=== PATIENT | female | born 1945 | race Caucasian/White ===

== ENCOUNTER 2019-04-17 19:11 | Emergency (ER) | payer MEDICARE, SELFPAY ==
[2019-04-17 19:12] VITALS: BP 140/101; BP 147/101; PULSE 84; PULSE 88; RESP 16; RESP 18; TEMP 37.2; O2SAT 93; O2SAT 97; BMI 25.4
--- NOTE | 2019-04-17 19:41 | ED_ITS ---
HPI - Fall General: Chief Complaint: Fall Stated Complaint: Fall Time Seen by Provider: 04/17/19 19:28 History of Present Illness: HPI Narrative: Patient is a 74-year-old female comes in taking the ED after a fall. Patient lives at home with her daughter and granddaughter. She has a past medical history of GERD than Parkinson's. Her fall occurred 2 nights ago. Patient states she was getting up in the middle the night was dark and she fell into the rocking chair. Her right upper arm hit the rocking chair she denies any head trauma or loss of consciousness. She was awake and alert the whole time. She was then able to get up after resting for a little while. She states ever since the fall she has had some soreness in the right arm and bruising. Patient is also complaining of her acid reflux. She states that she takes Protonix for reflux but would like to get a GI cocktail here in the ED. Patient is also on tramadol for chronic pain management. She is currently out of her tramadol and she cannot get into her doctor till April 26. She feels like since she's been out of her tramadol she is now having increasing pain in multiple areas of her body. Associated symptoms-after fall: Denies abdominal pain, chest pain, headache(s), hematuria or neck pain Review of Systems Const: Denies: fever, chills or fatigue Eyes: Denies: change in vision or eye discomfort ENMT: Denies: throat pain, painful swallowing, nasal discharge or nasal congestion Card: Denies: chest pain, palpitations, edema, swelling of feet/ankles, shortness of breath on exertion or shortness of breath when lying down Resp: Denies: shortness of breath, productive cough or non-productive cough GI: Denies: abdominal pain, nausea, vomiting, diarrhea, constipation or blood in stool : Denies: flank pain, painful urination or blood in urine Musc: Reports: back pain (chronic) and extremity pain (Right upper arm); Denies: neck pain or extremity swelling Skin/Breast: Reports: rash (Underneath her left Breast); Denies: new lesion Neuro: Denies: headache, numbness in extremities or weakness in extremities [facility] ED PFSH: Social History Smoking and tobacco status: never smoked Physical Exam Narrative: EXAM NARRATIVE: Patient is a 74-year-old female with visible tremors in extremities and mouth. She is alert and oriented and answers my questions accordingly. Const: COMMON NORMALS: oriented x3 HENMT: COMMON NORMALS: normocephalic HEAD & SCALP: normocephalic MOUTH: oral and palatal mucosa normal THROAT: posterior oropharynx normal and uvula midline Neck/C-Spine: COMMON NORMALS: supple GENERAL: Yes normal visual inspection Resp: COMMON NORMALS: normal respiratory effort, no retractions, no use of accessory muscles and clear to auscultation bilaterally AUSCULTATION: clear to auscultation bilaterally Cardio: COMMON NORMALS: regular rate, regular rhythm, S1 normal heart sound, S2 normal heart sound, no gallops, no clicks, no murmurs and peripheral pulses 2+ throughout RATE: regular rate RHYTHM: regular rhythm HEART SOUNDS: S1 normal and S2 normal PERIPHERAL PULSES: pulses 2+ throughout GI: COMMON NORMALS: normal to inspection, nondistended, normoactive bowel sounds, soft to palpation, non-tender and no masses PALPATION: Yes soft : COMMON NORMALS: Yes no CVA tenderness BLADDER/KIDNEY EXAM: Yes no CVA tenderness Back/Pelvis: COMMON NORMALS: no CVA tenderness Extremity: RIGHT UPPER EXTREMITY: Yes upper arm (Patient was able to move shoulder and elbow normal ROM-mild pain) Right upper arm: Yes inspection (large ecchymosis. No deformity), Yes palpation (mild tenderness) and Yes neurovascular exam (intact) RIGHT LOWER EXTREMITY: Yes ankle joint Right ankle: Yes inspection (normal, no swelling or ecchymosis), Yes palpation (non tender), Yes ROM (normal) and Yes neurovascular exam (intact) Neuro: JAMEL COMA SCALE: document GCS findings Freedom coma scale eye opening: Spontaneous Freedom coma scale verbal response: Orientated Jamel coma scale motor response: Obey commands Freedom coma scale total score: 15 COMMON NORMALS: oriented x3, CN's II-XII intact bilaterally, moves all extremities, no focal motor deficits and no sensory deficits noted COORDINATION/BALANCE: other (pateint has a resting tremor) COORDINATION: other (pateint has a resting tremor) Skin: NARRATIVE SKIN EXAM: The erythemic rash under left breast looked mostly due to irritation and not properly drying area. Patient stated she dries the area as well as she can. RASHES: rashes noted (Erythemic rash under left breast. Irritated. No drainage and not raised.) Course Vital Signs: Vital signs: Vital Signs Temperature 99 F 04/17/19 19:12 Pulse Rate 88 04/17/19 19:12 Respiratory Rate 18 04/17/19 19:12 Blood Pressure 140/101 04/17/19 19:12 Pulse Oximetry 97 04/17/19 19:12 MDM - Fall MDM Narrative: Medical decision making narrative: Patient is a 74-year-old female who comes in with chronic pain and is been out of her tramadol for several days now. Patient states that her chronic pain is getting worse. She tried to get into her primary care doctor sooner but the earliest she can get in his April 26. Patient states she would like a tramadol prescription. Imaging Data^: Xray Ortho: Attestation: I personally reviewed and interpreted this imaging study as follows: My impression: X-ray of right humerus showed no acute fracture. Pending final radiology report. Discharge Plan Discharge Patient Disposition: Home, Self-Care Clinical Impression: Ecchymosis Contusion Qualifiers: Encounter type: initial encounter Contusion area: upper arm Laterality: right Qualified Code(s): S40.021A - Contusion of right upper arm, initial encounter Condition: Stable Discharge Orders: Discharge Order (Routine); Ordered 04/17/19 Ordered By: Shaheed Marsh Discharge Diet: Regular Discharge Activity: Increase activity as tolerated Patient Instructions: Contusion in Adults (ED) Activity Restrictions/Additional Instructions: Follow-up with PCP in 7-10 days for reevaluation. I'm sending you a prescription for tramadol for your pain. Apply ice on his part of arm to help the swelling laterally. Continue taking all home medications. Discharge Date/Time: 04/17/19 21:24 Coding Level of Care Code ED Genetic Physician for Armando Fwdanna Exam Comprehensive
--- NOTE | 2019-04-17 19:58 | XR_ITS ---
WS: [id number] [place] [id number] REASON FOR EXAM: fall with pain and ecchymosis FINDINGS: The humerus appears to be intact with no fractures noted. The shoulder and elbow were paola l. XR/[place] [id number] IMPRESSION: Negative right humerus.
[2019-04-17] MEDS: lidocaine 2% viscous 15 ML, aluminum-mag hydrox-simethicon 30 ML, sucralfate oral liq 1 GM PO (20:14)
[2019-04-17] MEDS: TRAMadol 50 mg Tablet PO (20:15)
[2019-04-17] MEDS: ondansetron 4 MG Tablet PO (21:16)
[2019-04-17] MEDS: HYDROcodone-acetaminophen 5-325 mg Tablet 1 TAB PO (21:16)
== END 2019-04-17 21:24 | disposition home or self-care (01) ==
PROVIDERS: Emergency Provider Physician Assistant
DX: S40.021A Contusion of right upper arm, initial encounter (principal); G20 Parkinson's disease; R40.2412 Glasgow coma scale score 13-15, at arrival to emergency department; W18.30XA Fall on same level, unspecified, initial encounter; Y92.009 Unspecified place in unspecified non-institutional (private) residence as the place of occurrence of the external cause; Z79.891 Long term (current) use of opiate analgesic
CPT/HCPCS: 73060; 99281; 99283; Q0162

== ENCOUNTER 2019-05-17 11:53 | Emergency (ER) | payer MEDICARE, SELFPAY ==
[2019-05-17 11:54] VITALS: BP 161/100; PULSE 98; RESP 18; TEMP 36.7; O2SAT 99; BMI 25.4
--- NOTE | 2019-05-17 11:54 | ED_ITS ---
Entered by Jolly Schrader, acting as scribe for Lance Brown DO HPI - Chest Pain General: Chief Complaint: Chest Pain Stated Complaint: Chest Pain Time Seen by Provider: 05/17/19 11:55 Source: patient and EMS Mode of arrival: EMS Limitations: no limitations History of Present Illness: HPI narrative: 74 yo female knot and chest pains on the Left chest. pt states this started 5 days ago. pt states she feels like there is a lump in her throat. pt has had a cough. pt has had shortness of breath. pt denies any other symptoms at this time. MD complaint: chest pain Onset (ago): day(s) (5 days ago) Timing of current episode: constant and still present Prior episodes: Yes Onset: during rest Pain location: left chest (knot feeling under L breast) Pain radiation: left arm Severity: moderate Quality: tightness Relieving factors: nothing Exacerbating factors: other (cough) Associated symptoms: Reports dyspnea, nausea and other (cough) Treatment prior to arrival: none Review of Systems General: Reports: 10 or more systems reviewed and unremarkable except in HPI and below Card: Reports: chest pain Resp: Reports: shortness of breath and productive cough GI: Reports: nausea PFSH ED PFSH: Medical History (Updated 05/17/19 @ 14:51 by Lance Brown DO) History of Parkinson's disease Surgical History (Updated 05/17/19 @ 12:03 by Jolly Schrader) History of carpal tunnel surgery History of foot surgery Social History Smoking and tobacco status: never smoked Physical Exam Const: COMMON NORMALS: no apparent distress, average body habitus, oriented x3, no limitations, healthy appearing, alert and well nourished HENMT: COMMON NORMALS: normocephalic, head/scalp atraumatic, hearing grossly normal bilaterally, external ears normal, EAC's normal, TM's normal bilaterally, external nose normal, nasal mucous membranes and turbinates normal, moist oral mucous membranes, oropharynx normal, dentition normal and gingiva normal HEAD & SCALP: normocephalic and atraumatic NOSE: external nose normal and nasal mucous membranes and turbinates normal EXTERNAL EAR: Yes external ears normal EXTERNAL AUDITORY CANAL: EAC's normal TYMPANIC MEMBRANE: TM's normal bilaterally Eye: COMMON NORMALS: PERRL, EOMs intact bilaterally, conjunctivae normal, no scleral icterus, no papilledema, normal visual kwan by confrontation and fundi normal bilaterally CONJUNCTIVA: Yes conjunctivae normal PUPIL: Yes PERRL DIRECT OPHTHALMOSCOPY: Yes no papilledema and Yes fundi normal bilaterally Neck/C-Spine: COMMON NORMALS: full ROM, no lymphadenopathy, supple, no meningeal signs, no JVD, thyroid normal and no carotid bruits THYROID: thyroid normal Cardio: COMMON NORMALS: no JVD, regular rate, regular rhythm, S1 normal heart sound, S2 normal heart sound, no gallops, no clicks, no murmurs, no rub and peripheral pulses 2+ throughout RATE: regular rate RHYTHM: regular rhythm HEART SOUNDS: S1 normal and S2 normal PERIPHERAL PULSES: pulses 2+ throughout GI: COMMON NORMALS: normal to inspection, nondistended, normoactive bowel sounds, soft to palpation, non-tender, no hepatosplenomegaly, no masses and no bruits PALPATION: Yes soft and Yes no hepatosplenomegaly : COMMON NORMALS: Yes no CVA tenderness and Yes external appearance normal BLADDER/KIDNEY EXAM: Yes no CVA tenderness Back/Pelvis: COMMON NORMALS: no CVA tenderness, thoracic and lumbar spine normal to inspection, no thoracic nor lumbar tenderness, thoraco-lumbar ROM normal and straight leg raise negative bilaterally Extremity: COMMON NORMALS: normal to inspection, full ROM, normal capillary refill, no joint enlargement, no clubbing, cyanosis or edema, no calf tenderness and no pedal edema Neuro: COMMON NORMALS: oriented x3 SENSORIUM/ORIENTATION: Yes alert MENINGEAL SIGNS: Yes no meningeal signs Skin: COMMON NORMALS: no rashes or lesions noted, no wounds, skin turgor normal, no jaundice, no petechiae and no mottling GENERAL SKIN EXAM: no rashes or lesions noted and turgor normal Course Vital Signs: Vital signs: Vital Signs Temperature 98.1 F 05/17/19 11:54 Pulse Rate 98 05/17/19 11:54 Respiratory Rate 18 05/17/19 11:54 Blood Pressure 161/100 05/17/19 11:54 Pulse Oximetry 99 05/17/19 11:54 MDM - Chest Pain Lab Data: Labs: Lab Results 05/17/19 05/17/1920 Range/Units 12:14 12:14 12:14 WBC 8.0 (4.0-10.0) 10^3/ uL RBC 4.53 (4.1-5.3) 10^6/u L Hgb 13.0 (11.5-15.3) g/dL Hct 41.2 (37.0-47.0) % MCV 90.9 (81-99) fL MCH 28.7 (28.0-34.0) pg MCHC 31.6 (30.0-36.0) g/dL RDW 13.9 (12.1-15.1) % Plt Count 304 (130-400) 10^3/c mm MPV 10.8 H (7.4-10.4) fL Neut % (Auto) 77.9 % Lymph % (Auto) 15.2 % [place] % (Auto) 6.3 % Eos % (Auto) 0.1 % Baso % (Auto) 0.4 % Neut # (Auto) 6.2 (1.8-7.7) 10^3/u L Lymph # (Auto) 1.2 (0.8-4.8) 10^3/u L [place] # (Auto) 0.5 (0.2-0.9) 10^3/u L Eos # (Auto) 0.0 (0.0-0.8) 10^3/u L Baso # (Auto) 0.0 (0.0-0.1) 10^3/u L Nucleated RBC % (a uto) 0 % Nucleated RBCs # 0.0 /100WBC Sodium 136 (136-145) mmol/L Potassium 4.1 (3.5-5.1) mmol/L Chloride 98 (98-107) mmol/L Carbon Dioxide 23 (22-29) mmol/L Anion Gap 19.1 H (5-19) BUN 12 (8-23) mg/dL Creatinine 1.0 H (0.5-0.9) mg/dL Glucose 108 (65-115) mg/dL Calculated Osmolal ity 279 L (285-295) mOsm/k g Calcium 10.2 (8.5-10.5) mg/dL Total Bilirubin 0.5 (0.15-1.2) mg/dL AST 14 (0-32) U/L ALT 8 (0-33) U/L Alkaline Phosphata se 94 (35-105) IU/L Troponin T Baselin e 6 (0-10) ng/mL Troponin T 120 Min [place] (0-10) ng/mL Delta Troponin T (0-10) ABS# NT-Pro-B Natriuret Pep 216 (0-450) pg/mL Total Protein 7.6 (6.6-8.7) g/dL Albumin 4.6 (3.5-5.2) g/dL Globulin 3.0 (1.3-4.6) g/dL Urine Color (Yellow) Urine Appearance (CLEAR) Urine pH (5-7) Ur Specific Gravit y (1.005-1.030) Urine Protein (Negative) Urine Glucose (UA) (Normal) Urine Ketones (Negative) Urine Blood (Negative) Urine Nitrate (Negative) Urine Bilirubin (NEGATIVE) Urine Urobilinogen (Negative) mg/dL Ur Leukocyte Melisa ase (Negative) Influenza Type A A g (Negative) POC Influenza B Ag (Negative) 05/17/19 05/17/19 05/17/19 Range/Units 13:24 13:49 14:16 WBC (4.0-10.0) 10^3/ uL RBC (4.1-5.3) 10^6/u L Hgb (11.5-15.3) g/dL Hct (37.0-47.0) % MCV (81-99) fL MCH (28.0-34.0) pg MCHC (30.0-36.0) g/dL RDW (12.1-15.1) % Plt Count (130-400) 10^3/c mm MPV (7.4-10.4) fL Neut % (Auto) % Lymph % (Auto) % [place] % (Auto) % Eos % (Auto) % Baso % (Auto) % Neut # (Auto) (1.8-7.7) 10^3/u L Lymph # (Auto) (0.8-4.8) 10^3/u L [place] # (Auto) (0.2-0.9) 10^3/u L Eos # (Auto) (0.0-0.8) 10^3/u L Baso # (Auto) (0.0-0.1) 10^3/u L Nucleated RBC % (a uto) % Nucleated RBCs # /100WBC Sodium (136-145) mmol/L Potassium (3.5-5.1) mmol/L Chloride (98-107) mmol/L Carbon Dioxide (22-29) mmol/L Anion Gap (5-19) BUN (8-23) mg/dL Creatinine (0.5-0.9) mg/dL Glucose (65-115) mg/dL Calculated Osmolal ity (285-295) mOsm/k g Calcium (8.5-10.5) mg/dL Total Bilirubin (0.15-1.2) mg/dL AST (0-32) U/L ALT (0-33) U/L Alkaline Phosphata se (35-105) IU/L Troponin T Baselin e (0-10) ng/mL Troponin T 120 Min [place] 6.00 (0-10) ng/mL Delta Troponin T 0 (0-10) ABS# NT-Pro-B Natriuret Pep (0-450) pg/mL Total Protein (6.6-8.7) g/dL Albumin (3.5-5.2) g/dL Globulin (1.3-4.6) g/dL Urine Color Straw (Yellow) Urine Appearance Clear (CLEAR) Urine pH 5 (5-7) Ur Specific Gravit y 1.010 (1.005-1.030) Urine Protein Neg (Negative) Urine Glucose (UA) Norm (Normal) Urine Ketones Negative (Negative) Urine Blood Neg (Negative) Urine Nitrate Negative (Negative) Urine Bilirubin Neg (NEGATIVE) Urine Urobilinogen Norm (Negative) mg/dL Ur Leukocyte Melisa ase Negative (Negative) Influenza Type A A g Negative (Negative) POC Influenza B Ag Negative (Negative) Discharge Plan Discharge Patient Disposition: Home, Self-Care Clinical Impression: Chest pain Qualifiers: Chest pain type: unspecified Qualified Code(s): R07.9 - Chest pain, unspecified Condition: Stable Prescriptions: No Action famotidine [Pepcid] 40 mg Tablet 40 mg PO BID RF: 0 tramadol [Ultram] 50 mg Tablet See Rx Instructions .ROUTE .COMPLEX RF: 0 pantoprazole [Protonix] 40 mg Tablet,Delayed Release (Dr/Ec) 40 mg PO DAILY RF: 0 promethazine 25 mg Tablet 25 mg PO Q8H PRN (Reason: Nausea) RF: 0 carbidopa-levodopa 25-100 mg tablet 1.5 tab PO TID RF: 0 pregabalin [Lyrica] 225 mg Capsule 225 mg PO BID RF: 0 Multiple Vitamins Tablet 1 tab PO DAILY RF: 0 Aspir-81 81 mg Tablet,Delayed Release (Dr/Ec) 81 mg PO DAILY RF: 0 Motion Sickness 50 mg Tablet 50 - 100 mg PO PRN RF: 0 Benadryl 25 mg Capsule 50 mg PO PRN RF: 0 Nyquil See Rx Instructions .ROUTE .COMPLEX RF: 0 Pepto-Bismol See Rx Instructions .ROUTE .COMPLEX RF: 0 Discharge Orders: Discharge Order (Routine); Ordered 05/17/19 Ordered By: Lance Brown Referrals: Carmelita Balderrama, MEREDITH [Primary Care Provider] - Coding Level of Care Code ED Locket Maker for Chg Fwd Exam Comprehensive The documentation recorded by the Raciel zaragoza Bridget Annette, accurately reflects the service I personally performed and the decisions made by Stephanie huber Donald P, May 17, 2019 11:53
--- NOTE | 2019-05-17 12:05 | ECG_ITS ---
Measurements Intervals Cash Rate: 97 P: 55 MT: 155 QRS: -45 QRSD: 84 T: 22 QT: 352 QTc: 447 SINUS RHYTHM WITH OCCASIONAL ECTOPIC PREMATURE COMPLEXES PATTERN CONSISTENT WITH PULMONARY DISEASE LEFT ANTERIOR FASCICULAR BLOCK [QRS AXIS <= -45, QR IN I, RS IN II] VOLTAGE CRITERIA FOR LVH [MEETS CRITERIA IN ONE OF: R(aVL), S(V1), R(V5), R(V (V5/V6)+S(V1)] Compared to ECG 01/13/2019 10:35:44 Left anterior fascicular block now present Left-axis deviation no longer present Electronically Signed On 05-18-2019 12:41:52 CDT by Arnold Cline [email or web address]
--- NOTE | 2019-05-17 12:05 | XR_ITS ---
WS: [id number] XR chest 1V portable [id number] REASON FOR EXAM: chest pain FINDINGS: Scoliotic curve convex to the right. The heart and mediastinum were normal. The lung kwan are well aerated. No pneumonia, pleural effusion, pulmonary edema, no mass effect. No osseous abnormalities. Arteriosclerotic changes in the arch of the aorta. XR/XR chest 1V portable [id number] IMPRESSION: Negative chest for acute pathology. Arteriosclerotic changes.
[2019-05-17 12:22] LABS: Basophils % 0.4 %; Eosinophils % 0.1 %; Hematocrit 41.2 % (37.0-47.0); Lymphocytes # 1.2 10^3/uL (0.8-4.8); Lymphocytes % 15.2 %; Mean Corpuscular HGB Conc 31.6 g/dL (30.0-36.0); Mean Corpuscular Hemoglobin 28.7 pg (28.0-34.0); Mean Corpuscular Volume 90.9 fL (81-99); Mean Platelet Volume 10.8 fL (7.4-10.4); Monocytes # 0.5 10^3/uL (0.2-0.9); Monocytes % 6.3 %; Neutrophils # 6.2 10^3/uL (1.8-7.7); Neutrophils % 77.9 %; Nucleated Red Blood Cells % 0 %; Platelet Count 304 10^3/cmm (130-400); Red Blood Count 4.53 10^6/uL (4.1-5.3); Red Cell Distribution Width 13.9 % (12.1-15.1)
[2019-05-17 12:40] LABS: Troponin(5th) Baseline 6 ng/mL (0-10)
[2019-05-17 12:47] LABS: Alanine Aminotransferase 8 U/L (0-33); Albumin Level 4.6 g/dL (3.5-5.2); Alkaline Phosphatase 94 IU/L (35-105); Anion Gap 19.1 (5-19); Aspartate Amino Transferase 14 U/L (0-32); Blood Urea Nitrogen 12 mg/dL (8-23); Calcium 10.2 mg/dL (8.5-10.5); Carbon Dioxide 23 mmol/L (22-29); Chloride 98 mmol/L (98-107); Glucose 108 mg/dL (65-115); NT Pro B Type Natriuretic Pept 216 pg/mL (0-450); Osmolality Calculated 279 mOsm/kg (285-295); Potassium 4.1 mmol/L (3.5-5.1); Sodium 136 mmol/L (136-145); Total Bilirubin 0.5 mg/dL (0.15-1.2); Total Protein 7.6 g/dL (6.6-8.7)
[2019-05-17] MEDS: TRAMadol 50 mg Tablet PO ×2 (12:59→14:55)
[2019-05-17 13:59] LABS: Add Urine Microscopic? NO
[2019-05-17 14:01] LABS: Influenza A by IFA Negative (Negative); Influenza B by IFA Negative (Negative)
[2019-05-17 14:06] LABS: Urine Appearance Clear (CLEAR); Urine Color Straw (Yellow); pH Urine 5 (5-7)
[2019-05-17 14:07] LABS: Bilirubin Urine Neg (NEGATIVE); Blood Urine Neg (Negative); Glucose Urine UA Norm (Normal); Ketones Urine Negative (Negative); Leukocyte Esterase Urine Negative (Negative); Nitrate Urine Negative (Negative); Protein Urine Neg (Negative); Urobilinogen Urine Norm (Negative)
[2019-05-17 14:47] LABS: Troponin 5 2HR Delta 0 ABS# (0-10)
[2019-05-17 15:51] VITALS: BP 159/89; PULSE 101; RESP 16; O2SAT 65
--- NOTE | 2019-05-17 18:05 | ECG_ITS ---
Measurements Intervals [place] Rate: 108 P: 64 AK: 150 QRS: -44 QRSD: 81 T: 41 QT: 329 QTc: 442 SINUS TACHYCARDIA LEFT AXIS DEVIATION [QRS AXIS < -30] VOLTAGE CRITERIA FOR LVH [MEETS CRITERIA IN ONE OF: R(aVL), S(V1), R(V5), R (V5/V6)+S(V1)] Compared to ECG 01/13/2019 10:35:44 Sinus rhythm no longer present Electronically Signed On 05-18-2019 12:46:57 CDT by Arnold Cline [email or web address]
== END 2019-05-17 16:18 | disposition home or self-care (01) ==
PROVIDERS: Emergency Provider Family Medicine; PCP Nurse Practitioner Family
DX: R07.9 Chest pain, unspecified (principal); G20 Parkinson's disease
CPT/HCPCS: 12345; 36415; 71045; 80053; 81003; 83880; 84484; 85025; 87804; 93005; 93010; 99283; 99284

== ENCOUNTER 2019-09-04 10:48 | Emergency (ER) | payer MEDICARE, SELFPAY ==
[2019-09-04 10:49] VITALS: BP 135/77; PULSE 75; RESP 18; TEMP 37.1; O2SAT 96; BMI 27.4
--- NOTE | 2019-09-04 10:50 | CT_ITS ---
WS: [id number] CT CERVICAL SPINE HISTORY: fall TECHNIQUE: Contiguous 2.5 mm axial imaging performed through the entire cervical spine. Sagittal and coronal reformats also performed. All CT scans at [facility] use at least one of these do se optimization techniques: automated exposure control; mA and/or kV adjustment per patient size (inc ludes targeted exams where dose is matched to clinical indication); or iterative reconstruction. DLP: 545.73 mGy.cm COMPARISON: None available. Normal cervical alignment. Craniocervical junction is normal. No acute fractures are identified. Face t joints are narrowed but intact. Lateral masses of C1 and C2 are aligned. Odontoid is intact. Mild b ilateral facet joint arthritis. Mild to moderate foraminal stenosis within the cervical spine. No acu te disc herniations are identified. Soft tissues are negative. Lung apices are clear. CT/CT cervical spin wo con* [id number] IMPRESSION: 1. No acute cervical spine fracture. 2. Multilevel mild to moderate facet joint arthritis and foraminal stenosis. N o severe stenosis.
--- NOTE | 2019-09-04 10:50 | CT_ITS ---
WS: [id number] CT HEAD NONCONTRAST HISTORY: fall TECHNIQUE: Contiguous axial imaging performed through the brain in 2.5 mm imaging. Bone and soft tiss ue windows. Sagittal and coronal reformats reviewed. All CT scans at [facility] use at ast one of these dose optimization techniques: automated exposure control; mA and/or kV adjustment pe r patient size (includes targeted exams where dose is matched to clinical indication); or iterative r econstruction. DLP: 838.16 mGy.cm COMPARISON: 06/21/2018 No acute intracranial hemorrhage, midline shift or mass effect. Mild atrophy and mild chronic microvascular ischemic disease. Ventricles: Normal size with no hydrocephalus. Paranasal sinuses: As visualized are clear. Mastoid air cells: Well pneumatized. Calvarium and scalp: No skull fracture. Soft tissue edema and acute injury centered over the RIGHT te mporal region and zygomatic arch. CT/CT head wo con* [id number] IMPRESSION: 1. No acute intracranial hemorrhage or edema. 2. Mild soft tissue injury centered over the RIGHT temporal bone and zygomatic arch. 3. No fractures are identified.
--- NOTE | 2019-09-04 10:51 | W.ED.FALL ---
HPI - Fall General: Chief Complaint: Fall Stated Complaint: FALL Time Seen by Provider: 09/04/19 10:50 Source: patient and EMS Mode of arrival: EMS Limitations: no limitations History of Present Illness: HPI Narrative: 74-year-old female who states she fell off the last step of a camper last night. States landed on her right wrist and has right wrist pain along with bruising. States pain is a 5 out of 10. States she also struck her head. She denies any loss of consciousness does have slight headache and neck pain. Patient is on aspirin daily. She denies any pain elsewhere. complaint: fall Onset (ago): day(s) Fall from: standing Fall witnessed: yes, by family Loss of consciousness: None Associated symptoms-after fall: Denies abdominal pain, chest pain or headache(s) Review of Systems Const: Denies: fever(s), chills, body aches or change in appetite Eyes: Denies: blurry vision or eye discomfort ENMT: Denies: throat pain or dental pain Card: Denies: chest pain Resp: Denies: dyspnea GI: Denies: abdominal pain, nausea, vomiting or diarrhea : Denies: dysuria Musc: Reports: joint pain Skin/Breast: Denies: rash Neuro: Denies: headache(s) Psych: Denies: depression Rashad/Lymph: Denies: easy bruising All/Imm: Denies: urticaria PFSH ED PFSH: Medical History (Updated 09/04/19 @ 13:09 by Felecia Loyd MD) History of Parkinson's disease Surgical History History of carpal tunnel surgery History of foot surgery Social History Smoking and tobacco status: never smoked Physical Exam Const: COMMON NORMALS: no acute distress, patient oriented x3 and healthy appearing HENMT: COMMON NORMALS: normocephalic and atraumatic HEAD & SCALP: normocephalic and atraumatic Eye: COMMON NORMALS: Equal, round and reactive pupils present and EOMs intact bilaterally PUPIL: Yes Equal, round and reactive pupils present Neck/C-Spine: COMMON NORMALS: full ROM and supple Chest: COMMONS NORMALS: normal inspection of the chest and normal palpation of entire chest wall Resp: COMMON NORMALS: normal respiratory effort, No retractions, No use of accessory muscles and clear to auscultation bilaterally AUSCULTATION: clear to auscultation bilaterally Cardio: COMMON NORMALS: regular rate, regular rhythm and No murmurs present (Cardio) RATE: regular rate RHYTHM: regular rhythm GI: COMMON NORMALS: Normal to inspection, nondistended, normoactive bowel sounds present, Soft to palpation, non-tender and no masses PALPATION: Yes Soft to palpation Extremity: COMMON NORMALS: normal to inspection NARRATIVE EXTREMITY EXAM: Contusion to right wrist with tenderness Neuro: COMMON NORMALS: patient oriented x3, moves all extremities and no focal motor deficits Psych: COMMON NORMALS: mental status grossly normal, Normal thought process present and cooperative THOUGHT PROCESS: Normal thought process present Skin: COMMON NORMALS: no rashes or lesions noted and no wounds GENERAL SKIN EXAM: no rashes or lesions noted Course Vital Signs: Vital signs: Vital Signs Temperature 98.8 F 09/04/19 10:49 Pulse Rate 84 09/04/19 11:27 Respiratory Rate 18 09/04/19 11:49 Blood Pressure 125/71 09/04/19 11:49 Pulse Oximetry 95 09/04/19 11:49 MDM - Fall MDM Narrative: Medical decision making narrative: Heidy presents here with fall and does have a wrist fracture to the right wrist. Patient placed in a splint and is to follow-up with orthopedics. Patient CT head and neck are normal. She is to return if worsening. Imaging Data^: xr r wrist: Radiologist's impression: [address] [place] [address] XRay Report Signed Patient: Heidy Linton Unit #: [id number] : 1945 Age/Sex: 74 / F ADM Date: 09/04/19 Loc: ER Room/Bed: Attending Dr: Ordering Provider/Ordering MD: Felecia Loyd MD Date of Service: 09/04/19 Procedure(s): XR wrist RT min 3V* [id number] Accession Number(s): [id number] Report Number: [id number] PROCEDURE INFORMATION: Exam: XR Right Wrist Exam date and time: 09/04/2019 11:13 AM Age: 74 years old Clinical indication: Pain and injury or trauma; Fall; Initial encounter; Blunt trauma (contusions or hematomas; Wrist; Right TECHNIQUE: Imaging protocol: XR Right wrist. Views: 3 or more views. COMPARISON: No relevant prior studies available. FINDINGS: Bones/joints: Acute, impacted, intra-articular fracture of the distal right radius with dorsal angulation of the major distal fracture fragment. Acute ulnar styloid avulsion fracture. Degenerative change. Soft tissues: Soft tissue swelling. XR/XR wrist RT min 3V* [id number] IMPRESSION: 1. Acute, impacted, intra-articular fracture of the distal right radius with dorsal angulation of the major distal fracture fragment. 2. Acute ulnar styloid avulsion fracture. CT Head: Radiologist's impression: Reason: fall [address] [place] [address] CT Scan Report Signed Patient: Heidy Linton Unit #: [id number] : 1945 Age/Sex: 74 / F ADM Date: 09/04/19 Loc: ER Room/Bed: Attending Dr: Ordering Provider/Ordering MD: Felecia Loyd MD Date of Service: 09/04/19 Procedure(s): CT head wo con* [id number] Accession Number(s): [id number] Report Number: [id number] WS: [id number] CT HEAD NONCONTRAST HISTORY: fall TECHNIQUE: Contiguous axial imaging performed through the brain in 2.5 mm imaging. Bone and soft tissue windows. Sagittal and coronal reformats reviewed. All CT scans at [facility] use at least one of these dose optimization techniques: automated exposure control; mA and/or kV adjustment per patient size (includes targeted exams where dose is matched to clinical indication); or iterative reconstruction. DLP: 838.16 mGy.cm COMPARISON: 06/21/2018 No acute intracranial hemorrhage, midline shift or mass effect. Mild atrophy and mild chronic microvascular ischemic disease. Ventricles: Normal size with no hydrocephalus. Paranasal sinuses: As visualized are clear. Mastoid air cells: Well pneumatized. Calvarium and scalp: No skull fracture. Soft tissue edema and acute injury centered over the RIGHT temporal region and zygomatic arch. CT/CT head wo con* [id number] IMPRESSION: 1. No acute intracranial hemorrhage or edema. 2. Mild soft tissue injury centered over the RIGHT temporal bone and zygomatic arch. 3. No fractures are identified. ct c spine: Radiologist's impression: [facility] [address] [address] CT Scan Report Signed Patient: Heidy Linton Unit #: [id number] : 1945 Age/Sex: 74 / F ADM Date: 09/04/19 Loc: ER Room/Bed: Attending Dr: Ordering Provider/Ordering MD: Felecia Loyd MD Date of Service: 09/04/19 Procedure(s): CT cervical spin wo con* [id number] Accession Number(s): [id number] Report Number: [id number] WS: [id number] CT CERVICAL SPINE HISTORY: fall TECHNIQUE: Contiguous 2.5 mm axial imaging performed through the entire cervical spine. Sagittal and coronal reformats also performed. All CT scans at [facility] use at least one of these dose optimization techniques: automated exposure control; mA and/or kV adjustment per patient size (includes targeted exams where dose is matched to clinical indication); or iterative reconstruction. DLP: 545.73 mGy.cm COMPARISON: None available. Normal cervical alignment. Craniocervical junction is normal. No acute fractures are identified. Facet joints are narrowed but intact. Lateral masses of C1 and C2 are aligned. Odontoid is intact. Mild bilateral facet joint arthritis. Mild to moderate foraminal stenosis within the cervical spine. No acute disc herniations are identified. Soft tissues are negative. Lung apices are clear. CT/CT cervical spin wo con* [id number] IMPRESSION: 1. No acute cervical spine fracture. 2. Multilevel mild to moderate facet joint arthritis and foraminal stenosis. No severe stenosis. Discharge Plan Discharge Patient Disposition: Home, Self-Care Clinical Impression: Fracture of wrist Qualifiers: Encounter type: initial encounter Fracture type: closed Laterality: right Qualified Code(s): S62.101A - Fracture of unspecified carpal bone, right wrist, initial encounter for closed fracture Condition: Stable Prescriptions: [place] 5-325 mg tablet 1 tab PO Q6H PRN (Reason: pain) Qty: 14 RF: 0 No Action pantoprazole [Protonix] 40 mg tablet,delayed release (DR/EC) 40 mg PO DAILY Qty: 30 RF: 0 famotidine [Pepcid] 40 mg Tablet 40 mg PO BID RF: 0 carbidopa-levodopa 25-100 mg tablet 1.5 tab PO TID RF: 0 pregabalin [Lyrica] 225 mg Capsule 225 mg PO BID RF: 0 multivitamin [Multiple Vitamins] Tablet 1 tab PO DAILY RF: 0 aspirin [Aspir-81] 81 mg Tablet,Delayed Release (Dr/Ec) 81 mg PO DAILY RF: 0 dimenhydrinate [Motion Sickness] 50 mg Tablet 50 - 100 mg PO PRN RF: 0 diphenhydramine HCl [Benadryl] 25 mg Capsule 50 mg PO PRN RF: 0 tramadol 50 mg tablet 50 mg PO Q6H PRN (Reason: pain) Qty: 30 RF: 0 Discharge Orders: Discharge Order (Routine); Ordered 09/04/19 Ordered By: Felecia Loyd Referrals: Carmelita Balderrama NP [Primary Care Provider] - 1-3 days Discharge Diet: Advance as tolerated Discharge Activity: Resume usual activity Patient Instructions: Wrist Fracture in Adults (ED) Coding Level of Care Code ED Overnight Houseperson for Armando Fwd Exam Comprehensive
--- NOTE | 2019-09-04 10:51 | W.ED.FALL ---
HPI - Fall General: Chief Complaint: Fall Stated Complaint: FALL Time Seen by Provider: 09/04/19 10:50 PFSH ED PFSH: Medical History (Updated 05/25/19 @ 00:00 by ) History of Parkinson's disease Surgical History (Updated 05/17/19 @ 12:03 by Jolly Schrader) History of carpal tunnel surgery History of foot surgery Social History Smoking and tobacco status: never smoked Discharge Plan Discharge Condition: Stable Prescriptions: No Action pantoprazole [Protonix] 40 mg tablet,delayed release (DR/EC) 40 mg PO DAILY Qty: 30 RF: 0 famotidine [Pepcid] 40 mg Tablet 40 mg PO BID RF: 0 tramadol [Ultram] 50 mg Tablet See Rx Instructions .ROUTE .COMPLEX RF: 0 promethazine 25 mg Tablet 25 mg PO Q8H PRN (Reason: Nausea) RF: 0 carbidopa-levodopa 25-100 mg tablet 1.5 tab PO TID RF: 0 pregabalin [Lyrica] 225 mg Capsule 225 mg PO BID RF: 0 Multiple Vitamins Tablet 1 tab PO DAILY RF: 0 Aspir-81 81 mg Tablet,Delayed Release (Dr/Ec) 81 mg PO DAILY RF: 0 Motion Sickness 50 mg Tablet 50 - 100 mg PO PRN RF: 0 Benadryl 25 mg Capsule 50 mg PO PRN RF: 0 Nyquil See Rx Instructions .ROUTE .COMPLEX RF: 0 Pepto-Bismol See Rx Instructions .ROUTE .COMPLEX RF: 0 tramadol 50 mg tablet 50 mg PO Q6H PRN (Reason: pain) Qty: 30 RF: 0 Coding Level of Care Code ED Mobile Ui Designer for Armando Gtz
[2019-09-04 11:27] VITALS: BP 135/71; PULSE 84; RESP 17; O2SAT 97
[2019-09-04] MEDS: HYDROcodone-acetaminophen 5-325 mg Tablet 1 TAB PO ×2 (11:38→13:48)
[2019-09-04 11:49] VITALS: BP 125/71; RESP 18; O2SAT 95
--- NOTE | 2019-09-04 13:37 | DCPLANNER ---
Addendum entered by Christiana Ferris 09/04/19 14:06: Pat from ortho called telephonic nurse case manager, stating that a follow up appointment is scheduled for Tuesday, September 05 at 8:[address] Chávez. Patient is aware of appointment. Original Note: marketing intelligence manager had message to schedule a follow up appointment for patient with ortho. marketing intelligence manager called the ortho clinic, spoke with Pat, gave clinic patients information. marketing intelligence manager was told that patients information would be printed and reviewed. Clinic will call patient with appointment information.
--- NOTE | 2019-09-04 13:51 | CT_ITS ---
WS: [id number] CT RIGHT WRIST with 3-D recon. HISTORY: fx/ 3d reconstruction Technique: All CT scans at [facility] use at least one of these dose optimization techniq ues: automated exposure control; mA and/or kV adjustment per patient size (includes targeted exams wh ere dose is matched to clinical indication); or iterative reconstruction. DLP: 271.79 mGy.cm COMPARISON: 09/04/2019 Comminuted, slightly impacted fracture involving the radial metaphysis. There is slight overlapping o f fracture fragments posteriorly. Ulna nondisplaced distal ulnar avulsion fracture. No additional fra ctures are appreciated. CT/CT wrist RT wo con* [id number] IMPRESSION: 1. Impacted radial metaphyseal fracture with dorsal angulation. 2. Nondisplaced ulnar avulsion fracture.
[2019-09-04] MEDS: ondansetron 4 MG Tablet PO (14:18)
[2019-09-04 14:19] VITALS: BP 119/54; PULSE 70; RESP 17; O2SAT 95
[2019-09-04 15:02] VITALS: BP 96/53; PULSE 82; RESP 18; O2SAT 92
[2019-09-04 16:03] VITALS: BP 124/70; PULSE 81; RESP 18; O2SAT 94
--- NOTE | 2019-09-08 14:43 | DCPLANNER ---
Patient did attend appointment scheduled for 09.06.19 with ortho.
== END 2019-09-04 16:07 | disposition home or self-care (01) ==
PROVIDERS: Emergency Provider Emergency Medicine; PCP Nurse Practitioner Family
DX: S52.571A Other intraarticular fracture of lower end of right radius, initial encounter for closed fracture (principal); S52.611A Displaced fracture of right ulna styloid process, initial encounter for closed fracture; W10.8XXA Fall (on) (from) other stairs and steps, initial encounter; G20 Parkinson's disease
CPT/HCPCS: 12345; 29125; 70450; 72125; 73110; 73200; 99281; 99283; Q0162

== ENCOUNTER 2019-09-05 13:21 | Emergency (ER) | payer MEDICARE, SELFPAY ==
[2019-09-05 13:27] VITALS: BMI 27.4
[2019-09-05 13:30] VITALS: BP 155/105; PULSE 85; RESP 16; TEMP 36.7; O2SAT 92
--- NOTE | 2019-09-05 13:56 | W.ED.EXTPRO ---
HPI - Extremity Problem General: Chief complaint: Extremity Injury, Upper Stated complaint: FALL, OUT OF TRAMADOL Time Seen by Provider: 09/05/19 13:23 History of Present Illness: HPI Narrative: 74-year-old female who was seen yesterday for wrist fracture. She ran out of her tramadol she had some hydrocodone for the hydrocodone make her sick so she stopped taking it. She has an appointment tomorrow with Ortho for surgical reduction of the fracture. She is very histrionic and anxious in the emergency room she wants to be admitted to the hospital simply because she does not feel like she can stay at home. She has a appropriate splint on the right wrist fracture she has no other issues she is not fallen or had any other problems. MD Complaint: extremity pain Onset (ago): day(s) Pain Consistency: intermittent Location: right Quality: aching Radiation: distal Relieving factors: medication Exacerbating factors: range of motion Associated symptoms: Reports arthralgias; Deny chest pain, fever(s) or rash Context: other (Recent fall right wrist fracture) Review of Systems Const: Denies: fever(s), chills, body aches, change in appetite, fatigue or malaise ENMT: Denies: throat pain, ear or mastoid pain, nasal discharge or nasal congestion Card: Denies: chest pain, edema, dyspnea on exertion or orthopnea Resp: Denies: dyspnea, productive cough or non-productive cough GI: Denies: abdominal pain, nausea, vomiting, hematemesis, coffee ground emesis, diarrhea, constipation, bloating, hematochezia or melena : Denies: flank pain, difficulty voiding, dysuria, urinary frequency or urinary urgency Skin/Breast: Denies: rash or pruritus PFSH ED PFSH: Medical History History of Parkinson's disease Surgical History History of carpal tunnel surgery History of foot surgery Social History Smoking and tobacco status: never smoked Physical Exam Const: COMMON NORMALS: no acute distress GENERAL APPEARANCE: cooperative and comfortable ORIENTATION/CONSCIOUSNESS: Yes awake, Yes oriented to person, Yes oriented to place and Yes oriented to time Eye: COMMON NORMALS: Equal, round and reactive pupils present, EOMs intact bilaterally, conjunctivae normal and no scleral icterus CONJUNCTIVA: Yes conjunctivae normal PUPIL: Yes Equal, round and reactive pupils present Neck/C-Spine: COMMON NORMALS: full ROM, no lymphadenopathy, supple and no JVD Lymph: LYMPHATIC: no lymphadenopathy noted and no lymphedema noted Resp: COMMON NORMALS: normal respiratory effort, No retractions, No use of accessory muscles and clear to auscultation bilaterally AUSCULTATION: clear to auscultation bilaterally Cardio: COMMON NORMALS: no JVD, regular rate, regular rhythm and No murmurs present (Cardio) RATE: regular rate RHYTHM: regular rhythm GI: COMMON NORMALS: Soft to palpation and No hepatosplenomegaly present AUSCULTATION: Yes normoactive bowel sounds PALPATION: Yes Soft to palpation, No Tenderness to palpation present (GI), No Guarding due to palpation present (GI) and Yes No hepatosplenomegaly present Extremity: COMMON NORMALS: normal to inspection, capillary refill normal, no clubbing, cyanosis or edema, no calf tenderness and no pedal edema NARRATIVE EXTREMITY EXAM: Splint in place on the right arm with good capillary refill good range of motion of the fingertips where they are exposed. Neuro: SENSORIUM/ORIENTATION: Yes oriented to person, Yes oriented to place and Yes oriented to time Skin: COMMON NORMALS: no rashes or lesions noted GENERAL SKIN EXAM: no rashes or lesions noted Course Vital Signs: Vital signs: Vital Signs Temperature 98.1 F 09/05/19 13:30 Pulse Rate 70 09/05/19 14:07 Respiratory Rate 15 09/05/19 14:07 Blood Pressure 157/88 09/05/19 14:07 Pulse Oximetry 97 09/05/19 14:07 MDM - Extremity (Nontraumatic) MDM Narrative: Medical decision making narrative: Refill tramadol. Patient is extremely anxious give her half milligram Ativan discharge home follow-up with Ortho tomorrow as planned Discharge Plan Discharge Patient Disposition: Home, Self-Care Clinical Impression: Fracture of wrist Condition: Stable Prescriptions: New tramadol 50 mg tablet 50 mg PO Q6H PRN (Reason: pain) Qty: 20 RF: 0 No Action pantoprazole [Protonix] 40 mg tablet,delayed release (DR/EC) 40 mg PO DAILY Qty: 30 RF: 0 famotidine [Pepcid] 40 mg Tablet 40 mg PO BID RF: 0 carbidopa-levodopa 25-100 mg tablet 1.5 tab PO TID RF: 0 pregabalin [Lyrica] 225 mg Capsule 225 mg PO BID RF: 0 multivitamin [Multiple Vitamins] Tablet 1 tab PO DAILY RF: 0 aspirin [Aspir-81] 81 mg Tablet,Delayed Release (Dr/Ec) 81 mg PO DAILY RF: 0 dimenhydrinate [Motion Sickness] 50 mg Tablet 50 - 100 mg PO PRN RF: 0 diphenhydramine HCl [Benadryl] 25 mg Capsule 50 mg PO PRN RF: 0 tramadol 50 mg tablet 50 mg PO Q6H PRN (Reason: pain) Qty: 30 RF: 0 [place] 5-325 mg tablet 1 tab PO Q6H PRN (Reason: pain) Qty: 14 RF: 0 Discharge Orders: Discharge Order (Routine); Ordered 09/05/19 Ordered By: Ben Maddox Referrals: Carmelita Balderrama NP [Primary Care Provider] - Discharge Diet: Advance as tolerated Discharge Activity: Resume usual activity Activity Restrictions/Additional Instructions: Follow-up with Ortho as scheduled tomorrow. Discharge Date/Time: 09/05/19 14:08 Coding Level of Care Code ED Steward/Stewardess Dining Room for Armando Gtz
[2019-09-05] MEDS: LORazepam 1 mg Tablet 0.5 MG PO (14:06)
[2019-09-05 14:07] VITALS: BP 157/88; PULSE 70; RESP 15; O2SAT 97
== END 2019-09-05 14:08 | disposition home or self-care (01) ==
PROVIDERS: Emergency Provider Family Medicine; PCP Nurse Practitioner Family
DX: Z76.0 Encounter for issue of repeat prescription (principal); S62.101A Fracture of unspecified carpal bone, right wrist, initial encounter for closed fracture; X58.XXXA Exposure to other specified factors, initial encounter; G20 Parkinson's disease
CPT/HCPCS: 12345; 99281; 99283

== ENCOUNTER 2019-09-06 11:00 | Day surgery (SDC) | payer MEDICARE, SELFPAY ==
[2019-09-06] VITALS (10 sets, daily range): BP systolic 105–140; BP diastolic 59–80; PULSE 62–97; RESP 12–28; TEMP 36.2–36.6; O2SAT 94–100; BMI 25.6
--- NOTE | 2019-09-06 | XR_ITS ---
WS: [id number] C-ARM RADIOGRAPHS RIGHT WRIST; 6 IMAGES HISTORY: ORIF OF WRIST COMPARISON: 09/04/2019 Plate and screw fixation distal radial fracture in good alignment. Posterior displacement has been re duced. XR/XR wrist RT min 3V* [id number] IMPRESSION: Status post intraoperative fixation distal radial fracture in good alignment.
--- NOTE | 2019-09-06 | SCC_ITS ---
Procedure Done: Open right internal fixation with dorsal plate and screws for 3 part intra-articular fracture right distal radius Fluoroscopic guidance was provided to Dr. Chávez by the radiology department. C-arm images of the RIGHT wrist were saved for the patient's permanent record. LYUBOV
[2019-09-06] MEDS: ketorolac 30 mg/mL INJ IVP (12:15)
[2019-09-06] MEDS: sodium chloride 0.9% 1,000 ML 999 ML IV (12:15)
[2019-09-06] MEDS: gabapentin 300 mg Capsule PO (12:16)
--- NOTE | 2019-09-06 12:20 | ANES.PREANE2 ---
Pre-Anesthetic Assessment Pre-Anesthetic Assessment: Height/Weight: Height 1.57 m Weight 63.503 kg Preop Diagnosis: displaced right distal radius fracture Proposed Procedure: Operation Date: 09/06/19 12:30 Proposed Procedures p ORIF Wrist/69077 S52.501A(Right) - Giuseppe Chávez DO Last intake: Intake Last Liquid Date 09/06/19 Last Liquid Time 00:00 Last Solid Date 09/06/19 Last Solid Time 00:00 Exam: Pre-Anes Outpt Exam: alert, oriented x 3, clear to auscultation bilaterally and regular rate & rhythm Airway: Submandibular: WNL Cervical ROM: Other (limited) MP: 2 Dentition: Other (teeth ok) History/ROS: No significant history except as noted Pulmonary: Pulmonary: RAI CV/HEM: Comments: dyastolic heart dysfunction : : None reported Hepatic: Hepatic: None reported GI: GI: GERD Metabolic: Metabolic: None reported Musc/skel: Musc/skel: OA/DJD Neuropsych: Comments: parkinsons dz Anesthetic Plan: ASA status: 2 Anesthesia: Anesthesia Evaluation, Eval. for regional block, General, MAC and Regional (specify below) (right axillary) Risk of > 500 ml blood loss (7ml/kg in children): No PFSH Anesthesia PFSH: Medical History History of Parkinson's disease Surgical History History of carpal tunnel surgery History of foot surgery Social History Smoking and tobacco status: never smoked Data Anesthesia Cardiac Studies: No Data to Display
[2019-09-06] MEDS: fentaNYL 50 mcg/mL INJ 2mL IVP (12:37)
[2019-09-06] MEDS: midazolam 1 mg/mL INJ 2 mL 2 MG IVP (12:38)
--- NOTE | 2019-09-06 13:09 | SUR.PREOP ---
RIGHT AXILLARY NERVE BLOCK PERFORMED BY DOCTOR CASTELLON. PT TOLERATED PROCEDURE WELL. STATES RELIEF OF RIGHT WRIST PAIN.
--- NOTE | 2019-09-06 13:15 | ANES.PROC ---
Anesthesia Procedures Procedure/Date: 09/06/19 Nerve Block ^: Nerve Block 1: Main Anesthesia: general anesthesia Time Out Performed: Yes Consent: requested by attending/covering physician, risks and benefits reviewed and patient agrees to proceed Nerve block location: axillary (right) Anesthesia monitors applied: pulse oximetry, EKG, BP cuff and oxygen Nerve block position: semi sitting Anesthetic Used: ropivicaine 0.5% and with decadron (4 mg) Amount of anesthesia used (mL): 30 Ultrasound used to: recognize landmarks Nerve Stimulator Used?: Yes Interscalene/Femoral BLK: 2 stimuplex 22 g needle used for position and inplane approach, visualize local anesthetic spread and no vascular puncture identified Injection: neg aspiration of heme Patient Tolerated Procedure: well and no complications Complications: none
--- NOTE | 2019-09-06 13:23 | P.OP_ITS ---
Operative Report Date of procedure: September 06, 2019 Pre-op Diagnosis: displaced right 3 part distal radius fracture with associated ulnar styloid Post-op diagnosis: same Procedure Done: Open right internal fixation with dorsal plate and screws for 3 part intra-articular fracture right distal radius Posterior interosseous neurectomy for postoperative pain relief Implants: Mandy plate and screws Pathology: Segment of posterior interosseous nerve Surgeon: Giuseppe Chávez Anesthesia: General and Nerve Block Tourniquet time (min): 73 (250 mmHg pressure) Condition: stable Disposition: PACU Brief History: 74-year-old white female who fell at home perhaps on or about 03 September sustaining an injury to her right distal radius. She was seen in the emergency room and images showed impacted and displaced intra-articular fracture with multiple fragments on the dorsal surface of the distal radius with associated ulnar styloid fracture. CT scan confirmed this. Is felt best to roula rivas this fracture from the dorsum to use the plate as a buttress to the dorsal fragments. The fracture is very clean without any comminution on the volar aspect of distal radius. Risk, benefits and potential complications of surgery were discussed with the patient. Conservative treatment was not recommended due to potential for displacement and development of disabling arthritis. Specific complication of surgery can include infection nerve/blood vessel/10 injury, symptomatic hardware she could very require removal. There is a potential for infection, medical complications can include blood clots, heart attack, stroke risk up to including . All questions answered patient agreeable to proceed with surgery. Procedure: 600 mg clindamycin IV Patient identified. Surgical site was signed. Surgical permit was signed. The patient received 600 mg of clindamycin intravenously for surgical prophylaxis. In the preoperative holding area she received a right sided axillary nerve block for postoperative analgesia. She was taken the operating. She is placed supine on the OR table. She is placed under general anesthesia without difficulty. A tourniquet was placed about the upper aspect of the right upper extremity. The right upper extremities and sterilely prepped and draped in usual fashion. A timeout was performed. The operative limb was exsanguinated using Esmarch bandage tourniquet inflated to 250 mmHg pressure. A lazy S type incision on the dorsum of the right hand wrist and forearm was made beginning at the midportion of the carpus and extending to the proximal and middle third junction of the forearm. Full-thickness skin flaps were developed. Crossing veins coagulated bipolar cautery. Identified the extensor pollicis longus tendon sheath and release this. Elevated the extensor retinaculum medially and ulnarly exposing the underlying tendons of the second dorsal extensor compartment as well as the fourth. The extensor pollicis longus tendon along with the extensor carpi radialis brevis and longus tendons were swept radially while the tendons of the fourth dorsal extensor compartment were swept ulnarly using a self-retaining retractor. Identified the posterior interosseous nerve on the radial aspect of the fourth dorsal extensor compartment approximately centimeter and a half segment of this nerve was resected for postoperative long-term pain relief. There were numerous fracture lines on the dorsum of the distal radius consistent with images seen on the preoperative CT scan. We applied traction to the wrist to bring the wrist out to length. A total of 10 pounds of traction were used to be a sterile finger traps. I wanted to use an osteotome preoperatively to remove Lukasz's tubercle to allow a dorsal plate to sit more flat. That was unnecessary to use an osteotome as this was an area of comminuted fracture of the dorsum of the distal radius. This was removed simply with a rondure. There was a dorsal to palmar fracture plane. I exploited this and placed an elevator in this area and wedge the dorsum of the distal radius distally creating a V shaped wedge defect to help reestablish the normal palmar tilt of the distal radius. In this void we placed synthetic bone graft materia [place] [employer]. We then took a dorsal locking plate from Mandy of the appropriate length and applied this over the dorsum of the distal radius. Using fluoroscopic imaging we pinned it at the appropriate height to prevent screw intrusion from the dorsal aspect and entering the joint. Is pinned in place both proximally and distally. We first placed a cortical screw through the elongated slot for compression of the plate down to bone. We then placed a series of locking screws. Used fluoroscopic imaging to verify appropriate placement of the screws and appropriate length. Anatomic reduction was achieved. No apparent complications noted K wire securing the plate in place were removed. The wound was irrigated Betadine containing saline solution antibiotic-containing saline solution. We then repaired the retinaculum with interrupted sutures of 4-0 Monocryl. I took a strip of the retinaculum in place that deep to the extensor pollicis longus tendon in order to help prevent any irritation of the EPL tendon from the underlying plate and screws. Incision was then closed in layers with sutures on skin. Antibiotic ointment was applied. Sterile dressings were applied tourniquet was deflated during application of dressings. Dorsal and volar plaster slabs were applied with an Ajit overwrap to make a short arm splint for the patient. The patient was aroused from general anesthesia. She was taken to recovery room. She tolerated surgery well. All counts are correct.
[2019-09-06] MEDS: clindamycin 600 MG/50 ML PREMIX 100 MG IV (13:45)
--- NOTE | 2019-09-06 14:00 | SUR.OPER ---
Addendum entered by Sandra Dimas RN 09/06/19 14:00: attempted to notify daughter of start of surgery. phone number incorrect. Original Note: attempted to notified
--- NOTE | 2019-09-06 15:25 | SUR.PHASEI ---
1523 PATIENT TO PACU AT THIS TIME. ORAL AIRWAY IN PLACE, SPO2 99% ON SIMPLE MASK AT 8L. DRESSING INTACT TO RIGHT WRIST, WITH KATHARINE WRAP AND SLING. CAP REFILL INTACT. PATIENT RESTING ON GURNEY, APPEARS IN NO PAIN.
--- NOTE | 2019-09-06 15:30 | SUR.PHASEI ---
1529 ORAL AIRWAY REMOVED AT THIS TIME. SPO2 98% ON RA
--- NOTE | 2019-09-06 15:50 | SUR.PHASEI ---
1547 PATIENT TO OPS. TOLERATING ICE CHIPS, DENIES NAUSEA. DRESSING INTACT TO RIGHT WRIST WITH SLING IN PLACE.
== END 2019-09-06 17:05 | disposition home health service (06) ==
PROVIDERS: PCP Nurse Practitioner Family; Visit Provider Orthopaedic Surgery
PROC: (CPT 25609; principal; 2019-09-06 12:30)
DX: S52.601A Unspecified fracture of lower end of right ulna, initial encounter for closed fracture (principal); W01.0XXA Fall on same level from slipping, tripping and stumbling without subsequent striking against object, initial encounter; Z79.82 Long term (current) use of aspirin; G20 Parkinson's disease; Z79.891 Long term (current) use of opiate analgesic; K21.9 Gastro-esophageal reflux disease without esophagitis; M19.90 Unspecified osteoarthritis, unspecified site
CPT/HCPCS: 25609; 12345; 73110; 76000; 88300; 96365; 96374; 96375; C1713; J0131; J0330; J1100; J1580; J1885; J2001; J2250; J2405; J2704; J2795; J3010; J3490; J7030

== ENCOUNTER 2019-09-17 07:44 | Emergency (ER) | payer MEDICARE, SELFPAY ==
[2019-09-17 07:45] VITALS: BMI 27.4
[2019-09-17 07:54] VITALS: BP 160/100; PULSE 92; RESP 18; TEMP 36.4; O2SAT 95
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
--- NOTE | 2019-09-17 07:57 | XRR_ITS ---
PROCEDURE INFORMATION: Exam: XR Abdomen, 1 View Exam date and time: 09/17/2019 8:29 AM Age: 74 years old Clinical indication: Symptoms: Nausea TECHNIQUE: Imaging protocol: XR of the abdomen. Views: Frontal supine view of the abdomen. 1 View. COMPARISON: CT abdomen pelvis w con* [id number] 01/13/2019 11:04 AM FINDINGS: Gastrointestinal tract: Prominent stool, suggesting constipation. No significant bowel dilatation. Bones/joints: Degenerative change and levoscoliosis. Other findings: Subcentimeter pelvic calcifications, presumably vascular in etiology. XR/XR KUB [id number] IMPRESSION: Prominent stool, suggesting constipation.
[2019-09-17] MEDS: ondansetron 2 mg/ML SDV 2 mL 4 MG IVP (08:15)
[2019-09-17 08:26] LABS: Basophils % 0.4 %; Eosinophils # 0.1 10^3/uL (0.0-0.8); Eosinophils % 0.7 %; Hematocrit 35.5 % (37.0-47.0); Hemoglobin 11.3 g/dL (11.5-15.3); Lymphocytes % 13.5 %; Mean Corpuscular HGB Conc 31.8 g/dL (30.0-36.0); Mean Corpuscular Hemoglobin 28.9 pg (28.0-34.0); Mean Corpuscular Volume 90.8 fL (81-99); Mean Platelet Volume 10.7 fL (7.4-10.4); Monocytes # 0.5 10^3/uL (0.2-0.9); Monocytes % 7.2 %; Neutrophils # 5.48 10^3/uL (1.8-7.7); Neutrophils % 77.9 %; Nucleated Red Blood Cells % 0 %; Platelet Count 247 10^3/cmm (130-400); Red Blood Count 3.91 10^6/uL (4.1-5.3); Red Cell Distribution Width 13.7 % (12.1-15.1)
[2019-09-17 08:36] LABS: Add Urine Microscopic? YES; Bilirubin Urine Neg (NEGATIVE); Blood Urine Neg (Negative); Glucose Urine UA Norm (Normal); Ketones Urine Negative (Negative); Leukocyte Esterase Urine Trace (Negative); Nitrate Urine Negative (Negative); Protein Urine Neg (Negative); Urine Appearance Clear (CLEAR); Urine Color Yellow (Yellow); Urobilinogen Urine Norm (Negative); pH Urine 6 (5-7)
[2019-09-17] MEDS: diphenhydrAMINE 50 mg/mL SDV 1mL 25 MG IVP (08:37)
[2019-09-17 08:42] LABS: Alanine Aminotransferase < 5 U/L (0-33); Albumin Level 4.5 g/dL (3.5-5.2); Alkaline Phosphatase 99 IU/L (35-105); Aspartate Amino Transferase 15 U/L (0-32); Blood Urea Nitrogen 12 mg/dL (8-23); Calcium 9.8 mg/dL (8.5-10.5); Carbon Dioxide 27 mmol/L (22-29); Chloride 99 mmol/L (98-107); Creatinine Clr Calc Pharmacy 54.9388; Globulin 2.5 g/dL (1.3-4.6); Glucose 119 mg/dL (65-115); Lipase 17 U/L (13-60); Osmolality Calculated 283 mOsm/kg (285-295); Sodium 138 mmol/L (136-145); Total Bilirubin 0.4 mg/dL (0.15-1.2)
[2019-09-17 08:48] LABS: Add Urine Culture? No; Bacteria Urine t; Mucus Urine 1+; Squamous Epithelial Cell Urine 0-4 (0-5); Transitional Epi Cells Urine 0-4 /hpf
[2019-09-17 08:59] VITALS: BP 135/69; PULSE 96; RESP 19; O2SAT 94
[2019-09-17] MEDS: LORazepam 2 mg/mL INJ 1 mL 1 MG IM (09:15)
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
[2019-09-17] MEDS: magnesium hydroxide 30 mL UDC PO (09:34)
[2019-09-17 09:36] VITALS: BP 135/79; PULSE 92; RESP 18; O2SAT 94
== END 2019-09-17 09:35 | disposition home or self-care (01) ==
PROVIDERS: Emergency Provider Nurse Practitioner Family; PCP Nurse Practitioner Family
DX: R11.0 Nausea (principal); N30.00 Acute cystitis without hematuria; F41.9 Anxiety disorder, unspecified; G20 Parkinson's disease
CPT/HCPCS: 12345; 74018; 80053; 81001; 81003; 83690; 85025; 96372; 96374; 96375; 99283; J1200; J2060; J2405

== ENCOUNTER 2019-09-19 06:46 | Emergency (ER) | payer MEDICARE, SELFPAY ==
[2019-09-19 06:47] VITALS: BP 142/85; PULSE 103; RESP 17; TEMP 36.6; O2SAT 94; BMI 27.3
--- NOTE | 2019-09-19 06:48 | ED_ITS ---
HPI - Nausea/Vomiting/Diarrhea General: Chief complaint: Nausea/Vomiting/Diarrhea Stated complaint: N/V Time Seen by Provider: 09/19/19 06:48 History of Present Illness: HPI Narrative: 74-year-old female brought in by EMS from home for persistent nausea and vomiting she was seen a few days ago for this.She had a fracture of her right wrist earlier this month she has been seeing Ortho for that she has been seen multiple times since then this is going to be her fourth visit to the emergency room this month. The last 3 visits have been for pain control and nausea. She has a history of Parkinson's she is using tramadol for pain control. Today her main complaint is persistent nausea although she has not had any vomiting with it here. She has been given a liter of fluids and ondansetron in route by EMS that does not seem to have helped. She lives at home with the assistance of her daughter and granddaughter who will go live with her. Her a few months ago secondary to cancer. She is completing a course of Macrobid for a UTI. Although she does not have the Macrobid in her medicine bag today when she seen in the emergency room. MD elicited complaint: nausea Pertinent past history: other (Recent wrist fracture, Parkinson's, anxiety) Onset (ago): day(s) Associated nausea: Yes Associated abdominal pain: No Severity: moderate Exacerbating factors: eating Relieving factors: none Context: recent surgery/procedure and other (Recent bladder infection, recent wrist fracture with close reduction) Associated symtoms: Reports headache(s), anorexia, nausea and weakness; Denies chest pain, cough, diaphoresis, dizziness, dysuria, fevers/chills, palpitations or syncope Review of Systems Const: Denies: diaphoresis ENMT: Denies: throat pain, ear or mastoid pain, nasal discharge or nasal congestion Card: Denies: chest pain, palpitations or syncope Resp: Denies: dyspnea, productive cough or non-productive cough GI: Reports: nausea : Denies: flank pain, difficulty voiding, dysuria, urinary frequency or urinary urgency Skin/Breast: Denies: rash or pruritus Neuro: Reports: headache(s); Denies: dizziness PFS ED PFSH: Medical History History of Parkinson's disease Surgical History History of carpal tunnel surgery History of foot surgery Social History Smoking and tobacco status: never smoked Physical Exam Const: COMMON NORMALS: no acute distress GENERAL APPEARANCE: cooperative and comfortable ORIENTATION/CONSCIOUSNESS: Yes awake, Yes oriented to person, Yes oriented to place and Yes oriented to time HENMT: COMMON NORMALS: normocephalic, atraumatic, hearing grossly normal bilaterally, external ears normal, EAC's normal, TM's normal bilaterally, Normal nasal mucous membranes and turbinates present, moist oral mucous membranes and oropharynx normal HEAD & SCALP: normocephalic and atraumatic NOSE: Normal nasal mucous membranes and turbinates present EXTERNAL EAR: Yes external ears normal EXTERNAL AUDITORY CANAL: EAC's normal TYMPANIC MEMBRANE: TM's normal bilaterally Eye: COMMON NORMALS: Equal, round and reactive pupils present, EOMs intact bilaterally, conjunctivae normal and no scleral icterus CONJUNCTIVA: Yes conjunctivae normal PUPIL: Yes Equal, round and reactive pupils present Neck/C-Spine: COMMON NORMALS: full ROM, no lymphadenopathy, supple and no JVD Lymph: LYMPHATIC: no lymphadenopathy noted and no lymphedema noted Resp: COMMON NORMALS: normal respiratory effort, No retractions, No use of accessory muscles and clear to auscultation bilaterally AUSCULTATION: clear to auscultation bilaterally Cardio: COMMON NORMALS: no JVD, regular rate, regular rhythm and No murmurs present (Cardio) RATE: regular rate RHYTHM: regular rhythm GI: COMMON NORMALS: Soft to palpation and No hepatosplenomegaly present AUSCULTATION: Yes normoactive bowel sounds PALPATION: Yes Soft to palpation, No Tenderness to palpation present (GI), No Guarding due to palpation present (GI) and Yes No hepatosplenomegaly present Extremity: COMMON NORMALS: normal to inspection, capillary refill normal, no clubbing, cyanosis or edema, no calf tenderness and no pedal edema Neuro: SENSORIUM/ORIENTATION: Yes oriented to person, Yes oriented to place and Yes oriented to time Skin: COMMON NORMALS: no rashes or lesions noted GENERAL SKIN EXAM: no rashes or lesions noted Course Vital Signs: Vital signs: Vital Signs Temperature 97.9 F 09/19/19 06:47 Pulse Rate 105 H 09/19/19 09:06 Respiratory Rate 20 H 09/19/19 09:06 Blood Pressure 138/79 09/19/19 09:06 Pulse Oximetry 97 09/19/19 09:06 MDM - Nausea/Vomiting/Diarrhea MDM Narrative: Medical decision making narrative: Labs are all within normal limits. Will discharge patient normal UTI appears to have mostly cleared complete the Macrobid she is previously prescribed. We will give her Reglan to use and I did has a substitute to ondansetron since it does not seem to be working well. She should also avoid the dimenhydrinate and Benadryl when taking Reglan. She has several medication she is taking daily carbidopa levodopa and the tramadol and oxycodone which can contribute to nausea should take those with food for now continue those medication she can follow-up with her PCP in the n ext 3 to 5 days she has any worsening symptoms return. Lab Data: Labs: Lab Results 09/19/19 09/19/19 09/19/19 Range/Units 06:14 06:14 06:14 WBC 10.0 (4.0-10.0) 10^3/ uL RBC 3.98 L (4.1-5.3) 10^6/u L Hgb 11.6 (11.5-15.3) g/dL Hct 35.5 L (37.0-47.0) % MCV 89.2 (81-99) fL MCH 29.1 (28.0-34.0) pg MCHC 32.7 (30.0-36.0) g/dL RDW 13.5 (12.1-15.1) % Plt Count 294 (130-400) 10^3/c mm MPV 11.4 H (7.4-10.4) fL Neut % (Auto) 82.8 % Lymph % (Auto) 10.4 % [place] % (Auto) 6.1 % Eos % (Auto) 0.2 % Baso % (Auto) 0.3 % Neut # (Auto) 8.27 H (1.8-7.7) 10^3/u L Lymph # (Auto) 1.0 (0.8-4.8) 10^3/u L [place] # (Auto) 0.6 (0.2-0.9) 10^3/u L Eos # (Auto) 0.0 (0.0-0.8) 10^3/u L Baso # (Auto) 0.0 (0.0-0.1) 10^3/u L Nucleated RBC % (a uto) 0 % Nucleated RBCs # 0.0 /100WBC Sodium 137 (136-145) mmol/L Potassium 3.7 (3.5-5.1) mmol/L Chloride 99 (98-107) mmol/L Carbon Dioxide 25 (22-29) mmol/L Anion Gap 16.7 (5-19) BUN 12 (8-23) mg/dL Creatinine 0.9 (0.5-0.9) mg/dL Glucose 121 H (65-115) mg/dL Calculated Osmolal ity 281 L (285-295) mOsm/k g Calcium 9.5 (8.5-10.5) mg/dL Total Bilirubin 0.6 (0.15-1.2) mg/dL AST 17 (0-32) U/L ALT 7 (0-33) U/L Alkaline Phosphata se 110 H (35-105) IU/L Creatine Kinase 64 (26-192) U/L Total Protein 7.5 (6.6-8.7) g/dL Albumin 4.8 (3.5-5.2) g/dL Globulin 2.7 (1.3-4.6) g/dL Lipase 16 (13-60) U/L Urine Color (Yellow) Urine Appearance (CLEAR) Urine pH (5-7) Ur Specific Gravit y (1.005-1.030) Urine Protein (Negative) Urine Glucose (UA) (Normal) Urine Ketones (Negative) Urine Blood (Negative) Urine Nitrate (Negative) Urine Bilirubin (NEGATIVE) Urine Urobilinogen (Negative) mg/dL Ur Leukocyte Melisa ase (Negative) Serum Ketones Negative (Negative) 09/19/19 Range/Units 07:25 WBC (4.0-10.0) 10^3/ uL RBC (4.1-5.3) 10^6/u L Hgb (11.5-15.3) g/dL Hct (37.0-47.0) % MCV (81-99) fL MCH (28.0-34.0) pg MCHC (30.0-36.0) g/dL RDW (12.1-15.1) % Plt Count (130-400) 10^3/c mm MPV (7.4-10.4) fL Neut % (Auto) % Lymph % (Auto) % [place] % (Auto) % Eos % (Auto) % Baso % (Auto) % Neut # (Auto) (1.8-7.7) 10^3/u L Lymph # (Auto) (0.8-4.8) 10^3/u L [place] # (Auto) (0.2-0.9) 10^3/u L Eos # (Auto) (0.0-0.8) 10^3/u L Baso # (Auto) (0.0-0.1) 10^3/u L Nucleated RBC % (a uto) % Nucleated RBCs # /100WBC Sodium (136-145) mmol/L Potassium (3.5-5.1) mmol/L Chloride (98-107) mmol/L Carbon Dioxide (22-29) mmol/L Anion Gap (5-19) BUN (8-23) mg/dL Creatinine (0.5-0.9) mg/dL Glucose (65-115) mg/dL Calculated Osmolal ity (285-295) mOsm/k g Calcium (8.5-10.5) mg/dL Total Bilirubin (0.15-1.2) mg/dL AST (0-32) U/L ALT (0-33) U/L Alkaline Phosphata se (35-105) IU/L Creatine Kinase (26-192) U/L Total Protein (6.6-8.7) g/dL Albumin (3.5-5.2) g/dL Globulin (1.3-4.6) g/dL Lipase (13-60) U/L Urine Color Yellow (Yellow) Urine Appearance Clear (CLEAR) Urine pH 7 (5-7) Ur Specific Gravit y 1.005 (1.005-1.030) Urine Protein Neg (Negative) Urine Glucose (UA) Norm (Normal) Urine Ketones 1+ H (Negative) Urine Blood Neg (Negative) Urine Nitrate Negative (Negative) Urine Bilirubin Neg (NEGATIVE) Urine Urobilinogen Norm (Negative) mg/dL Ur Leukocyte Melisa ase Negative (Negative) Serum Ketones (Negative) Discharge Plan Discharge Patient Disposition: Home, Self-Care Clinical Impression: Nausea alone, Anxiety attack, Parkinson disease, Fracture of wrist Condition: Stable Prescriptions: New Reglan 10 mg tablet 10 mg PO Q6H 7 Days Qty: 28 RF: 0 No Action pantoprazole [Protonix] 40 mg tablet,delayed release (DR/EC) 40 mg PO DAILY Qty: 30 RF: 0 famotidine [Pepcid] 40 mg Tablet 40 mg PO BID RF: 0 carbidopa-levodopa 25-100 mg tablet 1.5 tab PO TID RF: 0 pregabalin [Lyrica] 225 mg Capsule 225 mg PO BID RF: 0 multivitamin [Multiple Vitamins] Tablet 1 tab PO DAILY RF: 0 aspirin [Aspir-81] 81 mg Tablet,Delayed Release (Dr/Ec) 81 mg PO DAILY RF: 0 dimenhydrinate [Motion Sickness] 50 mg Tablet 50 - 100 mg PO PRN RF: 0 diphenhydramine HCl [Benadryl] 25 mg Capsule 50 mg PO PRN RF: 0 Macrobid 100 mg capsule 100 mg PO BID 7 Days Qty: 14 RF: 0 hydrocodone-acetaminophen [[place]] 5-325 mg tablet 1 tab PO Q6H PRN (Reason: pain) Qty: 14 RF: 0 oxycodone-acetaminophen 5-325 mg tablet 1 tab PO Q4H PRN (Reason: Pain, Severe) Qty: 40 RF: 0 Zofran 4 mg tablet 4 mg PO Q6H PRN (Reason: nausea and vomiting) Qty: 30 RF: 1 tramadol 50 mg tablet 50 mg PO Q4H PRN (Reason: pain, moderate) Qty: 40 RF: 0 Discharge Orders: Discharge Order (Routine); Ordered 09/19/19 Ordered By: Ben Maddox Referrals: Carmelita Balderrama NP [Primary Care Provider] - Discharge Diet: Clear Liquid Discharge Activity: Increase activity as tolerated Patient Instructions: Clear Liquid Diet (ED) Discharge Date/Time: 09/19/19 09:06 Coding Level of Care Code ED Staff Forester for Jazmineg Fwd Exam Comprehensive
[2019-09-19 07:07] VITALS: PULSE 103; RESP 20; O2SAT 95
[2019-09-19 07:19] LABS: Basophils % 0.3 %; Eosinophils % 0.2 %; Hematocrit 35.5 % (37.0-47.0); Hemoglobin 11.6 g/dL (11.5-15.3); Ketone (Acetest) Serum Negative (Negative); Lymphocytes % 10.4 %; Mean Corpuscular HGB Conc 32.7 g/dL (30.0-36.0); Mean Corpuscular Hemoglobin 29.1 pg (28.0-34.0); Mean Corpuscular Volume 89.2 fL (81-99); Mean Platelet Volume 11.4 fL (7.4-10.4); Monocytes # 0.6 10^3/uL (0.2-0.9); Monocytes % 6.1 %; Neutrophils # 8.27 10^3/uL (1.8-7.7); Neutrophils % 82.8 %; Nucleated Red Blood Cells % 0 %; Platelet Count 294 10^3/cmm (130-400); Red Blood Count 3.98 10^6/uL (4.1-5.3); Red Cell Distribution Width 13.5 % (12.1-15.1)
[2019-09-19 07:28] LABS: Alanine Aminotransferase 7 U/L (0-33); Albumin Level 4.8 g/dL (3.5-5.2); Alkaline Phosphatase 110 IU/L (35-105); Anion Gap 16.7 (5-19); Aspartate Amino Transferase 17 U/L (0-32); Blood Urea Nitrogen 12 mg/dL (8-23); Calcium 9.5 mg/dL (8.5-10.5); Carbon Dioxide 25 mmol/L (22-29); Chloride 99 mmol/L (98-107); Creatine Phosphokinase 64 U/L (26-192); Globulin 2.7 g/dL (1.3-4.6); Glucose 121 mg/dL (65-115); Lipase 16 U/L (13-60); Osmolality Calculated 281 mOsm/kg (285-295); Potassium 3.7 mmol/L (3.5-5.1); Sodium 137 mmol/L (136-145); Total Bilirubin 0.6 mg/dL (0.15-1.2); Total Protein 7.5 g/dL (6.6-8.7)
[2019-09-19] MEDS: sodium chlor 0.9% + KCl 20 mEq 20 MEQ/1,000 ML BAG 125 MEQ IV (07:34)
[2019-09-19 07:35] LABS: Add Urine Microscopic? NO
[2019-09-19] MEDS: metoclopramide 5 mg/mL SDV 2 mL 10 MG IVP (07:37)
[2019-09-19 07:39] VITALS: BP 140/92; PULSE 102; RESP 18; O2SAT 96
[2019-09-19 07:42] LABS: Bilirubin Urine Neg (NEGATIVE); Blood Urine Neg (Negative); Glucose Urine UA Norm (Normal); Ketones Urine 1+ (Negative); Leukocyte Esterase Urine Negative (Negative); Nitrate Urine Negative (Negative); Protein Urine Neg (Negative); Specific Gravity, Urine 1.005 (1.005-1.030); Urine Appearance Clear (CLEAR); Urine Color Yellow (Yellow); Urobilinogen Urine Norm (Negative); pH Urine 7 (5-7)
[2019-09-19 08:00] VITALS: BP 150/90; PULSE 107; RESP 20; O2SAT 96
[2019-09-19 09:06] VITALS: BP 138/79; PULSE 105; RESP 20; O2SAT 97
== END 2019-09-19 09:06 | disposition home or self-care (01) ==
PROVIDERS: Emergency Provider Family Medicine; PCP Nurse Practitioner Family
DX: R11.0 Nausea (principal); F41.9 Anxiety disorder, unspecified; G20 Parkinson's disease; S62.101A Fracture of unspecified carpal bone, right wrist, initial encounter for closed fracture; X58.XXXA Exposure to other specified factors, initial encounter; Z79.82 Long term (current) use of aspirin
CPT/HCPCS: 12345; 80053; 81003; 82009; 82550; 83690; 85025; 96365; 96366; 96375; 99283; J2765

== ENCOUNTER 2019-09-20 19:14 | Emergency (ER) | payer MEDICARE, SELFPAY ==
[2019-09-20 19:18] VITALS: BP 150/91; PULSE 94; RESP 18; TEMP 36.8; O2SAT 95
[2019-09-20 20:03] LABS: Basophils # 0.1 10^3/uL (0.0-0.1); Basophils % 0.5 %; Eosinophils % 0.4 %; Hematocrit 36.1 % (37.0-47.0); Hemoglobin 11.6 g/dL (11.5-15.3); Lymphocytes # 1.1 10^3/uL (0.8-4.8); Lymphocytes % 11.5 %; Mean Corpuscular HGB Conc 32.1 g/dL (30.0-36.0); Mean Corpuscular Hemoglobin 28.8 pg (28.0-34.0); Mean Corpuscular Volume 89.6 fL (81-99); Mean Platelet Volume 10.6 fL (7.4-10.4); Monocytes # 0.9 10^3/uL (0.2-0.9); Monocytes % 9.5 %; Neutrophils # 7.19 10^3/uL (1.8-7.7); Neutrophils % 77.8 %; Nucleated Red Blood Cells % 0 %; Platelet Count 310 10^3/cmm (130-400); Red Blood Count 4.03 10^6/uL (4.1-5.3); Red Cell Distribution Width 13.6 % (12.1-15.1); White Blood Count 9.3 10^3/uL (4.0-10.0)
[2019-09-20 20:18] LABS: Alanine Aminotransferase < 5 U/L (0-33); Albumin Level 4.6 g/dL (3.5-5.2); Alkaline Phosphatase 104 IU/L (35-105); Anion Gap 18.8 (5-19); Aspartate Amino Transferase 18 U/L (0-32); Blood Urea Nitrogen 13 mg/dL (8-23); Calcium 9.7 mg/dL (8.5-10.5); Carbon Dioxide 24 mmol/L (22-29); Chloride 98 mmol/L (98-107); Globulin 2.7 g/dL (1.3-4.6); Glucose 102 mg/dL (65-115); Lipase 24 U/L (13-60); Osmolality Calculated 280 mOsm/kg (285-295); Potassium 3.8 mmol/L (3.5-5.1); Sodium 137 mmol/L (136-145); Total Bilirubin 0.4 mg/dL (0.15-1.2); Total Protein 7.3 g/dL (6.6-8.7)
[2019-09-20 21:00] VITALS: RESP 18
--- NOTE | 2019-09-20 21:23 | ED_ITS ---
HPI - Abdominal Pain General: Chief Complaint: Abdominal Pain Stated Complaint: ABD PAIN Time Seen by Provider: 09/20/19 20:56 History of Present Illness: HPI narrative: Patient comes in by ambulance with complaints abdominal pain. Patient has had multiple visits for this abdominal pain all the work-ups have been negative. Lost her 4 weeks ago to cancer and she has having some depression due to that patient is not suicidal. Does have family members for supportive care. MD elicited complaint: abdominal pain Onset (ago): week(s) Pain Consistency: colicky Location: RUQ Severity: mild Quality: aching Radiation: none Migration to: no migration Exacerbating factors: nothing Relieving factors: nothing Associated Symptoms: Reports no associated symptoms; Denies chills, fever(s), nausea and vomiting Review of Systems Const: Denies: fever(s), chills or body aches Eyes: Denies: change in vision or blurry vision ENMT: Denies: throat pain or nasal congestion Card: Denies: chest pain or dyspnea on exertion Resp: Denies: dyspnea, productive cough or non-productive cough GI: Denies: abdominal pain, nausea or vomiting Musc: Denies: extremity pain Skin/Breast: Denies: rash Neuro: Denies: headache(s) Psych: Reports: depression (Patient is remorseful over the loss of her here recently); Denies: anxiety, suicidal ideation or homicidal ideation Rashad/Lymph: Denies: easy bruising PFS ED PFSH: Medical History (Updated 09/19/19 @ 08:30 by Ben Maddox DO) History of Parkinson's disease Surgical History History of carpal tunnel surgery History of foot surgery Social History Smoking and tobacco status: never smoked Physical Exam Const: COMMON NORMALS: no acute distress, average body habitus and patient oriented x3 HENMT: COMMON NORMALS: normocephalic HEAD & SCALP: normal to inspection and normocephalic FACE & SINUS: normal facial exam Eye: COMMON NORMALS: conjunctivae normal GENERAL EYE: appearance normal, both eyes and all related structures CONJUNCTIVA: Yes conjunctivae normal Neck/C-Spine: COMMON NORMALS: no JVD Chest: COMMONS NORMALS: normal inspection of the chest Resp: COMMON NORMALS: normal respiratory effort and clear to auscultation bilaterally AUSCULTATION: clear to auscultation bilaterally Cardio: COMMON NORMALS: no JVD, regular rate and regular rhythm RATE: regular rate RHYTHM: regular rhythm GI: COMMON NORMALS: Normal to inspection, nondistended, normoactive bowel sounds present PALPATION: Yes Tenderness to palpation present (GI) Details: RUQ Extremity: COMMON NORMALS: normal to inspection and full ROM Neuro: COMMON NORMALS: patient oriented x3 Course Vital Signs: Vital signs: Vital Signs Temperature 98.2 F 09/20/19 19:18 Pulse Rate 94 09/20/19 19:18 Respiratory Rate 18 09/20/19 21:00 Blood Pressure 150/91 09/20/19 19:18 Pulse Oximetry 95 09/20/19 19:18 MDM - Abdominal Pain Lab Data: Labs: Lab Results 09/20/19 09/20/19 Range/Units 19:55 19:55 WBC 9.3 (4.0-10.0) 10^3/ uL RBC 4.03 L (4.1-5.3) 10^6/u L Hgb 11.6 (11.5-15.3) g/dL Hct 36.1 L (37.0-47.0) % MCV 89.6 (81-99) fL MCH 28.8 (28.0-34.0) pg MCHC 32.1 (30.0-36.0) g/dL RDW 13.6 (12.1-15.1) % Plt Count 310 (130-400) 10^3/c mm MPV 10.6 H (7.4-10.4) fL Neut % (Auto) 77.8 % Lymph % (Auto) 11.5 % [place] % (Auto) 9.5 % Eos % (Auto) 0.4 % Baso % (Auto) 0.5 % Neut # (Auto) 7.19 (1.8-7.7) 10^3/u L Lymph # (Auto) 1.1 (0.8-4.8) 10^3/u L [place] # (Auto) 0.9 (0.2-0.9) 10^3/u L Eos # (Auto) 0.0 (0.0-0.8) 10^3/u L Baso # (Auto) 0.1 (0.0-0.1) 10^3/u L Nucleated RBC % (a uto) 0 % Nucleated RBCs # 0.0 /100WBC Sodium 137 (136-145) mmol/L Potassium 3.8 (3.5-5.1) mmol/L Chloride 98 (98-107) mmol/L Carbon Dioxide 24 (22-29) mmol/L Anion Gap 18.8 (5-19) BUN 13 (8-23) mg/dL Creatinine 0.9 (0.5-0.9) mg/dL GFR Calculation Not Reportable Glucose 102 (65-115) mg/dL Calculated Osmolal ity 280 L (285-295) mOsm/k g Calcium 9.7 (8.5-10.5) mg/dL Total Bilirubin 0.4 (0.15-1.2) mg/dL AST 18 (0-32) U/L ALT < 5 (0-33) U/L Alkaline Phosphata se 104 (35-105) IU/L Total Protein 7.3 (6.6-8.7) g/dL Albumin 4.6 (3.5-5.2) g/dL Globulin 2.7 (1.3-4.6) g/dL Lipase 24 (13-60) U/L Discharge Plan Discharge Prescriptions: No Action pantoprazole [Protonix] 40 mg tablet,delayed release (DR/EC) 40 mg PO DAILY Qty: 30 RF: 0 famotidine [Pepcid] 40 mg Tablet 40 mg PO BID RF: 0 carbidopa-levodopa 25-100 mg tablet 1.5 tab PO TID RF: 0 pregabalin [Lyrica] 225 mg Capsule 225 mg PO BID RF: 0 multivitamin [Multiple Vitamins] Tablet 1 tab PO DAILY RF: 0 aspirin [Aspir-81] 81 mg Tablet,Delayed Release (Dr/Ec) 81 mg PO DAILY RF: 0 dimenhydrinate [Motion Sickness] 50 mg Tablet 50 - 100 mg PO PRN RF: 0 diphenhydramine HCl [Benadryl] 25 mg Capsule 50 mg PO PRN RF: 0 Macrobid 100 mg capsule 100 mg PO BID 7 Days Qty: 14 RF: 0 hydrocodone-acetaminophen [[place]] 5-325 mg tablet 1 tab PO Q6H PRN (Reason: pain) Qty: 14 RF: 0 oxycodone-acetaminophen 5-325 mg tablet 1 tab PO Q4H PRN (Reason: Pain, Severe) Qty: 40 RF: 0 Zofran 4 mg tablet 4 mg PO Q6H PRN (Reason: nausea and vomiting) Qty: 30 RF: 1 tramadol 50 mg tablet 50 mg PO Q4H PRN (Reason: pain, moderate) Qty: 40 RF: 0 Reglan 10 mg tablet 10 mg PO Q6H 7 Days Qty: 28 RF: 0 Coding Level of Care Code ED Research Project Coordinator for Armando Gtz
[2019-09-20 22:00] VITALS: BP 164/104; PULSE 88; RESP 18; O2SAT 98
[2019-09-20 22:22] LABS: Urine Color Yellow (Yellow)
[2019-09-20 22:23] LABS: Add Urine Microscopic? YES; Bilirubin Urine 1+ (NEGATIVE); Blood Urine Neg (Negative); Glucose Urine UA Norm (Normal); Ketones Urine 2+ (Negative); Leukocyte Esterase Urine Negative (Negative); Nitrate Urine Negative (Negative); Protein Urine Trace (Negative); Urine Appearance Clear (CLEAR); Urobilinogen Urine 1 mg/dL (Negative); pH Urine 5 (5-7)
[2019-09-20] MEDS: ALPRAZolam 0.25 mg Tablet 0.125 MG PO (22:23)
[2019-09-20 22:24] LABS: Hyaline Casts Urine 15-25
[2019-09-20 22:25] LABS: Add Urine Culture? No; Bacteria Urine 1+; Mucus Urine 3+; RBC Urine 0-4 /hpf (0-2)
[2019-09-20 23:00] VITALS: RESP 18
[2019-09-20] MEDS: ciprofloxacin 500 mg Tablet PO (23:14)
[2019-09-21 03:21] VITALS: BP 162/91; PULSE 84; RESP 14; O2SAT 96
== END 2019-09-21 03:22 | disposition home or self-care (01) ==
PROVIDERS: Emergency Medicine; Emergency Provider Nurse Practitioner Family; PCP Nurse Practitioner Family
DX: R10.9 Unspecified abdominal pain (principal); Z79.82 Long term (current) use of aspirin; G20 Parkinson's disease
CPT/HCPCS: 12345; 36415; 80053; 81001; 81003; 83690; 85025; 99281; 99283

== ENCOUNTER → 2019-09-27 11:46 | Outpatient (BNVA) | payer MEDICARE, SELFPAY | PROVIDERS: PCP Nurse Practitioner Family; Visit Provider Orthopaedic Surgery | DX: S52.501A Unspecified fracture of the lower end of right radius, initial encounter for closed fracture (principal); S52.611A Displaced fracture of right ulna styloid process, initial encounter for closed fracture; X58.XXXA Exposure to other specified factors, initial encounter | CPT/HCPCS: 73110 ==

== ENCOUNTER 2019-09-29 17:28 | Emergency (ER) | payer MEDICARE, SELFPAY ==
[2019-09-29 17:29] VITALS: O2SAT 98
[2019-09-29 17:33] VITALS: BP 138/75; PULSE 106; RESP 18; TEMP 36.8; O2SAT 106; BMI 25.6
--- NOTE | 2019-09-29 17:36 | W.ED.GENADLT ---
HPI - General Adult General: Stated complaint: WITHDRAWALS FROM TRAMADOL Time Seen by Provider: 09/29/19 17:31 History of Present Illness: HPI narrative: 74-year-old female presents emergency room via EMS wanting a refill of her tramadol. She readily admits she is addicted to it she is gone through 30 tablets in the last 4 days. She is postop from a wrist fracture. She was here multiple times for this wrist fracture before he got fixed as well. She also admits that she has been sharing her medications with others that is why she got through them so quickly she uses that is the justification for refill today. Onset (ago): day(s) Location: upper extremity (Right wrist fracture) Radiation: non-radiation Severity: moderate Quality: aching Pain Consistency: constant Exacerbating factors: movement Associated symptoms: Reports no associated symptoms; Deny chest pain, dyspnea, malaise, nausea, rash or vomiting Treatments prior to arrival: none Review of Systems Const: Denies: fever(s), chills, body aches, change in appetite, fatigue or malaise ENMT: Denies: throat pain, ear or mastoid pain, nasal discharge or nasal congestion Card: Denies: chest pain, edema, dyspnea on exertion or orthopnea Resp: Denies: dyspnea, productive cough or non-productive cough GI: Denies: abdominal pain, nausea, vomiting, hematemesis, coffee ground emesis, diarrhea, constipation, bloating, hematochezia or melena : Denies: flank pain, difficulty voiding, dysuria, urinary frequency or urinary urgency Skin/Breast: Denies: rash or pruritus PFSH ED PFSH: Medical History History of Parkinson's disease Surgical History History of carpal tunnel surgery History of foot surgery Social History Smoking and tobacco status: never smoked Physical Exam Const: COMMON NORMALS: no acute distress GENERAL APPEARANCE: cooperative and comfortable ORIENTATION/CONSCIOUSNESS: Yes awake, Yes oriented to person, Yes oriented to place and Yes oriented to time HENMT: COMMON NORMALS: normocephalic and atraumatic HEAD & SCALP: normocephalic and atraumatic Eye: COMMON NORMALS: Equal, round and reactive pupils present, EOMs intact bilaterally, conjunctivae normal and no scleral icterus CONJUNCTIVA: Yes conjunctivae normal PUPIL: Yes Equal, round and reactive pupils present Neck/C-Spine: COMMON NORMALS: no JVD Resp: COMMON NORMALS: normal respiratory effort, No retractions, No use of accessory muscles and clear to auscultation bilaterally AUSCULTATION: clear to auscultation bilaterally Cardio: COMMON NORMALS: no JVD, regular rate, regular rhythm and No murmurs present (Cardio) RATE: regular rate RHYTHM: regular rhythm Extremity: COMMON NORMALS: normal to inspection, capillary refill normal, no clubbing, cyanosis or edema, no calf tenderness and no pedal edema NARRATIVE EXTREMITY EXAM: Good capillary refill patient able to flex and extend the fingers outside of the cast normally normal sensation distally to this fingers on the right hand Neuro: SENSORIUM/ORIENTATION: Yes oriented to person, Yes oriented to place and Yes oriented to time Skin: COMMON NORMALS: no rashes or lesions noted GENERAL SKIN EXAM: no rashes or lesions noted MDM - General Adult MDM Narrative: Medical decision making narrative: Advised patient we cannot refill narcotic pain medications in the ER. Given the fact she is gone through a large amount and also admits to diverting them we will not be able to refill we can certainly offer her nonnarcotic options encourage her to consider referral to [facility] or [facility] for assistance in stopping the use of the tramadol. She expresses little to no interest in this. We will refill her with a nonnarcotic to use PRN she also has hydrocodone and oxycodone listed in her pain medicine list. Discharge Plan Discharge Patient Disposition: Home Clinical Impression: Fracture of right wrist, Drug-seeking behavior Condition: Stable Prescriptions: No Action pantoprazole [Protonix] 40 mg tablet,delayed release (DR/EC) 40 mg PO DAILY Qty: 30 RF: 0 tramadol 50 mg tablet 50 mg PO Q6H PRN (Reason: pain) Qty: 30 RF: 0 famotidine [Pepcid] 40 mg Tablet 40 mg PO BID RF: 0 carbidopa-levodopa 25-100 mg tablet 1.5 tab PO TID RF: 0 pregabalin [Lyrica] 225 mg Capsule 225 mg PO BID RF: 0 multivitamin [Multiple Vitamins] Tablet 1 tab PO DAILY RF: 0 aspirin [Aspir-81] 81 mg Tablet,Delayed Release (Dr/Ec) 81 mg PO DAILY RF: 0 dimenhydrinate [Motion Sickness] 50 mg Tablet 50 - 100 mg PO PRN RF: 0 diphenhydramine HCl [Benadryl] 25 mg Capsule 50 mg PO PRN RF: 0 Xanax 0.25 mg tablet 0.125 mg PO BID PRN (Reason: anxiety) Qty: 10 RF: 0 hydrocodone-acetaminophen [[place]] 5-325 mg tablet 1 tab PO Q6H PRN (Reason: pain) Qty: 14 RF: 0 oxycodone-acetaminophen 5-325 mg tablet 1 tab PO Q4H PRN (Reason: Pain, Severe) Qty: 40 RF: 0 Zofran 4 mg tablet 4 mg PO Q6H PRN (Reason: nausea and vomiting) Qty: 30 RF: 1 tramadol 50 mg tablet 50 mg PO Q4H PRN (Reason: pain, moderate) Qty: 40 RF: 0 Discharge Orders: Discharge Order (Routine); Ordered 09/29/19 Ordered By: Ben Maddox Referrals: Carmelita Balderrama, MANAGER AUDIO [Primary Care Provider] - Discharge Diet: Advance as tolerated Discharge Activity: Increase activity as tolerated Activity Restrictions/Additional Instructions: Follow-up with orthopedic clinic as previously scheduled. Recommend you follow-up with [facility] or [facility] to discuss and look at options for avoiding use of narcotics pain medications Coding Level of Care Code ED Laser Specialist for Armando Fwd Exam Comprehensive
== END 2019-09-29 18:10 | disposition home or self-care (01) ==
LOC: ER 17:57
PROVIDERS: Emergency Provider Family Medicine; PCP Nurse Practitioner Family
DX: S62.101A Fracture of unspecified carpal bone, right wrist, initial encounter for closed fracture (principal); X58.XXXA Exposure to other specified factors, initial encounter; Z76.5 Malingerer [conscious simulation]; Z79.82 Long term (current) use of aspirin; G20 Parkinson's disease
CPT/HCPCS: 12345; 99281

== ENCOUNTER 2019-10-12 16:48 | Emergency (ER) | payer MEDICARE, SELFPAY ==
[2019-10-12 16:49] VITALS: BP 114/65; PULSE 90; RESP 18; TEMP 36.7; O2SAT 95; BMI 25.6
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
[2019-10-12 17:39] LABS: Basophils # 0.1 10^3/uL (0.0-0.1); Basophils % 0.7 %; Eosinophils # 0.1 10^3/uL (0.0-0.8); Hematocrit 33.4 % (37.0-47.0); Hemoglobin 10.6 g/dL (11.5-15.3); Lymphocytes # 0.9 10^3/uL (0.8-4.8); Lymphocytes % 12.9 %; Mean Corpuscular HGB Conc 31.7 g/dL (30.0-36.0); Mean Corpuscular Hemoglobin 29.6 pg (28.0-34.0); Mean Corpuscular Volume 93.3 fL (81-99); Mean Platelet Volume 10.5 fL (7.4-10.4); Monocytes # 0.5 10^3/uL (0.2-0.9); Monocytes % 7.7 %; Neutrophils # 5.35 10^3/uL (1.8-7.7); Neutrophils % 77.4 %; Nucleated Red Blood Cells % 0 %; Platelet Count 249 10^3/cmm (130-400); Red Blood Count 3.58 10^6/uL (4.1-5.3); Red Cell Distribution Width 14.1 % (12.1-15.1); White Blood Count 6.9 10^3/uL (4.0-10.0)
[2019-10-12 18:02] LABS: Alanine Aminotransferase < 5 U/L (0-33); Albumin Level 4.2 g/dL (3.5-5.2); Alkaline Phosphatase 84 IU/L (35-105); Anion Gap 11.4 (5-19); Aspartate Amino Transferase 17 U/L (0-32); Blood Urea Nitrogen 7 mg/dL (8-23); Carbon Dioxide 29 mmol/L (22-29); Chloride 103 mmol/L (98-107); Globulin 2.6 g/dL (1.3-4.6); Glucose 112 mg/dL (65-115); Lipase 15 U/L (13-60); Osmolality Calculated 285 mOsm/kg (285-295); Potassium 4.4 mmol/L (3.5-5.1); Sodium 139 mmol/L (136-145); Total Bilirubin 0.3 mg/dL (0.15-1.2); Total Protein 6.8 g/dL (6.6-8.7)
[2019-10-12] MEDS: sodium chloride 0.9% 1,000 ML 999 ML IV (18:05)
[2019-10-12] MEDS: TRAMadol 50 mg Tablet PO (18:07)
[2019-10-12 18:47] LABS: Add Urine Microscopic? NO
[2019-10-12 18:55] LABS: Bilirubin Urine Neg (NEGATIVE); Blood Urine Neg (Negative); Glucose Urine UA Norm (Normal); Ketones Urine Negative (Negative); Leukocyte Esterase Urine Negative (Negative); Nitrate Urine Negative (Negative); Protein Urine Neg (Negative); Specific Gravity, Urine 1.015 (1.005-1.030); Urine Appearance Clear (CLEAR); Urine Color Yellow (Yellow); Urobilinogen Urine Neg (Negative); pH Urine 5 (5-7)
--- NOTE | 2019-10-12 19:11 | PC.NURSE ---
pt states during d/c that she is nauseated and is requesting medication for nausea. TRADESHOW WORKER notified. orders obtained for 4mg of zofran IVP
[2019-10-12 19:21] VITALS: BP 136/85; PULSE 90; RESP 20; O2SAT 96
== END 2019-10-12 19:28 | disposition home or self-care (01) ==
PROVIDERS: Emergency Provider Physician Assistant; PCP Nurse Practitioner Family
DX: R10.84 Generalized abdominal pain (principal); F19.939 Other psychoactive substance use, unspecified with withdrawal, unspecified; Z79.82 Long term (current) use of aspirin; G20 Parkinson's disease
CPT/HCPCS: 12345; 36415; 80053; 81003; 83690; 85025; 96361; 96374; 99282; 99283; J7030

== ENCOUNTER → 2019-10-25 15:57 | Outpatient (BNVA) | payer MEDICARE, SELFPAY | PROVIDERS: PCP Nurse Practitioner Family; Referring Provider Orthopaedic Surgery; Visit Provider Orthopaedic Surgery | DX: S62.101A Fracture of unspecified carpal bone, right wrist, initial encounter for closed fracture (principal); Z98.890 Other specified postprocedural states; W19.XXXA Unspecified fall, initial encounter | CPT/HCPCS: 73110 ==

== ENCOUNTER 2019-11-24 12:55 | Emergency (ER) | payer MEDICARE, SELFPAY ==
[2019-11-24 13:10] VITALS: BP 116/74; PULSE 76; RESP 16; O2SAT 96; BMI 25.6
--- NOTE | 2019-11-24 13:25 | ED_ITS ---
HPI - Nausea/Vomiting/Diarrhea General: Chief complaint: Nausea/Vomiting/Diarrhea Stated complaint: N/V Time Seen by Provider: 11/24/19 13:14 Source: patient Mode of arrival: EMS Limitations: no limitations History of Present Illness: HPI Narrative: 74-year-old female patient who presents to the emergency department with complaints of nausea for about a week. She also had one episode of vomiting today. She denies any fever, has a little bit of diarrhea. No urinary symptoms. She is unable to keep any food down according to her. MD elicited complaint: nausea and vomiting Pertinent past history: anorexia Onset (ago): week(s) (1) Description of vomiting: food contents Description of diarrhea: watery Associated nausea: Yes Associated abdominal pain: No Location of pain: None Associated symtoms: Reports nausea; Denies change in vision, dysuria, headache(s) or palpitations Review of Systems General: Reports: 10 or more systems reviewed and unremarkable except in HPI and below Const: Denies: fever(s), chills or body aches Eyes: Denies: change in vision or blurry vision ENMT: Denies: throat pain, enlarged tonsils, odynophagia, hoarseness, mouth pain or swelling of lips/tongue Card: Denies: palpitations, irregular heart rhythm, edema or swelling of feet/ankles Resp: Denies: dyspnea, productive cough or non-productive cough GI: Reports: nausea : Denies: flank pain, difficulty voiding, dysuria, urinary frequency, urinary urgency or urinary hesitancy Musc: Denies: neck pain, back pain or extremity swelling Skin/Breast: Denies: rash, pruritus or erythema Neuro: Denies: headache(s), numbness in extremities or weakness in extremities Endo: Denies: polyuria, polydipsia or tired all the time PFSH ED PFSH: Medical History (Reviewed 11/24/19 @ 13:27 by Anthony [place], [facility] [place] History of [place]'s disease Surgical History (Reviewed 11/24/19 @ 13:27 by Anthony West MD, [facility] [place] History of carpal tunnel surgery History of foot surgery Social History (Reviewed 11/24/19 @ 13:27 by Anthony West MD, [facility] [place] [facility] [place] Smoking and tobacco status: never smoked Physical Exam Const: COMMON NORMALS: no acute distress, average body habitus, patient oriented x3, no limitations, healthy appearing, alert and well nourished HENMT: COMMON NORMALS: normocephalic, atraumatic and moist oral mucous membranes HEAD & SCALP: normocephalic and atraumatic Neck/C-Spine: COMMON NORMALS: no meningeal signs and no JVD Resp: COMMON NORMALS: normal respiratory effort, No retractions, No use of accessory muscles, clear to auscultation bilaterally and percussion normal AUSCULTATION: clear to auscultation bilaterally PERCUSSION: percussion normal Cardio: COMMON NORMALS: no JVD, regular rate, regular rhythm, S1 normal heart sound present, S2 normal heart sound present, No gallops present (Cardio), No clicks present (Cardio), No murmurs present (Cardio), No rub (Cardio) and Peripheral pulses 2+ throughout RATE: regular rate RHYTHM: regular rhythm HEART SOUNDS: S1 normal heart sound present and S2 normal heart sound present PERIPHERAL PULSES: Peripheral pulses 2+ throughout GI: COMMON NORMALS: Normal to inspection, nondistended, normoactive bowel sounds present, Soft to palpation, non-tender, No hepatosplenomegaly present, no masses and no bruits PALPATION: Yes Soft to palpation and Yes No hepatosplenomegaly present Extremity: COMMON NORMALS: normal to inspection, full ROM, capillary refill normal, no calf tenderness and no pedal edema Neuro: COMMON NORMALS: patient oriented x3 SENSORIUM/ORIENTATION: Yes alert MENINGEAL SIGNS: Yes no meningeal signs Skin: COMMON NORMALS: no rashes or lesions noted, no wounds, turgor normal, no jaundice, no petechiae and no mottling GENERAL SKIN EXAM: no rashes or lesions noted and turgor normal Course Reevaluation(s): Reevaluation #1: Discussed her lab and imaging findings with her. Negative for acute findings. She has not vomited throughout her ED stay. We will discharge her home with no new orders. She voiced understanding and is in agreement with the plan. Time: 16:42 Vital Signs: Vital signs: Vital Signs Pulse Rate 104 H 11/24/19 16:55 Respiratory Rate 16 11/24/19 15:47 Blood Pressure 106/89 11/24/19 16:55 Pulse Oximetry 97 11/24/19 16:55 MDM - Nausea/Vomiting/Diarrhea MDM Narrative: Medical decision making narrative: 74-year-old female patient who presents to the emergency department with nausea and vomiting. She is a frequent visitor to the emergency department with similar complaints of nausea and vomiting. She always has some pain medication request. On discussion with the nursing staff it appears her family may be diverting her pain medication. On evaluation the patient is in no distress and evaluation is unremarkable. She had no episodes of vomiting in the ED and she is discharged home with no new orders. Medical Records: Attestation: I reviewed the patient's medical records. Lab Data: Attestation: I reviewed the patient's lab results. Labs: Lab Results 11/24/19 11/24/19 11/24/19 Range/Units 13:43 13:43 14:49 WBC 5.7 (4.0-10.0) 10^3/ uL RBC 3.96 L (4.1-5.3) 10^6/u L Hgb 11.3 L (11.5-15.3) g/dL Hct 35.9 L (37.0-47.0) % MCV 90.7 (81-99) fL MCH 28.5 (28.0-34.0) pg MCHC 31.5 (30.0-36.0) g/dL RDW 13.6 (12.1-15.1) % Plt Count 323 (130-400) 10^3/c mm MPV 11.0 H (7.4-10.4) fL Neut % (Auto) 78.0 % Lymph % (Auto) 13.4 % [place] % (Auto) 7.3 % Eos % (Auto) 0.2 % Baso % (Auto) 0.9 % Neut # (Auto) 4.48 (1.8-7.7) 10^3/u L Lymph # (Auto) 0.8 (0.8-4.8) 10^3/u L [place] # (Auto) 0.4 (0.2-0.9) 10^3/u L Eos # (Auto) 0.0 (0.0-0.8) 10^3/u L Baso # (Auto) 0.1 (0.0-0.1) 10^3/u L Nucleated RBC % (a uto) 0 % Nucleated RBCs # 0.0 /100WBC Sodium 134 L (136-145) mmol/L Potassium 4.7 (3.5-5.1) mmol/L Chloride 99 (98-107) mmol/L Carbon Dioxide 26 (22-29) mmol/L Anion Gap 13.7 (5-19) BUN 10 (8-23) mg/dL Creatinine 0.8 (0.5-0.9) mg/dL GFR Calculation Not Reportable Glucose 115 (65-115) mg/dL Calculated Osmolal ity 278 L (285-295) mOsm/k g Calcium 9.4 (8.5-10.5) mg/dL Total Bilirubin 0.3 (0.15-1.2) mg/dL AST 12 (0-32) U/L ALT < 5 (0-33) U/L Alkaline Phosphata se 92 (35-105) IU/L Total Protein 6.9 (6.6-8.7) g/dL Albumin 4.2 (3.5-5.2) g/dL Globulin 2.7 (1.3-4.6) g/dL Lipase 11 L (13-60) U/L Urine Color Yellow (Yellow) Urine Appearance Clear (CLEAR) Urine pH 7 (5-7) Ur Specific Gravit y 1.015 (1.005-1.030) Urine Protein Neg (Negative) Urine Glucose (UA) Norm (Normal) Urine Ketones Negative (Negative) Urine Blood Neg (Negative) Urine Nitrate Negative (Negative) Urine Bilirubin Neg (Negative) Urine Urobilinogen Neg (Negative) mg/dL Ur Leukocyte Melisa ase Negative (Negative) Discharge Plan Discharge Patient Disposition: Home Clinical Impression: Nausea & vomiting Qualifiers: Vomiting type: unspecified Vomiting Intractability: non-intractable Qualified Code(s): R11.2 - Nausea with vomiting, unspecified Condition: Stable Prescriptions: New Zofran 4 mg tablet 4 mg PO TID PRN (Reason: nausea and vomiting) 5 Days Qty: 30 RF: 0 Continued pantoprazole [Protonix] 40 mg tablet,delayed release (DR/EC) 40 mg PO DAILY Qty: 30 RF: 0 tramadol 50 mg tablet 50 mg PO Q6H PRN (Reason: pain) Qty: 30 RF: 0 famotidine [Pepcid] 40 mg Tablet 40 mg PO BID RF: 0 carbidopa-levodopa 25-100 mg tablet 1.5 tab PO TID RF: 0 pregabalin [Lyrica] 225 mg Capsule 225 mg PO BID RF: 0 multivitamin [Multiple Vitamins] Tablet 1 tab PO DAILY RF: 0 aspirin [Aspir-81] 81 mg Tablet,Delayed Release (Dr/Ec) 81 mg PO DAILY RF: 0 dimenhydrinate [Motion Sickness] 50 mg Tablet 50 - 100 mg PO PRN PRN (Reason: Motion Sickness) RF: 0 diphenhydramine HCl [Benadryl] 25 mg Capsule 50 mg PO TID PRN (Reason: Allergy Symptoms) RF: 0 sucralfate [Carafate] 1 gram Tablet 1 g PO Q6H PRN (Reason: Stomach Upset) RF: 0 nitroglycerin [Nitrostat] 0.4 mg Tablet, Sublingual 0.4 mg SUBLINGUAL Q5M PRN (Reason: Chest Pain) RF: 0 diclofenac sodium 25 mg Tablet,Delayed Release (Dr/Ec) 25 mg PO BID PRN (Reason: Pain) RF: 0 esomeprazole magnesium 40 mg Capsule,Delayed Release(Dr/Ec) 40 mg PO DAILY RF: 0 Discharge Orders: Discharge Order (Routine); Ordered 11/24/19 Ordered By: Anthony West Referrals: Carmelita Balderrama NP [Primary Care Provider] - 1-3 days Discharge Diet: Advance as tolerated Discharge Activity: Increase activity as tolerated Patient Instructions: Acute Nausea and Vomiting (ED) Activity Restrictions/Additional Instructions: Return for any new or worsening symptoms. Follow-up with your primary care provider within 3 days. Take the nausea medication as needed. Drink plenty of fluids to keep well-hydrated. Discharge Date/Time: 11/24/19 16:59 Coding Level of Care Code ED Sales Executive Insurance for Jazmineg Fwd Exam Comprehensive
[2019-11-24] MEDS: ondansetron 2 mg/ML SDV 2 mL 4 MG IVP (13:48)
[2019-11-24 13:51] LABS: Basophils # 0.1 10^3/uL (0.0-0.1); Basophils % 0.9 %; Eosinophils % 0.2 %; Hematocrit 35.9 % (37.0-47.0); Hemoglobin 11.3 g/dL (11.5-15.3); Lymphocytes # 0.8 10^3/uL (0.8-4.8); Lymphocytes % 13.4 %; Mean Corpuscular HGB Conc 31.5 g/dL (30.0-36.0); Mean Corpuscular Hemoglobin 28.5 pg (28.0-34.0); Mean Corpuscular Volume 90.7 fL (81-99); Monocytes # 0.4 10^3/uL (0.2-0.9); Monocytes % 7.3 %; Neutrophils # 4.48 10^3/uL (1.8-7.7); Nucleated Red Blood Cells % 0 %; Platelet Count 323 10^3/cmm (130-400); Red Blood Count 3.96 10^6/uL (4.1-5.3); Red Cell Distribution Width 13.6 % (12.1-15.1); White Blood Count 5.7 10^3/uL (4.0-10.0)
[2019-11-24 14:08] LABS: Alanine Aminotransferase < 5 U/L (0-33); Albumin Level 4.2 g/dL (3.5-5.2); Alkaline Phosphatase 92 IU/L (35-105); Anion Gap 13.7 (5-19); Aspartate Amino Transferase 12 U/L (0-32); Blood Urea Nitrogen 10 mg/dL (8-23); Calcium 9.4 mg/dL (8.5-10.5); Carbon Dioxide 26 mmol/L (22-29); Chloride 99 mmol/L (98-107); Globulin 2.7 g/dL (1.3-4.6); Glucose 115 mg/dL (65-115); Lipase 11 U/L (13-60); Osmolality Calculated 278 mOsm/kg (285-295); Potassium 4.7 mmol/L (3.5-5.1); Sodium 134 mmol/L (136-145); Total Bilirubin 0.3 mg/dL (0.15-1.2); Total Protein 6.9 g/dL (6.6-8.7)
[2019-11-24] MEDS: ketorolac 30 mg/mL INJ 15 MG IVP (14:11)
[2019-11-24 15:00] LABS: Add Urine Microscopic? NO
[2019-11-24 15:07] LABS: Bilirubin Urine Neg (Negative); Blood Urine Neg (Negative); Glucose Urine UA Norm (Normal); Ketones Urine Negative (Negative); Leukocyte Esterase Urine Negative (Negative); Nitrate Urine Negative (Negative); Protein Urine Neg (Negative); Specific Gravity, Urine 1.015 (1.005-1.030); Urine Appearance Clear (CLEAR); Urine Color Yellow (Yellow); Urobilinogen Urine Neg (Negative); pH Urine 7 (5-7)
[2019-11-24] MEDS: metoclopramide 5 mg/mL SDV 2 mL 10 MG IVP (15:42)
[2019-11-24 15:47] VITALS: BP 108/80; PULSE 95; RESP 16; O2SAT 96
[2019-11-24 16:55] VITALS: BP 106/89; PULSE 104; O2SAT 97
== END 2019-11-24 16:59 | disposition home or self-care (01) ==
PROVIDERS: Emergency Provider Family Medicine; PCP Nurse Practitioner Family
DX: R11.2 Nausea with vomiting, unspecified (principal); Z79.82 Long term (current) use of aspirin; G20 Parkinson's disease
CPT/HCPCS: 12345; 36415; 80053; 81003; 83690; 85025; 96374; 96375; 99283; J1885; J2405; J2765

== ENCOUNTER 2020-01-19 16:56 | Emergency (ER) | payer MEDICARE, SELFPAY ==
[2020-01-19 17:20] VITALS: BP 155/94; PULSE 94; RESP 18; TEMP 36.4; O2SAT 96; BMI 29.2
--- NOTE | 2020-01-19 18:41 | ED_ITS ---
HPI - General Adult General: Chief complaint: General Medical Stated complaint: CHEST PAIN/ ABDOMINAL PAIN Time Seen by Provider: 01/19/20 18:18 History of Present Illness: HPI narrative: 75-year-old female presenting with a complaint of I need my tramadol and Lyrica . She evidently used to take 180 tramadol per month, and has been out for over a week. She went and saw a provider her only gave her 30, and she ran out. She is also been out of her Lyrica. She states that she has parkinsonism, and that when she shakes that she hurts, hence the need for the tramadol and Lyrica. She also complains of stomach burning. This just started since she got here. Onset (ago): week(s) Location: abdomen Radiation: non-radiation Relieving factors: none Exacerbating factors: none Associated symptoms: Reports nausea; Deny chest pain, confusion, dyspnea, headache(s), rash, palpitations or vomiting Review of Systems Const: Denies: fever(s) or chills Eyes: Denies: change in vision ENMT: Denies: odynophagia Card: Denies: chest pain, palpitations or irregular heart rhythm Resp: Denies: dyspnea, productive cough, non-productive cough or wheezing GI: Reports: abdominal pain and nausea; Denies: vomiting or rectal pain : Denies: dysuria, urinary urgency or hematuria Musc: Denies: neck pain or joint warmth Skin/Breast: Denies: rash, pruritus or erythema Neuro: Denies: headache(s), dizziness, vertigo or confusion Psych: Denies: anxiety PFSH ED PFSH: Medical History (Updated 01/19/20 @ 18:56 by Nicholas Cordoba DO) History of Parkinson's disease Surgical History History of carpal tunnel surgery History of foot surgery Social History Smoking and tobacco status: never smoked Physical Exam Const: GENERAL APPEARANCE: well developed ORIENTATION/CONSCIOUSNESS: Yes oriented to person and Yes oriented to place; not oriented to time HENMT: COMMON NORMALS: normocephalic, external ears normal and Normal external nose present HEAD & SCALP: normocephalic FACE & SINUS: normal facial exam NOSE: Normal external nose present and No nasal discharge present EXTERNAL EAR: Yes external ears normal Eye: COMMON NORMALS: EOMs intact bilaterally Neck/C-Spine: COMMON NORMALS: full ROM Chest: COMMONS NORMALS: normal inspection of the chest CHEST: No tenderness Resp: COMMON NORMALS: clear to auscultation bilaterally EFFORT & INSPECTION: No tachypneic, No respiratory distress, No retractions, No uses accessory muscles and No tracheal deviation AUSCULTATION: clear to auscultation bilaterally, no rhonchi, no wheezes and lung sounds not diminished Cardio: COMMON NORMALS: regular rate and regular rhythm RATE: regular rate RHYTHM: regular rhythm HEART SOUNDS: no murmurs PERIPHERAL PULSES: radial pulses present GI: INSPECTION: No abdominal distension AUSCULTATION: No Hyperactive bowel sounds present and No Hypoactive bowel sounds present PALPATION: No Guarding due to palpation present (GI) and No Rigid due to palpation PERCUSSION: no dullness to percussion and no tympanic to percussion Neuro: SENSORIUM/ORIENTATION: Yes oriented to person, Yes oriented to place and No oriented to time Psych: COMMON NORMALS: mental status grossly normal Skin: COMMON NORMALS: no rashes or lesions noted GENERAL SKIN EXAM: no rashes or lesions noted Course Vital Signs: Vital signs: Vital Signs Temperature 97.7 F 01/19/20 19:32 Pulse Rate 101 H 01/19/20 19:32 Respiratory Rate 17 01/19/20 19:32 Blood Pressure 138/101 01/19/20 19:32 Pulse Oximetry 95 01/19/20 19:32 MDM - General Adult MDM Narrative: Medical decision making narrative: I explained to the patient that tramadol is quite a dangerous drug, especially for people over 65. This is not something we prescribe for patients in the ER. I will refill her Lyrica for now. Case management referral will be placed to find her a primary care physician. Discharge Plan Discharge Patient Disposition: Home Clinical Impression: Medication refill Condition: Stable Prescriptions: Continued Lyrica 225 mg Capsule 225 mg PO BID Qty: 30 RF: 0 No Action pantoprazole [Protonix] 40 mg tablet,delayed release (DR/EC) 40 mg PO DAILY Qty: 30 RF: 0 tramadol 50 mg tablet 50 mg PO Q6H PRN (Reason: pain) Qty: 30 RF: 0 famotidine [Pepcid] 40 mg Tablet 40 mg PO BID RF: 0 carbidopa-levodopa 25-100 mg tablet 1.5 tab PO TID RF: 0 multivitamin [Multiple Vitamins] Tablet 1 tab PO DAILY RF: 0 aspirin [Aspir-81] 81 mg Tablet,Delayed Release (Dr/Ec) 81 mg PO DAILY RF: 0 dimenhydrinate [Motion Sickness] 50 mg Tablet 50 - 100 mg PO PRN PRN (Reason: Motion Sickness) RF: 0 diphenhydramine HCl [Benadryl] 25 mg Capsule 50 mg PO TID PRN (Reason: Allergy Symptoms) RF: 0 sucralfate [Carafate] 1 gram Tablet 1 g PO Q6H PRN (Reason: Stomach Upset) RF: 0 nitroglycerin [Nitrostat] 0.4 mg Tablet, Sublingual 0.4 mg SUBLINGUAL Q5M PRN (Reason: Chest Pain) RF: 0 diclofenac sodium 25 mg Tablet,Delayed Release (Dr/Ec) 25 mg PO BID PRN (Reason: Pain) RF: 0 esomeprazole magnesium 40 mg Capsule,Delayed Release(Dr/Ec) 40 mg PO DAILY RF: 0 Discharge Orders: Discharge Order (Routine); Ordered 01/19/20 Ordered By: Nicholas Cordoba Referrals: Carmelita Balderrama NP [Primary Care Provider] - 4-7 days Discharge Diet: Advance as tolerated Discharge Activity: Resume usual activity Activity Restrictions/Additional Instructions: I apologize we are not able to fill your tramadol. You must seek consultation with a primary physician or pain specialist for this medication. Return for fever, vomiting liquids, mental status changes, other concerning symptoms. Coding Level of Care Code ED Catering Truck Operator for Chg Fwd Exam Comprehensive
[2020-01-19] MEDS: lidocaine 2% viscous 15 ML, aluminum-mag hydrox-simethicon 30 ML, sucralfate oral liq 1 GM PO (18:45)
[2020-01-19] MEDS: TRAMadol 50 mg Tablet PO (19:15)
[2020-01-19 19:17] VITALS: BP 138/101; PULSE 105; RESP 17; TEMP 36.5; O2SAT 95
[2020-01-19 19:32] VITALS: BP 138/101; PULSE 101; RESP 17; TEMP 36.5; O2SAT 95
--- NOTE | 2020-01-22 13:58 | DCPLANNER ---
clinical nutrition manager had message to speak with patient about getting established with a primary care physician. clinical nutrition manager spoke with patient, she stated that she needed a primary care physician. clinical nutrition manager called [facility], spoke with Yasmin, a follow up appointment was scheduled for Thursday, January 30, 2020 at 11:[address] Landis. clinical nutrition manager called patient with appointment information. Patient stated that she would attend the appointment.
== END 2020-01-19 19:35 | disposition home or self-care (01) ==
PROVIDERS: Emergency Provider Emergency Medicine; PCP Nurse Practitioner Family
DX: Z76.0 Encounter for issue of repeat prescription (principal); Z79.82 Long term (current) use of aspirin; G20 Parkinson's disease
CPT/HCPCS: 12345; 99282; 99283

== ENCOUNTER → 2020-02-22 10:34 | Outpatient (BNVA) | payer MEDICARE, SELFPAY | PROVIDERS: PCP Family Medicine Adult Medicine; Visit Provider Specialist | DX: G20 Parkinson's disease (principal) | CPT/HCPCS: 99204 ==

== ENCOUNTER 2020-03-12 11:40 | Emergency (ER) | payer MEDICARE, SELFPAY ==
[2020-03-12 11:43] VITALS: BP 116/79; PULSE 85; RESP 16; TEMP 36.4; O2SAT 95; BMI 29.2
--- NOTE | 2020-03-12 11:49 | XRR_ITS ---
PROCEDURE INFORMATION: Exam: XR Chest, 1 View Exam date and time: 03/12/2020 12:08 PM Age: 75 years old Clinical indication: Cough and shortness of breath; Chest pain TECHNIQUE: Imaging protocol: XR of the chest Views: Frontal portable upright view of the chest. COMPARISON: CR XR chest 1V portable [id number] 05/17/2019 12:30 PM FINDINGS: Lungs: Stable left basilar pulmonary subsegmental atelectasis/scarring. The pulmonary vasculature is congested. The lungs are otherwise peripherally clear bilaterally. Pleural space: No pleural effusion. No pneumothorax. Heart/Mediastinum: The heart is normal in size and contour. Mediastinum: Stable. Bones/joints: Diffuse osteopenia. Thoracic spine vertebral body marginal osteophytes are noted at multiple levels. XR/XR chest 1V portable [id number] IMPRESSION: 1. Stable left basilar pulmonary subsegmental atelectasis/scarring. 2. Pulmonary vascular congestion.
--- NOTE | 2020-03-12 11:49 | ECG_ITS ---
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 Measurements Intervals [place] Rate: 78 P: 44 SC: 145 QRS: -34 QRSD: 83 T: 1 QT: 374 QTc: 427 Interpretive Statements SINUS RHYTHM LEFT AXIS DEVIATION [QRS AXIS < -30] PATTERN CONSISTENT WITH PULMONARY DISEASE VOLTAGE CRITERIA FOR LVH [MEETS CRITERIA IN ONE OF: R(aVL), S(V1), R(V5), R(V5/V6)+S(V1)] Compared to ECG 05/17/2019 13:58:58 Sinus tachycardia no longer present Electronically Signed On 03-12-2020 21:35:31 SCHOOL ADMINISTRATOR by Lukas Grewal M.D. [id number]
[2020-03-12 11:59] VITALS: O2SAT 95
[2020-03-12 12:03] LABS: Basophils # 0.1 10^3/uL (0.0-0.1); Basophils % 0.7 %; Eosinophils # 0.1 10^3/uL (0.0-0.8); Eosinophils % 1.5 %; Hematocrit 36.1 % (37.0-47.0); Hemoglobin 11.6 g/dL (11.5-15.3); Lymphocytes # 1.2 10^3/uL (0.8-4.8); Lymphocytes % 17.2 %; Mean Corpuscular HGB Conc 32.1 g/dL (30.0-36.0); Mean Corpuscular Hemoglobin 28.9 pg (28.0-34.0); Mean Platelet Volume 11.3 fL (7.4-10.4); Monocytes # 0.6 10^3/uL (0.2-0.9); Monocytes % 8.2 %; Neutrophils # 4.81 10^3/uL (1.8-7.7); Neutrophils % 72.3 %; Nucleated Red Blood Cells % 0 %; Platelet Count 338 10^3/cmm (130-400); Red Blood Count 4.01 10^6/uL (4.1-5.3); Red Cell Distribution Width 14.5 % (12.1-15.1); White Blood Count 6.7 10^3/uL (4.0-10.0)
[2020-03-12 12:20] LABS: Alanine Aminotransferase < 5 U/L (0-33); Albumin Level 4.4 g/dL (3.5-5.2); Alkaline Phosphatase 83 IU/L (35-105); Blood Urea Nitrogen 10 mg/dL (8-23); Calcium 9.5 mg/dL (8.5-10.5); Carbon Dioxide 29 mmol/L (22-29); Chloride 99 mmol/L (98-107); Globulin 2.9 g/dL (1.3-4.6); Glucose 101 mg/dL (65-115); Osmolality Calculated 285 mOsm/kg (285-295); Sodium 138 mmol/L (136-145); Total Bilirubin 0.3 mg/dL (0.15-1.2); Total Protein 7.3 g/dL (6.6-8.7)
[2020-03-12 12:21] LABS: Troponin(5th) Baseline 8 ng/L (0-10)
[2020-03-12 12:22] LABS: Anion Gap 14.2 (5-19); Aspartate Amino Transferase 14 U/L (0-32); Potassium 4.2 mmol/L (3.5-5.1)
--- NOTE | 2020-03-12 12:26 | ED_ITS ---
HPI - General Adult General: Chief complaint: General Medical Stated complaint: NAUSEA, CHEST CRAMPS Time Seen by Provider: 03/12/20 11:59 History of Present Illness: HPI narrative: She has been feeling burning in her chest and her throat for about 2 weeks now. No dizziness, no shortness of breath, she has nausea but no vomiting. She thinks it is her GERD. She also says she is under a lot of stress as her daughter is home with her and the daughter is terminal with metastatic colon cancer. She says she is unable to deal with it and it is also causing her to be pretty upset. Onset (ago): week(s) (2) Location: chest Radiation: neck Severity: moderate Quality: burning Pain Consistency: constant Relieving factors: none Exacerbating factors: none Associated symptoms: Reports chest pain; Deny confusion, cough, diaphoresis, decreased appetite, dyspnea, fevers/chills, headache(s), malaise, nausea, rash, palpitations, seizures, short of breath, syncope, vomiting or weakness Treatments prior to arrival: none Review of Systems General: Reports: 10 or more systems reviewed and unremarkable except in HPI and below Const: Denies: malaise or diaphoresis Eyes: Denies: change in vision or blurry vision ENMT: Denies: throat pain, enlarged tonsils, odynophagia, hoarseness, mouth pain or swelling of lips/tongue Card: Reports: chest pain; Denies: palpitations or syncope Resp: Denies: dyspnea GI: Denies: nausea or vomiting : Denies: flank pain, difficulty voiding, dysuria, urinary frequency, urinary urgency or urinary hesitancy Musc: Denies: neck pain, back pain or extremity swelling Skin/Breast: Denies: rash Neuro: Denies: headache(s) or confusion Endo: Denies: polyuria, polydipsia or tired all the time [facility] ED PFSH: Medical History Anxiety CAD (coronary artery disease) Chronic back pain Dizziness GERD (gastroesophageal reflux disease) History of Parkinson's disease Macular degeneration Motion sickness, sequela Parkinson disease Surgical History History of carpal tunnel surgery History of foot surgery Family History Daughter Cancer Social History Smoking and tobacco status: never smoked Physical Exam Const: COMMON NORMALS: no acute distress, average body habitus, patient oriented x3, no limitations, healthy appearing, alert and well nourished HENMT: COMMON NORMALS: normocephalic, atraumatic and moist oral mucous membranes HEAD & SCALP: normocephalic and atraumatic Neck/C-Spine: COMMON NORMALS: no meningeal signs and no JVD Chest: COMMONS NORMALS: normal inspection of the chest and normal palpation of entire chest wall Resp: COMMON NORMALS: normal respiratory effort, No retractions, No use of accessory muscles, clear to auscultation bilaterally and percussion normal AUSCULTATION: clear to auscultation bilaterally PERCUSSION: percussion normal Cardio: COMMON NORMALS: no JVD, regular rate, regular rhythm, S1 normal heart sound present, S2 normal heart sound present, No gallops present (Cardio), No clicks present (Cardio), No murmurs present (Cardio), No rub (Cardio) and Peripheral pulses 2+ throughout RATE: regular rate RHYTHM: regular rhythm HEART SOUNDS: S1 normal heart sound present and S2 normal heart sound present PERIPHERAL PULSES: Peripheral pulses 2+ throughout GI: COMMON NORMALS: Normal to inspection, nondistended, normoactive bowel sounds present, Soft to palpation, No hepatosplenomegaly present, no masses and no bruits PALPATION: Yes Soft to palpation, Yes Tenderness to palpation present (GI) (epigastric) and Yes No hepatosplenomegaly present Extremity: COMMON NORMALS: normal to inspection, full ROM, capillary refill normal, no calf tenderness and no pedal edema Neuro: COMMON NORMALS: patient oriented x3 SENSORIUM/ORIENTATION: Yes alert MENINGEAL SIGNS: Yes no meningeal signs Course Reevaluation(s): Reevaluation #1: Discussed her lab and imaging findings with her - negative for acute findings. Will discharge her home with no new orders. She requested to be tested for the barber virus even though she is asymptomatic and has no contacts. Will test her, perform a PCR test and will be contacted with the result. She voiced understanding and all questions answered. Her pain resolved with the GI cocktail. Time: 14:05 Vital Signs: Vital signs: Vital Signs Temperature 97.6 F 03/12/20 11:43 Pulse Rate 90 03/12/20 12:54 Respiratory Rate 16 03/12/20 11:43 Blood Pressure 118/85 03/12/20 12:54 Pulse Oximetry 99 03/12/20 12:54 MDM - General Adult MDM Narrative: Medical decision making narrative: 75-year-old female patient who presents to the emergency department with clinical features consistent with GERD. Evaluation was negative for a cardiac cause for her symptoms. She is discharged home with a prescription for sucralfate and a PPI. Medical Records: Attestation: I reviewed the patient's medical records. Lab Data: Attestation: I reviewed the patient's lab results. Labs: Lab Results 03/12/20 03/12/20 03/12/20 Range/Units 11:30 11:30 11:30 WBC 6.7 (4.0-10.0) 10^3/ uL RBC 4.01 L (4.1-5.3) 10^6/u L Hgb 11.6 (11.5-15.3) g/dL Hct 36.1 L (37.0-47.0) % MCV 90.0 (81-99) fL MCH 28.9 (28.0-34.0) pg MCHC 32.1 (30.0-36.0) g/dL RDW 14.5 (12.1-15.1) % Plt Count 338 (130-400) 10^3/c mm MPV 11.3 H (7.4-10.4) fL Neut % (Auto) 72.3 % Lymph % (Auto) 17.2 % Long % (Auto) 8.2 % Eos % (Auto) 1.5 % Baso % (Auto) 0.7 % Neut # (Auto) 4.81 (1.8-7.7) 10^3/u L Lymph # (Auto) 1.2 (0.8-4.8) 10^3/u L Long # (Auto) 0.6 (0.2-0.9) 10^3/u L Eos # (Auto) 0.1 (0.0-0.8) 10^3/u L Baso # (Auto) 0.1 (0.0-0.1) 10^3/u L Nucleated RBC % (a uto) 0 % Nucleated RBCs # 0.0 /100WBC Sodium 138 (136-145) mmol/L Potassium 4.2 (3.5-5.1) mmol/L Chloride 99 (98-107) mmol/L Carbon Dioxide 29 (22-29) mmol/L Anion Gap 14.2 (5-19) BUN 10 (8-23) mg/dL Creatinine 1.1 H (0.5-0.9) mg/dL GFR Calculation Not Reportable Glucose 101 (65-115) mg/dL Calculated Osmolal ity 285 (285-295) mOsm/k g Calcium 9.5 (8.5-10.5) mg/dL Total Bilirubin 0.3 (0.15-1.2) mg/dL AST 14 (0-32) U/L ALT < 5 (0-33) U/L Alkaline Phosphata se 83 (35-105) IU/L Troponin T Baselin e 8 (0-10) ng/L Total Protein 7.3 (6.6-8.7) g/dL Albumin 4.4 (3.5-5.2) g/dL Globulin 2.9 (1.3-4.6) g/dL EKG Data^: EKG 1: Attestation: I personally reviewed and interpreted this EKG as follows: EKG interpretation date: 03/12/20 EKG interpretation time: 11:52 Prior EKG tracings: available for review Interpretation: Sinus rhythm. Heart rate 78 bpm. Left axis deviation. No ST changes. Computer generated interpretation: Chest X-Ray 03/12/20 11:49 IMPRESSION: 1. Stable left basilar pulmonary subsegmental atelectasis/scarring. 2. Pulmonary vascular congestion. EKG 2: Attestation: I personally reviewed and interpreted this EKG as follows: EKG interpretation date: 03/12/20 EKG interpretation time: 12:25 Prior EKG tracings: available for review Interpretation: Sinus rhythm. Heart rate 92 bpm. Left axis deviation. LVH. Computer generated interpretation: Chest X-Ray 03/12/20 11:49 IMPRESSION: 1. Stable left basilar pulmonary subsegmental atelectasis/scarring. 2. Pulmonary vascular congestion. Discharge Plan Discharge Patient Disposition: Home Clinical Impression: GERD (gastroesophageal reflux disease) Qualifiers: Esophagitis presence: esophagitis presence not specified Qualified Code(s): K21.9 - Gastro-esophageal reflux disease without esophagitis Condition: Stable Prescriptions: New Protonix 40 mg tablet,delayed release (DR/EC) 40 mg PO DAILY Qty: 14 RF: 0 sucralfate 1 gram tablet 1 g PO BID Qty: 28 RF: 0 Continued acetaminophen 500 mg tablet 500 mg PO Q6H PRN (Reason: mild to moderate pain) Qty: 120 RF: 3 dimenhydrinate [Motion Sickness] 50 mg tablet 50 - 100 mg PO PRN PRN (Reason: Motion Sickness OR DIZZINESS) Qty: 60 RF: 1 nitroglycerin [Nitrostat] 0.4 mg tablet, sublingual 0.4 mg SUBLINGUAL Q5M PRN (Reason: Chest Pain from heart) Qty: 14 RF: 3 multivitamin [Multiple Vitamins] Tablet 1 tab PO DAILY@08 RF: 0 aspirin 81 mg tablet,delayed release (DR/EC) 81 mg PO DAILY@08 RF: 0 carbidopa-levodopa 25-100 mg tablet 1.5 tab PO TID@08,12,18 RF: 0 Discharge Orders: Discharge ED (Routine); Ordered 03/12/20 Ordered By: Anthony West Referrals: Maycol Landis MD [Primary Care Provider] - 1-3 days Discharge Diet: As Directed Discharge Activity: Increase activity as tolerated Patient Instructions: Diet for Ulcers and Gastritis (ED), Gastroesophageal Reflux Disease (ED) Activity Restrictions/Additional Instructions: Return for any new or worsening symptoms. Follow up with your primary care provider within 3 days. Follow the diet as prescribed. Take the medications as prescribed. Coding Level of Care Code ED Gravel Machine Operator for Jazmineg Fwd Exam Comprehensive
[2020-03-12] MEDS: lidocaine 2% viscous 15 ML, aluminum-mag hydrox-simethicon 30 ML, sucralfate oral liq 1 GM PO (12:52)
[2020-03-12] MEDS: famotidine 20 mg/2 mL INJ 40 MG IVP (12:52)
[2020-03-12] MEDS: ondansetron 2 mg/ML SDV 2 mL 4 MG IVP (12:53)
[2020-03-12 12:54] VITALS: BP 118/85; PULSE 90; O2SAT 99
[2020-03-12] MEDS: hyDROXYzine 25 mg Capsule PO (13:31)
--- NOTE | 2020-03-12 15:14 | PC.NURSE ---
pt refusing COVID swab, stating I just know that I don't have it and I don't know why I asked the doctor for that test .
== END 2020-03-12 15:22 | disposition home or self-care (01) ==
PROVIDERS: Physician Assistant; Emergency Provider Family Medicine; PCP Family Medicine Adult Medicine
DX: K21.9 Gastro-esophageal reflux disease without esophagitis (principal); Z79.82 Long term (current) use of aspirin; I25.10 Atherosclerotic heart disease of native coronary artery without angina pectoris; G20 Parkinson's disease
CPT/HCPCS: 12345; 71045; 80053; 84484; 85025; 87493; 93005; 96374; 96375; 99283; 99284; J2405; J3490

== ENCOUNTER 2020-03-17 11:18 | Emergency (ER) | payer MEDICARE, SELFPAY ==
[2020-03-17 11:30] VITALS: BP 127/66; PULSE 85; RESP 17; TEMP 36.8; O2SAT 97; BMI 27.4
--- NOTE | 2020-03-17 11:47 | ECG_ITS ---
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 Measurements Intervals [place] Rate: 83 P: 64 [place]: 149 QRS: -42 QRSD: 89 T: 30 QT: 373 QTc: 441 Interpretive Statements SINUS RHYTHM LEFT AXIS DEVIATION [QRS AXIS < -30] PATTERN CONSISTENT WITH PULMONARY DISEASE VOLTAGE CRITERIA FOR LVH [MEETS CRITERIA IN ONE OF: R(aVL), S(V1), R(V5), R(V5/V6)+S(V1)] Compared to ECG 03/12/2020 11:46:36 No significant changes Electronically Signed On 03-17-2020 20:21:44 SOCIAL STUDIES DEPARTMENT CHAIR by Lukas Grewal M.D. [id number]
[2020-03-17] MEDS: ondansetron 2 mg/ML SDV 2 mL 4 MG IVP (11:55)
[2020-03-17 12:01] LABS: Basophils % 0.4 %; Eosinophils # 0.1 10^3/uL (0.0-0.8); Eosinophils % 0.6 %; Hematocrit 33.2 % (37.0-47.0); Hemoglobin 10.4 g/dL (11.5-15.3); Lymphocytes % 10.7 %; Mean Corpuscular HGB Conc 31.3 g/dL (30.0-36.0); Mean Corpuscular Volume 92.5 fL (81-99); Mean Platelet Volume 11.1 fL (7.4-10.4); Monocytes # 0.6 10^3/uL (0.2-0.9); Monocytes % 6.5 %; Neutrophils # 7.54 10^3/uL (1.8-7.7); Neutrophils % 81.5 %; Nucleated Red Blood Cells % 0 %; Platelet Count 283 10^3/cmm (130-400); Red Blood Count 3.59 10^6/uL (4.1-5.3); Red Cell Distribution Width 14.7 % (12.1-15.1); White Blood Count 9.3 10^3/uL (4.0-10.0)
[2020-03-17] MEDS: ketorolac 30 mg/mL INJ 15 MG IVP (12:11)
--- NOTE | 2020-03-17 12:13 | W.ED.NAVMDI ---
HPI - Nausea/Vomiting/Diarrhea General: Chief complaint: Nausea/Vomiting/Diarrhea Stated complaint: NAUSEA/ CHEST DISCOMFORT Time Seen by Provider: 03/17/20 11:38 History of Present Illness: HPI Narrative: The patient is a 75-year-old female with chronic abdominal pain recently taken off her tramadol for breaking a pain contract comes to the ER with generalized abdominal pain. Denies nausea, vomiting, and diarrhea. She denies alcohol intake as well. She says she is going through a lot of stress and needs tramadol because she is in pain and her daughter is going through hospice care which is upsetting her as well. MD elicited complaint: abdominal pain Onset (ago): week(s) (many weeks to months) Associated nausea: No Location of pain: Diffuse Associated symtoms: Denies anxiety, change in vision, chest pain, dizziness, fatigue, headache(s), nausea or palpitations Review of Systems General: Reports: 10 or more systems reviewed and unremarkable except in HPI and below Const: Denies: fatigue Eyes: Denies: change in vision, blurry vision or eye redness ENMT: Denies: throat pain, swelling of lips/tongue, ear or mastoid pain or nasal congestion Card: Denies: chest pain, palpitations, irregular heart rhythm, edema, dyspnea on exertion or orthopnea Resp: Denies: dyspnea, productive cough or non-productive cough GI: Reports: abdominal pain; Denies: nausea, vomiting, diarrhea or GI cramping : Denies: flank pain, difficulty voiding, urinary frequency or urinary urgency Musc: Denies: neck pain, back pain, extremity pain, joint pain, joint redness, limited range of motion or muscle weakness Skin/Breast: Denies: rash, pruritus, erythema, skin pain or skin tenderness Neuro: Denies: headache(s), numbness in extremities, weakness in extremities, sensory changes, difficulty walking, dizziness, confusion or Slurred speech present Psych: Denies: anxiety or depression Endo: Denies: polyuria All/Imm: Denies: urticaria, throat swelling or tongue swelling PFSH ED PFSH: Medical History Anxiety CAD (coronary artery disease) Chronic back pain Dizziness GERD (gastroesophageal reflux disease) History of Parkinson's disease Macular degeneration Motion sickness, sequela Parkinson disease Surgical History History of carpal tunnel surgery History of foot surgery Family History Daughter Cancer Social History Smoking and tobacco status: never smoked Physical Exam Const: COMMON NORMALS: no acute distress, average body habitus, patient oriented x3, no limitations, healthy appearing, alert and well nourished GENERAL APPEARANCE: cooperative, comfortable, well kempt and well developed ORIENTATION/CONSCIOUSNESS: Yes awake, Yes oriented to person, Yes oriented to place and Yes oriented to time HENMT: COMMON NORMALS: normocephalic, external ears normal and Normal external nose present HEAD & SCALP: normal to inspection and normocephalic NOSE: Normal external nose present EXTERNAL EAR: Yes external ears normal MOUTH: Normal oral and palatal mucosa present THROAT: posterior oropharynx normal Eye: COMMON NORMALS: Equal, round and reactive pupils present and EOMs intact bilaterally GENERAL EYE: appearance normal, both eyes and all related structures PUPIL: Yes Equal, round and reactive pupils present Neck/C-Spine: COMMON NORMALS: full ROM, no lymphadenopathy, no meningeal signs and no JVD GENERAL: Yes normal visual inspection Lymph: LYMPHATIC: no lymphadenopathy noted Chest: COMMONS NORMALS: normal inspection of the chest and normal palpation of entire chest wall Resp: COMMON NORMALS: normal respiratory effort, No retractions, No use of accessory muscles, clear to auscultation bilaterally and percussion normal EFFORT & INSPECTION: Yes able to speak in complete sentences AUSCULTATION: clear to auscultation bilaterally PERCUSSION: percussion normal Cardio: COMMON NORMALS: no JVD, regular rate, regular rhythm, S1 normal heart sound present, S2 normal heart sound present and Peripheral pulses 2+ throughout RATE: regular rate RHYTHM: regular rhythm HEART SOUNDS: S1 normal heart sound present and S2 normal heart sound present PERIPHERAL PULSES: Peripheral pulses 2+ throughout GI: COMMON NORMALS: Normal to inspection, nondistended, normoactive bowel sounds present, Soft to palpation, non-tender and no masses INSPECTION: Yes normal to inspection PALPATION: Yes Soft to palpation : COMMON NORMALS: Yes no CVA tenderness BLADDER/KIDNEY EXAM: Yes no CVA tenderness Back/Pelvis: COMMON NORMALS: no CVA tenderness, thoracic and lumbar spine normal to inspection, no thoracic nor lumbar tenderness and thoraco-lumbar ROM normal Extremity: COMMON NORMALS: normal to inspection, full ROM, capillary refill normal, no joint enlargement and no pedal edema GENERAL: Yes normal exam except as noted Neuro: COMMON NORMALS: patient oriented x3, CN's II-XII intact bilaterally, moves all extremities, no focal motor deficits, no sensory deficits noted and gait normal SENSORIUM/ORIENTATION: Yes alert, Yes oriented to person, Yes oriented to place and Yes oriented to time MENINGEAL SIGNS: Yes no meningeal signs Psych: COMMON NORMALS: mental status grossly normal, Normal thought process present, cooperative, normal affect and speech normal APPEARANCE: Yes well kempt ATTITUDE: Yes calm SPEECH: Yes normal speech THOUGHT PROCESS: Normal thought process present Skin: COMMON NORMALS: no rashes or lesions noted GENERAL SKIN EXAM: no rashes or lesions noted Course Vital Signs: Vital signs: Vital Signs Temperature 98.3 F 03/17/20 11:30 Pulse Rate 115 H 03/17/20 14:54 Respiratory Rate 18 03/17/20 15:19 Blood Pressure 144/94 03/17/20 14:54 Pulse Oximetry 96 03/17/20 14:54 MDM - Nausea/Vomiting/Diarrhea MDM Narrative: Medical decision making narrative: Ms. Linton was complaining of chronic abdominal pain. CT showed biliary sludge which is not really consistent with her symptoms. I still placed a case management referral for outpatient general surgery follow-up as well as chronic pain management and psychiatry follow-up. She used to take tramadol and somehow broke her pain contract and no longer gets it. She was given pain control in the ER and discharged with a short course of tramadol. Lab Data: Labs: Lab Results 03/17/20 03/17/20 03/17/20 Range/Units 10:55 10:55 11:27 WBC 9.3 (4.0-10.0) 10^3/ uL RBC 3.59 L (4.1-5.3) 10^6/u L Hgb 10.4 L (11.5-15.3) g/dL Hct 33.2 L (37.0-47.0) % MCV 92.5 (81-99) fL MCH 29.0 (28.0-34.0) pg MCHC 31.3 (30.0-36.0) g/dL RDW 14.7 (12.1-15.1) % Plt Count 283 (130-400) 10^3/c mm MPV 11.1 H (7.4-10.4) fL Neut % (Auto) 81.5 % Lymph % (Auto) 10.7 % [place] % (Auto) 6.5 % Eos % (Auto) 0.6 % Baso % (Auto) 0.4 % Neut # (Auto) 7.54 (1.8-7.7) 10^3/u L Lymph # (Auto) 1.0 (0.8-4.8) 10^3/u L [place] # (Auto) 0.6 (0.2-0.9) 10^3/u L Eos # (Auto) 0.1 (0.0-0.8) 10^3/u L Baso # (Auto) 0.0 (0.0-0.1) 10^3/u L Nucleated RBC % (a uto) 0 % Nucleated RBCs # 0.0 /100WBC Sodium 134 L (136-145) mmol/L Potassium 3.7 (3.5-5.1) mmol/L Chloride 96 L (98-107) mmol/L Carbon Dioxide 29 (22-29) mmol/L Anion Gap 12.7 (5-19) BUN 12 (8-23) mg/dL Creatinine 0.9 (0.5-0.9) mg/dL GFR Calculation Not Reportable Glucose 130 H (65-115) mg/dL Calculated Osmolal ity 280 L (285-295) mOsm/k g Calcium 9.2 (8.5-10.5) mg/dL Total Bilirubin 0.2 (0.15-1.2) mg/dL AST 11 (0-32) U/L ALT < 5 (0-33) U/L Alkaline Phosphata se 75 (35-105) IU/L Total Protein 6.5 L (6.6-8.7) g/dL Albumin 4.1 (3.5-5.2) g/dL Globulin 2.4 (1.3-4.6) g/dL Lipase 18 (13-60) U/L Urine Color Yellow (Yellow) Urine Appearance Clear (CLEAR) Urine pH 5 (5-7) Ur Specific Gravit y 1.025 (1.005-1.030) Urine Protein Neg (Negative) Urine Glucose (UA) Norm (Normal) Urine Ketones 1+ H (Negative) Urine Blood Neg (Negative) Urine Nitrate Negative (Negative) Urine Bilirubin 1+ H (Negative) Urine Urobilinogen Norm (Negative) mg/dL Ur Leukocyte Melisa ase Negative (Negative) Discharge Plan Discharge Patient Disposition: Home Clinical Impression: Biliary sludge Abdominal pain Qualifiers: Abdominal location: generalized Qualified Code(s): R10.84 - Generalized abdominal pain Condition: Stable Prescriptions: New tramadol 50 mg tablet 50 mg PO DAILY PRN (Reason: pain) Qty: 7 RF: 0 No Action acetaminophen 500 mg tablet 500 mg PO Q6H PRN (Reason: mild to moderate pain) Qty: 120 RF: 3 dimenhydrinate [Motion Sickness] 50 mg tablet 50 - 100 mg PO PRN PRN (Reason: Motion Sickness OR DIZZINESS) Qty: 60 RF: 1 nitroglycerin [Nitrostat] 0.4 mg tablet, sublingual 0.4 mg SUBLINGUAL Q5M PRN (Reason: Chest Pain from heart) Qty: 14 RF: 3 aspirin 81 mg tablet,delayed release (DR/EC) 81 mg PO DAILY@08 RF: 0 carbidopa-levodopa 25-100 mg tablet 1.5 tab PO TID@08,12,18 RF: 0 sucralfate 1 gram tablet 1 g PO BID@0800,1800 RF: 0 Sleep 25 mg Tablet 25 mg PO BEDTIME@2200 PRN (Reason: Insomnia) RF: 0 Discharge Orders: Discharge ED (Routine); Ordered 03/17/20 Ordered By: Shaun Anguiano Referrals: Maycol Landis MD [Primary Care Provider] - Discharge Diet: Advance as tolerated Discharge Activity: Resume usual activity Patient Instructions: Biliary Colic (ED), Abdominal Pain (ED) Activity Restrictions/Additional Instructions: Your cause of abdominal pain is unclear but it is likely chronic. You do have some biliary sludge and I have asked case management to give you a referral to a general surgeon to discuss this in an outpatient visit. Please follow-up with them within a week to discuss and return to the ER with worsening symptoms. Coding Level of Care Code ED Compensation Coordinator for Chg Fwd Exam Comprehensive
[2020-03-17 12:18] LABS: Alanine Aminotransferase < 5 U/L (0-33); Albumin Level 4.1 g/dL (3.5-5.2); Alkaline Phosphatase 75 IU/L (35-105); Anion Gap 12.7 (5-19); Aspartate Amino Transferase 11 U/L (0-32); Blood Urea Nitrogen 12 mg/dL (8-23); Calcium 9.2 mg/dL (8.5-10.5); Carbon Dioxide 29 mmol/L (22-29); Chloride 96 mmol/L (98-107); Globulin 2.4 g/dL (1.3-4.6); Glucose 130 mg/dL (65-115); Lipase 18 U/L (13-60); Osmolality Calculated 280 mOsm/kg (285-295); Potassium 3.7 mmol/L (3.5-5.1); Sodium 134 mmol/L (136-145); Total Bilirubin 0.2 mg/dL (0.15-1.2); Total Protein 6.5 g/dL (6.6-8.7)
[2020-03-17 12:51] LABS: Add Urine Microscopic? NO
[2020-03-17 13:03] LABS: Specific Gravity, Urine 1.025 (1.005-1.030); Urine Appearance Clear (CLEAR); Urine Color Yellow (Yellow); pH Urine 5 (5-7)
[2020-03-17 13:04] LABS: Bilirubin Urine 1+ (Negative); Blood Urine Neg (Negative); Glucose Urine UA Norm (Normal); Ketones Urine 1+ (Negative); Leukocyte Esterase Urine Negative (Negative); Nitrate Urine Negative (Negative); Protein Urine Neg (Negative); Urobilinogen Urine Norm (Negative)
[2020-03-17 13:09] VITALS: BP 137/88; PULSE 105; RESP 16; O2SAT 95
--- NOTE | 2020-03-17 13:31 | CTR_ITS ---
PROCEDURE INFORMATION: Exam: CT Abdomen And Pelvis With Contrast Exam date and time: 03/17/2020 2:12 PM Age: 75 years old Clinical indication: Abdominal pain; Additional info: Abd pain TECHNIQUE: Imaging protocol: Computed tomography of the abdomen and pelvis with intravenous contrast. Radiation optimization: All CT scans at this facility use at least one of these dose optimization techniques: automated exposure control; mA and/or kV adjustment per patient size (includes targeted exams where dose is matched to clinical indication); or iterative reconstruction. Contrast material: OMNI 300; Contrast volume: 95 ml; Contrast route: INTRAVENOUS (IV); COMPARISON: CT abdomen pelvis w con* [id number] 01/13/2019 11:04 AM RADIATION DOSE METRICS: Total DLP (mGy-cm): 680.63 FINDINGS: Lungs: There is mild interstitial prominence in the lung bases compatible with atelectasis and/or fibrosis. Liver: The liver is homogeneous in density. The liver is enlarged measuring 21 cm in length. Gallbladder and bile ducts: The gallbladder demonstrates layering density consistent with noncalcified stones or sludge. There is no wall thickening or pericholecystic fluid to suggest cholecystitis. There is no common bile duct dilation. Pancreas: Normal. No ductal dilation. Spleen: Normal. No splenomegaly. Adrenal glands: Normal. No mass. Kidneys and ureters: There is a 1.6 cm midpole and a 1.8 cm lower pole simple cyst in the right kidney. No follow-up is necessary. Stomach and bowel: There is no evidence of intestinal perforation or obstruction. There is moderately excessive colonic stool content. Moderate diverticulosis is present in the distal colon. There is no evidence of colitis/diverticulitis. Appendix: A normal appendix is identified. Intraperitoneal space: Unremarkable. No free air. No significant fluid collection. Vasculature: Unremarkable.No abdominal aortic aneurysm. Lymph nodes: Unremarkable.No enlarged lymph nodes. Urinary bladder: There is nonspecific bladder wall thickening. This may be related to incomplete distention. Reproductive: Unremarkable as visualized. Bones/joints: There is osteopenia with moderate degenerative changes in the spine and pelvis. No acute bony abnormality. Soft tissues: Unremarkable. Other findings: Calcified granulomas are noted. There is levoscoliosis. CT/CT abdomen pelvis w con* [id number] IMPRESSION: No acute abnormality. No bowel thickening or inflammatory changes. No hydronephrosis. Unremarkable appendix. There is abundant colonic stool. There is sludge in the gallbladder. No diverticulitis. COMMENTS: Consistent with the [employer]'s Incidental Findings Committee white paper (J Am Rachel Radiol 2018): Any incidental renal lesion less than 1 cm or classified as too small to characterize, or any incidental cystic renal lesion characterized as simple-appearing, is likely benign. No follow-up imaging is recommended for these lesions per consensus recommendations based on imaging criteria. Radiation Dose CTDIVOL = (mGy): DLP = 680.63 (mGy-cm)
[2020-03-17] MEDS: sodium chloride 0.9% 1,000 ML 999 ML IV (13:56)
[2020-03-17] MEDS: iohexol 300 mg/mL 100 mL Btl IV (14:18)
[2020-03-17 14:54] VITALS: BP 144/94; PULSE 115; RESP 18; O2SAT 96
[2020-03-17 15:19] VITALS: RESP 18
[2020-03-17] MEDS: morphine 4 mg/mL SDV 1 mL 2 MG IVP (15:19)
--- NOTE | 2020-03-17 15:29 | PC.NURSE ---
Pt assisted to BR
--- NOTE | 2020-03-17 15:36 | PC.NURSE ---
patient up to restroom with assist
[2020-03-17 16:32] VITALS: BP 148/96; PULSE 100; RESP 18; O2SAT 97
--- NOTE | 2020-03-18 09:32 | DCPLANNER ---
manager fund had order to schedule a follow up appointment for patient with general surgery. manager fund emailed patients information to both Grace and [facility] at [facility] General Surgery. Patients information will be printed and reviewed, clinic will call patient with appointment information.
--- NOTE | 2020-03-18 10:42 | DCPLANNER ---
body corporate manager had message to schedule a follow up appointment for patient with pain management, and [facility]. body corporate manager is unable to make referrals to pain management, this will have to come from patients primary care physician. body corporate manager spoke with patient, and informed patient that the referral to pain management would have to come from his primary care physician. body corporate manager also explained to patient that for the referral to [facility] that patient would need to go to [facility] and fill out the new patient paperwork and turn it in, than an initial assessment would be scheduled for patient.
--- NOTE | 2020-03-19 08:25 | DCPLANNER ---
Patient has a follow up appointment scheduled for Wednesday, March 22, 2020 at 11:[address] Baldwin. Clinic will call patient with appointment information.
--- NOTE | 2020-04-02 07:43 | DCPLANNER ---
Patient had a follow up appointment scheduled for 03.22.20 with general surgery - appointment was cancelled.
== END 2020-03-17 16:34 | disposition home or self-care (01) ==
PROVIDERS: Emergency Provider Family Medicine; PCP Family Medicine Adult Medicine
DX: R10.84 Generalized abdominal pain (principal); K83.8 Other specified diseases of biliary tract; Z79.82 Long term (current) use of aspirin; I25.10 Atherosclerotic heart disease of native coronary artery without angina pectoris; G20 Parkinson's disease; H35.30 Unspecified macular degeneration
CPT/HCPCS: 12345; 74177; 80053; 81003; 83690; 85025; 93005; 96361; 96374; 96375; 99282; 99284; J1885; J2270; J2405; J7030; Q9967

== ENCOUNTER 2020-05-24 08:59 | Emergency (ER) | payer MEDICARE, SELFPAY ==
[2020-05-24] VITALS (8 sets, daily range): BP systolic 132–155; BP diastolic 78–115; PULSE 60–90; RESP 13–20; TEMP 36.4; O2SAT 94–98; BMI 23.8
--- NOTE | 2020-05-24 09:19 | XR_ITS ---
WS: [id number] PORTABLE CHEST HISTORY: chest pain COMPARISON: 03/12/2020 Minimal atelectasis or scar at the LEFT costophrenic angle. No pneumonia. Normal vasculature. No pleu ral effusion or pneumothorax. Cardiac size: Normal. Mediastinum/Aorta: Mild atherosclerosis aorta. No osseous abnormality seen. XR/XR chest 1V portable [id number] IMPRESSION: Stable chest with no acute cardiopulmonary disease.
--- NOTE | 2020-05-24 09:19 | ECG_ITS ---
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 Measurements Intervals [place] Rate: 64 P: 51 SD: 163 QRS: -26 QRSD: 82 T: 8 QT: 390 QTc: 404 Interpretive Statements SINUS RHYTHM BORDERLINE LEFT AXIS DEVIATION [QRS AXIS < -20] VOLTAGE CRITERIA FOR LVH [MEETS CRITERIA IN ONE OF: R(aVL), S(V1), R(V5), R(V5/V6)+S(V1)] Compared to ECG 03/17/2020 11:36:05 No significant changes Electronically Signed On 05-24-2020 18:12:37 CDT by Joyce Alejandre M.D. [id number] f
[2020-05-24 09:33] LABS: Basophils % 0.7 %; Eosinophils # 0.1 10^3/uL (0.0-0.8); Eosinophils % 1.6 %; Hematocrit 28.3 % (37.0-47.0); Hemoglobin 8.9 g/dL (11.5-15.3); Lymphocytes # 0.6 10^3/uL (0.8-4.8); Lymphocytes % 10.3 %; Mean Corpuscular HGB Conc 31.4 g/dL (30.0-36.0); Mean Corpuscular Hemoglobin 29.9 pg (28.0-34.0); Mean Platelet Volume 10.5 fL (7.4-10.4); Monocytes # 0.3 10^3/uL (0.2-0.9); Monocytes % 5.9 %; Neutrophils # 4.72 10^3/uL (1.8-7.7); Neutrophils % 81.3 %; Nucleated Red Blood Cells % 0 %; Platelet Count 282 10^3/cmm (130-400); Red Blood Count 2.98 10^6/uL (4.1-5.3); White Blood Count 5.8 10^3/uL (4.0-10.0)
[2020-05-24 09:52] LABS: Alanine Aminotransferase < 5 U/L (0-33); Albumin Level 3.6 g/dL (3.5-5.2); Alkaline Phosphatase 79 IU/L (35-105); Anion Gap 12.3 (5-19); Aspartate Amino Transferase 11 U/L (0-32); Blood Urea Nitrogen 12 mg/dL (8-23); Calcium 8.8 mg/dL (8.5-10.5); Carbon Dioxide 29 mmol/L (22-29); Chloride 97 mmol/L (98-107); Globulin 2.6 g/dL (1.3-4.6); Glucose 114 mg/dL (65-115); Osmolality Calculated 279 mOsm/kg (285-295); Potassium 4.3 mmol/L (3.5-5.1); Sodium 134 mmol/L (136-145); Total Bilirubin 0.3 mg/dL (0.15-1.2); Total Protein 6.2 g/dL (6.6-8.7)
[2020-05-24 09:53] LABS: Troponin(5th) Baseline 7 ng/L (0-10)
--- NOTE | 2020-05-24 09:56 | ED_ITS ---
HPI - Chest Pain General: Chief Complaint: Chest Pain Stated Complaint: CHEST PAIN/ NAUSEA Time Seen by Provider: 05/24/20 08:59 History of Present Illness: HPI narrative: 75-year-old female presents emergency room with complaint of chest discomfort she has had on and off for the last several months.She is not previously had evaluation for this. She has no known history of coronary artery disease. She has mild shortness of breath. She denies any abdominal pain no dysuria urgency or frequency. MD complaint: chest pain and chest discomfort Onset (ago): month(s) Timing of current episode: episodic Prior episodes: Yes Onset: during rest and during exertion Pain location: left chest and right chest Pain radiation: none Severity: mild Quality: heaviness Relieving factors: nothing Associated symptoms: Deny abdominal pain, diaphoresis, dyspnea, fever(s), leg edema, nausea, palpitations, sense of impending doom, syncope or vomiting Treatment prior to arrival: none Review of Systems Const: Denies: fever(s) or diaphoresis ENMT: Denies: throat pain, ear or mastoid pain, nasal discharge or nasal congestion Card: Denies: palpitations or syncope Resp: Denies: dyspnea GI: Denies: abdominal pain, nausea or vomiting : Denies: flank pain, difficulty voiding, dysuria, urinary frequency or urinary urgency Skin/Breast: Denies: rash or pruritus PFSH ED PFSH: Medical History Anxiety CAD (coronary artery disease) Chronic back pain Dizziness GERD (gastroesophageal reflux disease) History of Parkinson's disease Macular degeneration Motion sickness, sequela Parkinson disease Surgical History History of carpal tunnel surgery History of foot surgery Family History Daughter Cancer Social History Smoking and tobacco status: never smoked Alcohol intake: never Physical Exam Const: COMMON NORMALS: no acute distress GENERAL APPEARANCE: cooperative and comfortable ORIENTATION/CONSCIOUSNESS: Yes awake, Yes oriented to person, Yes oriented to place and Yes oriented to time HENMT: COMMON NORMALS: normocephalic, atraumatic, hearing grossly normal bilaterally, external ears normal, EAC's normal, TM's normal bilaterally, Normal nasal mucous membranes and turbinates present, moist oral mucous membranes and oropharynx normal HEAD & SCALP: normocephalic and atraumatic NOSE: Normal nasal mucous membranes and turbinates present EXTERNAL EAR: Yes external ears normal EXTERNAL AUDITORY CANAL: EAC's normal TYMPANIC MEMBRANE: TM's normal bilaterally Neck/C-Spine: COMMON NORMALS: no JVD Resp: COMMON NORMALS: normal respiratory effort, No retractions, No use of accessory muscles and clear to auscultation bilaterally AUSCULTATION: clear to auscultation bilaterally Cardio: COMMON NORMALS: no JVD, regular rate, regular rhythm and No murmurs present (Cardio) RATE: regular rate RHYTHM: regular rhythm GI: COMMON NORMALS: Soft to palpation and No hepatosplenomegaly present AUSCULTATION: Yes normoactive bowel sounds PALPATION: Yes Soft to palpation, No Tenderness to palpation present (GI), No Guarding due to palpation present (GI) and Yes No hepatosplenomegaly present Extremity: COMMON NORMALS: normal to inspection, capillary refill normal, no clubbing, cyanosis or edema, no calf tenderness and no pedal edema Neuro: SENSORIUM/ORIENTATION: Yes oriented to person, Yes oriented to place and Yes oriented to time Skin: COMMON NORMALS: no rashes or lesions noted GENERAL SKIN EXAM: no rashes or lesions noted Course Vital Signs: Vital signs: Vital Signs Temperature 97.5 F L 05/24/20 13:17 Pulse Rate 90 05/24/20 13:17 Respiratory Rate 18 05/24/20 13:17 Blood Pressure 155/100 05/24/20 13:17 Pulse Oximetry 98 05/24/20 13:17 MDM - Chest Pain MDM Narrative: Medical decision making narrative: Reviewed labs with the patient she is anemic but does not need blood transfusion at this point rectal exam showed no bright red blood per rectum and was Hemoccult negative. She should have a follow-up hemoglobin next week and I discussed this with her. Beyond that the remainder of her labs and work-up are negative her troponins are negative. A lot of this seems to be driven by anxiety as well as drug-seeking. Patient continually changes her complaint when I discussed the work-up with her largely in search of pain medications. She voluntarily says I do not want tramadol but then goes on to describe how she used to get tramadol all the time and does not understand why she is not being given tramadol anymore. Also asked about other medication she wants narcotics for her fibromyalgia. Advised that we would not be able to prescribe any narcotic-based medications today. She did require about a tooth that she has had was infected but on evaluation there is no evidence of active infection she has an old tooth that is fractured off at the gumline there is no drainage no redness no erythema or any abnormality any further abnormality on exam visually or by palpation. Her urine is normal. Reviewed all this with her were to start her on Pepcid set up for an outpatient stress test. She refused to leave the emergency room demanding that she did not feel good and thought that she should be allowed to stay until she felt better. Discussed with her that at this point there is nothing we need to admit her to the emergency room for and she can follow-up as an outpatient with a repeat hemoglobin as well as a outpatient stress test. Lab Data: Labs: Lab Results 05/24/20 05/24/20 05/24/20 Range/Units 09:30 09:30 09:30 WBC 5.8 (4.0-10.0) 10^3/ uL RBC 2.98 L (4.1-5.3) 10^6/u L Hgb 8.9 L (11.5-15.3) g/dL Hct 28.3 L (37.0-47.0) % MCV 95.0 (81-99) fL MCH 29.9 (28.0-34.0) pg MCHC 31.4 (30.0-36.0) g/dL RDW 14.0 (12.1-15.1) % Plt Count 282 (130-400) 10^3/c mm MPV 10.5 H (7.4-10.4) fL Neut % (Auto) 81.3 % Lymph % (Auto) 10.3 % Hickman % (Auto) 5.9 % Eos % (Auto) 1.6 % Baso % (Auto) 0.7 % Neut # (Auto) 4.72 (1.8-7.7) 10^3/u L Lymph # (Auto) 0.6 L (0.8-4.8) 10^3/u L Hickman # (Auto) 0.3 (0.2-0.9) 10^3/u L Eos # (Auto) 0.1 (0.0-0.8) 10^3/u L Baso # (Auto) 0.0 (0.0-0.1) 10^3/u L Nucleated RBC % (a uto) 0 % Nucleated RBCs # 0.0 /100WBC Sodium 134 L (136-145) mmol/L Potassium 4.3 (3.5-5.1) mmol/L Chloride 97 L (98-107) mmol/L Carbon Dioxide 29 (22-29) mmol/L Anion Gap 12.3 (5-19) BUN 12 (8-23) mg/dL Creatinine 0.8 (0.5-0.9) mg/dL GFR Calculation Not Reportable Glucose 114 (65-115) mg/dL Calculated Osmolal ity 279 L (285-295) mOsm/k g Calcium 8.8 (8.5-10.5) mg/dL Total Bilirubin 0.3 (0.15-1.2) mg/dL AST 11 (0-32) U/L ALT < 5 (0-33) U/L Alkaline Phosphata se 79 (35-105) IU/L Troponin T Baselin e 7 (0-10) ng/L Troponin T 120 Min nicole (0-10) ng/L Delta Troponin T (0-10) ABS# Total Protein 6.2 L (6.6-8.7) g/dL Albumin 3.6 (3.5-5.2) g/dL Globulin 2.6 (1.3-4.6) g/dL Urine Color (Yellow) Urine Appearance (CLEAR) Urine pH (5-7) Ur Specific Gravit y (1.005-1.030) Urine Protein (Negative) Urine Glucose (UA) (Normal) Urine Ketones (Negative) Urine Blood (Negative) Urine Nitrate (Negative) Urine Bilirubin (Negative) Urine Urobilinogen (Negative) mg/dL Ur Leukocyte Melisa ase (Negative) Urine RBC (0-2) /hpf Urine WBC (0-5) /hpf Ur Squamous Epith Cells (0-5) /hpf Amorphous Sediment Urine Bacteria (NONE) /hpf 05/24/20 05/24/20 Range/Units 11:50 12:35 WBC (4.0-10.0) 10^3/ uL RBC (4.1-5.3) 10^6/u L Hgb (11.5-15.3) g/dL Hct (37.0-47.0) % MCV (81-99) fL MCH (28.0-34.0) pg MCHC (30.0-36.0) g/dL RDW (12.1-15.1) % Plt Count (130-400) 10^3/c mm MPV (7.4-10.4) fL Neut % (Auto) % Lymph % (Auto) % Hickman % (Auto) % Eos % (Auto) % Baso % (Auto) % Neut # (Auto) (1.8-7.7) 10^3/u L Lymph # (Auto) (0.8-4.8) 10^3/u L Hickman # (Auto) (0.2-0.9) 10^3/u L Eos # (Auto) (0.0-0.8) 10^3/u L Baso # (Auto) (0.0-0.1) 10^3/u L Nucleated RBC % (a uto) % Nucleated RBCs # /100WBC Sodium (136-145) mmol/L Potassium (3.5-5.1) mmol/L Chloride (98-107) mmol/L Carbon Dioxide (22-29) mmol/L Anion Gap (5-19) BUN (8-23) mg/dL Creatinine (0.5-0.9) mg/dL GFR Calculation Glucose (65-115) mg/dL Calculated Osmolal ity (285-295) mOsm/k g Calcium (8.5-10.5) mg/dL Total Bilirubin (0.15-1.2) mg/dL AST (0-32) U/L ALT (0-33) U/L Alkaline Phosphata se (35-105) IU/L Troponin T Baselin e (0-10) ng/L Troponin T 120 Min nicole 6.90 (0-10) ng/L Delta Troponin T -0.10 L (0-10) ABS# Total Protein (6.6-8.7) g/dL Albumin (3.5-5.2) g/dL Globulin (1.3-4.6) g/dL Urine Color Straw (Yellow) Urine Appearance Clear (CLEAR) Urine pH 7 (5-7) Ur Specific Gravit y 1.005 (1.005-1.030) Urine Protein Neg (Negative) Urine Glucose (UA) Norm (Normal) Urine Ketones Negative (Negative) Urine Blood Neg (Negative) Urine Nitrate Negative (Negative) Urine Bilirubin Neg (Negative) Urine Urobilinogen Norm (Negative) mg/dL Ur Leukocyte Melisa ase Negative (Negative) Urine RBC None (0-2) /hpf Urine WBC None (0-5) /hpf Ur Squamous Epith Cells 0-4 H (0-5) /hpf Amorphous Sediment Not Reportable Urine Bacteria Trace (NONE) /hpf Discharge Plan Discharge Patient Disposition: Home Clinical Impression: Anxiety, Nausea, Atypical chest pain, Fibromyalgia, Dyspepsia Condition: Stable Prescriptions: New isosorbide mononitrate 30 mg tablet extended release 24 hr 30 mg PO DAILY Qty: 14 RF: 0 Pepcid 40 mg tablet 40 mg PO BID 56 Days Qty: 112 RF: 0 No Action acetaminophen 500 mg tablet 500 mg PO Q6H PRN (Reason: mild to moderate pain) Qty: 120 RF: 3 dimenhydrinate [Motion Sickness] 50 mg tablet 50 - 100 mg PO PRN PRN (Reason: Motion Sickness OR DIZZINESS) Qty: 60 RF: 1 nitroglycerin [Nitrostat] 0.4 mg tablet, sublingual 0.4 mg SUBLINGUAL Q5M PRN (Reason: Chest Pain from heart) Qty: 14 RF: 3 carbidopa-levodopa 25-100 mg tablet 2 tab PO .COMPLEX Qty: 150 RF: 4 trihexyphenidyl 2 mg tablet 2 mg PO BID Qty: 60 RF: 4 pregabalin [Lyrica] 50 mg capsule 50 mg PO TID Qty: 90 RF: 0 aspirin 81 mg tablet,delayed release (DR/EC) 81 mg PO DAILY@08 RF: 0 sucralfate 1 gram tablet 1 g PO BID@0800,1800 RF: 0 diphenhydramine HCl [Sleep] 25 mg Tablet 25 mg PO BEDTIME@2200 PRN (Reason: Insomnia) RF: 0 Discharge Orders: Discharge ED (Routine); Ordered 05/24/20 Ordered By: Ben Maddox Referrals: Maycol Landis MD [Primary Care Provider] - Discharge Diet: Usual diet Discharge Activity: Increase activity as tolerated Patient Instructions: Opioid Safety Activity Restrictions/Additional Instructions: Case management will call to set up a outpatient stress test. Coding Level of Care Code ED Maori Physiotherapist for Armando Gtz
[2020-05-24] MEDS: aspirin 81 mg Chew Tablet 324 MG PO (10:20)
--- NOTE | 2020-05-24 11:19 | ECG_ITS ---
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 Measurements Intervals [place] Rate: 86 P: 61 SD: 179 QRS: -31 QRSD: 85 T: 22 QT: 370 QTc: 444 Interpretive Statements SINUS RHYTHM LEFT AXIS DEVIATION [QRS AXIS < -30] VOLTAGE CRITERIA FOR LVH [MEETS CRITERIA IN ONE OF: R(aVL), S(V1), R(V5), R(V5/V6)+S(V1)] Compared to ECG 05/24/2020 09:20:38 No significant changes Electronically Signed On 05-24-2020 18:19:36 CDT by Joyce Alejandre M.D. [email or web address] To Get Approved [email or web address]/store/[id number]
[2020-05-24 13:04] LABS: Bilirubin Urine Neg (Negative); Blood Urine Neg (Negative); Glucose Urine UA Norm (Normal); Ketones Urine Negative (Negative); Leukocyte Esterase Urine Negative (Negative); Nitrate Urine Negative (Negative); Protein Urine Neg (Negative); Specific Gravity, Urine 1.005 (1.005-1.030); Urine Appearance Clear (CLEAR); Urine Color Straw (Yellow); Urobilinogen Urine Norm (Negative); pH Urine 7 (5-7)
[2020-05-24 13:05] LABS: Add Urine Culture? No; Bacteria Urine TRACE /hpf; Squamous Epithelial Cell Urine 0-4 /hpf (0-5)
--- NOTE | 2020-05-29 15:02 | DCPLANNER ---
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 associate program manager faxed signed order to centralized scheduling on 05.27.20 for the stress test. associate program manager will call for appointment information.
--- NOTE | 2020-05-30 11:44 | DCPLANNER ---
Patient has an outpatient stress test scheduled for Thursday, June 11, 2020 at 1:00. Centralized scheduling will call patient with appointment information.
--- NOTE | 2020-06-12 13:23 | DCPLANNER ---
Patient had an out patient stress test scheduled for 06.11.20 - patient did not attend appointment.
== END 2020-05-24 13:18 | disposition home or self-care (01) ==
PROVIDERS: Emergency Provider Family Medicine; PCP Family Medicine Adult Medicine
DX: R07.89 Other chest pain (principal); M79.7 Fibromyalgia; R10.13 Epigastric pain; F41.9 Anxiety disorder, unspecified; Z79.82 Long term (current) use of aspirin; I25.10 Atherosclerotic heart disease of native coronary artery without angina pectoris; G20 Parkinson's disease
CPT/HCPCS: 36415; 71045; 80053; 81001; 84484; 85025; 93005; 99284

== ENCOUNTER 2020-06-15 17:10 | Emergency (ER) | payer MEDICARE, SELFPAY ==
[2020-06-15 17:10] VITALS: BP 125/83; PULSE 101; RESP 17; TEMP 36.4; O2SAT 98; BMI 25.6
--- NOTE | 2020-06-15 17:33 | W.ED.GENADLT ---
HPI - General Adult General: Chief complaint: General Medical Stated complaint: RECTAL BLEEDING Time Seen by Provider: 06/15/20 17:21 History of Present Illness: HPI narrative: 75-year-old female who presents to the emergency room complaining of rectal bleeding from hemorrhoids. Is been going on for proximally the last 12 hours. She not had any lightheadedness or dizziness. Onset (ago): hour(s) Severity: mild Relieving factors: none Exacerbating factors: none Associated symptoms: Deny chest pain, confusion, cough, diaphoresis, decreased appetite, dyspnea, fevers/chills, headache(s), malaise, nausea, rash, palpitations, seizures, short of breath, syncope, vomiting or weakness Treatments prior to arrival: none Review of Systems Const: Denies: malaise or diaphoresis Card: Denies: chest pain, palpitations or syncope Resp: Denies: dyspnea GI: Denies: nausea or vomiting : Denies: flank pain, difficulty voiding, dysuria, urinary frequency or urinary urgency Skin/Breast: Denies: rash Neuro: Denies: headache(s) or confusion PFSH ED PFSH: Medical History Anxiety CAD (coronary artery disease) Chronic back pain Dizziness GERD (gastroesophageal reflux disease) History of Parkinson's disease Macular degeneration Motion sickness, sequela Parkinson disease Surgical History History of carpal tunnel surgery History of foot surgery Family History Daughter Cancer Social History Smoking and tobacco status: never smoked Alcohol intake: never Physical Exam Const: COMMON NORMALS: no acute distress GENERAL APPEARANCE: cooperative and comfortable ORIENTATION/CONSCIOUSNESS: Yes awake, Yes oriented to person, Yes oriented to place and Yes oriented to time HENMT: COMMON NORMALS: normocephalic, atraumatic and hearing grossly normal bilaterally HEAD & SCALP: normocephalic and atraumatic Neck/C-Spine: COMMON NORMALS: no JVD Resp: COMMON NORMALS: normal respiratory effort, No retractions, No use of accessory muscles and clear to auscultation bilaterally AUSCULTATION: clear to auscultation bilaterally Cardio: COMMON NORMALS: no JVD, regular rate, regular rhythm and No murmurs present (Cardio) RATE: regular rate RHYTHM: regular rhythm GI: COMMON NORMALS: Soft to palpation and No hepatosplenomegaly present AUSCULTATION: Yes normoactive bowel sounds PALPATION: Yes Soft to palpation, No Tenderness to palpation present (GI), No Guarding due to palpation present (GI) and Yes No hepatosplenomegaly present RECTAL EXAM: normal sphincter tone and External hemorrhoid(s) present (Nonthrombosed) OTHER: No rectal fissures Extremity: COMMON NORMALS: normal to inspection, capillary refill normal, no clubbing, cyanosis or edema, no calf tenderness and no pedal edema Neuro: SENSORIUM/ORIENTATION: Yes oriented to person, Yes oriented to place and Yes oriented to time Skin: COMMON NORMALS: no rashes or lesions noted GENERAL SKIN EXAM: no rashes or lesions noted Course Vital Signs: Vital signs: Vital Signs Temperature 97.6 F 06/15/20 17:10 Pulse Rate 116 H 06/15/20 18:48 Respiratory Rate 17 06/15/20 17:10 Blood Pressure 125/84 06/15/20 18:48 Pulse Oximetry 96 06/15/20 18:48 MDM - General Adult MDM Narrative: Medical decision making narrative: Go ahead and discharge patient home follow-up with surgery. Discharge Plan Discharge Patient Disposition: Home Clinical Impression: Bleeding hemorrhoids Condition: Stable Prescriptions: New Proctosol HC 2.5 % cream with perineal applicator 1 applic IA Q6H Qty: 30 RF: 0 No Action acetaminophen 500 mg tablet 500 mg PO Q6H PRN (Reason: mild to moderate pain) Qty: 120 RF: 3 dimenhydrinate [Motion Sickness] 50 mg tablet 50 - 100 mg PO PRN PRN (Reason: Motion Sickness OR DIZZINESS) Qty: 60 RF: 1 nitroglycerin [Nitrostat] 0.4 mg tablet, sublingual 0.4 mg SUBLINGUAL Q5M PRN (Reason: Chest Pain from heart) Qty: 14 RF: 3 carbidopa-levodopa 25-100 mg tablet 2 tab PO .COMPLEX Qty: 150 RF: 4 trihexyphenidyl 2 mg tablet 2 mg PO BID Qty: 60 RF: 4 pregabalin [Lyrica] 50 mg capsule 50 mg PO TID Qty: 90 RF: 0 aspirin 81 mg tablet,delayed release (DR/EC) 81 mg PO DAILY@08 RF: 0 sucralfate 1 gram tablet 1 g PO BID@0800,1800 RF: 0 diphenhydramine HCl [Sleep] 25 mg Tablet 25 mg PO BEDTIME@2200 PRN (Reason: Insomnia) RF: 0 isosorbide mononitrate 30 mg tablet extended release 24 hr 30 mg PO DAILY Qty: 14 RF: 0 Pepcid 40 mg tablet 40 mg PO BID 56 Days Qty: 112 RF: 0 Discharge Orders: Discharge ED (Routine); Ordered 06/15/20 Ordered By: Ben Maddox Referrals: Maycol Landis MD [Primary Care Provider] - Discharge Diet: GI Soft Discharge Activity: Resume usual activity Patient Instructions: Opioid Safety Activity Restrictions/Additional Instructions: Follow-up with your primary care doctor within the next week. Coding Level of Care Code ED Oakes 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
[2020-06-15 17:42] VITALS: BP 140/87; PULSE 93; O2SAT 97
[2020-06-15 18:48] VITALS: BP 125/84; PULSE 116; O2SAT 96
--- NOTE | 2020-06-15 18:48 | PC.NURSE ---
pt refused to leave for her discharge. security called and security and nurse placed pt in wheelchair. pt placed in waiting room. pt was disgruntled. nurse attempted to contact pt's family and messages were left on all numbers.
== END 2020-06-15 18:49 | disposition home or self-care (01) ==
LOC: ER 17:44
PROVIDERS: Emergency Provider Family Medicine; PCP Family Medicine Adult Medicine
DX: K64.9 Unspecified hemorrhoids (principal); Z79.82 Long term (current) use of aspirin; I25.10 Atherosclerotic heart disease of native coronary artery without angina pectoris; G20 Parkinson's disease; H35.30 Unspecified macular degeneration
CPT/HCPCS: 99282

== ENCOUNTER 2020-07-05 08:07 | Emergency (ER) | payer MEDICARE, SELFPAY ==
[2020-07-05 08:07] VITALS: BP 153/81; RESP 18; TEMP 36.7; O2SAT 98; BMI 25.4
--- NOTE | 2020-07-05 08:25 | US_ITS ---
WS: [id number] RIGHT UPPER QUADRANT ULTRASOUND HISTORY: positive Mancera's sign, abd pain COMPARISON: 05/08/[address] 03/17/2020 Liver: 13.0 cm in length. Normal size liver. No bile duct dilatation or mass. Gallbladder: Mobile stones within the gallbladder. No pericholecystic fluid or gallbladder wall thick ening. CBD: 0.4 cm Pancreas: Normal size and echogenicity. Right kidney: 10.6 cm in length. Several renal cysts associated with the RIGHT kidney. No solid mass or obstruction. Aorta and IVC: Unremarkable abdominal aorta and IVC. No ascites. US/US gall bladder [id number] IMPRESSION: 1. Cholelithiasis without acute cholecystitis or bile duct dilatation. 2. RIGHT renal cysts.
--- NOTE | 2020-07-05 08:30 | ED_ITS ---
HPI - Abdominal Pain General: Chief Complaint: Abdominal Pain Stated Complaint: ABDOMINAL PAIN Time Seen by Provider: 07/05/20 08:08 Source: patient Mode of arrival: wheelchair Limitations: no limitations History of Present Illness: HPI narrative: pain in abdomen, NVD x 2 weeks MD elicited complaint: abdominal pain Pertinent past history: other (sludge in gb per US) Onset (ago): week(s) (2 weeks ) Pain Consistency: intermittent Location: RUQ Severity: severe Quality: cramping and aching Radiation: RUQ Exacerbating factors: bowel movement and vomiting Associated Symptoms: Reports fever(s), nausea and vomiting Review of Systems General: Reports: 10 or more systems reviewed and unremarkable except in HPI and below Const: Reports: fever(s) GI: Reports: abdominal pain, nausea, vomiting and pain on defecation : Denies: difficulty voiding PFSH ED PFSH: Medical History Anxiety CAD (coronary artery disease) Chronic back pain Dizziness GERD (gastroesophageal reflux disease) History of Parkinson's disease Macular degeneration Motion sickness, sequela Parkinson disease Surgical History History of carpal tunnel surgery History of foot surgery Family History Daughter Cancer Social History Smoking and tobacco status: never smoked Alcohol intake: never Physical Exam Const: COMMON NORMALS: no acute distress, patient oriented x3, no limitations and alert GENERAL APPEARANCE: cooperative and comfortable ORIENTATION/CONSCIOUSNESS: Yes awake, Yes oriented to person, Yes oriented to place and Yes oriented to time HENMT: COMMON NORMALS: normocephalic, atraumatic, external ears normal, EAC's normal, TM's normal bilaterally and Normal external nose present HEAD & SCALP: normal to inspection, normocephalic and atraumatic FACE & SINUS: no rmal facial exam, sinuses nontender and face symmetric NOSE: Normal external nose present, Normal nares present and No nasal discharge present EXTERNAL EAR: Yes external ears normal EXTERNAL AUDITORY CANAL: EAC's normal TYMPANIC MEMBRANE: TM's normal bilaterally MOUTH: Normal oral and palatal mucosa present, lip normal and tongue normal THROAT: posterior oropharynx normal, tonsils normal and uvula midline Eye: COMMON NORMALS: Equal, round and reactive pupils present, EOMs intact bilaterally and conjunctivae normal GENERAL EYE: appearance normal, both eyes and all related structures and normal light reflex EYELID: eyelids normal CONJUNCTIVA: Yes conjunctivae normal PUPIL: Yes Equal, round and reactive pupils present EOM: Yes EOM abnormal DIRECT OPHTHALMOSCOPY: Yes normal light reflex Neck/C-Spine: COMMON NORMALS: full ROM, no lymphadenopathy, supple, no meningeal signs, no JVD and Thyroid normal GENERAL: Yes normal visual inspection THYROID: Thyroid normal CERVICAL SPINE: Yes cervical ROM normal and Yes normal cervical lordosis Lymph: LYMPHATIC: no lymphadenopathy noted Chest: COMMONS NORMALS: normal inspection of the chest and normal palpation of entire chest wall Resp: COMMON NORMALS: normal respiratory effort, No retractions and clear to auscultation bilaterally AUSCULTATION: clear to auscultation bilaterally Cardio: COMMON NORMALS: no JVD, regular rate, regular rhythm, S1 normal heart sound present, S2 normal heart sound present, No gallops present (Cardio), No clicks present (Cardio), No murmurs present (Cardio), No rub (Cardio) and Peripheral pulses 2+ throughout RATE: regular rate RHYTHM: regular rhythm HEART SOUNDS: S1 normal heart sound present and S2 normal heart sound present PERIPHERAL PULSES: Peripheral pulses 2+ throughout GI: COMMON NORMALS: Normal to inspection, nondistended, normoactive bowel sounds present, Soft to palpation, non-tender and no masses PALPATION: Yes Soft to palpation, Yes Tenderness to palpation present (GI), No Hepatospleno megaly present, No Ascites present and Yes Rebound tenderness present (positive Mancera's sign ) RECTAL EXAM: deferred : COMMON NORMALS: Yes no CVA tenderness and Yes normal external appearance BLADDER/KIDNEY EXAM: Yes no CVA tenderness Back/Pelvis: COMMON NORMALS: no CVA tenderness, thoracic and lumbar spine normal to inspection, no thoracic nor lumbar tenderness and thoraco-lumbar ROM normal Extremity: COMMON NORMALS: normal to inspection, full ROM, capillary refill normal, no joint enlargement, no clubbing, cyanosis or edema, no calf tenderness and no pedal edema GENERAL: Yes normal exam except as noted Neuro: COMMON NORMALS: patient oriented x3, moves all extremities, no focal motor deficits, no sensory deficits noted and gait normal SENSORIUM/ORIENTATION: Yes alert, Yes oriented to person, Yes oriented to place and Yes oriented to time MENINGEAL SIGNS: Yes no meningeal signs Psych: COMMON NORMALS: mental status grossly normal, Normal thought process present, cooperative, normal affect, speech normal and activity/motor behavior normal SPEECH: Yes normal speech THOUGHT PROCESS: Normal thought process present Skin: COMMON NORMALS: no rashes or lesions noted, no wounds and turgor normal GENERAL SKIN EXAM: no rashes or lesions noted and turgor normal Course ED course: Pt presents to ER with complaints of NVD and abdominal pain intermittently x 2 weeks. Was diagnosed with sludge in gallbladder and was supposed to follow up with Dr. Baldwin about possible removal. This visit was missed. Today she states she feels like she has had a fever and worsening in pain over the past several days with today being the worst. Labs and IV fluids and analgesics ordered. US pending. Reevaluation(s): Reevaluation #1: Pt WBC count normal, CBC, CRP, and amylase and lipase are WNL. She has noted gallstones which furthers the likelihood that she will need her gallbladder removed but is not acutely infected. Rocephin given via IV. We will follow up pt with general surgery and prescribe zofran and doxylamine for abdominal pain. Instructed to return if worsening in symptoms. Pt is not toxic appearing. Vitals stable upon DC. Time: 10:37 Vital Signs: Vital signs: Vital Signs Temperature 98.0 F 07/05/20 08:07 Respiratory Rate 18 07/05/20 08:48 Blood Pressure 153/81 07/05/20 08:07 Pulse Oximetry 98 07/05/20 08:07 MDM - Abdominal Pain Lab Data: Labs: Lab Results 07/05/20 07/05/20 07/05/20 Range/Units 08:39 08:39 08:45 WBC 8.3 (4.0-10.0) 10^3/ uL RBC 3.83 L (4.1-5.3) 10^6/u L Hgb 11.4 L (11.5-15.3) g/dL Hct 35.4 L (37.0-47.0) % MCV 92.4 (81-99) fL MCH 29.8 (28.0-34.0) pg MCHC 32.2 (30.0-36.0) g/dL RDW 13.7 (12.1-15.1) % Plt Count 337 (130-400) 10^3/c mm MPV 10.4 (7.4-10.4) fL Neut % (Auto) 78.4 % Lymph % (Auto) 13.6 % [place] % (Auto) 6.6 % Eos % (Auto) 0.4 % Baso % (Auto) 0.6 % Neut # (Auto) 6.51 (1.8-7.7) 10^3/u L Lymph # (Auto) 1.1 (0.8-4.8) 10^3/u L [place] # (Auto) 0.6 (0.2-0.9) 10^3/u L Eos # (Auto) 0.0 (0.0-0.8) 10^3/u L Baso # (Auto) 0.1 (0.0-0.1) 10^3/u L Nucleated RBC % (a uto) 0 % Nucleated RBCs # 0.0 /100WBC Sodium Cancelled Potassium Cancelled Chloride Cancelled Carbon Dioxide Cancelled Anion Gap Cancelled BUN Cancelled Creatinine Cancelled GFR Calculation Cancelled Glucose Cancelled Calculated Osmolal ity Cancelled Calcium Cancelled Total Bilirubin Cancelled AST Cancelled ALT Cancelled Alkaline Phosphata se Cancelled C-Reactive Protein Cancelled Total Protein Cancelled Albumin Cancelled Globulin Cancelled Amylase Cancelled Lipase Cancelled Urine Color Straw (Yellow) Urine Appearance Clear (CLEAR) Urine pH 7 (5-7) Ur Specific Gravit y 1.005 (1.005-1.030) Urine Protein Neg (Negative) Urine Glucose (UA) Norm (Normal) Urine Ketones Negative (Negative) Urine Blood Neg (Negative) Urine Nitrate Negative (Negative) Urine Bilirubin Neg (Negative) Urine Urobilinogen Norm (Negative) mg/dL Ur Leukocyte Melisa ase 1+ H (Negative) Urine RBC None (0-2) /hpf Urine WBC 5-10 H (0-5) /hpf Ur Squamous Epith Cells 0-4 H (0-5) /hpf Amorphous Sediment Not Reportable Urine Bacteria Trace (NONE) /hpf Urine Mucus Trace /hpf 07/05/20 Range/Units 09:15 WBC (4.0-10.0) 10^3/ uL RBC (4.1-5.3) 10^6/u L Hgb (11.5-15.3) g/dL Hct (37.0-47.0) % MCV (81-99) fL MCH (28.0-34.0) pg MCHC (30.0-36.0) g/dL RDW (12.1-15.1) % Plt Count (130-400) 10^3/c mm MPV (7.4-10.4) fL Neut % (Auto) % Lymph % (Auto) % [place] % (Auto) % Eos % (Auto) % Baso % (Auto) % Neut # (Auto) (1.8-7.7) 10^3/u L Lymph # (Auto) (0.8-4.8) 10^3/u L [place] # (Auto) (0.2-0.9) 10^3/u L Eos # (Auto) (0.0-0.8) 10^3/u L Baso # (Auto) (0.0-0.1) 10^3/u L Nucleated RBC % (a uto) % Nucleated RBCs # /100WBC Sodium 138 Potassium 3.9 Chloride 101 Carbon Dioxide 30 H Anion Gap 10.9 BUN 9 Creatinine 0.8 GFR Calculation Not Reportable Glucose 113 Calculated Osmolal ity 285 Calcium 8.9 Total Bilirubin 0.3 AST 9 ALT < 5 Alkaline Phosphata se 70 C-Reactive Protein 1.5 Total Protein 6.3 L Albumin 4.1 Globulin 2.2 Amylase 55 Lipase 19 Urine Color (Yellow) Urine Appearance (CLEAR) Urine pH (5-7) Ur Specific Gravit y (1.005-1.030) Urine Protein (Negative) Urine Glucose (UA) (Normal) Urine Ketones (Negative) Urine Blood (Negative) Urine Nitrate (Negative) Urine Bilirubin (Negative) Urine Urobilinogen (Negative) mg/dL Ur Leukocyte Melisa ase (Negative) Urine RBC (0-2) /hpf Urine WBC (0-5) /hpf Ur Squamous Epith Cells (0-5) /hpf Amorphous Sediment Urine Bacteria (NONE) /hpf Urine Mucus /hpf Imaging Data ^: US: Radiologist's impression: [address] [address] Ultrasound Report Signed Patient: Heidy Linton [id number] : 1945 [id number] Age/Sex: 75 / F ADM Date: 07/05/20 Loc: ER Room/Bed: Attending Dr: Ordering Provider/Ordering MD: Becca Daugherty NP Date of Service: 07/05/20 Procedure(s): US gall bladder 72979 Accession Number(s): [id number] Report Number: [id number] WS: [id number] RIGHT UPPER QUADRANT ULTRASOUND HISTORY: positive Mancera's sign, abd pain COMPARISON: 05/08/[address] 03/17/2020 Liver: 13.0 cm in length. Normal size liver. No bile duct dilatation or mass. Gallbladder: Mobile stones within the gallbladder. No pericholecystic fluid or gallbladder wall thickening. CBD: 0.4 cm Pancreas: Normal size and echogenicity. Right kidney: 10.6 cm in length. Several renal cysts associated with the RIGHT kidney. No solid mass or obstruction. Aorta and IVC: Unremarkable abdominal aorta and IVC. No ascites. US/US gall bladder 48942 IMPRESSION: 1. Cholelithiasis without acute cholecystitis or bile duct dilatation. 2. RIGHT renal cysts. Dictated By: Maddy Nichols DO Signed By: Maddy Nichols DO Signed Date/Time: 07/05/20905 DD/ 2 Discharge Plan Discharge Condition: Stable Prescriptions: New ondansetron HCl [Zofran] 4 mg tablet 4 mg PO Q8H 3 Days Qty: 9 RF: 0 doxylamine-pyridoxine (vit B6) 10-10 mg tablet,delayed release (DR/EC) 1 tab PO BID Qty: 10 RF: 0 No Action acetaminophen 500 mg tablet 500 mg PO Q6H PRN (Reason: mild to moderate pain) Qty: 120 RF: 3 dimenhydrinate [Motion Sickness] 50 mg tablet 50 - 100 mg PO PRN PRN (Reason: Motion Sickness OR DIZZINESS) Qty: 60 RF: 1 nitroglycerin [Nitrostat] 0.4 mg tablet, sublingual 0.4 mg SUBLINGUAL Q5M PRN (Reason: Chest Pain from heart) Qty: 14 RF: 3 carbidopa-levodopa 25-100 mg tablet 2 tab PO .COMPLEX Qty: 150 RF: 4 trihexyphenidyl 2 mg tablet 2 mg PO BID Qty: 60 RF: 4 pregabalin [Lyrica] 50 mg capsule 50 mg PO TID Qty: 90 RF: 0 aspirin 81 mg tablet,delayed release (DR/EC) 81 mg PO DAILY@08 RF: 0 sucralfate 1 gram tablet 1 g PO BID@0800,1800 RF: 0 diphenhydramine HCl [Sleep] 25 mg Tablet 25 mg PO BEDTIME@2200 PRN (Reason: Insomnia) RF: 0 Proctosol HC 2.5 % cream with perineal applicator 1 applic CO Q6H Qty: 30 RF: 0 isosorbide mononitrate 30 mg tablet extended release 24 hr 30 mg PO DAILY Qty: 14 RF: 0 Pepcid 40 mg tablet 40 mg PO BID 56 Days Qty: 112 RF: 0 Referrals: Maycol Landis MD [Primary Care Provider] - Milo Baldwin MD [Physician] - Discharge Diet: Advance as tolerated and Clear Liquid Discharge Activity: Increase activity as tolerated Activity Restrictions/Additional Instructions: Follow up with surgeon as scheduled zofran for nausea doxylamine is for abd pain and nausea Coding Level of Care Code ED Stunner for Chg Fwd Exam Comprehensive
[2020-07-05 08:46] LABS: Basophils # 0.1 10^3/uL (0.0-0.1); Basophils % 0.6 %; Eosinophils % 0.4 %; Hematocrit 35.4 % (37.0-47.0); Hemoglobin 11.4 g/dL (11.5-15.3); Lymphocytes # 1.1 10^3/uL (0.8-4.8); Lymphocytes % 13.6 %; Mean Corpuscular HGB Conc 32.2 g/dL (30.0-36.0); Mean Corpuscular Hemoglobin 29.8 pg (28.0-34.0); Mean Corpuscular Volume 92.4 fL (81-99); Mean Platelet Volume 10.4 fL (7.4-10.4); Monocytes # 0.6 10^3/uL (0.2-0.9); Monocytes % 6.6 %; Neutrophils # 6.51 10^3/uL (1.8-7.7); Neutrophils % 78.4 %; Nucleated Red Blood Cells % 0 %; Platelet Count 337 10^3/cmm (130-400); Red Blood Count 3.83 10^6/uL (4.1-5.3); Red Cell Distribution Width 13.7 % (12.1-15.1); White Blood Count 8.3 10^3/uL (4.0-10.0)
[2020-07-05] MEDS: sodium chloride 0.9% 500 ML IV (08:47)
[2020-07-05 08:48] VITALS: RESP 18
[2020-07-05] MEDS: ondansetron 2 mg/ML SDV 2 mL 4 MG IVP (08:48)
[2020-07-05] MEDS: morphine 4 mg/mL SDV 1 mL IVP ×2 (08:48→11:31)
[2020-07-05 09:23] LABS: Add Urine Culture? No; Add Urine Microscopic? YES; Bacteria Urine TRACE /hpf; Bilirubin Urine Neg (Negative); Blood Urine Neg (Negative); Glucose Urine UA Norm (Normal); Ketones Urine Negative (Negative); Leukocyte Esterase Urine 1+ (Negative); Mucus Urine TRACE /hpf; Nitrate Urine Negative (Negative); Protein Urine Neg (Negative); Specific Gravity, Urine 1.005 (1.005-1.030); Squamous Epithelial Cell Urine 0-4 /hpf (0-5); Urine Appearance Clear (CLEAR); Urine Color Straw (Yellow); Urobilinogen Urine Norm (Negative); pH Urine 7 (5-7)
[2020-07-05 09:47] LABS: Alanine Aminotransferase < 5 U/L (0-33); Albumin Level 4.1 g/dL (3.5-5.2); Alkaline Phosphatase 70 IU/L (35-105); Amylase 55 U/L (28-100); Anion Gap 10.9 (5-19); Aspartate Amino Transferase 9 U/L (0-32); Blood Urea Nitrogen 9 mg/dL (8-23); C Reactive Protein 1.5 mg/L (0.0-4.9); Calcium 8.9 mg/dL (8.5-10.5); Carbon Dioxide 30 mmol/L (22-29); Chloride 101 mmol/L (98-107); Globulin 2.2 g/dL (1.3-4.6); Glucose 113 mg/dL (65-115); Lipase 19 U/L (13-60); Osmolality Calculated 285 mOsm/kg (285-295); Potassium 3.9 mmol/L (3.5-5.1); Sodium 138 mmol/L (136-145); Total Bilirubin 0.3 mg/dL (0.15-1.2); Total Protein 6.3 g/dL (6.6-8.7)
[2020-07-05 09:49] VITALS: BP 152/63; PULSE 94; O2SAT 97
[2020-07-05 11:00] VITALS: BP 151/72; PULSE 95; O2SAT 94
[2020-07-05] MEDS: cefTRIAXone 1,000 MG in sodium chloride 0.9% (plus) 50 ML 100 MG IV (11:01)
[2020-07-05 11:31] VITALS: RESP 20; O2SAT 98
[2020-07-05 11:47] VITALS: BP 143/84; PULSE 97; O2SAT 98
--- NOTE | 2020-07-08 12:06 | DCPLANNER ---
project construction assistant manager had message to schedule a follow up appointment for patient with general surgery for discussion of gallbladder removal. project construction assistant manager emailed patients information to both [place] and Grace with [facility] General Surgery. Patients information will be printed and reviewed. Clinic will call patient with appointment information.
--- NOTE | 2020-07-10 15:39 | DCPLANNER ---
Patient has a follow up appointment scheduled for Wednesday, July 15, 2020 at 1:[address] Baldwin. Clinic will call patient with appointment information.
--- NOTE | 2020-09-16 08:02 | DCPLANNER ---
Patient had a follow up appointment scheduled for 07.15.[address] Baldwin at general surgery - patient did attend appointment.
== END 2020-07-05 11:49 ==
PROVIDERS: Emergency Provider Nurse Practitioner Family; PCP Family Medicine Adult Medicine
DX: R10.9 Unspecified abdominal pain (principal); Z79.82 Long term (current) use of aspirin
CPT/HCPCS: 76705; 80053; 81001; 82150; 83690; 85025; 86140; 96365; 96375; 96376; 99284; J0696; J2270; J2405; J7040

== ENCOUNTER → 2020-07-26 10:30 | Outpatient (BNVA) | payer MEDICARE, SELFPAY | PROVIDERS: PCP Family Medicine Adult Medicine; Visit Provider Surgery | DX: Z01.812 Encounter for preprocedural laboratory examination (principal); Z20.822 Contact with and (suspected) exposure to COVID-19 | CPT/HCPCS: 87635 ==

== ENCOUNTER 2020-07-31 09:09 | Day surgery (SDC) | payer MEDICARE, SELFPAY ==
[2020-07-30 11:19] VITALS: BMI 25.4
[2020-07-31] VITALS (10 sets, daily range): BP systolic 113–138; BP diastolic 66–78; PULSE 66–79; RESP 15–22; TEMP 36.6–37; O2SAT 93–100
[2020-07-31] MEDS: sodium chloride 0.9% 1,000 ML 30 ML IV (09:38)
--- NOTE | 2020-07-31 09:42 | W.PM.OPSUD ---
Surgery/Procedure H&P Update DATE OF PROCEDURE: July 31, 2020 DATE H&P PERFORMED: 07/15/20 H&P UPDATE INFORMATION: I have reviewed H&P completed within last 30 days, I have examined patient prior to procedure and No changes to prior documentation PREOP DIAGNOSIS: cholelithiasis PLANNED PROCEDURE: Operation Date: 07/31/20 10:50 Proposed Procedures p [place]ar[place] 35359 K80.20(Not Applicable) - Milo Baldwin MD
[2020-07-31] MEDS: scopolamine 1.5 Patch 1 PATCH TRANSDERMA (09:43)
[2020-07-31] MEDS: levofloxacin-dextrose 5 % 500 MG/100 ML PREMIX 100 MG IV (09:53)
--- NOTE | 2020-07-31 09:58 | ANES.PREANE2 ---
Pre-Anesthetic Assessment Pre-Anesthetic Assessment: Height/Weight: Height 1.57 m Weight 63.049 kg Temp Pulse Resp BP Pulse Ox 97.8 F 79 16 116/75 97 07/31/20 09:24 07/31/20 09:24 07/31/20 09:24 07/31/20 09:24 07/31/20 09:24 Preop Diagnosis: cholelithiasis Proposed Procedure: Operation Date: 07/31/20 10:50 Proposed Procedures p Laparoscopic [place]cyst[place] 11382 K80.20(Not Applicable) - Milo Baldwin MD Was Beta Sara taken within 24 hours: Yes Was Clonidine taken within 24 hours: N/A Last intake: Intake Last Liquid Date 07/31/20 Last Liquid Time 07:00 Last Solid Date 07/30/20 Last Solid Time 23:00 Social: Social History: No alcohol and No tobacco Exam: Pre-Anes Outpt Exam: alert, oriented x 3, clear to auscultation bilaterally and regular rate & rhythm Airway: Submandibular: WNL Cervical ROM: WNL MP: 2 Dentition: Chipped Additional comments: Poor dentition, multiple chipped and cracked CV/HEM: CV/HEM: CAD GI: GI: GERD Musc/skel: Musc/skel: Lower Back Pain Neuropsych: Neuropsych: Anxiety and Dementia (Parkinson's) Anesthetic Plan: ASA status: 3 Anesthesia: General Other: PONV--consider TIVA Risk of > 500 ml blood loss (7ml/kg in children): No Meds/Allergies Current Medications: Current Medications Generic Name Dose Route Start Last Admin Trade Name Freq PRN Reason Stop Dose Admin Sodium Chloride 1,000 mls @ 30 ml s/hr 07/31/20 09:30 07/31/20 09:38 Sodium Chloride 0.9% IV 08/01/20 09:29 30 mls/hr .Q24H JAYLENE Administration PFSH Anesthesia PFSH: Medical History Anxiety CAD (coronary artery disease) Cholelithiasis Chronic back pain GERD (gastroesophageal reflux disease) Macular degeneration Motion sickness, sequela Parkinson disease Surgical History History of carpal tunnel surgery History of colonoscopy with polypectomy 2018 History of foot surgery Family History Daughter Cancer Social History Smoking and tobacco status: never smoked Alcohol intake: never Data Anesthesia Cardiac Studies: No Data to Display
[2020-07-31] MEDS: fentaNYL 50 mcg/mL INJ 2mL IVP (10:52)
[2020-07-31] MEDS: ondansetron 2 mg/ML SDV 2 mL 4 MG IVP (10:55)
[2020-07-31] MEDS: HYDROcodone-acetaminophen 5-325 mg Tablet 1 TAB PO (11:22)
--- NOTE | 2020-07-31 11:24 | PM.OP ---
Operative Report Date of procedure: July 31, 2020 Pre-op Diagnosis: cholelithiasis Post-op Diagnosis: 1. Cholelithiasis 2. Incarcerated umbilical hernia containing omentum Procedure Done: Laparoscopic cholecystectomy Open primary repair of umbilical hernia Specimens removed/disposition: Gallbladder Surgeon: Milo Baldwin Anesthesia: General Condition: stable Disposition: PACU Procedure: The patient was taken to the operating room and was intubated under general anesthesia. After the antibiotic had been administered, the abdomen was prepped and draped in a sterile manner. Using a #15 blade, a 1 centimeter infraumbilical curvilinear incision was made and an incarcerated umbilical hernia containing omentum was identified. The sac was excised, omentum reduced into the peritoneal cavity and 10 millimeter port was placed and 15 millimeters of pneumoperitoneum was created. A 10 millimeter, 30 degrees scope was then introduced. Three 5 millimeter ports were placed in the epigastric, midclavicular and the anterior axillary line two fingerbreadths below the costal margin on the right side under the direct visualization. The gallbladder was distended and it was decompressed using an aspiration needle. Ratcheted forceps were introduced into the lateral most port and was used to retract the fundus of the gallbladder cephalad and using forceps the infundibulum of the gallbladder was retracted laterally. Using L-hook cautery the peritoneum overlying the Calot's triangle was opened medially and laterally until the cystic duct and the cystic artery were skeletonized. Dissection was carried along the body of the gallbladder and after ensuring critical view of safety, 4 clips applied on the cystic duct and 3 clips applied on the cystic artery and cut leaving, 3 clips on the remaining portion of the duct and 2 clips on the remaining portion of the artery. The rest of the gallbladder was dissected off the liver using L-hook cautery. There was no bleeding or bile leakage noted from the gallbladder fossa and the clips appeared to be in place. An EndoCatch bag was introduced to remove the gallbladder. All the ports were removed under direct visualization and there was no bleeding noted from the port sites. The fascia of the umbilicus was closed using [id number] 0 Vicryl sutures and the subcutaneous tissue was approximated using 3-0 Vicryl sutures. The skin at all four ports were closed using 4-0 Monocryl and Dermabond. A total of 10 millimeters of 0.5% Marcaine was infiltrated around the port sites. The patient was stable throughout the procedure.
--- NOTE | 2020-07-31 12:54 | ANE.PACU2 ---
Inpatient post-anesthesia follow up: Airway intact: Yes Vital signs: Temperature 98 F Pulse Rate 70 Respiratory Rate 15 Blood Pressure 138/78 Pulse Oximetry 95 Oxygen Delivery Me thod Room Air Oxygen Flow Rate 2.0 Fraction of Inspir ed Oxygen Hydration adequate: Yes Nausea and vomiting: Yes Pain level: 3 Mental status: Baseline
--- NOTE | 2020-07-31 13:14 | SUR.PHASEII ---
1220 tramadol given and no c/o of nausea at present,benadryl iv not given
== END 2020-07-31 12:50 | disposition home or self-care (01) ==
PROVIDERS: PCP Family Medicine Adult Medicine; Visit Provider Surgery
PROC: 0FT44ZZ Resection of Gallbladder, Percutaneous Endoscopic Approach (ICD-10-PCS; CPT 47562; principal; 2020-07-31 10:50)
DX: K80.10 Calculus of gallbladder with chronic cholecystitis without obstruction (principal); K42.0 Umbilical hernia with obstruction, without gangrene; I25.10 Atherosclerotic heart disease of native coronary artery without angina pectoris; K21.9 Gastro-esophageal reflux disease without esophagitis; F41.9 Anxiety disorder, unspecified; F32.9 Major depressive disorder, single episode, unspecified; G20 Parkinson's disease; Z79.82 Long term (current) use of aspirin
CPT/HCPCS: 47562; 49587; 88304; J1100; J1956; J2405; J2704; J2710; J3010; J3490; J7030

== ENCOUNTER 2020-08-06 12:12 | Emergency (ER) | payer MEDICARE, SELFPAY ==
[2020-08-06 12:19] VITALS: BP 127/83; PULSE 78; PULSE 83; RESP 16; O2SAT 97
--- NOTE | 2020-08-06 12:23 | ECG_ITS ---
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 Measurements Intervals [place] Rate: 81 P: 42 [place]: 164 QRS: -34 QRSD: 94 T: 8 QT: 374 QTc: 436 Interpretive Statements SINUS RHYTHM MARKED LEFT AXIS DEVIATION [QRS AXIS < -30] PATTERN CONSISTENT WITH PULMONARY DISEASE VOLTAGE CRITERIA FOR LVH [MEETS CRITERIA IN ONE OF: R(aVL), S(V1), R(V5), R(V5/V6)+S(V1)] Compared to ECG 05/24/2020 11:38:19 No significant changes Electronically Signed On 08-06-2020 17:06:28 CDT by Adrián Fregoso M.D. [email or web address]
--- NOTE | 2020-08-06 12:23 | ED_ITS ---
HPI - General Adult General: Chief complaint: General Medical Stated complaint: GENERAL WEAKNESS, DIZZY, NAUSEA Time Seen by Provider: 08/06/20 12:20 History of Present Illness: HPI narrative: This patient is a 75-year-old female who presents to the emergency department nausea and generalized weakness and fatigue. Patient states she has been feeling this way since she had her gallbladder out 1 week ago Wednesday. Patient states she has been just drinking some little bit of martha mikaela and crackers. Patient states she is profoundly weak. Patient does not appear to be acutely dehydrated has nontender abdomen. Will do medical evaluation treat as needed. Onset (ago): day(s) Severity: mild Relieving factors: none Exacerbating factors: none Associated symptoms: Reports malaise; Deny chest pain, dyspnea, headache(s), nausea, rash, palpitations or vomiting Review of Systems General: Reports: 10 or more systems reviewed and unremarkable except in HPI and below Const: Reports: change in appetite, fatigue and malaise; Denies: fever(s), chills or body aches Eyes: Denies: change in vision or blurry vision ENMT: Denies: throat pain, hoarseness or mouth pain Card: Denies: chest pain, palpitations, irregular heart rhythm, edema, swelling of feet/ankles or lightheadedness Resp: Denies: dyspnea, productive cough, non-productive cough, wheezing or pain on inspiration GI: Denies: abdominal pain, nausea or vomiting : Denies: flank pain, difficulty voiding, dysuria, urinary frequency, urinary urgency or urinary hesitancy Musc: Denies: neck pain, back pain, extremity pain, extremity swelling, joint pain, joint swelling, joint redness, joint warmth or limited range of motion Skin/Breast: Denies: rash, pruritus, erythema or skin tenderness Neuro: Denies: headache(s), numbness in extremities or weakness in extremities Psych: Denies: anxiety or depression PFSH ED PFSH: Medical History Anxiety CAD (coronary artery disease) Cholelithiasis Chronic back pain GERD (gastroesophageal reflux disease) Macular degeneration Motion sickness, sequela Parkinson disease Surgical History History of carpal tunnel surgery History of colonoscopy with polypectomy 2018 History of foot surgery Status post laparoscopic cholecystectomy (07/31/20) Family History Daughter Cancer Social History Smoking and tobacco status: never smoked Alcohol intake: never Physical Exam Const: COMMON NORMALS: no acute distress, average body habitus, patient oriented x3, no limitations, healthy appearing, alert and well nourished HENMT: COMMON NORMALS: normocephalic, atraumatic, hearing grossly normal bilaterally, external ears normal, EAC's normal, TM's normal bilaterally, Normal external nose present, Normal nasal mucous membranes and turbinates present, moist oral mucous membranes, oropharynx normal, dentition normal and gingiva normal HEAD & SCALP: normocephalic and atraumatic NOSE: Normal external nose present and Normal nasal mucous membranes and turbinates present EXTERNAL EAR: Yes external ears normal EXTERNAL AUDITORY CANAL: EAC's normal TYMPANIC MEMBRANE: TM's normal bilaterally Neck/C-Spine: COMMON NORMALS: full ROM, no lymphadenopathy, supple, no meningeal signs, no JVD, Thyroid normal and No carotid bruits THYROID: Thyroid normal Chest: COMMONS NORMALS: normal inspection of the chest, normal palpation of entire chest wall, normal inspection of the breasts and normal palpation of the breasts Breast/axilla inspection: Yes normal inspection of the breasts BREAST/AXILLA PALPATION: Yes normal palpation of the breasts Resp: COMMON NORMALS: normal respiratory effort, No retractions, No use of accessory muscles, clear to auscultation bilaterally and percussion normal AUSCULTATION: clear to auscultation bilaterally PERCUSSION: percussion normal Cardio: COMMON NORMALS: no JVD, regular rate, regular rhythm, S1 normal heart sound present, S2 normal heart sound present, No gallops present (Cardio), No clicks present (Cardio), No murmurs present (Cardio), No rub (Cardio) and Peripheral pulses 2+ throughout RATE: regular rate RHYTHM: regular rhythm HEART SOUNDS: S1 normal heart sound present and S2 normal heart sound present PERIPHERAL PULSES: Peripheral pulses 2+ throughout GI: COMMON NORMALS: Normal to inspection, nondistended, normoactive bowel sounds present, Soft to palpation, non-tender, No hepatosplenomegaly present, no masses and no bruits PALPATION: Yes Soft to palpation and Yes No hepatosplenomegaly present : COMMON NORMALS: Yes no CVA tenderness BLADDER/KIDNEY EXAM: Yes no CVA tenderness Back/Pelvis: COMMON NORMALS: no CVA tenderness, thoracic and lumbar spine normal to inspection, no thoracic nor lumbar tenderness, thoraco-lumbar ROM normal and straight leg raise negative bilaterally Extremity: COMMON NORMALS: normal to inspection, full ROM, capillary refill normal, no joint enlargement, no clubbing, cyanosis or edema, no calf tenderness and no pedal edema Neuro: COMMON NORMALS: patient oriented x3 SENSORIUM/ORIENTATION: Yes alert MENINGEAL SIGNS: Yes no meningeal signs Course Vital Signs: Vital signs: Vital Signs Pulse Rate 78 08/06/20 12:19 Respiratory Rate 16 08/06/20 12:19 Blood Pressure 127/83 08/06/20 12:19 Pulse Oximetry 97 08/06/20 12:19 MDM - General Adult MDM Narrative: Medical decision making narrative: This patient is a 75-year-old female who presents to the emergency department nausea and generalized weakness and fatigue. Patient states she has been feeling this way since she had her gallbladder out 1 week ago Wednesday. Patient states she has been just drinking some little bit of martha mikaela and crackers. Patient states she is profoundly weak. Patient does not appear to be acutely dehydrated has nontender abdomen. Negative evaluation in the emergency department. Discussed at length with patient. Patient is to encourage p.o. fluids. Continue all home medications. Follow-up with primary care physician in 2 to 3 days. Lab Data: Labs: Lab Results 08/06/20 08/06/20 08/06/20 Range/Units 11:55 11:55 13:08 WBC 8.5 (4.0-10.0) 10^3/ uL RBC 3.68 L (4.1-5.3) 10^6/u L Hgb 11.2 L (11.5-15.3) g/dL Hct 34.5 L (37.0-47.0) % MCV 93.8 (81-99) fL MCH 30.4 (28.0-34.0) pg MCHC 32.5 (30.0-36.0) g/dL RDW 13.6 (12.1-15.1) % Plt Count 366 (130-400) 10^3/c mm MPV 10.3 (7.4-10.4) fL Neut % (Auto) 78.4 % Lymph % (Auto) 13.4 % [place] % (Auto) 6.1 % Eos % (Auto) 1.1 % Baso % (Auto) 0.5 % Neut # (Auto) 6.65 (1.8-7.7) 10^3/u L Lymph # (Auto) 1.1 (0.8-4.8) 10^3/u L [place] # (Auto) 0.5 (0.2-0.9) 10^3/u L Eos # (Auto) 0.1 (0.0-0.8) 10^3/u L Baso # (Auto) 0.0 (0.0-0.1) 10^3/u L Nucleated RBC % (a uto) 0 % Nucleated RBCs # 0.0 /100WBC Sodium 136 (136-145) mmol/L Potassium 3.6 (3.5-5.1) mmol/L Chloride 96 L (98-107) mmol/L Carbon Dioxide 27 (22-29) mmol/L Anion Gap 16.6 (5-19) BUN 9 (8-23) mg/dL Creatinine 0.9 (0.5-0.9) mg/dL GFR Calculation Not Reportable Glucose 173 H (65-115) mg/dL Calculated Osmolal ity 285 (285-295) mOsm/k g Calcium 9.1 (8.5-10.5) mg/dL Total Bilirubin 0.3 (0.15-1.2) mg/dL AST 17 (0-32) U/L ALT 8 (0-33) U/L Alkaline Phosphata se 76 (35-105) IU/L Total Protein 7.0 (6.6-8.7) g/dL Albumin 4.3 (3.5-5.2) g/dL Globulin 2.7 (1.3-4.6) g/dL Lipase 12 L (13-60) U/L Urine Color Yellow (Yellow) Urine Appearance Hazy A (CLEAR) Urine pH 8 H (5-7) Ur Specific Gravit y 1.010 (1.005-1.030) Urine Protein Neg (Negative) Urine Glucose (UA) Norm (Normal) Urine Ketones Negative (Negative) Urine Blood 2+ H (Negative) Urine Nitrate Negative (Negative) Urine Bilirubin Neg (Negative) Prot Sulfosalicyli c Acd Negative (Negative) Urine Urobilinogen Norm (Negative) mg/dL Ur Leukocyte Melisa ase Trace H (Negative) Urine RBC 0-4 H (0-2) /hpf Urine WBC 0-4 H (0-5) /hpf Ur Squamous Epith Cells 0-4 H (0-5) /hpf Ur Transition Epit h Cell 0-4 /hpf Amorphous Sediment Not Reportable Urine Bacteria Trace (NONE) /hpf EKG Data^: EKG 1: Attestation: I personally reviewed and interpreted this EKG as follows: EKG interpretation date: 08/06/20 EKG interpretation time: 12:43 Prior EKG tracings: available for review Interpretation: normal sinus rhythm heart rate 81 left axis deviation. Nonspecific EKG changes. Discharge Plan Discharge Patient Disposition: Home Clinical Impression: Anxiety, Fibromyalgia, Status post laparoscopic cholecystectomy, Encounter for medical screening examination Condition: Stable Prescriptions: No Action acetaminophen 500 mg tablet 500 mg PO Q6H PRN (Reason: mild to moderate pain) Qty: 120 RF: 3 dimenhydrinate [Motion Sickness] 50 mg tablet 50 - 100 mg PO PRN PRN (Reason: Motion Sickness OR DIZZINESS) Qty: 60 RF: 1 nitroglycerin [Nitrostat] 0.4 mg tablet, sublingual 0.4 mg SUBLINGUAL Q5M PRN (Reason: Chest Pain from heart) Qty: 14 RF: 3 pantoprazole [Protonix] 40 mg tablet,delayed release (DR/EC) 40 mg PO QAM 42 Days Qty: 42 RF: 0 trihexyphenidyl 2 mg tablet 2 mg PO BID Qty: 60 RF: 4 ondansetron HCl [Zofran] 4 mg tablet 4 mg PO Q6H PRN (Reason: nausea and vomiting) 7 Days Qty: 28 RF: 2 carbidopa-levodopa 25-100 mg tablet 2 tab PO .COMPLEX Qty: 150 RF: 4 tramadol 50 mg tablet 50 mg PO Q8H PRN (Reason: pain) Qty: 30 RF: 0 aspirin 81 mg tablet,delayed release (DR/EC) 81 mg PO DAILY@08 RF: 0 diphenhydramine HCl 25 mg Tablet 25 mg PO BEDTIME@2200 PRN (Reason: Insomnia) RF: 0 hydrocortisone [Proctosol HC] 2.5 % cream with perineal applicator 1 applic ME Q6H Qty: 30 RF: 0 Zofran 4 mg tablet 4 mg PO Q6H PRN (Reason: nausea and vomiting) Qty: 20 RF: 0 Colace 100 mg capsule 100 mg PO BID Qty: 30 RF: 0 hydrocodone-acetaminophen 5-325 mg tablet 1 tab PO Q6H PRN (Reason: pain) Qty: 20 RF: 0 isosorbide mononitrate 30 mg tablet extended release 24 hr 30 mg PO DAILY Qty: 14 RF: 0 doxylamine-pyridoxine (vit B6) 10-10 mg tablet,delayed release (DR/EC) 1 tab PO BID Qty: 10 RF: 0 Discharge Orders: Discharge ED (Routine); Ordered 08/06/20 Ordered By: De Roberson Referrals: Maycol Landis MD [Primary Care Provider] - Discharge Diet: Advance as tolerated Discharge Activity: Increase activity as tolerated Patient Instructions: Opioid Safety Activity Restrictions/Additional Instructions: Patient is to encourage p.o. fluids. Continue all home medications. Follow-up with primary care physician in 2 to 3 days. 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
[2020-08-06 12:42] LABS: Basophils % 0.5 %; Eosinophils # 0.1 10^3/uL (0.0-0.8); Eosinophils % 1.1 %; Hematocrit 34.5 % (37.0-47.0); Hemoglobin 11.2 g/dL (11.5-15.3); Lymphocytes # 1.1 10^3/uL (0.8-4.8); Lymphocytes % 13.4 %; Mean Corpuscular HGB Conc 32.5 g/dL (30.0-36.0); Mean Corpuscular Hemoglobin 30.4 pg (28.0-34.0); Mean Corpuscular Volume 93.8 fL (81-99); Mean Platelet Volume 10.3 fL (7.4-10.4); Monocytes # 0.5 10^3/uL (0.2-0.9); Monocytes % 6.1 %; Neutrophils # 6.65 10^3/uL (1.8-7.7); Neutrophils % 78.4 %; Nucleated Red Blood Cells % 0 %; Platelet Count 366 10^3/cmm (130-400); Red Blood Count 3.68 10^6/uL (4.1-5.3); Red Cell Distribution Width 13.6 % (12.1-15.1); White Blood Count 8.5 10^3/uL (4.0-10.0)
[2020-08-06 12:58] LABS: Alanine Aminotransferase 8 U/L (0-33); Albumin Level 4.3 g/dL (3.5-5.2); Alkaline Phosphatase 76 IU/L (35-105); Anion Gap 16.6 (5-19); Aspartate Amino Transferase 17 U/L (0-32); Blood Urea Nitrogen 9 mg/dL (8-23); Calcium 9.1 mg/dL (8.5-10.5); Carbon Dioxide 27 mmol/L (22-29); Chloride 96 mmol/L (98-107); Globulin 2.7 g/dL (1.3-4.6); Glucose 173 mg/dL (65-115); Lipase 12 U/L (13-60); Osmolality Calculated 285 mOsm/kg (285-295); Potassium 3.6 mmol/L (3.5-5.1); Sodium 136 mmol/L (136-145); Total Bilirubin 0.3 mg/dL (0.15-1.2)
[2020-08-06] MEDS: acetaminophen 325 mg Tablet 650 MG PO (13:17)
[2020-08-06] MEDS: sodium chloride 0.9% 1,000 ML 999 ML IV (13:24)
[2020-08-06 13:48] LABS: Urine Appearance Hazy (CLEAR); Urine Color Yellow (Yellow)
[2020-08-06 13:49] LABS: Add Urine Culture? No; Add Urine Microscopic? YES; Bacteria Urine TRACE /hpf; Bilirubin Urine Neg (Negative); Blood Urine 2+ (Negative); Glucose Urine UA Norm (Normal); Ketones Urine Negative (Negative); Leukocyte Esterase Urine Trace (Negative); Nitrate Urine Negative (Negative); Protein Urine Neg (Negative); RBC Urine 0-4 /hpf (0-2); Squamous Epithelial Cell Urine 0-4 /hpf (0-5); Sulfosalicylic Acid Urine Negative (Negative); Urobilinogen Urine Norm (Negative); WBC Urine 0-4 /hpf (0-5); pH Urine 8 (5-7)
[2020-08-06 13:50] LABS: Transitional Epi Cells Urine 0-4 /hpf
[2020-08-06] MEDS: lidocaine 2% viscous 15 ML, aluminum-mag hydrox-simethicon 30 ML, sucralfate oral liq 1 GM PO (14:46)
== END 2020-08-06 15:00 | disposition home or self-care (01) ==
PROVIDERS: Emergency Provider Emergency Medicine; PCP Family Medicine Adult Medicine
DX: F41.9 Anxiety disorder, unspecified (principal); M79.7 Fibromyalgia; Z90.49 Acquired absence of other specified parts of digestive tract; Z79.82 Long term (current) use of aspirin; I25.10 Atherosclerotic heart disease of native coronary artery without angina pectoris; H35.30 Unspecified macular degeneration
CPT/HCPCS: 51701; 80053; 81001; 83690; 85025; 93005; 96360; 99283; J7030

== ENCOUNTER 2020-08-22 13:16 | Emergency (ER) | payer MEDICARE, SELFPAY ==
[2020-08-22 14:19] VITALS: BP 156/93; PULSE 100; RESP 16; TEMP 36.9; O2SAT 97; BMI 25.6
[2020-08-22 14:50] VITALS: BP 168/101; PULSE 100; RESP 18; TEMP 36.3; O2SAT 98
--- NOTE | 2020-08-22 14:59 | ED_ITS ---
HPI - Abdominal Pain General: Chief Complaint: Abdominal Pain Stated Complaint: ABDOMINAL PAIN/ NAUSEA/ ANXIETY Time Seen by Provider: 08/22/20 14:54 History of Present Illness: HPI narrative: I discussed at length with patient who is a 75-year-old lady who presents to the emergency department complaint of abdomen of chronic pain and request a refill of her tramadol. Patient also has issues with reflux issues and request a GI cocktail. Patient request tramadol and states that she is out of her medications that are prescribed by Dr. Baldwin. States that she was given 30 tablets but she is run out because sometimes she takes 1 to 2 tablets a day and that she also has a family member that is taken some of her medications. I did discuss at length with patient about her complaint nature of her complaint and advised that I would not be refilling any tramadol prescriptions. However I will be willing to call her primary care physician or Dr. Baldwin to evaluate to see if they would call in any additional prescriptions. Patient states understanding I did offer a full medical screening exam and the patient declines. MD elicited complaint: abdominal pain Pertinent past history: none Associated Symptoms: Denies chills, dysuria, fever(s), nausea and vomiting Review of Systems General: Reports: 10 or more systems reviewed and unremarkable except in HPI and below Const: Denies: fever(s), chills, body aches or fatigue Eyes: Denies: change in vision or blurry vision ENMT: Denies: throat pain, hoarseness or mouth pain Card: Denies: chest pain, palpitations, irregular heart rhythm, edema, swelling of feet/ankles or lightheadedness Resp: Denies: dyspnea, productive cough, non-productive cough, wheezing or pain on inspiration GI: Denies: abdominal pain, nausea or vomiting : Denies: flank pain, difficulty voiding, dysuria, urinary frequency, urinar y urgency or urinary hesitancy Musc: Denies: neck pain, back pain, extremity pain, extremity swelling, joint pain, joint swelling, joint redness, joint warmth or limited range of motion Skin/Breast: Denies: rash, pruritus, erythema or skin tenderness Neuro: Denies: headache(s), numbness in extremities or weakness in extremities Psych: Denies: anxiety or depression PFS ED PFSH: Medical History Anxiety CAD (coronary artery disease) Cholelithiasis Chronic back pain GERD (gastroesophageal reflux disease) Macular degeneration Motion sickness, sequela Parkinson disease Surgical History History of carpal tunnel surgery History of colonoscopy with polypectomy 2018 History of foot surgery Status post laparoscopic cholecystectomy (07/31/20) Family History Daughter Cancer Social History Smoking and tobacco status: never smoked Alcohol intake: never Physical Exam Const: COMMON NORMALS: no acute distress, average body habitus, patient oriented x3, no limitations, healthy appearing, alert and well nourished HENMT: COMMON NORMALS: normocephalic, atraumatic, hearing grossly normal bilaterally, external ears normal, EAC's normal, TM's normal bilaterally, Normal external nose present, Normal nasal mucous membranes and turbinates present, moist oral mucous membranes, oropharynx normal, dentition normal and gingiva normal HEAD & SCALP: normocephalic and atraumatic NOSE: Normal external nose present and Normal nasal mucous membranes and turbinates present EXTERNAL EAR: Yes external ears normal EXTERNAL AUDITORY CANAL: EAC's normal TYMPANIC MEMBRANE: TM's normal bilaterally Neck/C-Spine: COMMON NORMALS: full ROM, no lymphadenopathy, supple, no meningeal signs, no JVD, Thyroid normal and No carotid bruits THYROID: Thyroid normal Chest: COMMONS NORMALS: normal inspection of the chest, normal palpation of entire chest wall, normal inspection of the breasts and normal palpation of the breasts Breast/axilla inspection: Yes normal inspection of the breasts BREAST/AXILLA PALPATION: Yes normal palpation of the breasts Resp: COMMON NORMALS: normal respiratory effort, No retractions, No use of accessory muscles, clear to auscultation bilaterally and percussion normal AUSCULTATION: clear to auscultation bilaterally PERCUSSION: percussion normal Cardio: COMMON NORMALS: no JVD, regular rate, regular rhythm, S1 normal heart sound present, S2 normal heart sound present, No gallops present (Cardio), No clicks present (Cardio), No murmurs present (Cardio), No rub (Cardio) and Peripheral pulses 2+ throughout RATE: regular rate RHYTHM: regular rhythm HEART SOUNDS: S1 normal heart sound present and S2 normal heart sound present PERIPHERAL PULSES: Peripheral pulses 2+ throughout GI: COMMON NORMALS: Normal to inspection, nondistended, normoactive bowel sounds present, Soft to palpation, non-tender, No hepatosplenomegaly present, no masses and no bruits PALPATION: Yes Soft to palpation and Yes No hepatosplenomegaly present Back/Pelvis: COMMON NORMALS: thoracic and lumbar spine normal to inspection, no thoracic nor lumbar tenderness, thoraco-lumbar ROM normal and straight leg raise negative bilaterally Extremity: COMMON NORMALS: normal to inspection, full ROM, capillary refill normal, no joint enlargement, no clubbing, cyanosis or edema, no calf tenderness and no pedal edema Neuro: COMMON NORMALS: patient oriented x3 SENSORIUM/ORIENTATION: Yes alert and Yes other (Chronic tremor from Parkinson's disease) MENINGEAL SIGNS: Yes no meningeal signs Course Reevaluation(s): Reevaluation #1: I did discuss at length with patient about Dr. Baldwin's recommendations. Patient states she also has dental pain in multiple did not broken teeth. States she does have a scheduled appointment with her dentist tomorrow. Advised that she make that appointment. Patient again was offered a full medical screening exam and the patient declines this wishes to have something for acid reflux and nausea. Patient be given oral medications per her request. Patient is to follow-up with primary care physician as instructed. Patient states that she has seen pain management in the past but they refused to see her any longer due to her request. And multiple requests. Advised that she needs to discuss this with her primary care physician. Patient will be discharged home Time: 15:05 Consultations: Consultation #1: I did discuss at length with Dr. Baldwin. We did repeat discussed the patient's history. He declines any additional prescriptions. States he wrote her prescription for 30 tablets 7 days ago. He advised the patient if she needs any additional medications follow-up with primary care physician or have her primary care physician refer her to chronic pain. He states no additional prescriptions today. Time: 15:02 Vital Signs: Vital signs: Vital Signs Temperature 97.4 F L 08/22/20 14:50 Pulse Rate 100 08/22/20 14:50 Respiratory Rate 18 08/22/20 14:50 Blood Pressure 168/101 08/22/20 14:50 Pulse Oximetry 98 08/22/20 14:50 MDM - Abdominal Pain MDM Narrative: Medical decision making narrative: I discussed at length with patient who is a 75-year-old lady who presents to the emergency department complaint of abdomen of chronic pain and request a refill of her tramadol. Patient also has issues with reflux issues and request a GI cocktail. Patient request tramadol and states that she is out of her medications that are prescribed by Dr. Baldwin. States that she was given 30 tablets but she is run out because sometimes she takes 1 to 2 tablets a day and that she also has a family member that is taken some of her medications. I did discuss at length with patient about her complaint nature of her complaint and advised that I would not be refilling any tramadol prescriptions. However I will be willing to call her primary care physician or Dr. Baldwin to evaluate to see if they would call in any additional prescriptions. Patient states understanding I did offer a full medical screening exam and the patient declines. I did discuss at length with Dr. Baldwin. We did repeat discussed the patient's history. He declines any additional prescriptions. States he wrote her prescription for 30 tablets 7 days ago. He advised the patient if she needs any additional medications follow-up with primary care physician or have her primary care physician refer her to chronic pain. He states no additional prescriptions today. I did discuss at length with patient about Dr. Baldwin's recommendations. Patient states she also has dental pain in multiple did not broken teeth. States she does have a scheduled appointment with her dentist tomorrow. Advised that she make that appointment. Patient again was offered a full medical screening exam and the patient declines this wishes to have something for acid reflux and nausea. Patient be given oral medications per her request. Patient is to follow-up with primary care physician as instructed. Patient states that she has seen pain management in the past but they refused to see her any longer due to her request. And multiple requests. Advised that she needs to discuss this with her primary care physician. Patient will be discharged home Discharge Plan Discharge Clinical Impression: Chronic back pain, Medication requested, Parkinson disease, GERD (gastroesoph ageal reflux disease) Condition: Stable Prescriptions: No Action omeprazole 20 mg capsule,delayed release(DR/EC) 20 mg PO DAILY RF: 0 sucralfate [Carafate] 1 gram tablet 1 g PO Q6H 30 Days Qty: 120 RF: 0 tramadol 50 mg tablet 50 mg PO Q8H PRN (Reason: pain) Qty: 30 RF: 0 acetaminophen 500 mg tablet 500 mg PO Q6H PRN (Reason: mild to moderate pain) Qty: 120 RF: 3 nitroglycerin [Nitrostat] 0.4 mg tablet, sublingual 0.4 mg SUBLINGUAL Q5M PRN (Reason: Chest Pain from heart) Qty: 14 RF: 3 pantoprazole [Protonix] 40 mg tablet,delayed release (DR/EC) 40 mg PO QAM 42 Days Qty: 42 RF: 0 trihexyphenidyl 2 mg tablet 2 mg PO BID Qty: 60 RF: 4 ondansetron HCl [Zofran] 4 mg tablet 4 mg PO Q6H PRN (Reason: nausea and vomiting) 7 Days Qty: 28 RF: 2 carbidopa-levodopa 25-100 mg tablet 2 tab PO .COMPLEX Qty: 150 RF: 4 aspirin 81 mg tablet,delayed release (DR/EC) 81 mg PO DAILY@08 RF: 0 Zofran 4 mg tablet 4 mg PO Q6H PRN (Reason: nausea and vomiting) Qty: 20 RF: 0 isosorbide mononitrate 30 mg tablet extended release 24 hr 30 mg PO DAILY Qty: 14 RF: 0 doxylamine-pyridoxine (vit B6) 10-10 mg tablet,delayed release (DR/EC) 1 tab PO BID Qty: 10 RF: 0 Discharge Orders: Discharge ED (Routine); Ordered 08/22/20 Ordered By: De Roberson Referrals: Maycol Landis MD [Primary Care Provider] - Discharge Diet: Advance as tolerated Discharge Activity: Resume usual activity Activity Restrictions/Additional Instructions: Patient is encouraged to follow-up with her primary care physician and orthopedic pain management that she has been referred to. Patient is to make her appointment to her dentist tomorrow. 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
[2020-08-22] MEDS: ondansetron 4 MG Tablet PO (15:04)
[2020-08-22] MEDS: lidocaine 2% viscous 15 ML, aluminum-mag hydrox-simethicon 30 ML, sucralfate oral liq 1 GM PO (15:04)
[2020-08-22 15:35] VITALS: BP 168/101; PULSE 100; RESP 18; TEMP 36.3; O2SAT 98
== END 2020-08-22 15:36 | disposition home or self-care (01) ==
PROVIDERS: Emergency Provider Emergency Medicine; PCP Family Medicine Adult Medicine
DX: G89.29 Other chronic pain (principal); M54.9 Dorsalgia, unspecified; K21.9 Gastro-esophageal reflux disease without esophagitis; G20 Parkinson's disease; Z79.82 Long term (current) use of aspirin; I25.10 Atherosclerotic heart disease of native coronary artery without angina pectoris; H35.30 Unspecified macular degeneration
CPT/HCPCS: 99283; Q0162

== ENCOUNTER 2020-09-04 12:02 | Emergency (ER) | payer MEDICARE, SELFPAY ==
[2020-09-04 12:19] VITALS: BP 153/94; PULSE 103; RESP 17; TEMP 36.8; O2SAT 90; BMI 25.6
--- NOTE | 2020-09-04 12:24 | ED_ITS ---
HPI - General Adult General: Chief complaint: Abdominal Pain Stated complaint: NAUSEA Time Seen by Provider: 09/04/20 12:17 History of Present Illness: HPI narrative: This this patient is a 75-year-old female presents to the emergency department complaint of nausea. Patient has chronic conditions including chronic back pain nausea and Parkinson's disease epigastric reflux disease. Has been seen multiple times in the emergency department. Patient presents to the emergency department for continued complaints of nausea. Request a GI cocktail. Patient also request to see Dr. Baldwin. Patient states she called the clinic but could not get an appointment because they said Dr. Baldwin was in surgery so she thought she could come to the emergency department and see him. States that she has not had any refills of her medications that he gave her post operatively. I did discuss at length with patient about her prior visit for which I did see her at that time. Also discussed with her the recommendations of Dr. Baldwin at that time. And at that time it was requested the patient not receive any additional pain medication prescriptions or any additional prescriptions other than what is written by Dr. Baldwin. I did discuss at length with options with patient and offered a full medical screening exam. Patient states she does not understand why she cannot just see Dr. Baldwin. I advised the patient that we would do a medical screening exam and if everything is okay we will discharge her home to follow-up with Dr. Baldwin. That she must make an appointment. If however we do find any significant abnormalities on evaluation that warranted a consult with Dr. Baldwin that we would do so. Patient states understanding. We will do medical evaluation treat as needed Onset (ago): week(s) Associated symptoms: Reports nausea; Deny chest pain, dyspnea, headache(s), rash, palpitations or vomiting Review of Systems General: Reports: 10 or more systems reviewed and unremarkable except in HPI and below Const: Denies: fever(s), chills, body aches or fatigue Eyes: Denies: change in vision or blurry vision ENMT: Denies: throat pain, hoarseness or mouth pain Card: Denies: chest pain, palpitations, irregular heart rhythm, edema, swelling of feet/ankles or lightheadedness Resp: Denies: dyspnea, productive cough, non-productive cough, wheezing or pain on inspiration GI: Reports: nausea; Denies: abdominal pain or vomiting : Denies: flank pain, difficulty voiding, dysuria, urinary frequency, urinary urgency or urinary hesitancy Musc: Denies: neck pain, back pain, extremity pain, extremity swelling, joint pain, joint swelling, joint redness, joint warmth or limited range of motion Skin/Breast: Denies: rash, pruritus, erythema or skin tenderness Neuro: Denies: headache(s), numbness in extremities or weakness in extremities Psych: Denies: anxiety or depression PFSH ED PFSH: Medical History Anxiety CAD (coronary artery disease) Cholelithiasis Chronic back pain GERD (gastroesophageal reflux disease) Macular degeneration Motion sickness, sequela Parkinson disease Surgical History History of carpal tunnel surgery History of colonoscopy with polypectomy 2018 History of foot surgery Status post laparoscopic cholecystectomy (07/31/20) Family History Daughter Cancer Social History Smoking and tobacco status: never smoked Alcohol intake: never Physical Exam Const: COMMON NORMALS: no acute distress, average body habitus, patient oriented x3, no limitations, healthy appearing, alert and well nourished HENMT: COMMON NORMALS: normocephalic, atraumatic, hearing grossly normal bilaterally, external ears normal, EAC's normal, TM's normal bilaterally, Normal external nose present, Normal nasal mucous membranes and turbinates present, moist oral mucous membranes, oropharynx normal, dentition normal and gingiva normal HEAD & SCALP: normocephalic and atraumatic NOSE: Normal external nose present and Normal nasal mucous membranes and turbinates present EXTERNAL EAR: Yes external ears normal EXTERNAL AUDITORY CANAL: EAC's normal TYMPANIC MEMBRANE: TM's normal bilaterally Neck/C-Spine: COMMON NORMALS: full ROM, no lymphadenopathy, supple, no meningeal signs, no JVD, Thyroid normal and No carotid bruits THYROID: Thyroid normal Chest: COMMONS NORMALS: normal inspection of the chest, normal palpation of entire chest wall, normal inspection of the breasts and normal palpation of the breasts Breast/axilla inspection: Yes normal inspection of the breasts BREAST/AXILLA PALPATION: Yes normal palpation of the breasts Resp: COMMON NORMALS: normal respiratory effort, No retractions, No use of accessory muscles, clear to auscultation bilaterally and percussion normal AUSCULTATION: clear to auscultation bilaterally PERCUSSION: percussion normal Cardio: COMMON NORMALS: no JVD, regular rate, regular rhythm, S1 normal heart sound present, S2 normal heart sound present, No gallops present (Cardio), No clicks present (Cardio), No murmurs present (Cardio), No rub (Cardio) and Peripheral pulses 2+ throughout RATE: regular rate RHYTHM: regular rhythm HEART SOUNDS: S1 normal heart sound present and S2 normal heart sound present PERIPHERAL PULSES: Peripheral pulses 2+ throughout GI: COMMON NORMALS: Normal to inspection, nondistended, normoactive bowel sounds present, Soft to palpation, non-tender, No hepatosplenomegaly present, no masses and no bruits PALPATION: Yes Soft to palpation and Yes No hepatosplenomegaly present Back/Pelvis: COMMON NORMALS: thoracic and lumbar spine normal to inspection, no thoracic nor lumbar tenderness, thoraco-lumbar ROM normal and straight leg raise negative bilaterally Extremity: COMMON NORMALS: normal to inspection, full ROM, capillary refill normal, no joint enlargement, no clubbing, cyanosis or edema, no calf tenderness and no pedal edema Neuro: COMMON NORMALS: patient oriented x3 SENSORIUM/ORIENTATION: Yes alert MENINGEAL SIGNS: Yes no meningeal signs Course Reevaluation(s): Reevaluation #1: Negative evaluation in the emergency department. Patient has a normal medical screening exam. Patient's chronic conditions appear to be stable. Patient is starts listing other medical complaints. Patient appears to be malingering. Patient has been doing this for some time. I did discuss at length with Dr. Baldwin about the same. He request no additional medications to be given and discharged home. Time: 13:26 Consultations: Consultation #1: I did discuss at length with Dr. Baldwin patient's general surgeon. Took out the patient's gallbladder. He agrees with medical screening exam and discharged home. He request patient to get no additional medications. Patient is to schedule follow-up with her appointment with her PCP or Dr. Baldwin's office Time: 13:26 Vital Signs: Vital signs: Vital Signs Temperature 98.2 F 09/04/20 12:19 Pulse Rate 88 09/04/20 12:27 Respiratory Rate 18 09/04/20 12:27 Blood Pressure 153/94 09/04/20 12:27 Pulse Oximetry 95 09/04/20 12:27 MDM - General Adult MDM Narrative: Medical decision making narrative: This this patient is a 75-year-old female presents to the emergency department complaint of nausea. Patient has chronic conditions including chronic back pain nausea and Parkinson's disease epigastric reflux disease. Has been seen multiple times in the emergency department. Patient presents to the emergency department for continued complaints of nausea. Request a GI cocktail. Patient also request to see Dr. Baldwin. Patient states she called the clinic but could not get an appointment because they said Dr. Baldwin was in surgery so she thought she could come to the emergency department and see him. States that she has not had any refills of her medications that he gave her post operatively. I did discuss at length with patient about her prior visit for which I did see her at that time. Also discussed with her the recommendations of Dr. Baldwin at that time. And at that time it was requested the patient not receive any additional pain medication prescriptions or any additional prescriptions other than what is written by Dr. Baldwin. I did discuss at length with options with patient and offered a full medical screening exam. Patient states she does not understand why she cannot just see Dr. Baldwin. I advised the patient that we would do a medical screening exam and if everything is okay we will discharge her home to follow-up with Dr. Baldwin. That she must make an appointment. If however we do find any significant abnormalities on evaluation that warranted a consult with Dr. Baldwin that we would do so. Patient states understanding. Negative evaluation in the emergency department. Patient has a normal medical screening exam. Patient's chronic conditions appear to be stable. Patient is starts listing other medical complaints. Patient appears to be malingering. Patient has been doing this for some time. I did discuss at length with Dr. Baldwin about the same. He request no additional medications to be given and discharged home. I did discuss at length with Dr. Baldwin patient's general surgeon. Took out the patient's gallbladder. He agrees with medical screening exam and discharged home. He request patient to get no additional medications. Patient is to schedule follow-up with her appointment with her PCP or Dr. Baldwin's office Lab Data: Labs: Lab Results 07/07/21 07/07/21 Range/Units 12:54 12:54 WBC 7.5 (4.0-10.0) 10^3/ uL RBC 4.09 L (4.1-5.3) 10^6/u L Hgb 12.0 (11.5-15.3) g/dL Hct 37.7 (37.0-47.0) % MCV 92.2 (81-99) fL MCH 29.3 (28.0-34.0) pg MCHC 31.8 (30.0-36.0) g/dL RDW 13.5 (12.1-15.1) % Plt Count 363 (130-400) 10^3/c mm MPV 10.6 H (7.4-10.4) fL Neut % (Auto) 78.9 % Lymph % (Auto) 13.8 % Randall % (Auto) 6.3 % Eos % (Auto) 0.3 % Baso % (Auto) 0.4 % Neut # (Auto) 5.89 (1.8-7.7) 10^3/u L Lymph # (Auto) 1.0 (0.8-4.8) 10^3/u L Randall # (Auto) 0.5 (0.2-0.9) 10^3/u L Eos # (Auto) 0.0 (0.0-0.8) 10^3/u L Baso # (Auto) 0.0 (0.0-0.1) 10^3/u L Nucleated RBC % (a uto) 0 % Nucleated RBCs # 0.0 /100WBC Sodium 137 (136-145) mmol/L Potassium 4.5 (3.5-5.1) mmol/L Chloride 99 (98-107) mmol/L Carbon Dioxide 25 (22-29) mmol/L Anion Gap 17.5 (5-19) BUN 12 (8-23) mg/dL Creatinine 0.8 (0.5-0.9) mg/dL GFR Calculation Not Reportable Glucose 96 (65-115) mg/dL Calculated Osmolal ity 284 L (285-295) mOsm/k g Calcium 9.6 (8.5-10.5) mg/dL Total Bilirubin 0.4 (0.15-1.2) mg/dL AST 8 (0-32) U/L ALT < 5 (0-33) U/L Alkaline Phosphata se 85 (35-105) IU/L Total Protein 7.2 (6.6-8.7) g/dL Albumin 4.8 (3.5-5.2) g/dL Globulin 2.4 (1.3-4.6) g/dL Lipase 26 (13-60) U/L Discharge Plan Discharge Patient Disposition: Home Clinical Impression: GERD (gastroesophageal reflux disease), Parkinson disease, Nausea, Malingering Condition: Stable Prescriptions: No Action omeprazole 20 mg capsule,delayed release(DR/EC) 20 mg PO DAILY RF: 0 sucralfate [Carafate] 1 gram tablet 1 g PO Q6H 30 Days Qty: 120 RF: 0 tramadol 50 mg tablet 50 mg PO Q8H PRN (Reason: pain) Qty: 30 RF: 0 acetaminophen 500 mg tablet 500 mg PO Q6H PRN (Reason: mild to moderate pain) Qty: 120 RF: 3 nitroglycerin [Nitrostat] 0.4 mg tablet, sublingual 0.4 mg SUBLINGUAL Q5M PRN (Reason: Chest Pain from heart) Qty: 14 RF: 3 trihexyphenidyl 2 mg tablet 2 mg PO BID Qty: 60 RF: 4 ondansetron HCl [Zofran] 4 mg tablet 4 mg PO Q6H PRN (Reason: nausea and vomiting) 7 Days Qty: 28 RF: 2 carbidopa-levodopa 25-100 mg tablet 2 tab PO .COMPLEX Qty: 150 RF: 4 pantoprazole [Protonix] 40 mg tablet,delayed release (DR/EC) 40 mg PO QAM 42 Days Qty: 42 RF: 0 aspirin 81 mg tablet,delayed release (DR/EC) 81 mg PO DAILY@08 RF: 0 Zofran 4 mg tablet 4 mg PO Q6H PRN (Reason: nausea and vomiting) Qty: 20 RF: 0 isosorbide mononitrate 30 mg tablet extended release 24 hr 30 mg PO DAILY Qty: 14 RF: 0 doxylamine-pyridoxine (vit B6) 10-10 mg tablet,delayed release (DR/EC) 1 tab PO BID Qty: 10 RF: 0 Discharge Orders: Discharge ED (Routine); Ordered 09/04/20 Ordered By: De Roberson Referrals: Maycol Landis MD [Primary Care Provider] - Discharge Diet: Advance as tolerated Discharge Activity: Resume usual activity Patient Instructions: Opioid Safety Activity Restrictions/Additional Instructions: Encourage p.o. fluids. Continue all home medications. You must follow-up with your primary care physician or Dr. Baldwin 5 to 7 days. Call your PCP for an appointment. Coding Level of Care Code ED Melting Supervisor for Chg Fwd Exam Comprehensive
[2020-09-04 12:27] VITALS: BP 153/94; PULSE 88; RESP 18; O2SAT 95
[2020-09-04] MEDS: ondansetron 2 mg/ML SDV 2 mL 4 MG IVP (13:01)
[2020-09-04] MEDS: lidocaine 2% viscous 15 ML, aluminum-mag hydrox-simethicon 30 ML, sucralfate oral liq 1 GM PO (13:01)
[2020-09-04] MEDS: sodium chloride 0.9% 500 ML IV (13:02)
[2020-09-04 13:03] LABS: Basophils % 0.4 %; Eosinophils % 0.3 %; Hematocrit 37.7 % (37.0-47.0); Lymphocytes % 13.8 %; Mean Corpuscular HGB Conc 31.8 g/dL (30.0-36.0); Mean Corpuscular Hemoglobin 29.3 pg (28.0-34.0); Mean Corpuscular Volume 92.2 fL (81-99); Mean Platelet Volume 10.6 fL (7.4-10.4); Monocytes # 0.5 10^3/uL (0.2-0.9); Monocytes % 6.3 %; Neutrophils # 5.89 10^3/uL (1.8-7.7); Neutrophils % 78.9 %; Nucleated Red Blood Cells % 0 %; Platelet Count 363 10^3/cmm (130-400); Red Blood Count 4.09 10^6/uL (4.1-5.3); Red Cell Distribution Width 13.5 % (12.1-15.1); White Blood Count 7.5 10^3/uL (4.0-10.0)
[2020-09-04 13:19] LABS: Alanine Aminotransferase < 5 U/L (0-33); Albumin Level 4.8 g/dL (3.5-5.2); Alkaline Phosphatase 85 IU/L (35-105); Anion Gap 17.5 (5-19); Aspartate Amino Transferase 8 U/L (0-32); Blood Urea Nitrogen 12 mg/dL (8-23); Calcium 9.6 mg/dL (8.5-10.5); Carbon Dioxide 25 mmol/L (22-29); Chloride 99 mmol/L (98-107); Globulin 2.4 g/dL (1.3-4.6); Glucose 96 mg/dL (65-115); Lipase 26 U/L (13-60); Osmolality Calculated 284 mOsm/kg (285-295); Potassium 4.5 mmol/L (3.5-5.1); Sodium 137 mmol/L (136-145); Total Bilirubin 0.4 mg/dL (0.15-1.2); Total Protein 7.2 g/dL (6.6-8.7)
[2020-09-04 13:36] LABS: Add Urine Microscopic? NO; Charge for UA Resulting for Rev
[2020-09-04 13:48] VITALS: BP 156/80; PULSE 93; RESP 18; TEMP 37.2; O2SAT 96
[2020-09-04 13:48] LABS: Bilirubin Urine Neg (Negative); Blood Urine Neg (Negative); Glucose Urine UA Norm (Normal); Ketones Urine Negative (Negative); Leukocyte Esterase Urine Negative (Negative); Nitrate Urine Negative (Negative); Protein Urine Neg (Negative); Specific Gravity, Urine 1.005 (1.005-1.030); Urine Appearance Clear (CLEAR); Urine Color Yellow (Yellow); Urobilinogen Urine Norm (Negative); pH Urine 7 (5-7)
== END 2020-09-04 14:05 | disposition home or self-care (01) ==
PROVIDERS: Emergency Provider Emergency Medicine; PCP Family Medicine Adult Medicine
DX: K21.9 Gastro-esophageal reflux disease without esophagitis (principal); G20 Parkinson's disease; Z76.5 Malingerer [conscious simulation]; Z79.82 Long term (current) use of aspirin
CPT/HCPCS: 80053; 81003; 83690; 85025; 96361; 96374; 99283; J2405; J7040

== ENCOUNTER 2020-09-22 20:34 | Emergency (ER) | payer MEDICARE, SELFPAY ==
[2020-09-22 20:35] VITALS: BP 110/78; PULSE 85; RESP 16; TEMP 36.5; O2SAT 96; BMI 25.6
--- NOTE | 2020-09-22 20:45 | XRR_ITS ---
PROCEDURE INFORMATION: Exam: XR Chest Exam date and time: 09/22/2020 8:45 PM Age: 75 years old Clinical indication: Pain; Chest pressure; Additional info: Chest pain TECHNIQUE: Imaging protocol: XR of the chest. Views: 1 view. COMPARISON: CR XR chest 1V portable [id number] 05/24/2020 9:18 AM FINDINGS: Lungs: Left lower lobe atelectasis versus minimal infiltrate. Mild pulmonary vascular congestion. Pleural spaces: Unremarkable. No pleural effusion. No pneumothorax. Heart/Mediastinum: Cardiomegaly. Bones/joints: Unremarkable. XR/XR chest 1V portable [id number] IMPRESSION: 1. Cardiomegaly. 2. Left lower lobe atelectasis versus minimal infiltrate. 3. Mild pulmonary vascular congestion.
--- NOTE | 2020-09-22 21:31 | W.ED.CHESTPA ---
HPI - Chest Pain General: Chief Complaint: Chest Pain Stated Complaint: CP Time Seen by Provider: 09/22/20 20:38 History of Present Illness: HPI narrative: 75-year-old female presents emergency room with complaint of chest pain. Said chest pain since earlier this morning is worse when she takes a deep breath. She reports it radiates into the neck a little bit but nowhere else. Is not exacerbated by activity it is exacerbated by deep inspiration. No nausea or vomiting no diaphoresis. No shortness of breath fever sweats or chills or cough recently. MD complaint: chest pain and chest heaviness Onset (ago): hour(s) Timing of current episode: constant Prior episodes: Yes Onset: during rest Pain location: left chest Pain radiation: neck Severity: mild Quality: tightness and heaviness Relieving factors: nothing Exacerbating factors: inspiration Associated symptoms: Deny abdominal pain, diaphoresis, dyspnea, fever(s), leg edema, nausea, palpitations, sense of impending doom, syncope or vomiting Treatment prior to arrival: none Review of Systems Const: Denies: fever(s) or diaphoresis ENMT: Denies: throat pain, ear or mastoid pain, nasal discharge or nasal congestion Card: Denies: palpitations or syncope Resp: Denies: dyspnea GI: Denies: abdominal pain, nausea or vomiting : Denies: flank pain, difficulty voiding, dysuria, urinary frequency or urinary urgency Skin/Breast: Denies: rash or pruritus PFS ED PFSH: Medical History Anxiety CAD (coronary artery disease) Cholelithiasis Chronic back pain GERD (gastroesophageal reflux disease) Macular degeneration Motion sickness, sequela Parkinson disease Surgical History History of carpal tunnel surgery History of colonoscopy with polypectomy 2017 History of foot surgery Status post laparoscopic cholecystectomy (07/31/20) Family History Daughter Cancer Social History Smoking and tobacco status: never smoked Alcohol intake: never Physical Exam Const: COMMON NORMALS: no acute distress GENERAL APPEARANCE: cooperative and comfortable ORIENTATION/CONSCIOUSNESS: Yes awake, Yes oriented to person, Yes oriented to place and Yes oriented to time HENMT: COMMON NORMALS: normocephalic, atraumatic and hearing grossly normal bilaterally HEAD & SCALP: normocephalic and atraumatic Neck/C-Spine: COMMON NORMALS: no JVD Resp: COMMON NORMALS: normal respiratory effort, No retractions, No use of accessory muscles and clear to auscultation bilaterally AUSCULTATION: clear to auscultation bilaterally Cardio: COMMON NORMALS: no JVD, regular rate, regular rhythm and No murmurs present (Cardio) RATE: regular rate RHYTHM: regular rhythm GI: COMMON NORMALS: Soft to palpation and No hepatosplenomegaly present AUSCULTATION: Yes normoactive bowel sounds PALPATION: Yes Soft to palpation, No Tenderness to palpation present (GI), No Guarding due to palpation present (GI) and Yes No hepatosplenomegaly present Extremity: COMMON NORMALS: normal to inspection, capillary refill normal, no clubbing, cyanosis or edema, no calf tenderness and no pedal edema Neuro: SENSORIUM/ORIENTATION: Yes oriented to person, Yes oriented to place and Yes oriented to time Skin: COMMON NORMALS: no rashes or lesions noted GENERAL SKIN EXAM: no rashes or lesions noted Course Vital Signs: Vital signs: Vital Signs Temperature 97.7 F 09/22/20 20:35 Pulse Rate 104 H 09/23/20 01:17 Respiratory Rate 20 H 09/23/20 01:17 Blood Pressure 140/102 09/23/20 01:17 Pulse Oximetry 98 09/23/20 01:17 MDM - Chest Pain MDM Narrative: Medical decision making narrative: Normal troponins unremarkable EKGs. We will go ahead and discharge her home. Follow-up with her primary care doctor. She did have a little bit of about increased vascular congestion whilst give her some Lasix for the next few days. Pain still exacerbated by deep inspiration. Lab Data: Labs: Lab Results 09/22/20 09/22/20 09/22/20 Range/Units 20:03 20:03 20:03 WBC 7.3 (4.0-10.0) 10^3/ uL RBC 3.76 L (4.1-5.3) 10^6/u L Hgb 11.0 L (11.5-15.3) g/dL Hct 34.7 L (37.0-47.0) % MCV 92.3 (81-99) fL MCH 29.3 (28.0-34.0) pg MCHC 31.7 (30.0-36.0) g/dL RDW 14.4 (12.1-15.1) % Plt Count 376 (130-400) 10^3/c mm MPV 10.9 H (7.4-10.4) fL Neut % (Auto) 74.7 % Lymph % (Auto) 16.7 % Addison % (Auto) 7.4 % Eos % (Auto) 0.4 % Baso % (Auto) 0.5 % Neut # (Auto) 5.44 (1.8-7.7) 10^3/u L Lymph # (Auto) 1.2 (0.8-4.8) 10^3/u L Addison # (Auto) 0.5 (0.2-0.9) 10^3/u L Eos # (Auto) 0.0 (0.0-0.8) 10^3/u L Baso # (Auto) 0.0 (0.0-0.1) 10^3/u L Nucleated RBC % (a uto) 0 % Nucleated RBCs # 0.0 /100WBC Sodium 133 L (136-145) mmol/L Potassium 3.5 (3.5-5.1) mmol/L Chloride 94 L (98-107) mmol/L Carbon Dioxide 23 (22-29) mmol/L Anion Gap 19.5 H (5-19) BUN 5 L (8-23) mg/dL Creatinine 0.8 (0.5-0.9) mg/dL GFR Calculation Not Reportable Glucose 106 (65-115) mg/dL Calculated Osmolal ity 274 L (285-295) mOsm/k g Calcium 9.4 (8.5-10.5) mg/dL Total Bilirubin 0.4 (0.15-1.2) mg/dL AST 9 (0-32) U/L ALT < 5 (0-33) U/L Alkaline Phosphata se 79 (35-105) IU/L Troponin T Baselin e 8 (0-10) ng/L Troponin T 120 Min wrangell (0-10) ng/L Delta Troponin T (0-10) ABS# Total Protein 7.1 (6.6-8.7) g/dL Albumin 4.4 (3.5-5.2) g/dL Globulin 2.7 (1.3-4.6) g/dL 09/22/ Range/Units 23:14 WBC (4.0-10.0) 10^3/ uL RBC (4.1-5.3) 10^6/u L Hgb (11.5-15.3) g/dL Hct (37.0-47.0) % MCV (81-99) fL MCH (28.0-34.0) pg MCHC (30.0-36.0) g/dL RDW (12.1-15.1) % Plt Count (130-400) 10^3/c mm MPV (7.4-10.4) fL Neut % (Auto) % Lymph % (Auto) % Addison % (Auto) % Eos % (Auto) % Baso % (Auto) % Neut # (Auto) (1.8-7.7) 10^3/u L Lymph # (Auto) (0.8-4.8) 10^3/u L Addison # (Auto) (0.2-0.9) 10^3/u L Eos # (Auto) (0.0-0.8) 10^3/u L Baso # (Auto) (0.0-0.1) 10^3/u L Nucleated RBC % (a uto) % Nucleated RBCs # /100WBC Sodium (136-145) mmol/L Potassium (3.5-5.1) mmol/L Chloride (98-107) mmol/L Carbon Dioxide (22-29) mmol/L Anion Gap (5-19) BUN (8-23) mg/dL Creatinine (0.5-0.9) mg/dL GFR Calculation Glucose (65-115) mg/dL Calculated Osmolal ity (285-295) mOsm/k g Calcium (8.5-10.5) mg/dL Total Bilirubin (0.15-1.2) mg/dL AST (0-32) U/L ALT (0-33) U/L Alkaline Phosphata se (35-105) IU/L Troponin T Baselin e (0-10) ng/L Troponin T 120 Min wrangell 7.20 (0-10) ng/L Delta Troponin T -0.80 L (0-10) ABS# Total Protein (6.6-8.7) g/dL Albumin (3.5-5.2) g/dL Globulin (1.3-4.6) g/dL Discharge Plan Discharge Patient Disposition: Home Clinical Impression: Chest pain, pleuritic, GERD (gastroesophageal reflux disease) Condition: Stable Prescriptions: New Lasix 40 mg tablet 40 mg PO DAILY Qty: 7 RF: 0 No Action omeprazole 20 mg capsule,delayed release(DR/EC) 20 mg PO DAILY RF: 0 sucralfate [Carafate] 1 gram tablet 1 g PO Q6H 30 Days Qty: 120 RF: 0 tramadol 50 mg tablet 50 mg PO Q8H PRN (Reason: pain) Qty: 30 RF: 0 acetaminophen 500 mg tablet 500 mg PO Q6H PRN (Reason: mild to moderate pain) Qty: 120 RF: 3 nitroglycerin [Nitrostat] 0.4 mg tablet, sublingual 0.4 mg SUBLINGUAL Q5M PRN (Reason: Chest Pain from heart) Qty: 14 RF: 3 trihexyphenidyl 2 mg tablet 2 mg PO BID Qty: 60 RF: 4 ondansetron HCl [Zofran] 4 mg tablet 4 mg PO Q6H PRN (Reason: nausea and vomiting) 7 Days Qty: 28 RF: 2 carbidopa-levodopa 25-100 mg tablet 2 tab PO .COMPLEX Qty: 150 RF: 4 pantoprazole [Protonix] 40 mg tablet,delayed release (DR/EC) 40 mg PO QAM 42 Days Qty: 42 RF: 0 aspirin 81 mg tablet,delayed release (DR/EC) 81 mg PO DAILY@08 RF: 0 Zofran 4 mg tablet 4 mg PO Q6H PRN (Reason: nausea and vomiting) Qty: 20 RF: 0 isosorbide mononitrate 30 mg tablet extended release 24 hr 30 mg PO DAILY Qty: 14 RF: 0 doxylamine-pyridoxine (vit B6) 10-10 mg tablet,delayed release (DR/EC) 1 tab PO BID Qty: 10 RF: 0 Discharge Orders: Discharge ED (Routine); Ordered 09/23/20 Ordered By: Ben Maddox Referrals: Maycol Landis MD [Primary Care Provider] - Discharge Diet: Usual diet Discharge Activity: Resume usual activity Patient Instructions: Opioid Safety Coding Level of Care Code ED Order Detailer for Chg Fwd Exam Comprehensive
[2020-09-22 21:33] LABS: Basophils % 0.5 %; Eosinophils % 0.4 %; Hematocrit 34.7 % (37.0-47.0); Lymphocytes # 1.2 10^3/uL (0.8-4.8); Lymphocytes % 16.7 %; Mean Corpuscular HGB Conc 31.7 g/dL (30.0-36.0); Mean Corpuscular Hemoglobin 29.3 pg (28.0-34.0); Mean Corpuscular Volume 92.3 fL (81-99); Mean Platelet Volume 10.9 fL (7.4-10.4); Monocytes # 0.5 10^3/uL (0.2-0.9); Monocytes % 7.4 %; Neutrophils # 5.44 10^3/uL (1.8-7.7); Neutrophils % 74.7 %; Nucleated Red Blood Cells % 0 %; Platelet Count 376 10^3/cmm (130-400); Red Blood Count 3.76 10^6/uL (4.1-5.3); Red Cell Distribution Width 14.4 % (12.1-15.1); White Blood Count 7.3 10^3/uL (4.0-10.0)
[2020-09-22 21:39] LABS: Troponin(5th) Baseline 8 ng/L (0-10)
[2020-09-22 21:42] LABS: Alanine Aminotransferase < 5 U/L (0-33); Albumin Level 4.4 g/dL (3.5-5.2); Alkaline Phosphatase 79 IU/L (35-105); Anion Gap 19.5 (5-19); Aspartate Amino Transferase 9 U/L (0-32); Blood Urea Nitrogen 5 mg/dL (8-23); Calcium 9.4 mg/dL (8.5-10.5); Carbon Dioxide 23 mmol/L (22-29); Chloride 94 mmol/L (98-107); Globulin 2.7 g/dL (1.3-4.6); Glucose 106 mg/dL (65-115); Osmolality Calculated 274 mOsm/kg (285-295); Potassium 3.5 mmol/L (3.5-5.1); Sodium 133 mmol/L (136-145); Total Bilirubin 0.4 mg/dL (0.15-1.2); Total Protein 7.1 g/dL (6.6-8.7)
[2020-09-22 21:56] VITALS: BP 124/68; PULSE 111; RESP 19; O2SAT 96
[2020-09-22] MEDS: ketorolac 30 mg/mL INJ 15 MG IVP (22:08)
[2020-09-22] MEDS: lidocaine 2% viscous 15 ML, aluminum-mag hydrox-simethicon 30 ML, sucralfate oral liq 1 GM PO (22:08)
[2020-09-22 23:31] VITALS: BP 134/78; PULSE 78; RESP 20; O2SAT 97
[2020-09-22] MEDS: FUROsemide 10 mg/mL SDV 4mL 40 MG IVP (23:55)
[2020-09-22] MEDS: acetaminophen 1,000 MG/100 ML PIGGYBACK 400 MG IV (23:58)
[2020-09-23 01:17] VITALS: BP 140/102; PULSE 104; RESP 20; O2SAT 98
== END 2020-09-23 01:18 | disposition home or self-care (01) ==
PROVIDERS: Emergency Provider Family Medicine; PCP Family Medicine Adult Medicine
DX: R07.1 Chest pain on breathing (principal); K21.9 Gastro-esophageal reflux disease without esophagitis; I25.10 Atherosclerotic heart disease of native coronary artery without angina pectoris; G20 Parkinson's disease; Z79.82 Long term (current) use of aspirin
CPT/HCPCS: 36415; 71045; 80053; 84484; 85025; 96374; 96375; 99284; J1885; J1940

== ENCOUNTER 2020-12-23 13:30 | Emergency (ER) | payer MEDICARE, SELFPAY ==
--- NOTE | 2020-12-23 13:44 | XR_ITS ---
WS: [id number] PORTABLE CHEST HISTORY: chest pain COMPARISON: 09/22/2020 Mild hyperinflation of the lungs. No pneumonia. Normal vasculature. No pleural effusion or pneumothor ax. Cardiac size: Normal. Mediastinum/Aorta: Mild atherosclerosis aorta. Moderate RIGHT curvature of the thoracic spine with disc space narrowing. Osteopenia. XR/XR chest 1V portable [id number] IMPRESSION: 1. Stable chest. No acute cardiopulmonary disease.
--- NOTE | 2020-12-23 13:45 | ECG_ITS ---
[facility] Test Date: 2020-12-23 Pat Name: Heidy Linton Department: Room: Gender: Female Physician President: : 1945 Requested By: Иван Renner Order Number: [id number] Fawad MD: Lukas Grewal M.D. Measurements Intervals [place] Rate: 81 P: 40 [place]: 161 QRS: -33 QRSD: 75 T: 10 QT: 364 QTc: 423 Interpretive Statements SINUS RHYTHM WITH OCCASIONAL ECTOPIC PREMATURE COMPLEXES LEFT AXIS DEVIATION [QRS AXIS < -30] VOLTAGE CRITERIA FOR LVH [MEETS CRITERIA IN ONE OF: R(aVL), S(V1), R(V5), R(V5/V6)+S(V1)] Compared to ECG 08/06/2020 12:43:33 No significant changes Electronically Signed On 12-23-2020 23:48:43 CDT by Lukas Grewal M.D. [id number]
[2020-12-23 13:48] VITALS: BP 170/91; PULSE 94; RESP 29; TEMP 36.7; O2SAT 99; BMI 21.9
[2020-12-23 14:48] LABS: Basophils % 0.6 %; Eosinophils % 0.6 %; Hematocrit 29.4 % (37.0-47.0); Hemoglobin 9.5 g/dL (11.5-15.3); Lymphocytes # 0.7 10^3/uL (0.8-4.8); Lymphocytes % 14.5 %; Mean Corpuscular HGB Conc 32.3 g/dL (30.0-36.0); Mean Corpuscular Hemoglobin 31.1 pg (28.0-34.0); Mean Corpuscular Volume 96.4 fl (81-99); Mean Platelet Volume 10.2 fL (7.4-10.4); Monocytes # 0.4 10^3/uL (0.2-0.9); Neutrophils # 3.95 10^3/uL (1.8-7.7); Neutrophils % 77.1 %; Nucleated Red Blood Cells % 0 %; Platelet Count 320 10^3/cmm (130-400); Red Blood Count 3.05 10^6/uL (4.1-5.3); Red Cell Distribution Width 14.7 % (12.1-15.1); White Blood Count 5.1 10^3/uL (4.0-10.0)
[2020-12-23 15:09] LABS: Blood Urea Nitrogen 13 mg/dL (8-23); Carbon Dioxide 28 mmol/L (22-29); Chloride 103 mmol/L (98-107); Creatinine Clr Calc Pharmacy 48.9528; Glucose 100 mg/dL (65-115); Osmolality Calculated 288 mOsm/kg (285-295); Sodium 139 mmol/L (136-145); Troponin(5th) Baseline 6 ng/L (0-10)
[2020-12-23 15:34] LABS: Anion Gap 12.9 (5-19); Potassium 4.9 mmol/L (3.5-5.1)
--- NOTE | 2020-12-23 15:45 | ECG_ITS ---
[facility] Test Date: 2020-12-23 Pat Name: Heidy Linton Department: Room: Gender: Female Wellness Program Manager: : 1945 Requested By: Иван Renner Order Number: [id number] Fawad MD: Lukas Grewal M.D. Measurements Intervals [place] Rate: 88 P: 56 GA: 148 QRS: -34 QRSD: 90 T: 17 QT: 355 QTc: 432 Interpretive Statements SINUS RHYTHM LEFT AXIS DEVIATION [QRS AXIS < -30] VOLTAGE CRITERIA FOR LVH [MEETS CRITERIA IN ONE OF: R(aVL), S(V1), R(V5), R(V5/V6)+S(V1)] Compared to ECG 12/23/2020 15:05:24 No significant changes Electronically Signed On 12-23-2020 23:56:39 CDT by Lukas Grewal M.D. [email or web address]
--- NOTE | 2020-12-23 15:59 | ED_ITS ---
HPI - General Adult General: Chief complaint: Chest Pain Stated complaint: CHEST PAIN Time Seen by Provider: 12/23/20 13:36 History of Present Illness: HPI narrative: CC: Chest Pain HPI: This is a 75 yo patient hx of anxiety, prior chest pain presenting to the ED complaining of acute sudden onset intermittent sharp chest pain since 5am today. Pain is localized to the L lateral chest. No associated with shortness of breath, chest pain or dyspnea on exertion. Pain is not tearing in nature and does not radiate to the back. Pain not associated with vomiting or PO intake. Denies any recent sympathomimetic drug use. Patient denies any cough. Denies palpitations, dysphagia, diaphoresis, radiation of pain to bilateral arms, jaw. Denies F/N/V/D. Patient denies any recent immobility, surgery, unilateral leg swelling, or prior PE. Patient denies any orthopnea. Onset: 8 hrs ago Duration: ongoing for the last 8 hrs Location: home Severity: mild/moderate Review of Systems Narrative: Constitutional: No fever, no chills. HEENT: No vision changes, no sore throat. CV: +chest pain, no palpitations. PULM: No cough, No dyspnea. GI: No abdominal pain, no N/V/D. : No dysuria, no frequency, no hematuria. MSKEL: No arthralgias, no edema. SKIN: No new rashes, no lesions. NEURO: No headache, no focal weakness. HEME: No easy bleeding or bruising. PSYCH: No change in mood or affect. [facility] ED PFSH: Medical History Anxiety CAD (coronary artery disease) Cholelithiasis Chronic back pain GERD (gastroesophageal reflux disease) Macular degeneration Motion sickness, sequela Parkinson disease Surgical History History of carpal tunnel surgery History of colonoscopy with polypectomy 2018 History of foot surgery Status post laparoscopic cholecystectomy (07/31/20) Family History Daughter Cancer Social History Alcohol intake: never Physical Exam Narrative: EXAM NARRATIVE: Head: Atraumatic, normocephalic Eyes: PERRL, EOMI, conjunctiva without injection ENT: Throat without erythema, lesions or exudate, MMM NECK: Supple, trachea midline, no JVD LUNGS: LCTA CV: RRR, S1,S2, no murmurs, rubs, gallops. 2+ peripheral pulses in UEs ABDOMEN: Soft, nontender, nondistended, BS x4, no rigidity, no guarding, no rebound EXTREMITY: Normal ROM, no pitting edema, no calf tenderness to palpation SKIN: No rash or erythema NEURO: Awake and alert. No focal motor deficits. PSYCH: Normal mood and affect. Course Vital Signs: Vital signs: Vital Signs Temperature 98.0 F 12/23/20 13:48 Pulse Rate 97 12/23/20 17:43 Respiratory Rate 18 12/23/20 19:08 Blood Pressure 156/82 12/23/20 17:43 Pulse Oximetry 97 12/23/20 17:43 MDM - General Adult MDM Narrative: Medical decision making narrative: [75]yo patient w/ hx of prior chest pain, anxiety presenting to the ED with evaluation of new onset sharp chest pain since 5am today. HDS, pulse 2+ radially bilaterally, no signs of fluid overload, AAOx3, neuro exam intact. Given History and Exam today I have no suspicion for ACS, Pneumothorax, Pneumonia, Pulmonary Embolus, Tamponade, Aortic Dissection or other emergent problems as a cause for this presentation. Workup: ECG, CXR, CBC, BMP, Troponin x 2 Findings: ECG: No overt evidence of STEMI, hyperacute T waves, localizable STD or T wave inversions. No evidence of Brugada?s sign, delta wave, epsilon wave, significantly prolonged QTc, or malignant arrhythmia. No Q waves. Other Labs unremarkable for emergent problems. CXR: Without PTX, PNA, or widened mediastinum Last Stress Test: never Last Heart Catheterization: never [6:06] On reassessment, the patient is HDS, no complaints of persistent chest pain in the ED after evaluation. ECG is non-ischemic. Troponin x 2 negative. Workup today is unremarkable today. Doubt ACS/PE or other emergent causes of chest pain. I have given patient follow up with our corrections caseworker to be seen by our outpatient Manager Benefit for further evaluation of chest pain as patient has underlying history. Patient aware of a call from our corrections caseworker to schedule for appointment(s) and verbalizes understanding of the importance of following up. Does follow-up with Dr. Grewal have given strict return precaution for any worsening pain, fever/chills, nausea/vomiting. I have offered patient close outpatient follow-up patient agrees for close follow up for chest pain given age. Rx: Tylenol PRN pain Disposition: Discharge. Strict return precautions discussed with the patient with full understanding. Advised patient to follow up promptly with a primary care provider in 24-48 hrs if the patient has persistent symptoms. Given return instructions for any crushing/tearing chest pain, focal weakness, syncope or any new or concerning issues. Lab Data: Labs: Lab Results 12/23/20 12/23/20 12/23/20 14:41 14:41 14:41 WBC 5.1 10^3/uL 10^3/ uL (4.0-10.0) RBC 3.05 10^6/uL L 10 ^6/uL (4.1-5.3) Hgb 9.5 g/dL L g/dL (11.5-15.3) Hct 29.4 % L % (37.0-47.0) MCV 96.4 fl fl (81-99) MCH 31.1 pg pg (28.0-34.0) MCHC 32.3 g/dL g/dL (30.0-36.0) RDW 14.7 % % (12.1-15.1) Plt Count 320 10^3/cmm 10^3 /cmm (130-400) MPV 10.2 fL fL (7.4-10.4) Neut % (Auto) 77.1 % % Lymph % (Auto) 14.5 % % [place] % (Auto) 7.0 % % Eos % (Auto) 0.6 % % Baso % (Auto) 0.6 % % Neut # (Auto) 3.95 10^3/uL 10^3 /uL (1.8-7.7) Lymph # (Auto) 0.7 10^3/uL L 10^ 3/uL (0.8-4.8) [place] # (Auto) 0.4 10^3/uL 10^3/ uL (0.2-0.9) Eos # (Auto) 0.0 10^3/uL 10^3/ uL (0.0-0.8) Baso # (Auto) 0.0 10^3/uL 10^3/ uL (0.0-0.1) Nucleated RBC % (a uto) 0 % % Nucleated RBCs # 0.0 /100WBC /100W BC Sodium 139 mmol/L mmol/L (136-145) Potassium 4.9 mmol/L mmol/L (3.5-5.1) Chloride 103 mmol/L mmol/L (98-107) Carbon Dioxide 28 mmol/L mmol/L (22-29) Anion Gap 12.9 (5-19) BUN 13 mg/dL mg/dL (8-23) Creatinine 0.7 mg/dL mg/dL (0.5-0.9) GFR Calculation Not Reportable Glucose 100 mg/dL mg/dL (65-115) Calculated Osmolal ity 288 mOsm/kg mOsm/ kg (285-295) Calcium 9.0 mg/dL mg/dL (8.5-10.5) Troponin T Baselin e 6 ng/L ng/L (0-10) Troponin T 120 Min [place] Delta Troponin T 12/23/20 16:48 WBC RBC Hgb Hct MCV MCH MCHC RDW Plt Count MPV Neut % (Auto) Lymph % (Auto) [place] % (Auto) Eos % (Auto) Baso % (Auto) Neut # (Auto) Lymph # (Auto) [place] # (Auto) Eos # (Auto) Baso # (Auto) Nucleated RBC % (a uto) Nucleated RBCs # Sodium Potassium Chloride Carbon Dioxide Anion Gap BUN Creatinine GFR Calculation Glucose Calculated Osmolal ity Calcium Troponin T Baselin e Troponin T 120 Min [place] 6.00 ng/L ng/L (0-10) Delta Troponin T 0 ABS# ABS# (0-10) Discharge Plan Discharge Patient Disposition: Home Clinical Impression: Chest pain Condition: Stable Prescriptions: No Action sucralfate [Carafate] 1 gram tablet 1 g PO Q6H 30 Days Qty: 120 RF: 0 acetaminophen 500 mg tablet 500 mg PO Q6H PRN (Reason: mild to moderate pain) Qty: 120 RF: 3 nitroglycerin [Nitrostat] 0.4 mg tablet, sublingual 0.4 mg SUBLINGUAL Q5M PRN (Reason: Chest Pain from heart) Qty: 14 RF: 3 sertraline 25 mg tablet 25 mg PO DAILY Qty: 30 RF: 5 celecoxib 50 mg capsule 50 mg PO BID@08,16 Qty: 60 RF: 5 trihexyphenidyl 2 mg tablet 2 mg PO BID Qty: 60 RF: 4 carbidopa-levodopa 25-100 mg tablet 2 tab PO .COMPLEX Qty: 150 RF: 4 ondansetron HCl 4 mg tablet See Rx Instructions .ROUTE .COMPLEX Qty: 40 RF: 0 pantoprazole 40 mg tablet,delayed release (DR/EC) See Rx Instructions .ROUTE .COMPLEX Qty: 60 RF: 2 aspirin 81 mg tablet,delayed release (DR/EC) 81 mg PO DAILY@08 RF: 0 Discharge Orders: Discharge ED (Routine); Ordered 12/23/20 Ordered By: Иван Renner Referrals: Maycol Landis MD [Primary Care Provider] - Discharge Diet: Advance as tolerated Discharge Activity: Resume usual activity Patient Instructions: Chest Pain (ED) Activity Restrictions/Additional Instructions: Our corrections caseworker will have you follow-up with our Manager Benefit in the next few days. You would be expected to have a phone call with our corrections caseworker who will put you on the schedule. Coding Level of Care Code ED Speed Belt Sander Tender for Armando Gtz
[2020-12-23 17:43] VITALS: BP 156/82; PULSE 97; RESP 16; O2SAT 97
[2020-12-23 18:00] LABS: Troponin 5 2HR Delta 0 ABS# (0-10)
[2020-12-23] MEDS: lidocaine 2% viscous 15 ML, aluminum-mag hydrox-simethicon 30 ML, sucralfate oral liq 1 GM PO (18:29)
[2020-12-23] MEDS: naproxen 500 mg Tablet PO (19:07)
[2020-12-23 19:08] VITALS: RESP 18
--- NOTE | 2020-12-24 10:23 | PC.SOCIAL ---
Addendum entered by Christiana Ferris 03/22/21 11:33: Patient had a follow up appointment scheduled with heart care - appointment was cancelled. Original Note: Called Sania at [facility] regarding referral for Cardiology per Dr Renner and appt scheduled for 01/07/21 at 12:15pm with Dr Fregoso. Notified Patient and she wrote down the information.
== END 2020-12-23 19:09 | disposition home or self-care (01) ==
PROVIDERS: Emergency Provider Emergency Medicine; PCP Family Medicine Adult Medicine
DX: R07.9 Chest pain, unspecified (principal); F41.9 Anxiety disorder, unspecified; I25.10 Atherosclerotic heart disease of native coronary artery without angina pectoris; K21.9 Gastro-esophageal reflux disease without esophagitis; G20 Parkinson's disease; Z79.82 Long term (current) use of aspirin
CPT/HCPCS: 36415; 71045; 80048; 84484; 85025; 93005; 99283

== ENCOUNTER 2020-12-31 20:13 | Emergency (ER) | payer MEDICARE, SELFPAY ==
[2020-12-31 20:15] VITALS: BP 167/94; PULSE 100; RESP 18; TEMP 36.4; O2SAT 98; BMI 21.0
--- NOTE | 2020-12-31 20:17 | ED_ITS ---
HPI - Abdominal Pain General: Chief Complaint: Abdominal Pain Stated Complaint: ABD PAIN Time Seen by Provider: 12/31/20 20:17 History of Present Illness: HPI narrative: Ms. Linton is a 75-year-old lady with significant past medical history anxiety, GERD, CAD, Parkinson's, and status post lap deangelo who presents emergency department due to epigastric and chest pain. Symptom onset has been longstanding however worsened over the past week. She describes a burning sensation from the epigastric region up to her throat. This is mildly exacerbated by eating. She typically can tolerate this however it has become intolerable over the past week. Moderate to severe intensity. She has tried home medications without significant relief. She does have mild episodes of vomiting. Mild episode of generalized abdominal pain. No changes in bowel movements or urination. No signs of systemic illness or respiratory symptoms. No other specific exacerbating or relieving factors identified. Review of Systems General: Reports: 10 or more systems reviewed and unremarkable except in HPI and below PFSH ED PFSH: Medical History Anxiety CAD (coronary artery disease) Cholelithiasis Chronic back pain GERD (gastroesophageal reflux disease) Macular degeneration Motion sickness, sequela Parkinson disease Surgical History History of carpal tunnel surgery History of colonoscopy with polypectomy 2018 History of foot surgery Status post laparoscopic cholecystectomy (07/31/20) Family History Daughter Cancer Social History Alcohol intake: never Physical Exam Narrative: EXAM NARRATIVE: GENERAL/CONSTITUTIONAL -frail-appearing. No acute distress. Eyes - PERRL, no conjunctival injection ENMT - Atraumatic external nose and ears. Moist mucous membranes NECK - supple. trachea midline CARDIOVASCULAR - regular rate and rhythm. RESPIRATORY -clear to auscultation bilaterally. ABDOMEN/GI -nondistended. Mildly tender in the epigastric region. No tenderness to percussion or evidence of peritonitis MSK - Extremities without obvious deformity or tenderness to palpation SKIN - Warm, Dry NEURO - alert and appropriately oriented. Moves all extremities equally. PSYCH -anxious Course ED course: - Patient was seen and evaluated by me at bedside - Patient placed on cardiac monitors, IV access obtained - Initial evaluation notable for no acute distress, frail appearance, nontoxic. - Symptom treatment ordered - Labs notable for no leukocytosis, no significant metabolic abnormality to explain symptoms. Delta troponin negative. Urinalysis not concerning for urinary tract infection. - Imaging notable for gastritis. CT read notable for mild inflammation around pancreas, lipase is normal and patient is not exquisitely tender in the epigastric region, I do not believe that she fits clinical diagnosis for pancreatitis. - Upon serial reexamination after treatment the patient was similar - Based on patient history, evaluation, labs, and imaging as interpreted the most likely cause of the patient's condition is gastritis. This is a challenging situation as the patient has been reporting similar symptoms for an extended period of time. I do not believe that this is chest pain related to cardiac cause nor is it different from her baseline/previous symptoms. - The results of ED evaluation were discussed with the patient including prescriptions and/or symptomatic cares (if applicable) including appropriate and responsible use, followup plan, and return precautions. The patient verbalized understanding. She did ask about prescription for pain medication which is not appropriate at this time. She also asked about possibility of being admitted for endoscopy, no emergent indication for endoscopy at this time. - Patient discharged in satisfactory condition. Vital Signs: Vital signs: Vital Signs Temperature 97.6 F 12/31/20 20:15 Pulse Rate 90 12/31/20 23:00 Respiratory Rate 18 12/31/20 23:00 Blood Pressure 142/80 12/31/20 23:00 Pulse Oximetry 99 12/31/20 23:00 MDM - Abdominal Pain Medical Records: Attestation: I reviewed the patient's medical records. Lab Data: Attestation: I reviewed the patient's lab results. Labs: Lab Results 12/31/20 12/31/20 12/31/20 20:45 20:45 20:45 WBC 7.1 10^3/uL 10^3/ uL (4.0-10.0) RBC 3.32 10^6/uL L 10 ^6/uL (4.1-5.3) Hgb 10.3 g/dL L g/dL (11.5-15.3) Hct 32.6 % L % (37.0-47.0) MCV 98.2 fl fl (81-99) MCH 31.0 pg pg (28.0-34.0) MCHC 31.6 g/dL g/dL (30.0-36.0) RDW 14.6 % % (12.1-15.1) Plt Count 335 10^3/cmm 10^3 /cmm (130-400) MPV 10.0 fL fL (7.4-10.4) Neut % (Auto) 70.2 % % Lymph % (Auto) 18.7 % % [place] % (Auto) 9.1 % % Eos % (Auto) 1.0 % % Baso % (Auto) 0.9 % % Neut # (Auto) 4.95 10^3/uL 10^3 /uL (1.8-7.7) Lymph # (Auto) 1.3 10^3/uL 10^3/ uL (0.8-4.8) [place] # (Auto) 0.6 10^3/uL 10^3/ uL (0.2-0.9) Eos # (Auto) 0.1 10^3/uL 10^3/ uL (0.0-0.8) Baso # (Auto) 0.1 10^3/uL 10^3/ uL (0.0-0.1) Nucleated RBC % (a uto) 0 % % Nucleated RBCs # 0.0 /100WBC /100W BC Sodium 136 mmol/L mmol/L (136-145) Potassium 4.9 mmol/L mmol/L (3.5-5.1) Chloride 98 mmol/L mmol/L (98-107) Carbon Dioxide 26 mmol/L mmol/L (22-29) Anion Gap 16.9 (5-19) BUN 14 mg/dL mg/dL (8-23) Creatinine 0.7 mg/dL mg/dL (0.5-0.9) GFR Calculation Not Reportable Glucose 101 mg/dL mg/dL (65-115) Calculated Osmolal ity 283 mOsm/kg L mOs m/kg (285-295) Lactate 1.9 mmol/L mmol/L (0.5-2.2) Calcium 9.5 mg/dL mg/dL (8.5-10.5) Total Bilirubin 0.2 mg/dL mg/dL (0.15-1.2) AST 10 U/L U/L (0-32) ALT < 5 U/L U/L (0-33) Alkaline Phosphata se 65 IU/L IU/L (35-105) Troponin T Baselin e Troponin T 120 Min [place] Delta Troponin T NT-Pro-B Natriuret Pep 281 pg/mL pg/mL (0-450) Total Protein 6.2 g/dL L g/dL (6.6-8.7) Albumin 4.3 g/dL g/dL (3.5-5.2) Globulin 1.9 g/dL g/dL (1.3-4.6) Lipase 21 U/L U/L (13-60) Urine Color Urine Appearance Urine pH Ur Specific Gravit y Urine Protein Urine Glucose (UA) Urine Ketones Urine Blood Urine Nitrate Urine Bilirubin Urine Urobilinogen Ur Leukocyte Melisa ase 12/31/20 12/31/20 12/31/20 20:45 21:12 22:10 WBC RBC Hgb Hct MCV MCH MCHC RDW Plt Count MPV Neut % (Auto) Lymph % (Auto) [place] % (Auto) Eos % (Auto) Baso % (Auto) Neut # (Auto) Lymph # (Auto) [place] # (Auto) Eos # (Auto) Baso # (Auto) Nucleated RBC % (a uto) Nucleated RBCs # Sodium Potassium Chloride Carbon Dioxide Anion Gap BUN Creatinine GFR Calculation Glucose Calculated Osmolal ity Lactate Calcium Total Bilirubin AST ALT Alkaline Phosphata se Troponin T Baselin e 7 ng/L ng/L (0-10) Troponin T 120 Min [place] 7.32 ng/L ng/L (0-10) Delta Troponin T 0.32 ABS# ABS# (0-10) NT-Pro-B Natriuret Pep Total Protein Albumin Globulin Lipase Urine Color Yellow (Yellow) Urine Appearance Clear (CLEAR) Urine pH 5 (5-7) Ur Specific Gravit y 1.005 (1.005-1.030) Urine Protein Neg (Negative) Urine Glucose (UA) Norm (Normal) Urine Ketones Negative (Negative) Urine Blood Neg (Negative) Urine Nitrate Negative (Negative) Urine Bilirubin Neg (Negative) Urine Urobilinogen Norm mg/dL mg/dL (Negative) Ur Leukocyte Melisa ase Negative (Negative) EKG Data ^: EKG 1: Attestation: I personally reviewed and interpreted this EKG as follows: EKG interpretation date: 12/31/20 EKG interpretation time: 20:39 Interpretation: Twelve-lead EKG shows a regular rhythm at a rate of 96. AR interval 150, QRS duration 81, QTc 390. Left axis deviation Interpretation: Sinus rhythm. EKG 2: Attestation: I personally reviewed and interpreted this EKG as follows: EKG interpretation date: 12/31/20 EKG interpretation time: 22:21 Interpretation: Twelve-lead EKG shows a regular rhythm at a rate of 102. AR interval 139, QRS duration 81, QTc 392 Left axis deviation Interpretation: Sinus tachycardia. Ectopy. Discharge Plan Discharge Patient Disposition: Home Clinical Impression: GERD (gastroesophageal reflux disease), Gastritis, Burning chest pain Condition: Stable Prescriptions: No Action sucralfate [Carafate] 1 gram tablet 1 g PO Q6H 30 Days Qty: 120 RF: 0 acetaminophen 500 mg tablet 500 mg PO Q6H PRN (Reason: mild to moderate pain) Qty: 120 RF: 3 nitroglycerin [Nitrostat] 0.4 mg tablet, sublingual 0.4 mg SUBLINGUAL Q5M PRN (Reason: Chest Pain from heart) Qty: 14 RF: 3 sertraline 25 mg tablet 25 mg PO DAILY Qty: 30 RF: 5 celecoxib 50 mg capsule 50 mg PO BID@08,16 Qty: 60 RF: 5 trihexyphenidyl 2 mg tablet 2 mg PO BID Qty: 60 RF: 4 carbidopa-levodopa 25-100 mg tablet 2 tab PO .COMPLEX Qty: 150 RF: 4 ondansetron HCl 4 mg tablet See Rx Instructions .ROUTE .COMPLEX Qty: 40 RF: 0 pantoprazole 40 mg tablet,delayed release (DR/EC) See Rx Instructions .ROUTE .COMPLEX Qty: 60 RF: 2 aspirin 81 mg tablet,delayed release (DR/EC) 81 mg PO DAILY@08 RF: 0 Discharge Orders: Discharge ED (Routine); Ordered 12/31/20 Ordered By: John Paul Zuñiga Referrals: Maycol Landis MD [Primary Care Provider] - Discharge Diet: Advance as tolerated and Clear Liquid Discharge Activity: Increase activity as tolerated Patient Instructions: Chest Pain (ED), Gastritis (ED), Diet for Stomach Ulcers and Gastritis (ED), Opioid Safety Activity Restrictions/Additional Instructions: Thank you for visiting the emergency department. You were seen and evaluated for abdominal and burning chest pain. The exact cause of your symptoms is unclear however you do of gastritis and mild localized inflammation noted on CT scan. This likely contributes significantly to your symptoms. GERD has been a longstanding issue for you. I recommend continuing your medication regimen and plan to follow-up with both cardiology for further cardiac evaluation as deemed appropriate as well as gastroenterology for endoscopy. Please return to the emergency department for worsening symptoms or anything else that you are concerned about and feel needs emergency department evaluation. Coding Level of Care Code ED Elevator Dispatcher for Armando Gtz
--- NOTE | 2020-12-31 20:19 | ECG_ITS ---
[facility] Test Date: 2020-12-31 Pat Name: Heidy Linton Department: Room: Gender: Female Senior Controller: : 1945 Requested By: John Paul Zuñiga Order Number: [id number] Fawad MD: Joyce Alejandre M.D. Measurements Intervals [place] Rate: 96 P: 47 UT: 150 QRS: -36 QRSD: 81 T: 29 QT: 336 QTc: 426 Interpretive Statements SINUS RHYTHM LEFT AXIS DEVIATION [QRS AXIS < -30] VOLTAGE CRITERIA FOR LVH [MEETS CRITERIA IN ONE OF: R(aVL), S(V1), R(V5), R(V5/V6)+S(V1)] Compared to ECG 12/23/2020 16:43:24 No significant changes Electronically Signed On 12-31-2020 21:54:11 CDT by Joyce Alejandre M.D. [id number]
--- NOTE | 2020-12-31 20:29 | CTR_ITS ---
PROCEDURE INFORMATION: Exam: CT Chest With Contrast; Diagnostic Exam date and time: 12/31/2020 8:29 PM Age: 75 years old Clinical indication: Abdominal pain; Generalized; Chest pressure; Prior surgery; Surgery type: Gb; Additional info: Chest pain, epigastric abd pain, S/P deangelo TECHNIQUE: Imaging protocol: Diagnostic computed tomography of the chest with contrast. Radiation optimization: All CT scans at this facility use at least one of these dose optimization techniques: automated exposure control; mA and/or kV adjustment per patient size (includes targeted exams where dose is matched to clinical indication); or iterative reconstruction. Contrast material: OMNI 300; Contrast volume: 95 ml; Contrast route: INTRAVENOUS (IV); COMPARISON: CT abdomen pelvis w con* [id number] 03/17/2020 2:04 PM RADIATION DOSE METRICS: Total DLP (mGy-cm): 930.81 FINDINGS: Thyroid: There is an incidental 8 mm hypodense nodule lower right thyroid lobe. Lungs: There is subpleural atelectasis of the dependent portions of the lungs. Calcified pulmonary granulomas are noted. No airspace consolidation. Pleural spaces: Unremarkable. No pneumothorax. No pleural effusion. Heart: The heart is enlarged. Aorta: The ascending thoracic aorta measures 4.1 cm. No dissection or mural hematoma is identified. Lymph nodes: Unremarkable. No enlarged lymph nodes. Bones/joints: Unremarkable. No acute fracture. Soft tissues: Unremarkable. IMPRESSION: 1. There is mild dependent atelectasis. Otherwise, the lungs are clear. 2. There is an incidental 8 mm hypodense nodule lower right thyroid lobe. No follow-up is recommended. COMMENTS: Consistent with the [employer]'s Incidental Findings Committee white paper (J Am Rachel Radiol 2015): In patients aged 35 years and older with an incidental thyroid nodule equal to or greater than 1.[address], MRI or extrathyroidal US, further evaluation with dedicated thyroid US is recommended for patients with normal life expectancy and without comorbidities. For smaller nodules without suspicious features, no further evaluation or follow up is recommended. PROCEDURE INFORMATION: Exam: CT Abdomen And Pelvis With Contrast Exam date and time: 12/31/2020 8:29 PM Age: 75 years old Clinical indication: Abdominal pain; Generalized; Chest pressure; Prior surgery; Surgery type: Gb; Additional info: Chest pain, epigastric abd pain, S/P deangelo TECHNIQUE: Imaging protocol: Computed tomography of the abdomen and pelvis with contrast. Radiation optimization: All CT scans at this facility use at least one of these dose optimization techniques: automated exposure control; mA and/or kV adjustment per patient size (includes targeted exams where dose is matched to clinical indication); or iterative reconstruction. Contrast material: OMNI 300; Contrast volume: 95 ml; Contrast route: INTRAVENOUS (IV); COMPARISON: CT abdomen pelvis w con* [id number] 03/17/2020 2:04 PM RADIATION DOSE METRICS: Total DLP (mGy-cm): 930.81 FINDINGS: Liver: There is a diffuse decrease in hepatic parenchymal density, consistent with fatty infiltration. The liver is enlarged measuring 21 cm. Gallbladder and bile ducts: There has been a cholecystectomy. There is no common bile duct dilation. Pancreas: There is mild haziness of the fat adjacent to the pancreas suspected to be motion artifact however very mild acute pancreatitis cannot be excluded. Spleen: The spleen is normal. Adrenal glands: There is multilobulated benign adenomatous enlargement of the adrenal glands. Kidneys and ureters: There is no evidence of hydronephrosis. There is no evidence of renal calcifications. There are bilateral renal cortical hypodensities measuring over 1 cm in size which have fluid density Hounsfield unit measurements compatible with simple cysts. Stomach and bowel: There is diffuse gastric wall thickening. The stomach is partially collapsed in this appearance may reflect lack of distention versus gastritis. There is no evidence of intestinal perforation or obstruction. There is excessive colonic stool content. There is no evidence of colitis/diverticulitis. There is an ovoid hyperdensity within a loop of small bowel in the pelvis that may be a pill fragment. Appendix: A normal appendix is identified. Intraperitoneal space: Unremarkable. No free air. No significant fluid collection. Vasculature: The aorta demonstrates mild atherosclerotic calcification. Lymph nodes: Unremarkable.No enlarged lymph nodes. Urinary bladder: Unremarkable as visualized. Reproductive: Unremarkable as visualized. Bones/joints: There is scoliosis with moderate to severe degenerative changes in the spine. No acute bony abnormality. Soft tissues: Unremarkable. CT/CT chest abd pel w con* IMPRESSION: 1. There is diffuse gastric wall thickening. The stomach is partially collapsed in this appearance may reflect lack of distention versus gastritis. No ileus or obstruction. No colitis. There is a large amount of colonic stool without impaction. 2. There is mild haziness of the fat adjacent to the pancreas suspected to be motion artifact however very mild acute pancreatitis cannot be excluded. 3. Fluid density renal cortical cysts. No follow-up is necessary. COMMENTS: Consistent with the [employer]'s Incidental Findings Committee white paper (J Am Rachel Radiol 2018): Any incidental renal lesion less than 1 cm or classified as too small to characterize, or any incidental cystic renal lesion characterized as simple-appearing, is likely benign. No follow-up imaging is recommended for these lesions per consensus recommendations based on imaging criteria. Radiation Dose CTDIVOL = (mGy): DLP = 930.81~930.81 (mGy-cm)
[2020-12-31] MEDS: iohexol 300 mg/mL 100 mL Btl IV (20:52)
[2020-12-31] MEDS: lidocaine 2% viscous 15 ML, aluminum-mag hydrox-simethicon 30 ML, sucralfate oral liq 1 GM PO (20:56)
[2020-12-31] MEDS: ondansetron 2 mg/ML SDV 2 mL 4 MG IVP (20:57)
[2020-12-31] MEDS: ketorolac 30 mg/mL INJ 15 MG IVP (20:57)
[2020-12-31 20:59] LABS: Basophils # 0.1 10^3/uL (0.0-0.1); Basophils % 0.9 %; Eosinophils # 0.1 10^3/uL (0.0-0.8); Hematocrit 32.6 % (37.0-47.0); Hemoglobin 10.3 g/dL (11.5-15.3); Lymphocytes # 1.3 10^3/uL (0.8-4.8); Lymphocytes % 18.7 %; Mean Corpuscular HGB Conc 31.6 g/dL (30.0-36.0); Mean Corpuscular Volume 98.2 fl (81-99); Monocytes # 0.6 10^3/uL (0.2-0.9); Monocytes % 9.1 %; Neutrophils # 4.95 10^3/uL (1.8-7.7); Neutrophils % 70.2 %; Nucleated Red Blood Cells % 0 %; Platelet Count 335 10^3/cmm (130-400); Red Blood Count 3.32 10^6/uL (4.1-5.3); Red Cell Distribution Width 14.6 % (12.1-15.1); White Blood Count 7.1 10^3/uL (4.0-10.0)
[2020-12-31 21:16] LABS: Lactate (Lactic Acid level) 1.9 mmol/L (0.5-2.2)
[2020-12-31 21:16] LABS: Add Urine Microscopic? NO; Bilirubin Urine Neg (Negative); Blood Urine Neg (Negative); Charge for UA Resulting for Rev; Glucose Urine UA Norm (Normal); Ketones Urine Negative (Negative); Leukocyte Esterase Urine Negative (Negative); Nitrate Urine Negative (Negative); Protein Urine Neg (Negative); Specific Gravity, Urine 1.005 (1.005-1.030); Urine Appearance Clear (CLEAR); Urine Color Yellow (Yellow); Urobilinogen Urine Norm (Negative); pH Urine 5 (5-7)
[2020-12-31 21:19] LABS: Troponin(5th) Baseline 7 ng/L (0-10)
[2020-12-31] MEDS: sucralfate 1 gm/10 mL Oral Liq UDC PO (21:26)
[2020-12-31] MEDS: morphine 4 mg/mL SDV 1 mL 2 MG IVP (21:26)
[2020-12-31 21:27] LABS: Alanine Aminotransferase < 5 U/L (0-33); Albumin Level 4.3 g/dL (3.5-5.2); Alkaline Phosphatase 65 IU/L (35-105); Anion Gap 16.9 (5-19); Aspartate Amino Transferase 10 U/L (0-32); Blood Urea Nitrogen 14 mg/dL (8-23); Calcium 9.5 mg/dL (8.5-10.5); Carbon Dioxide 26 mmol/L (22-29); Chloride 98 mmol/L (98-107); Globulin 1.9 g/dL (1.3-4.6); Glucose 101 mg/dL (65-115); Lipase 21 U/L (13-60); NT Pro B Type Natriuretic Pept 281 pg/mL (0-450); Osmolality Calculated 283 mOsm/kg (285-295); Potassium 4.9 mmol/L (3.5-5.1); Sodium 136 mmol/L (136-145); Total Bilirubin 0.2 mg/dL (0.15-1.2); Total Protein 6.2 g/dL (6.6-8.7)
[2020-12-31 21:52] VITALS: BP 144/80; PULSE 90; RESP 18; O2SAT 99
[2020-12-31] MEDS: TRAMadol 50 mg Tablet PO (22:06)
--- NOTE | 2020-12-31 22:19 | ECG_ITS ---
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 Measurements Intervals [place] Rate: 102 P: 62 HI: 139 QRS: -37 QRSD: 81 T: 24 QT: 333 QTc: 435 Interpretive Statements SINUS TACHYCARDIA WITH FREQUENT VENTRICULAR PREMATURE COMPLEXES LEFT AXIS DEVIATION [QRS AXIS < -30] VOLTAGE CRITERIA FOR LVH [MEETS CRITERIA IN ONE OF: R(aVL), S(V1), R(V5), R(V5/V6)+S(V1)] Compared to ECG 12/31/2020 20:36:39 Ventricular premature complex(es) now present Sinus rhythm no longer present Electronically Signed On 12-31-2020 22:17:56 CDT by Joyce Alejandre M.D. [id number]
[2020-12-31 22:39] LABS: Troponin 5 2HR 7.32 ng/L (0-10); Troponin 5 2HR Delta 0.32 ABS# (0-10)
[2020-12-31 23:00] VITALS: BP 142/80; PULSE 90; RESP 18; O2SAT 99
== END 2020-12-31 23:00 | disposition home or self-care (01) ==
PROVIDERS: Emergency Provider Emergency Medicine; PCP Family Medicine Adult Medicine
DX: K21.9 Gastro-esophageal reflux disease without esophagitis (principal); K29.70 Gastritis, unspecified, without bleeding; R07.89 Other chest pain; Z79.82 Long term (current) use of aspirin; G20 Parkinson's disease; F41.9 Anxiety disorder, unspecified; Z79.1 Long term (current) use of non-steroidal anti-inflammatories (NSAID)
CPT/HCPCS: 71260; 74177; 80053; 81003; 83605; 83690; 83880; 84484; 85025; 93005; 96374; 96375; 99283; J1885; J2270; J2405; Q9967

== ENCOUNTER 2021-01-07 18:55 | Emergency (ER) | payer MEDICARE, SELFPAY ==
--- NOTE | 2021-01-07 18:56 | XRR_ITS ---
PROCEDURE INFORMATION: Exam: XR Chest Exam date and time: 01/07/2021 6:56 PM Age: 75 years old Clinical indication: Sternal or substernal pain; Additional info: Cp TECHNIQUE: Imaging protocol: XR of the chest. Views: 1 view. COMPARISON: CT chest abd pel w con* 12/31/2020 8:48 PM FINDINGS: Lungs: No consolidation. Pleural spaces: Unremarkable. No pleural effusion. No pneumothorax. Heart/Mediastinum: Unremarkable. No cardiomegaly. Bones/joints: Moderate dextroscoliosis of the thoracic spine. XR/XR chest 1V portable [id number] IMPRESSION: No acute findings. Radiation Dose CTDIVOL = (mGy): DLP = (mGy-cm)
[2021-01-07 18:57] VITALS: BP 175/104; PULSE 105; RESP 18; TEMP 37.1; O2SAT 99; BMI 21.0
--- NOTE | 2021-01-07 18:57 | ECG_ITS ---
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 Measurements Intervals [place] Rate: 104 P: 77 [place]: 160 QRS: -34 QRSD: 82 T: 25 QT: 329 QTc: 434 Interpretive Statements SINUS TACHYCARDIA WITH OCCASIONAL ECTOPIC PREMATURE COMPLEXES LEFT AXIS DEVIATION [QRS AXIS < -30] MODERATE VOLTAGE CRITERIA FOR LVH, CONSIDER NORMAL VARIANT [MEETS CRITERIA IN ONE OF: R(aVL), S(V1), R(V5), R(V5/V6)+S(V1)] Compared to ECG 12/31/2020 22:16:10 Ventricular premature complex(es) no longer present Electronically Signed On 01-08-2021 7:29:41 CLEAN ROOM OPERATOR by Joyce Alejandre M.D. [id number]
--- NOTE | 2021-01-07 19:13 | ED_ITS ---
HPI - Chest Pain General: Chief Complaint: Chest Pain Stated Complaint: ANXIETY Time Seen by Provider: 01/07/21 18:57 Source: patient and EMS Mode of arrival: EMS Limitations: no limitations History of Present Illness: HPI narrative: 75-year-old femaleIs well-known to the ER who has anxiety been seen here multiple times for chest pain anxiety. Patient states that/started feel anxious to having crushing chest pain is a 10 out of 10. States she has continued to have pain denies any worsening proving factors denies any cough shortness of breath or fever. Associated symptoms: Deny abdominal pain, dyspnea, fever(s), nausea or vomiting Review of Systems Const: Denies: fever(s), chills, body aches or change in appetite Eyes: Denies: blurry vision or eye discomfort ENMT: Denies: throat pain or dental pain Card: Reports: chest pain Resp: Denies: dyspnea GI: Denies: abdominal pain, nausea, vomiting or diarrhea : Denies: dysuria Musc: Denies: neck pain or back pain Skin/Breast: Denies: rash Neuro: Denies: headache(s) Psych: Reports: anxiety Rashad/Lymph: Denies: easy bruising All/Imm: Denies: urticaria PFSH ED PFSH: Medical History Anxiety CAD (coronary artery disease) Cholelithiasis Chronic back pain GERD (gastroesophageal reflux disease) Macular degeneration Motion sickness, sequela Parkinson disease Surgical History History of carpal tunnel surgery History of colonoscopy with polypectomy 2017 History of foot surgery Status post laparoscopic cholecystectomy (07/31/20) Family History Daughter Cancer Social History Alcohol intake: never Physical Exam Const: COMMON NORMALS: no acute distress, patient oriented x3 and healthy appearing HENMT: COMMON NORMALS: normocephalic and atraumatic HEAD & SCALP: normocephalic and atraumatic Eye: COMMON NORMALS: Equal, round and reactive pupils present and EOMs intact bilaterally PUPIL: Yes Equal, round and reactive pupils present Neck/C-Spine: COMMON NORMALS: full ROM and supple Chest: COMMONS NORMALS: normal inspection of the chest and normal palpation of entire chest wall Resp: COMMON NORMALS: normal respiratory effort, No retractions, No use of accessory muscles and clear to auscultation bilaterally AUSCULTATION: clear to auscultation bilaterally Cardio: COMMON NORMALS: regular rate, regular rhythm and No murmurs present (Cardio) RATE: regular rate RHYTHM: regular rhythm GI: COMMON NORMALS: Normal to inspection, nondistended, normoactive bowel sounds present, Soft to palpation, non-tender and no masses PALPATION: Yes Soft to palpation Extremity: COMMON NORMALS: normal to inspection and full ROM Neuro: COMMON NORMALS: patient oriented x3, moves all extremities and no focal motor deficits Psych: COMMON NORMALS: mental status grossly normal, Normal thought process present and cooperative MOOD & AFFECT: Yes anxious THOUGHT PROCESS: Normal thought process present Skin: COMMON NORMALS: no rashes or lesions noted and no wounds GENERAL SKIN EXAM: no rashes or lesions noted Course Vital Signs: Vital signs: Vital Signs Temperature 98.7 F 01/07/21 21:37 Pulse Rate 95 01/07/21 21:37 Respiratory Rate 15 01/07/21 21:37 Blood Pressure 139/92 01/07/21 21:37 Pulse Oximetry 94 01/07/21 21:37 MDM - Chest Pain MDM Narrative: Medical decision making narrative: Patient presents with chest pains atypical in nature initial and repeat troponins are negative patient is anxious as well she is well-appearing at discharge vital signs are all normal she has no signs of acute coronary syndrome abdominal exam is benign she had a recent CT on the second that was negative. She is stable for discharge is to follow-up with PCP and return if worsening. Lab Data: Labs: Lab Results 01/07/21 01/07/21 01/07/21 19:05 19:05 19:05 WBC 7.7 10^3/uL 10^3/ uL (4.0-10.0) RBC 3.62 10^6/uL L 10 ^6/uL (4.1-5.3) Hgb 11.3 g/dL L g/dL (11.5-15.3) Hct 34.5 % L % (37.0-47.0) MCV 95.3 fl fl (81-99) MCH 31.2 pg pg (28.0-34.0) MCHC 32.8 g/dL g/dL (30.0-36.0) RDW 14.1 % % (12.1-15.1) Plt Count 344 10^3/cmm 10^3 /cmm (130-400) MPV 9.8 fL fL (7.4-10.4) Neut % (Auto) 73.5 % % Lymph % (Auto) 17.3 % % [place] % (Auto) 7.6 % % Eos % (Auto) 1.0 % % Baso % (Auto) 0.5 % % Neut # (Auto) 5.62 10^3/uL 10^3 /uL (1.8-7.7) Lymph # (Auto) 1.3 10^3/uL 10^3/ uL (0.8-4.8) [place] # (Auto) 0.6 10^3/uL 10^3/ uL (0.2-0.9) Eos # (Auto) 0.1 10^3/uL 10^3/ uL (0.0-0.8) Baso # (Auto) 0.0 10^3/uL 10^3/ uL (0.0-0.1) Nucleated RBC % (a uto) 0 % % Nucleated RBCs # 0.0 /100WBC /100W BC Sodium 135 mmol/L L mmol /L (136-145) Potassium 4.4 mmol/L mmol/L (3.5-5.1) Chloride 97 mmol/L L mmol/ L (98-107) Carbon Dioxide 29 mmol/L mmol/L (22-29) Anion Gap 13.4 (5-19) BUN 14 mg/dL mg/dL (8-23) Creatinine 0.8 mg/dL mg/dL (0.5-0.9) GFR Calculation Not Reportable Glucose 90 mg/dL mg/dL (65-115) Calculated Osmolal ity 280 mOsm/kg L mOs m/kg (285-295) Calcium 10.0 mg/dL mg/dL (8.5-10.5) Total Bilirubin 0.2 mg/dL mg/dL (0.15-1.2) AST 10 U/L U/L (0-32) ALT < 5 U/L U/L (0-33) Alkaline Phosphata se 71 IU/L IU/L (35-105) Troponin T Baselin e 8 ng/L ng/L (0-10) Troponin T 120 Min [place] Delta Troponin T Total Protein 6.8 g/dL g/dL (6.6-8.7) Albumin 4.7 g/dL g/dL (3.5-5.2) Globulin 2.1 g/dL g/dL (1.3-4.6) 01/07/21 20:43 WBC RBC Hgb Hct MCV MCH MCHC RDW Plt Count MPV Neut % (Auto) Lymph % (Auto) [place] % (Auto) Eos % (Auto) Baso % (Auto) Neut # (Auto) Lymph # (Auto) [place] # (Auto) Eos # (Auto) Baso # (Auto) Nucleated RBC % (a uto) Nucleated RBCs # Sodium Potassium Chloride Carbon Dioxide Anion Gap BUN Creatinine GFR Calculation Glucose Calculated Osmolal ity Calcium Total Bilirubin AST ALT Alkaline Phosphata se Troponin T Baselin e Troponin T 120 Min [place] 8.82 ng/L ng/L (0-10) Delta Troponin T 0.82 ABS# ABS# (0-10) Total Protein Albumin Globulin Imaging Data^: CXR: Attestation: I personally reviewed and interpreted this imaging study as follows: My impression: no acute abnormality EKG Data^: EKG 1: Attestation: I personally reviewed and interpreted this EKG as follows: EKG interpretation date: 02/05/21 EKG interpretation time: 19:04 Interpretation: sinus tach hr [address] or t wave abnormalities qrs 82 qtc 389 EKG 2: Attestation: I personally reviewed and interpreted this EKG as follows: EKG interpretation date: 01/07/21 EKG interpretation time: 20:45 Interpretation: Normal sinus rhythm heart rate [address] or T wave abnormalities QRS 82 QTC 390 Discharge Plan Discharge Patient Disposition: Home Clinical Impression: Chest pain Qualifiers: Chest pain type: unspecified Qualified Code(s): R07.9 - Chest pain, unspecified Condition: Stable Prescriptions: New Protonix 40 mg tablet,delayed release (DR/EC) 40 mg PO DAILY Qty: 60 RF: 0 No Action sucralfate [Carafate] 1 gram tablet 1 g PO Q6H 30 Days Qty: 120 RF: 0 acetaminophen 500 mg tablet 500 mg PO Q6H PRN (Reason: mild to moderate pain) Qty: 120 RF: 3 nitroglycerin [Nitrostat] 0.4 mg tablet, sublingual 0.4 mg SUBLINGUAL Q5M PRN (Reason: Chest Pain from heart) Qty: 14 RF: 3 sertraline 25 mg tablet 25 mg PO DAILY Qty: 30 RF: 5 celecoxib 50 mg capsule 50 mg PO BID@08,16 Qty: 60 RF: 5 trihexyphenidyl 2 mg tablet 2 mg PO BID Qty: 60 RF: 4 carbidopa-levodopa 25-100 mg tablet 2 tab PO .COMPLEX Qty: 150 RF: 4 ondansetron HCl 4 mg tablet See Rx Instructions .ROUTE .COMPLEX Qty: 40 RF: 0 pantoprazole 40 mg tablet,delayed release (DR/EC) See Rx Instructions .ROUTE .COMPLEX Qty: 60 RF: 2 aspirin 81 mg tablet,delayed release (DR/EC) 81 mg PO DAILY@08 RF: 0 Discharge Orders: Discharge ED (Routine); Ordered 01/07/21 Ordered By: Felecia Loyd Referrals: Maycol Landis MD [Primary Care Provider] - Discharge Diet: Advance as tolerated Discharge Activity: Resume usual activity Patient Instructions: Chest Pain (ED) Coding Level of Care Code ED 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
[2021-01-07 19:16] LABS: Basophils % 0.5 %; Eosinophils # 0.1 10^3/uL (0.0-0.8); Hematocrit 34.5 % (37.0-47.0); Hemoglobin 11.3 g/dL (11.5-15.3); Lymphocytes # 1.3 10^3/uL (0.8-4.8); Lymphocytes % 17.3 %; Mean Corpuscular HGB Conc 32.8 g/dL (30.0-36.0); Mean Corpuscular Hemoglobin 31.2 pg (28.0-34.0); Mean Corpuscular Volume 95.3 fl (81-99); Mean Platelet Volume 9.8 fL (7.4-10.4); Monocytes # 0.6 10^3/uL (0.2-0.9); Monocytes % 7.6 %; Neutrophils # 5.62 10^3/uL (1.8-7.7); Neutrophils % 73.5 %; Nucleated Red Blood Cells % 0 %; Platelet Count 344 10^3/cmm (130-400); Red Blood Count 3.62 10^6/uL (4.1-5.3); Red Cell Distribution Width 14.1 % (12.1-15.1); White Blood Count 7.7 10^3/uL (4.0-10.0)
[2021-01-07] MEDS: morphine 4 mg/mL SDV 1 mL IVP (19:27)
[2021-01-07] MEDS: ondansetron 2 mg/ML SDV 2 mL 4 MG IVP (19:27)
[2021-01-07 19:32] LABS: Troponin(5th) Baseline 8 ng/L (0-10)
[2021-01-07 19:33] LABS: Alanine Aminotransferase < 5 U/L (0-33); Albumin Level 4.7 g/dL (3.5-5.2); Alkaline Phosphatase 71 IU/L (35-105); Anion Gap 13.4 (5-19); Aspartate Amino Transferase 10 U/L (0-32); Blood Urea Nitrogen 14 mg/dL (8-23); Carbon Dioxide 29 mmol/L (22-29); Chloride 97 mmol/L (98-107); Globulin 2.1 g/dL (1.3-4.6); Glucose 90 mg/dL (65-115); Osmolality Calculated 280 mOsm/kg (285-295); Potassium 4.4 mmol/L (3.5-5.1); Sodium 135 mmol/L (136-145); Total Bilirubin 0.2 mg/dL (0.15-1.2); Total Protein 6.8 g/dL (6.6-8.7)
[2021-01-07 20:27] VITALS: BP 140/76; PULSE 95; RESP 12; O2SAT 96
[2021-01-07 20:30] VITALS: BP 144/86; PULSE 89; RESP 18; O2SAT 96
[2021-01-07 21:00] VITALS: BP 148/93; PULSE 93; RESP 20; O2SAT 96
[2021-01-07 21:14] LABS: Troponin 5 2HR 8.82 ng/L (0-10); Troponin 5 2HR Delta 0.82 ABS# (0-10)
[2021-01-07] MEDS: lidocaine 2% viscous 15 ML, aluminum-mag hydrox-simethicon 30 ML, sucralfate oral liq 1 GM PO (21:30)
[2021-01-07 21:35] VITALS: BP 139/92; PULSE 95; RESP 15; O2SAT 94
[2021-01-07 21:37] VITALS: BP 139/92; PULSE 95; RESP 15; TEMP 37.1; O2SAT 94
== END 2021-01-07 22:00 | disposition home or self-care (01) ==
PROVIDERS: Emergency Provider Emergency Medicine; PCP Family Medicine Adult Medicine
DX: R07.9 Chest pain, unspecified (principal); Z79.82 Long term (current) use of aspirin; Z79.1 Long term (current) use of non-steroidal anti-inflammatories (NSAID); I25.10 Atherosclerotic heart disease of native coronary artery without angina pectoris; K21.9 Gastro-esophageal reflux disease without esophagitis; H35.30 Unspecified macular degeneration; G20 Parkinson's disease
CPT/HCPCS: 71045; 80053; 84484; 85025; 93005; 96374; 96375; 99284; J2270; J2405

== ENCOUNTER 2021-01-12 07:52 | Emergency (ER) | payer MEDICARE, SELFPAY ==
[2021-01-12 07:54] VITALS: BP 132/89; PULSE 82; TEMP 36.5; O2SAT 97; BMI 21.0
--- NOTE | 2021-01-12 08:03 | XRR_ITS ---
PROCEDURE INFORMATION: Exam: XR Chest Exam date and time: 01/12/2021 8:03 AM Age: 76 years old Clinical indication: Pain; Chest pressure; Additional info: Cp TECHNIQUE: Imaging protocol: XR of the chest. Views: 1 view. Total images: 1 COMPARISON: CR (CHEST, ) 01/07/2021 7:11 PM FINDINGS: Lungs: Trace atelectasis or scar noted in the left lung base. Pleural spaces: Unremarkable. No pleural effusion. No pneumothorax. Heart/Mediastinum: Heart size is stable when compared to the prior exam. Bones/joints: [place] right spinal scoliosis. Diffuse osteopenia noted. Osseous structures are unchanged from the prior exam. Intraperitoneal space: Surgical clips are present in the right upper quadrant which are suggestive of prior cholecystectomy. XR/XR chest 1V portable [id number] IMPRESSION: Trace atelectasis or scar noted in the left lung base. Radiation Dose CTDIVOL = (mGy): DLP = (mGy-cm)
--- NOTE | 2021-01-12 08:03 | ECG_ITS ---
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 Measurements Intervals [place] Rate: 79 P: 52 [place]: 160 QRS: -28 QRSD: 83 T: 2 QT: 364 QTc: 417 Interpretive Statements SINUS RHYTHM VOLTAGE CRITERIA FOR LVH [MEETS CRITERIA IN ONE OF: R(aVL), S(V1), R(V5), R(V5/V6)+S(V1)] POSSIBLE ANTERIOR MYOCARDIAL INFARCTION , OF INDETERMINATE AGE [30 ms Q WAVE IN V3/V4, OR R < 0.2 mV IN V4] Compared to ECG 01/07/2021 19:04:46 Myocardial infarct finding now present Sinus tachycardia no longer present Left-axis deviation no longer present Electronically Signed On 01-12-2021 13:12:39 DETECTIVE LIEUTENANT by Joyce Alejandre M.D. [id number]
--- NOTE | 2021-01-12 08:04 | ED_ITS ---
HPI - Chest Pain General: Chief Complaint: Weakness Stated Complaint: WEAKNESS Time Seen by Provider: 01/12/21 07:52 History of Present Illness: HPI narrative: 76-year-old female with history of anxiety presents due to chest pain. She has had numerous visits for similar chest pain recently and had unremarkable work-up including negative CT. Today she states she started feeling burning-like chest pain again. Does not radiate to the back. Denies shortness of breath but denies focal numbness weakness or tingling. Denies nausea or vomiting. Denies lower extremity pain or swelling. Denies fever cough or chills. Patient also reports that she fights with her granddaughter a lot and sometimes feels like she may be better off but denies any active suicidal ideation. Denies concrete plan. Denies any desire to harm herself or anyone else. Review of Systems Narrative: - CONSTITUTIONAL: Denies weight loss, fever and chills. - HEENT: Denies changes in vision and hearing. - RESPIRATORY: Denies SOB and cough. - CV: As above - GI: Denies abdominal pain, nausea, vomiting and diarrhea. - : Denies dysuria and urinary frequency. - MSK: Denies myalgia and joint pain. - SKIN: Denies rash and pruritus. - NEUROLOGICAL: Denies headache, weakness, numbness and syncope. - PSYCHIATRIC: Denies suicidal ideation PFS ED PFSH: Medical History Anxiety CAD (coronary artery disease) Cholelithiasis Chronic back pain GERD (gastroesophageal reflux disease) Macular degeneration Motion sickness, sequela Parkinson disease Surgical History History of carpal tunnel surgery History of colonoscopy with polypectomy 2018 History of foot surgery Status post laparoscopic cholecystectomy (07/31/20) Family History Daughter Cancer Social History Alcohol intake: never Physical Exam Narrative: EXAM NARRATIVE: - GENERAL: Alert and oriented x 3. No acute distress. Well-nourished. - EYES: EOMI. Anicteric. - HENT: Atraumatic, no C-spine tenderness. Moist mucous membranes. No scleral icterus. No cervical lymphadenopathy. - LUNGS: Clear to auscultation bilaterally. No accessory muscle use. Equal lung sounds bilaterally. No respiratory distress. - CARDIOVASCULAR: Regular rate and rhythm. No murmur. No JVD. - ABDOMEN: Soft, non-tender and non-distended. Negative CVA tenderness bilaterally, no rebound or guarding, negative Mancera sign. No palpable masses. - EXTREMITIES: No edema. Non-tender. - SKIN: No rashes or lesions. Warm. - NEUROLOGIC: No meningismus or focal neurological deficits. CN II-XII grossly intact. - PSYCHIATRIC: Cooperative. Appropriate mood and affect. Course Vital Signs: Vital signs: Vital Signs Temperature 97.7 F 01/12/21 07:54 Pulse Rate 98 01/12/21 14:37 Respiratory Rate 17 01/12/21 14:37 Blood Pressure 160/94 01/12/21 14:37 Pulse Oximetry 96 01/12/21 14:37 MDM - Chest Pain MDM Narrative: Medical decision making narrative: 76-year-old female presents with chest pain. She has had several recent similar presentations. Work-up thus far has been unremarkable. Physical exam today is unremarkable she is hemodynamically stable afebrile nontoxic-appearing. EKG and troponins do not reveal any sign of acute ischemia or other acute abnormality. X-ray does not reveal pneumothorax or consolidation. Remainder of lab work is unremarkable. Patient did make some statements regarding not wanting to live but does not have a concrete plan. Had psychiatrist, Dr. Ruiz, come talk with her and at this time he does not believe that she would be a danger to herself or others and believe she is safe for discharge. At this time I believe patient would be safe for discharge and outpatient follow-up. Return precautions provided. Plan was reviewed with the patient who expressed understanding. Questions answered. Patient will follow up with PCP. Patient discharged in stable condition. Lab Data: Labs: Lab Results 01/12/21 01/12/21 01/12/21 08:10 08:10 08:10 WBC 5.4 10^3/uL 10^3/ uL (4.0-10.0) RBC 3.29 10^6/uL L 10 ^6/uL (4.1-5.3) Hgb 10.3 g/dL L g/dL (11.5-15.3) Hct 31.7 % L % (37.0-47.0) MCV 96.4 fl fl (81-99) MCH 31.3 pg pg (28.0-34.0) MCHC 32.5 g/dL g/dL (30.0-36.0) RDW 14.0 % % (12.1-15.1) Plt Count 320 10^3/cmm 10^3 /cmm (130-400) MPV 9.7 fL fL (7.4-10.4) Neut % (Auto) 67.5 % % Lymph % (Auto) 22.5 % % [place] % (Auto) 7.4 % % Eos % (Auto) 1.3 % % Baso % (Auto) 1.1 % % Neut # (Auto) 3.66 10^3/uL 10^3 /uL (1.8-7.7) Lymph # (Auto) 1.2 10^3/uL 10^3/ uL (0.8-4.8) [place] # (Auto) 0.4 10^3/uL 10^3/ uL (0.2-0.9) Eos # (Auto) 0.1 10^3/uL 10^3/ uL (0.0-0.8) Baso # (Auto) 0.1 10^3/uL 10^3/ uL (0.0-0.1) Nucleated RBC % (a uto) 0 % % Nucleated RBCs # 0.0 /100WBC /100W BC Sodium 137 mmol/L mmol/L (136-145) Potassium 3.3 mmol/L L mmol /L (3.5-5.1) Chloride 98 mmol/L mmol/L (98-107) Carbon Dioxide 27 mmol/L mmol/L (22-29) Anion Gap 15.3 (5-19) BUN 9 mg/dL mg/dL (8-23) Creatinine 0.7 mg/dL mg/dL (0.5-0.9) GFR Calculation Not Reportable Glucose 92 mg/dL mg/dL (65-115) Calculated Osmolal ity 282 mOsm/kg L mOs m/kg (285-295) Calcium 8.7 mg/dL mg/dL (8.5-10.5) Total Bilirubin 0.2 mg/dL mg/dL (0.15-1.2) AST 11 U/L U/L (0-32) ALT < 5 U/L U/L (0-33) Alkaline Phosphata se 59 IU/L IU/L (35-105) Troponin T Baselin e 7 ng/L ng/L (0-10) Troponin T 120 Min [place] Troponin T Troponin T Hi Sens 6Hr Troponin T Hi Sens 6Hr [place] NT-Pro-B Natriuret Pep 592 pg/mL H pg/mL (0-450) Total Protein 6.2 g/dL L g/dL (6.6-8.7) Albumin 3.9 g/dL g/dL (3.5-5.2) Globulin 2.3 g/dL g/dL (1.3-4.6) Lipase 16 U/L U/L (13-60) 01/12/21 01/12/21 10:11 14:05 WBC RBC Hgb Hct MCV MCH MCHC RDW Plt Count MPV Neut % (Auto) Lymph % (Auto) [place] % (Auto) Eos % (Auto) Baso % (Auto) Neut # (Auto) Lymph # (Auto) [place] # (Auto) Eos # (Auto) Baso # (Auto) Nucleated RBC % (a uto) Nucleated RBCs # Sodium Potassium Chloride Carbon Dioxide Anion Gap BUN Creatinine GFR Calculation Glucose Calculated Osmolal ity Calcium Total Bilirubin AST ALT Alkaline Phosphata se Troponin T Baselin e Troponin T 120 Min [place] 8.31 ng/L ng/L (0-10) Delta Troponin T 1.31 ABS# ABS# (0-10) Troponin T Hi Sens 6Hr 7.72 ng/L ng/L (0-10) Troponin T Hi Sens 6Hr [place] 0.72 ng/L ng/L (0-12) NT-Pro-B Natriuret Pep Total Protein Albumin Globulin Lipase EKG Data^: EKG 1: Other EKG comments: Sinus rhythm rate of 79, possible LVH, no sign of acute ischemia or other acute abnormality. Discharge Plan Discharge Prescriptions: No Action sucralfate [Carafate] 1 gram tablet 1 g PO Q6H 30 Days Qty: 120 RF: 0 acetaminophen 500 mg tablet 500 mg PO Q6H PRN (Reason: mild to moderate pain) Qty: 120 RF: 3 nitroglycerin [Nitrostat] 0.4 mg tablet, sublingual 0.4 mg SUBLINGUAL Q5M PRN (Reason: Chest Pain from heart) Qty: 14 RF: 3 sertraline 25 mg tablet 25 mg PO DAILY Qty: 30 RF: 5 celecoxib 50 mg capsule 50 mg PO BID@08,16 Qty: 60 RF: 5 trihexyphenidyl 2 mg tablet 2 mg PO BID Qty: 60 RF: 4 carbidopa-levodopa 25-100 mg tablet 2 tab PO .COMPLEX Qty: 150 RF: 4 ondansetron HCl 4 mg tablet See Rx Instructions .ROUTE .COMPLEX Qty: 40 RF: 0 pantoprazole 40 mg tablet,delayed release (DR/EC) See Rx Instructions .ROUTE .COMPLEX Qty: 60 RF: 2 aspirin 81 mg tablet,delayed release (DR/EC) 81 mg PO DAILY@08 RF: 0 Protonix 40 mg tablet,delayed release (DR/EC) 40 mg PO DAILY Qty: 60 RF: 0 Coding Level of Care Code ED Business Services Sales Representative for Armando Gtz
[2021-01-12 08:20] LABS: Basophils # 0.1 10^3/uL (0.0-0.1); Basophils % 1.1 %; Eosinophils # 0.1 10^3/uL (0.0-0.8); Eosinophils % 1.3 %; Hematocrit 31.7 % (37.0-47.0); Hemoglobin 10.3 g/dL (11.5-15.3); Lymphocytes # 1.2 10^3/uL (0.8-4.8); Lymphocytes % 22.5 %; Mean Corpuscular HGB Conc 32.5 g/dL (30.0-36.0); Mean Corpuscular Hemoglobin 31.3 pg (28.0-34.0); Mean Corpuscular Volume 96.4 fl (81-99); Mean Platelet Volume 9.7 fL (7.4-10.4); Monocytes # 0.4 10^3/uL (0.2-0.9); Monocytes % 7.4 %; Neutrophils # 3.66 10^3/uL (1.8-7.7); Neutrophils % 67.5 %; Nucleated Red Blood Cells % 0 %; Platelet Count 320 10^3/cmm (130-400); Red Blood Count 3.29 10^6/uL (4.1-5.3); White Blood Count 5.4 10^3/uL (4.0-10.0)
--- NOTE | 2021-01-12 08:27 | PC.NURSE ---
Pt placed on night monitor upon being bedded to room.
[2021-01-12] MEDS: lidocaine 2% viscous 15 ML, aluminum-mag hydrox-simethicon 30 ML, sucralfate oral liq 1 GM PO (08:38)
[2021-01-12] MEDS: aspirin 81 mg Chew Tablet 324 MG PO (08:38)
--- NOTE | 2021-01-12 08:38 | PC.NURSE ---
Pt makes comments that she feels as if no one cares for her and that sometimes she's thinks she'd be better off if she just goes . ERP made aware of pt's statements. Pt given assurance and comfort. RN increases rounding.
[2021-01-12 08:46] LABS: Troponin(5th) Baseline 7 ng/L (0-10)
[2021-01-12 08:53] LABS: Alanine Aminotransferase < 5 U/L (0-33); Albumin Level 3.9 g/dL (3.5-5.2); Alkaline Phosphatase 59 IU/L (35-105); Anion Gap 15.3 (5-19); Aspartate Amino Transferase 11 U/L (0-32); Blood Urea Nitrogen 9 mg/dL (8-23); Calcium 8.7 mg/dL (8.5-10.5); Carbon Dioxide 27 mmol/L (22-29); Chloride 98 mmol/L (98-107); Globulin 2.3 g/dL (1.3-4.6); Glucose 92 mg/dL (65-115); Lipase 16 U/L (13-60); NT Pro B Type Natriuretic Pept 592 pg/mL (0-450); Osmolality Calculated 282 mOsm/kg (285-295); Potassium 3.3 mmol/L (3.5-5.1); Sodium 137 mmol/L (136-145); Total Bilirubin 0.2 mg/dL (0.15-1.2); Total Protein 6.2 g/dL (6.6-8.7)
[2021-01-12 09:12] VITALS: BP 125/75; PULSE 70; RESP 18; O2SAT 93
--- NOTE | 2021-01-12 10:03 | ECG_ITS ---
[facility] Test Date: 2021-01-12 Pat Name: Heidy Linton Department: Room: Gender: Female Relationship Consultant: : 1945 Requested By: Dominic Payan Order Number: [id number] Fawad MD: Joyce Alejandre M.D. Measurements Intervals [place] Rate: 84 P: 54 NV: 177 QRS: -31 QRSD: 87 T: 14 QT: 379 QTc: 448 Interpretive Statements SINUS RHYTHM WITH OCCASIONAL ECTOPIC PREMATURE COMPLEXES LEFT AXIS DEVIATION [QRS AXIS < -30] VOLTAGE CRITERIA FOR LVH [MEETS CRITERIA IN ONE OF: R(aVL), S(V1), R(V5), R(V5/V6)+S(V1)] Compared to ECG 01/12/2021 08:00:43 Left-axis deviation now present Myocardial infarct finding no longer present Electronically Signed On 01-12-2021 13:22:46 DIRECTOR OF EVENT MARKETING by Joyce Alejandre M.D. [email or web address] TechnologiesKayse [email or web address] [facility].[employer]/store/[id number] f
[2021-01-12 10:40] LABS: Troponin 5 2HR 8.31 ng/L (0-10); Troponin 5 2HR Delta 1.31 ABS# (0-10)
[2021-01-12 11:06] VITALS: BP 156/93; PULSE 94; RESP 18; O2SAT 96
[2021-01-12 12:56] VITALS: BP 159/95; PULSE 98; RESP 17; O2SAT 97
[2021-01-12 13:57] VITALS: BP 172/106; PULSE 103; RESP 16; O2SAT 96
--- NOTE | 2021-01-12 14:03 | ECG_ITS ---
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 Measurements Intervals [place] Rate: 98 P: 59 MN: 158 QRS: -37 QRSD: 82 T: 27 QT: 342 QTc: 437 Interpretive Statements SINUS RHYTHM LEFT AXIS DEVIATION [QRS AXIS < -30] VOLTAGE CRITERIA FOR LVH [MEETS CRITERIA IN ONE OF: R(aVL), S(V1), R(V5), R(V5/V6)+S(V1)] POSSIBLE ANTERIOR MYOCARDIAL INFARCTION , OF INDETERMINATE AGE [30 ms Q WAVE IN V3/V4, OR R < 0.2 mV IN V4] Compared to ECG 01/12/2021 10:35:23 Myocardial infarct finding now present Electronically Signed On 01-14-2021 13:12:33 DIRECTOR OF SCIENCE by Joyce Alejandre M.D. [email or web address] [id number] f
[2021-01-12 14:37] VITALS: BP 160/94; PULSE 98; RESP 17; O2SAT 96
[2021-01-12 15:25] LABS: Troponin 5 6HR 7.72 ng/L (0-10); Troponin 5 6HR Delta 0.72 ng/L (0-12)
== END 2021-01-12 17:15 | disposition home or self-care (01) ==
PROVIDERS: Emergency Provider Emergency Medicine; PCP Family Medicine Adult Medicine
DX: R53.1 Weakness (principal); R07.9 Chest pain, unspecified; Z79.82 Long term (current) use of aspirin; I25.10 Atherosclerotic heart disease of native coronary artery without angina pectoris; H35.30 Unspecified macular degeneration
CPT/HCPCS: 36415; 71045; 80053; 83690; 83880; 84484; 85025; 93005; 99284

== ENCOUNTER 2021-01-19 07:28 | Emergency (ER) | payer MEDICARE, SELFPAY ==
[2021-01-19 07:30] VITALS: BP 167/102; PULSE 95; RESP 18; TEMP 36.7; O2SAT 95; BMI 21.0
--- NOTE | 2021-01-19 07:32 | XRR_ITS ---
PROCEDURE INFORMATION: Exam: XR Chest Exam date and time: 01/19/2021 7:32 AM Age: 76 years old Clinical indication: Pain; Angina pectoris; Additional info: Cp/abd pain, neck pain TECHNIQUE: Imaging protocol: XR of the chest. Views: 1 view. COMPARISON: CR (CHEST, ) 01/12/2021 8:19 AM FINDINGS: Lungs: Unremarkable. No consolidation. Pleural spaces: Unremarkable. No pleural effusion. No pneumothorax. Heart/Mediastinum: Unremarkable. No cardiomegaly. Bones/joints: There is a thoracic scoliosis convex to the right. XR/XR chest 1V portable [id number] IMPRESSION: No significant cardiopulmonary abnormality. Radiation Dose CTDIVOL = (mGy): DLP = (mGy-cm)
--- NOTE | 2021-01-19 07:32 | ECG_ITS ---
[facility] Test Date: 2021-01-19 Pat Name: Heidy Linton Department: Room: Gender: Female Inserting Machine Operator: : 1945 Requested By: Kofi Clements Order Number: [id number] Reading MD: Lukas Grewal M.D. Measurements Intervals [place] Rate: 96 P: 59 DC: 158 QRS: -33 QRSD: 85 T: 20 QT: 340 QTc: 431 Interpretive Statements SINUS RHYTHM WITH OCCASIONAL ECTOPIC PREMATURE COMPLEXES POSSIBLE LEFT ATRIAL ENLARGEMENT [-0.1mV P-WAVE IN V1/V2] LEFT AXIS DEVIATION [QRS AXIS < -30] POSSIBLE LEFT VENTRICULAR HYPERTROPHY [VOLTAGE CRITERIA PLUS LAE OR QRS WIDENING] Compared to ECG 01/12/2021 14:37:56 Myocardial infarct finding no longer present Electronically Signed On 01-19-2021 15:53:09 ASSISTANT PROFESSOR OF ANTHROPOLOGY by Lukas Grewal M.D. [email or web address].[employer]/store/[id number] f
--- NOTE | 2021-01-19 07:50 | ED_ITS ---
Documented by User: RAND Florian 01/19/21 11:15 HPI - Chest Pain General: Chief Complaint: Chest Pain Stated Complaint: ABDOMINAL PAIN/ CHEST PAIN Time Seen by Provider: 01/19/21 07:31 History of Present Illness: HPI narrative: Patient presents via ambulance with complaint of intermittent chest pain that is been worse since yesterday. Patient states pain started right side of her chest went to her left side of her chest. She says is worse when she thinks about the loss of her and with her daughter having terminal cancer. Patient states that she was told she might need stents someday. Patient also says she has pressure in her chest and occasionally has shortness of breath. Patient said her stomach hurts at times but this has been going on for years. Patient denies any nausea vomiting or diaphoresis. Patient did take a nitro without any relief. Patient was given aspirin in the ambulance. Also has a history of chronic headaches and is taking Tylenol for that. MD complaint: chest discomfort Pertinent past history: coronary artery disease Onset (ago): day(s) Timing of current episode: episodic Prior episodes: Yes Onset: during rest Pain location: left chest Pain radiation: none Severity: mild Quality: heaviness Relieving factors: nothing Exacerbating factors: nothing Associated symptoms: Reports abdominal pain (Chronic) and other (Headache); Deny dyspnea, fever(s), nausea or vomiting Treatment prior to arrival: aspirin and nitroglycerin Review of Systems Const: Denies: fever(s), chills or body aches Eyes: Denies: change in vision or blurry vision ENMT: Denies: throat pain or nasal congestion Card: Reports: chest pain; Denies: dyspnea on exertion Resp: Denies: dyspnea, productive cough or non-productive cough GI: Reports: abdominal pain (Chronic); Denies: nausea or vomiting Musc: Denies: extremity pain Skin/Breast: Denies: rash Neuro: Reports: headache(s) Psych: Denies: anxiety or depression Rashad/Lymph: Denies: easy bruising PFSH ED PFSH: Medical History Anxiety CAD (coronary artery disease) Cholelithiasis Chronic back pain GERD (gastroesophageal reflux disease) Macular degeneration Motion sickness, sequela Parkinson disease Surgical History History of carpal tunnel surgery History of colonoscopy with polypectomy 2018 History of foot surgery Status post laparoscopic cholecystectomy (07/31/20) Family History Daughter Cancer Social History Alcohol intake: never Physical Exam Const: COMMON NORMALS: no acute distress, average body habitus and patient oriented x3 HENMT: COMMON NORMALS: normocephalic HEAD & SCALP: normal to inspection and normocephalic FACE & SINUS: normal facial exam Eye: COMMON NORMALS: conjunctivae normal GENERAL EYE: appearance normal, both eyes and all related structures CONJUNCTIVA: Yes conjunctivae normal Neck/C-Spine: COMMON NORMALS: no JVD Chest: COMMONS NORMALS: normal inspection of the chest Resp: COMMON NORMALS: normal respiratory effort and clear to auscultation bilaterally AUSCULTATION: clear to auscultation bilaterally Cardio: COMMON NORMALS: no JVD, regular rate and regular rhythm; negative for No murmurs present (Cardio) RATE: regular rate RHYTHM: regula r rhythm HEART SOUNDS: Murmur heart sound present other GI: COMMON NORMALS: Normal to inspection, nondistended, normoactive bowel sounds present Extremity: COMMON NORMALS: normal to inspection and full ROM Neuro: COMMON NORMALS: patient oriented x3 Course Vital Signs: Vital signs: Vital Signs Temperature 98.1 F 01/19/21 07:30 Pulse Rate 96 01/19/21 10:45 Respiratory Rate 17 01/19/21 10:45 Blood Pressure 132/90 01/19/21 10:45 Pulse Oximetry 96 01/19/21 10:45 MDM - Chest Pain MDM Narrative: Medical decision making narrative: Ms. Linton is well-known to us here in the ER. Patient having upper epigastric/chest pain. Patient said her pain started right side and went to her left side. Patient states that nitroglycerin does not help. Patient desiring pain medication. Patient was given Toradol and also tramadol without relief. Patient was given GI cocktail which she said took away her pain. 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 Patient denies shortness of breath nausea vomiting presently. Patient has chest pain due to GERD with relief from GI cocktail. EKG was consistent with past EKGs troponin was negative x2 for any concerning problems. BNP slightly elevated. CBC was normal. Patient been taking Protonix twice a day and someone had an added Carafate to see if that would help take care of her problems contacted case management to get her appoint with green feed attendant for follow-up. Lab Data: Labs: Lab Results 01/19/21 01/19/21 01/19/21 07:44 07:44 07:44 WBC 6.3 10^3/uL 10^3/ uL (4.0-10.0) RBC 3.42 10^6/uL L 10 ^6/uL (4.1-5.3) Hgb 10.7 g/dL L g/dL (11.5-15.3) Hct 32.3 % L % (37.0-47.0) MCV 94.4 fl fl (81-99) MCH 31.3 pg pg (28.0-34.0) MCHC 33.1 g/dL g/dL (30.0-36.0) RDW 14.2 % % (12.1-15.1) Plt Count 367 10^3/cmm 10^3 /cmm (130-400) MPV 9.8 fL fL (7.4-10.4) Neut % (Auto) 70.9 % % Lymph % (Auto) 19.4 % % [place] % (Auto) 8.3 % % Eos % (Auto) 0.6 % % Baso % (Auto) 0.6 % % Neut # (Auto) 4.45 10^3/uL 10^3 /uL (1.8-7.7) Lymph # (Auto) 1.2 10^3/uL 10^3/ uL (0.8-4.8) [place] # (Auto) 0.5 10^3/uL 10^3/ uL (0.2-0.9) Eos # (Auto) 0.0 10^3/uL 10^3/ uL (0.0-0.8) Baso # (Auto) 0.0 10^3/uL 10^3/ uL (0.0-0.1) Nucleated RBC % (a uto) 0 % % Nucleated RBCs # 0.0 /100WBC /100W BC PT 14.20 SECONDS SEC ONDS (12.1-14.9) INR 1.07 (0.8-1.2) Sodium 137 mmol/L mmol/L (136-145) Potassium 3.7 mmol/L mmol/L (3.5-5.1) Chloride 96 mmol/L L mmol/ L (98-107) Carbon Dioxide 29 mmol/L mmol/L (22-29) Anion Gap 15.7 (5-19) BUN 8 mg/dL mg/dL (8-23) Creatinine 0.8 mg/dL mg/dL (0.5-0.9) GFR Calculation Not Reportable Glucose 99 mg/dL mg/dL (65-115) Calculated Osmolal ity 282 mOsm/kg L mOs m/kg (285-295) Calcium 9.8 mg/dL mg/dL (8.5-10.5) Total Bilirubin 0.3 mg/dL mg/dL (0.15-1.2) AST 10 U/L U/L (0-32) ALT < 5 U/L U/L (0-33) Alkaline Phosphata se 65 IU/L IU/L (35-105) Troponin T Baselin e Troponin T 120 Min [place] Troponin T NT-Pro-B Natriuret Pep 738 pg/mL H pg/mL (0-450) Total Protein 6.6 g/dL g/dL (6.6-8.7) Albumin 4.6 g/dL g/dL (3.5-5.2) Globulin 2.0 g/dL g/dL (1.3-4.6) Lipase 15 U/L U/L (13-60) 01/19/21 01/19/21 07:44 09:42 WBC RBC Hgb Hct MCV MCH MCHC RDW Plt Count MPV Neut % (Auto) Lymph % (Auto) [place] % (Auto) Eos % (Auto) Baso % (Auto) Neut # (Auto) Lymph # (Auto) [place] # (Auto) Eos # (Auto) Baso # (Auto) Nucleated RBC % (a uto) Nucleated RBCs # PT INR Sodium Potassium Chloride Carbon Dioxide Anion Gap BUN Creatinine GFR Calculation Glucose Calculated Osmolal ity Calcium Total Bilirubin AST ALT Alkaline Phosphata se Troponin T Baselin e 10 ng/L ng/L (0-10) Troponin T 120 Min [place] 9.36 ng/L ng/L (0-10) [place] Troponin T -0.64 ABS# L ABS# (0-10) NT-Pro-B Natriuret Pep Total Protein Albumin Globulin Lipase EKG Data^: EKG 1: EKG interpretation date: 01/19/21 EKG interpretation time: 07:39 Computer generated interpretation: Sinus rhythm with occasional ectopic premature complexes left axis deviation ventricular rate 96 bpm OR interval 158 ms QRS durations 85 ms QT is 340 ms EKG 2: EKG interpretation date: 01/19/21 EKG interpretation time: 09:37 Computer generated interpretation: Sinus rhythm with occasional ventricular premature complexes possible LVH ventricular rate 92 bpm OR interval 155 ms QRS duration 89 ms QT is 361 Discharge Plan Discharge Patient Disposition: Home Clinical Impression: Chest pain due to GERD Aortic stenosis Qualifiers: Cardiac valve disease etiology: nonrheumatic Qualified Code(s): I35.0 - Nonrheumatic aortic (valve) stenosis Condition: Stable Prescriptions: New Carafate 1 gram tablet 1 g PO BID 28 Days Qty: 56 RF: 0 No Action sucralfate [Carafate] 1 gram tablet 1 g PO Q6H 30 Days Qty: 120 RF: 0 acetaminophen 500 mg tablet 500 mg PO Q6H PRN (Reason: mild to moderate pain) Qty: 120 RF: 3 nitroglycerin [Nitrostat] 0.4 mg tablet, sublingual 0.4 mg SUBLINGUAL Q5M PRN (Reason: Chest Pain from heart) Qty: 14 RF: 3 sertraline 25 mg tablet 25 mg PO DAILY Qty: 30 RF: 5 celecoxib 50 mg capsule 50 mg PO BID@08,16 Qty: 60 RF: 5 ondansetron HCl 4 mg tablet See Rx Instructions .ROUTE .COMPLEX Qty: 40 RF: 0 pantoprazole 40 mg tablet,delayed release (DR/EC) See Rx Instructions .ROUTE .COMPLEX Qty: 60 RF: 2 trihexyphenidyl 2 mg tablet See Rx Instructions .ROUTE .COMPLEX Qty: 60 RF: 0 carbidopa-levodopa 25-100 mg tablet 2 tab PO .COMPLEX Qty: 300 RF: 4 aspirin 81 mg tablet,delayed release (DR/EC) 81 mg PO DAILY@08 RF: 0 Protonix 40 mg tablet,delayed release (DR/EC) 40 mg PO DAILY Qty: 60 RF: 0 Discharge Orders: Discharge ED (Routine); Ordered 01/19/21 Ordered By: Kofi Clements Referrals: Maycol Landis MD [Primary Care Provider] - Discharge Diet: As Directed Discharge Activity: Resume usual activity Patient Instructions: GERD (Gastroesophageal Reflux Disease) (ED) Activity Restrictions/Additional Instructions: Follow-up with medical provider as directed. Take medications as prescribed. Return to the ER or your medical provider if condition worsens. Please read and understand discharge instructions. If any questions ask please. Add Carafate to your medications to help control your GERD symptoms. Continue taking Protonix as directed. Also keep appointment with green feed attendant at hospital scheduling for you. Coding Level of Care Code ED Platform Architect for Chg Fwd Exam Comprehensive Documented by User: John Paul Zuñiga MD 01/25/21 00:25 HPI - Chest Pain General: Chief Complaint: Chest Pain Stated Complaint: ABDOMINAL PAIN/ CHEST PAIN Time Seen by Provider: 01/19/21 07:31 [facility] ED PFSH: Medical History Anxiety CAD (coronary artery disease) Cholelithiasis Chronic back pain GERD (gastroesophageal reflux disease) Macular degeneration Motion sickness, sequela Parkinson disease Surgical History History of carpal tunnel surgery History of colonoscopy with polypectomy 2018 History of foot surgery Status post laparoscopic cholecystectomy (07/31/20) Family History Daughter Cancer Social History Alcohol intake: never Course Vital Signs: Vital signs: Vital Signs Temperature 98.1 F 01/19/21 07:30 Pulse Rate 96 01/19/21 10:45 Respiratory Rate 17 01/19/21 10:45 Blood Pressure 132/90 01/19/21 10:45 Pulse Oximetry 96 01/19/21 10:45 MDM - Chest Pain MDM Narrative: Medical decision making narrative: I discussed this case with Kofi Clements [employer]. Challenging situation with recurrent visits, appears similar to baseline. I have reviewed documentation, labs, imaging as appropriate. John Paul Zuñiga MD Emergency Medicine Lab Data: Labs: Lab Results 01/19/21 01/19/21 01/19/21 07:44 07:44 07:44 WBC 6.3 10^3/uL 10^3/ uL (4.0-10.0) RBC 3.42 10^6/uL L 10 ^6/uL (4.1-5.3) Hgb 10.7 g/dL L g/dL (11.5-15.3) Hct 32.3 % L % (37.0-47.0) MCV 94.4 fl fl (81-99) MCH 31.3 pg pg (28.0-34.0) MCHC 33.1 g/dL g/dL (30.0-36.0) RDW 14.2 % % (12.1-15.1) Plt Count 367 10^3/cmm 10^3 /cmm (130-400) MPV 9.8 fL fL (7.4-10.4) Neut % (Auto) 70.9 % % Lymph % (Auto) 19.4 % % [place] % (Auto) 8.3 % % Eos % (Auto) 0.6 % % Baso % (Auto) 0.6 % % Neut # (Auto) 4.45 10^3/uL 10^3 /uL (1.8-7.7) Lymph # (Auto) 1.2 10^3/uL 10^3/ uL (0.8-4.8) [place] # (Auto) 0.5 10^3/uL 10^3/ uL (0.2-0.9) Eos # (Auto) 0.0 10^3/uL 10^3/ uL (0.0-0.8) Baso # (Auto) 0.0 10^3/uL 10^3/ uL (0.0-0.1) Nucleated RBC % (a uto) 0 % % Nucleated RBCs # 0.0 /100WBC /100W BC PT 14.20 SECONDS SEC ONDS (12.1-14.9) INR 1.07 (0.8-1.2) Sodium 137 mmol/L mmol/L (136-145) Potassium 3.7 mmol/L mmol/L (3.5-5.1) Chloride 96 mmol/L L mmol/ L (98-107) Carbon Dioxide 29 mmol/L mmol/L (22-29) Anion Gap 15.7 (5-19) BUN 8 mg/dL mg/dL (8-23) Creatinine 0.8 mg/dL mg/dL (0.5-0.9) GFR Calculation Not Reportable Glucose 99 mg/dL mg/dL (65-115) Calculated Osmolal ity 282 mOsm/kg L mOs m/kg (285-295) Calcium 9.8 mg/dL mg/dL (8.5-10.5) Total Bilirubin 0.3 mg/dL mg/dL (0.15-1.2) AST 10 U/L U/L (0-32) ALT < 5 U/L U/L (0-33) Alkaline Phosphata se 65 IU/L IU/L (35-105) Troponin T Baselin e Troponin T 120 Min [place] Troponin T NT-Pro-B Natriuret Pep 738 pg/mL H pg/mL (0-450) Total Protein 6.6 g/dL g/dL (6.6-8.7) Albumin 4.6 g/dL g/dL (3.5-5.2) Globulin 2.0 g/dL g/dL (1.3-4.6) Lipase 15 U/L U/L (13-60) 01/19/21 01/19/21 07:44 09:42 WBC RBC Hgb Hct MCV MCH MCHC RDW Plt Count MPV Neut % (Auto) Lymph % (Auto) [place] % (Auto) Eos % (Auto) Baso % (Auto) Neut # (Auto) Lymph # (Auto) [place] # (Auto) Eos # (Auto) Baso # (Auto) Nucleated RBC % (a uto) Nucleated RBCs # PT INR Sodium Potassium Chloride Carbon Dioxide Anion Gap BUN Creatinine GFR Calculation Glucose Calculated Osmolal ity Calcium Total Bilirubin AST ALT Alkaline Phosphata se Troponin T Baselin e 10 ng/L ng/L (0-10) Troponin T 120 Min [place] 9.36 ng/L ng/L (0-10) [place] Troponin T -0.64 ABS# L ABS# (0-10) NT-Pro-B Natriuret Pep Total Protein Albumin Globulin Lipase Discharge Plan Discharge Patient Disposition: Home Clinical Impression: Chest pain due to GERD Aortic stenosis Qualifiers: Cardiac valve disease etiology: nonrheumatic Qualified Code(s): I35.0 - Nonrheumatic aortic (valve) stenosis Condition: Stable Prescriptions: New Carafate 1 gram tablet 1 g PO BID 28 Days Qty: 56 RF: 0 No Action sucralfate [Carafate] 1 gram tablet 1 g PO Q6H 30 Days Qty: 120 RF: 0 acetaminophen 500 mg tablet 500 mg PO Q6H PRN (Reason: mild to moderate pain) Qty: 120 RF: 3 nitroglycerin [Nitrostat] 0.4 mg tablet, sublingual 0.4 mg SUBLINGUAL Q5M PRN (Reason: Chest Pain from heart) Qty: 14 RF: 3 sertraline 25 mg tablet 25 mg PO DAILY Qty: 30 RF: 5 celecoxib 50 mg capsule 50 mg PO BID@08,16 Qty: 60 RF: 5 ondansetron HCl 4 mg tablet See Rx Instructions .ROUTE .COMPLEX Qty: 40 RF: 0 pantoprazole 40 mg tablet,delayed release (DR/EC) See Rx Instructions .ROUTE .COMPLEX Qty: 60 RF: 2 trihexyphenidyl 2 mg tablet See Rx Instructions .ROUTE .COMPLEX Qty: 60 RF: 0 carbidopa-levodopa 25-100 mg tablet 2 tab PO .COMPLEX Qty: 300 RF: 4 aspirin 81 mg tablet,delayed release (DR/EC) 81 mg PO DAILY@08 RF: 0 Protonix 40 mg tablet,delayed release (DR/EC) 40 mg PO DAILY Qty: 60 RF: 0 Discharge Orders: Discharge ED (Routine); Ordered 01/19/21 Ordered By: Kofi Clements Referrals: Maycol Landis MD [Primary Care Provider] - Discharge Diet: As Directed Discharge Activity: Resume usual activity Patient Instructions: GERD (Gastroesophageal Reflux Disease) (ED) Activity Restrictions/Additional Instructions: Follow-up with medical provider as directed. Take medications as prescribed. Return to the ER or your medical provider if condition worsens. Please read and understand discharge instructions. If any questions ask please. Add Carafate to your medications to help control your GERD symptoms. Continue taking Protonix as directed. Also keep appointment with green feed attendant at hospital scheduling for you. Coding Level of Care Code ED Platform Architect for Armando Fwd Exam Comprehensive
[2021-01-19 07:54] VITALS: BP 167/102; PULSE 92; RESP 16; O2SAT 96
[2021-01-19 07:55] LABS: Basophils % 0.6 %; Eosinophils % 0.6 %; Hematocrit 32.3 % (37.0-47.0); Hemoglobin 10.7 g/dL (11.5-15.3); Lymphocytes # 1.2 10^3/uL (0.8-4.8); Lymphocytes % 19.4 %; Mean Corpuscular HGB Conc 33.1 g/dL (30.0-36.0); Mean Corpuscular Hemoglobin 31.3 pg (28.0-34.0); Mean Corpuscular Volume 94.4 fl (81-99); Mean Platelet Volume 9.8 fL (7.4-10.4); Monocytes # 0.5 10^3/uL (0.2-0.9); Monocytes % 8.3 %; Neutrophils # 4.45 10^3/uL (1.8-7.7); Neutrophils % 70.9 %; Nucleated Red Blood Cells % 0 %; Platelet Count 367 10^3/cmm (130-400); Red Blood Count 3.42 10^6/uL (4.1-5.3); Red Cell Distribution Width 14.2 % (12.1-15.1); White Blood Count 6.3 10^3/uL (4.0-10.0)
[2021-01-19] MEDS: ketorolac 30 mg/mL INJ IVP (07:58)
[2021-01-19 08:18] LABS: INR 1.07 (0.8-1.2)
[2021-01-19 08:24] LABS: Troponin(5th) Baseline 10 ng/L (0-10)
[2021-01-19 08:34] LABS: Alanine Aminotransferase < 5 U/L (0-33); Albumin Level 4.6 g/dL (3.5-5.2); Alkaline Phosphatase 65 IU/L (35-105); Anion Gap 15.7 (5-19); Aspartate Amino Transferase 10 U/L (0-32); Blood Urea Nitrogen 8 mg/dL (8-23); Calcium 9.8 mg/dL (8.5-10.5); Carbon Dioxide 29 mmol/L (22-29); Chloride 96 mmol/L (98-107); Glucose 99 mg/dL (65-115); Lipase 15 U/L (13-60); NT Pro B Type Natriuretic Pept 738 pg/mL (0-450); Osmolality Calculated 282 mOsm/kg (285-295); Potassium 3.7 mmol/L (3.5-5.1); Sodium 137 mmol/L (136-145); Total Bilirubin 0.3 mg/dL (0.15-1.2); Total Protein 6.6 g/dL (6.6-8.7)
[2021-01-19] MEDS: TRAMadol 50 mg Tablet PO (08:34)
--- NOTE | 2021-01-19 09:32 | ECG_ITS ---
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 Measurements Intervals [place] Rate: 92 P: 56 CO: 155 QRS: -20 QRSD: 89 T: 45 QT: 361 QTc: 448 Interpretive Statements SINUS RHYTHM WITH OCCASIONAL VENTRICULAR PREMATURE COMPLEXES MODERATE VOLTAGE CRITERIA FOR LVH, CONSIDER NORMAL VARIANT [MEETS CRITERIA IN ONE OF: R(aVL), S(V1), R(V5), R(V5/V6)+S(V1)] Compared to ECG 01/19/2021 07:35:03 Ventricular premature complex(es) now present Left-axis deviation no longer present Electronically Signed On 01-19-2021 15:56:13 SPRAY DYER by Lukas Grewal M.D. [id number]
[2021-01-19] MEDS: lidocaine 2% viscous 15 ML, aluminum-mag hydrox-simethicon 30 ML, sucralfate oral liq 1 GM PO (09:55)
[2021-01-19 10:15] LABS: Troponin 5 2HR 9.36 ng/L (0-10)
[2021-01-19 10:29] LABS: Troponin 5 2HR Delta -0.64 ABS# (0-10)
[2021-01-19 10:45] VITALS: BP 132/90; PULSE 96; RESP 17; O2SAT 96
--- NOTE | 2021-01-20 14:06 | DCPLANNER ---
human capital manager had message to schedule a follow up appointment for patient with [facility]. human capital manager called [facility], spoke with Sania, gave clinic patients information. A follow up appointment was scheduled for January at 2:[address] Salmeron. human capital manager callled patient and gave her the appointment information. human capital manager also explained to patient that if she could not make that appointment to call the [facility] clinic and cancel the appointment.
--- NOTE | 2021-02-27 13:39 | DCPLANNER ---
Patient has a follow up appointment scheduled for 01.30.21 with heart care - patient did attend appointment.
== END 2021-01-19 10:49 | disposition home or self-care (01) ==
PROVIDERS: Emergency Provider Nurse Practitioner Family; PCP Family Medicine Adult Medicine
DX: K21.9 Gastro-esophageal reflux disease without esophagitis (principal); I35.0 Nonrheumatic aortic (valve) stenosis; Z79.82 Long term (current) use of aspirin; I25.10 Atherosclerotic heart disease of native coronary artery without angina pectoris; H35.30 Unspecified macular degeneration
CPT/HCPCS: 36415; 71045; 80053; 83690; 83880; 84484; 85025; 85610; 93005; 96374; 99284; 99291; J1885

== ENCOUNTER 2021-02-02 15:48 | Emergency (ER) | payer MEDICARE, SELFPAY ==
[2021-02-02] VITALS (44 sets, daily range): BP systolic 100–159; BP diastolic 64–102; PULSE 74–101; RESP 4–27; TEMP 36.4; O2SAT 95–100; BMI 18.8
--- NOTE | 2021-02-02 15:57 | ECG_ITS ---
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 Measurements Intervals [place] Rate: 93 P: 57 ME: 143 QRS: -35 QRSD: 81 T: 24 QT: 345 QTc: 430 Interpretive Statements SINUS RHYTHM LEFT AXIS DEVIATION [QRS AXIS < -30] PATTERN CONSISTENT WITH PULMONARY DISEASE VOLTAGE CRITERIA FOR LVH [MEETS CRITERIA IN ONE OF: R(aVL), S(V1), R(V5), R(V5/V6)+S(V1)] Compared to ECG 01/19/2021 09:35:41 Left-axis deviation now present Ventricular premature complex(es) no longer present Electronically Signed On 02-03-2021 16:59:49 EDUCATION INTERN by Adrián Fregoso M.D. [id number]
--- NOTE | 2021-02-02 16:02 | XRR_ITS ---
PROCEDURE INFORMATION: Exam: XR Chest Exam date and time: 02/02/2021 4:02 PM Age: 76 years old Clinical indication: Pain; Chest pressure; Patient HX: C/O cp/pressure; Additional info: Chest pain TECHNIQUE: Imaging protocol: XR of the chest. Views: 1 view. COMPARISON: CR XR chest 1V portable [id number] 01/19/2021 7:44 AM FINDINGS: Lungs: Mild atelectasis in the left base. The right lung is clear. Pleural spaces: Unremarkable. No pleural effusion. No pneumothorax. Heart/Mediastinum: Unremarkable. No cardiomegaly. Diaphragm: Stable mild elevation and partial eventration of the left diaphragm. Bones/joints: Unremarkable. XR/XR chest 1V portable [id number] IMPRESSION: No acute finding. Radiation Dose CTDIVOL = (mGy): DLP = (mGy-cm)
--- NOTE | 2021-02-02 16:02 | W.ED.CHESTPA ---
HPI - Chest Pain General: Chief Complaint: ER Hold Stated Complaint: CHEST PAINS Time Seen by Provider: 02/02/21 16:01 History of Present Illness: HPI narrative: Ms. Linton is a 76-year-old lady with complex past medical history including frequent chest pain who presents to the emergency department due to chest pain. She reports that it really never goes away however it is perhaps worse today and last night. Today she was under increased stress as she reports she was spreading her daughter's ashes. In addition she does report some contusions and pain related to a fall without head strike or loss of consciousness 3 days ago. She is unsure of exactly why she fell. She has been able to ambulate. Intensity of chest pain is moderate to severe. Course has persisted. Quality is burning. No other new changes to health, infectious symptoms, specific exacerbating or relieving factors identified. Review of Systems General: Reports: 10 or more systems reviewed and unremarkable except in HPI and below PFSH ED PFSH: Medical History Anxiety CAD (coronary artery disease) Signed out AMA Cholelithiasis Chronic back pain Signed out AMA GERD (gastroesophageal reflux disease) Signed out AMA Macular degeneration Motion sickness, sequela Parkinson disease Signed out AMA Surgical History History of carpal tunnel surgery History of colonoscopy with polypectomy 2018 History of foot surgery Status post laparoscopic cholecystectomy (07/31/20) Family History Daughter Cancer Social History Smoking and tobacco status: never smoked Alcohol intake: never Physical Exam Narrative: EXAM NARRATIVE: GENERAL/CONSTITUTIONAL -frail-appearing. No acute distress. Eyes -no scleral icterus, no conjunctival injection ENMT - Atraumatic external nose and ears. Moist mucous membranes NECK - supple. trachea midline CARDIOVASCULAR - regular rate and rhythm. Normal peripheral perfusion RESPIRATORY -clear to auscultation bilaterally. No retractions or accessory muscle use. ABDOMEN/GI - Nontender/Nondistended. MSK - Extremities without obvious deformity or tenderness to palpation SKIN - Warm, Dry NEURO - alert and appropriately oriented. Moves all extremities equally. PSYCH - anxious Course ED course: - Patient was seen and evaluated by me at bedside - Patient placed on cardiac monitors, IV access obtained - Initial evaluation notable for no acute distress, nontoxic appearance. Chest pain not reproducible with palpation on physical exam -Given burning description of symptoms symptom treatment ordered. - Labs notable for no leukocytosis, mildly worse than normal normocytic anemia. No acute electrolyte derangement to explain patient's symptoms. Initial troponin negative. - Imaging notable for no lobar consolidation or other acute finding to explain patient's symptoms - The patient does have a history of CAD and recent outpatient visit with cardiology at which point echocardiogram and cardiac stress test were ordered. - As such, due to presenting complaint of chest pain and elevated heart score patient will be admitted to observation for inpatient stress test. Hospitalist service contacted and agreed to admit patient to observation for chest pain. Vital Signs: Vital signs: Vital Signs Temperature 97.6 F 02/02/21 15:53 Pulse Rate 97 02/03/21 12:18 Respiratory Rate 19 H 02/03/21 12:18 Blood Pressure 143/105 02/03/21 12:18 Pulse Oximetry 96 02/03/21 12:18 MDM - Chest Pain Medical Records: Attestation: I reviewed the patient's medical records. Lab Data: Attestation: I reviewed the patient's lab results. Labs: Lab Results 02/02/21 02/02/21 02/02/21 16:06 16:06 16:06 WBC 6.3 10^3/uL 10^3/ uL (4.0-10.0) RBC 3.00 10^6/uL L 10 ^6/uL (4.1-5.3) Hgb 9.4 g/dL L g/dL (11.5-15.3) Hct 29.4 % L % (37.0-47.0) MCV 98.0 fl fl (81-99) MCH 31.3 pg pg (28.0-34.0) MCHC 32.0 g/dL g/dL (30.0-36.0) RDW 13.8 % % (12.1-15.1) Plt Count 329 10^3/cmm 10^3 /cmm (130-400) MPV 9.9 fL fL (7.4-10.4) Neut % (Auto) 68.3 % % Lymph % (Auto) 19.5 % % [place] % (Auto) 10.8 % % Eos % (Auto) 0.6 % % Baso % (Auto) 0.6 % % Neut # (Auto) 4.31 10^3/uL 10^3 /uL (1.8-7.7) Lymph # (Auto) 1.2 10^3/uL 10^3/ uL (0.8-4.8) [place] # (Auto) 0.7 10^3/uL 10^3/ uL (0.2-0.9) Eos # (Auto) 0.0 10^3/uL 10^3/ uL (0.0-0.8) Baso # (Auto) 0.0 10^3/uL 10^3/ uL (0.0-0.1) Nucleated RBC % (a uto) 0 % % Nucleated RBCs # 0.0 /100WBC /100W BC Sodium 136 mmol/L mmol/L (136-145) Potassium 3.8 mmol/L mmol/L (3.5-5.1) Chloride 99 mmol/L mmol/L (98-107) Carbon Dioxide 28 mmol/L mmol/L (22-29) Anion Gap 12.8 (5-19) BUN 10 mg/dL mg/dL (8-23) Creatinine 0.8 mg/dL mg/dL (0.5-0.9) GFR Calculation Not Reportable Glucose 94 mg/dL mg/dL (65-115) Calculated Osmolal ity 281 mOsm/kg L mOs m/kg (285-295) Calcium 8.8 mg/dL mg/dL (8.5-10.5) Total Bilirubin 0.3 mg/dL mg/dL (0.15-1.2) AST 11 U/L U/L (0-32) ALT < 5 U/L U/L (0-33) Alkaline Phosphata se 61 IU/L IU/L (35-105) Troponin T Baselin e 9 ng/L ng/L (0-10) Troponin T 120 Min nicole Delta Troponin T Total Protein 6.0 g/dL L g/dL (6.6-8.7) Albumin 4.2 g/dL g/dL (3.5-5.2) Globulin 1.8 g/dL g/dL (1.3-4.6) Lipase 14 U/L U/L (13-60) SARS-CoV-2 Ag (Rap id) 02/02/21 02/02/21 16:17 17:50 WBC RBC Hgb Hct MCV MCH MCHC RDW Plt Count MPV Neut % (Auto) Lymph % (Auto) [place] % (Auto) Eos % (Auto) Baso % (Auto) Neut # (Auto) Lymph # (Auto) [place] # (Auto) Eos # (Auto) Baso # (Auto) Nucleated RBC % (a uto) Nucleated RBCs # Sodium Potassium Chloride Carbon Dioxide Anion Gap BUN Creatinine GFR Calculation Glucose Calculated Osmolal ity Calcium Total Bilirubin AST ALT Alkaline Phosphata se Troponin T Baselin e Troponin T 120 Min nicole 6.42 ng/L ng/L (0-10) Delta Troponin T -2.58 ABS# L ABS# (0-10) Total Protein Albumin Globulin Lipase SARS-CoV-2 Ag (Rap id) Negative (Negative) EKG Data^: EKG 1: Attestation: I personally reviewed and interpreted this EKG as follows: EKG interpretation date: 02/02/21 EKG interpretation time: 16:04 Interpretation: Twelve-lead EKG shows a regular rhythm at a rate of 93. [place] interval 143, QRS duration 81, QTc 430. Left axis deviation. Interpretation: Sinus rhythm. EKG 2: Attestation: I personally reviewed and interpreted this EKG as follows: EKG interpretation date: 02/02/21 EKG interpretation time: 18:03 Interpretation: Twelve-lead EKG shows a regular rhythm at a rate of 95. KY interval 146, QRS duration 86, QTc 449. Left axis deviation. Interpretation: Sinus rhythm. Discharge Plan Discharge Patient Disposition: Left Against Medical Advice Condition: Stable Coding Level of Care Code ED [place] Cutting Machine Operator for Armando Gtz
[2021-02-02 16:19] LABS: Basophils % 0.6 %; Eosinophils % 0.6 %; Hematocrit 29.4 % (37.0-47.0); Hemoglobin 9.4 g/dL (11.5-15.3); Lymphocytes # 1.2 10^3/uL (0.8-4.8); Lymphocytes % 19.5 %; Mean Corpuscular Hemoglobin 31.3 pg (28.0-34.0); Mean Platelet Volume 9.9 fL (7.4-10.4); Monocytes # 0.7 10^3/uL (0.2-0.9); Monocytes % 10.8 %; Neutrophils # 4.31 10^3/uL (1.8-7.7); Neutrophils % 68.3 %; Nucleated Red Blood Cells % 0 %; Platelet Count 329 10^3/cmm (130-400); Red Cell Distribution Width 13.8 % (12.1-15.1); White Blood Count 6.3 10^3/uL (4.0-10.0)
--- NOTE | 2021-02-02 16:39 | XRR_ITS ---
PROCEDURE INFORMATION: Exam: XR Right Scapula Exam date and time: 02/02/2021 4:39 PM Age: 76 years old Clinical indication: Right; Patient HX: C/O R shoulder/scapula pain; Additional info: Fall, pain TECHNIQUE: Imaging protocol: XR Right scapula, complete. COMPARISON: CR (CHEST, ) 02/02/2021 4:08 PM FINDINGS: Bones/joints: The bones are intact and normal alignment. Mild degenerative changes of the acromioclavicular joint. Soft tissues: Normal. Other findings: Two views submitted. XR/[place] [id number] IMPRESSION: No acute finding. Radiation Dose CTDIVOL = (mGy): DLP = (mGy-cm)
--- NOTE | 2021-02-02 16:39 | XRR_ITS ---
PROCEDURE INFORMATION: Exam: XR Right Hip Exam date and time: 02/02/2021 4:39 PM Age: 76 years old Clinical indication: Right hip; Patient HX: C/O R hip pain; Additional info: Fall, pain TECHNIQUE: Imaging protocol: XR Right hip. Views: 2 or 3 views hip with pelvis when performed. COMPARISON: CT chest abd pel w con* 12/31/2020 8:48 PM FINDINGS: Bones/joints: Unremarkable. No acute fracture. Soft tissues: Unremarkable. XR/XR hip RT 2-3V wo/w pel* [id number] IMPRESSION: No acute findings. Radiation Dose CTDIVOL = (mGy): DLP = (mGy-cm)
[2021-02-02 16:42] LABS: Troponin(5th) Baseline 9 ng/L (0-10)
[2021-02-02 16:43] LABS: Alanine Aminotransferase < 5 U/L (0-33); Albumin Level 4.2 g/dL (3.5-5.2); Alkaline Phosphatase 61 IU/L (35-105); Anion Gap 12.8 (5-19); Aspartate Amino Transferase 11 U/L (0-32); Blood Urea Nitrogen 10 mg/dL (8-23); Calcium 8.8 mg/dL (8.5-10.5); Carbon Dioxide 28 mmol/L (22-29); Chloride 99 mmol/L (98-107); Globulin 1.8 g/dL (1.3-4.6); Glucose 94 mg/dL (65-115); Lipase 14 U/L (13-60); Osmolality Calculated 281 mOsm/kg (285-295); Potassium 3.8 mmol/L (3.5-5.1); Sodium 136 mmol/L (136-145); Total Bilirubin 0.3 mg/dL (0.15-1.2)
[2021-02-02 16:45] LABS: SARS Covid-2 Antigen Negative (Negative)
--- NOTE | 2021-02-02 18:02 | ECG_ITS ---
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 Measurements Intervals [place] Rate: 95 P: 54 AR: 146 QRS: -25 QRSD: 86 T: 47 QT: 357 QTc: 449 Interpretive Statements SINUS RHYTHM BORDERLINE LEFT AXIS DEVIATION [QRS AXIS < -20] MODERATE VOLTAGE CRITERIA FOR LVH, CONSIDER NORMAL VARIANT [MEETS CRITERIA IN ONE OF: R(aVL), S(V1), R(V5), R(V5/V6)+S(V1)] Compared to ECG 02/02/2021 16:01:14 No significant changes Electronically Signed On 02-03-2021 17:08:01 WELLFIELD TECHNICIAN by Adrián Fregoso M.D. [id number]
--- NOTE | 2021-02-02 18:04 | PM.HP ---
Providers/Chief Complaint Primary Care Provider: Maycol Landis MD Chief Complaint: CHEST PAINS History of Present Illness Heidy Linton is a 76 year old female ER for complaint of chest pain on the left side of her chest. She states that she fell twice last week but did not hit her head. She had pain in her right hip and her left side of her back and scapular area as she hit the cabinet door. Patient lives at home with her granddaughter. She said that she has been having pain on the left side of her chest. She also states that she has been vaccinated for Covid and recently her daughter from cancer. Yesterday she attended her . She also states she has been losing weight for last 3 months which is unintentional. She alternates between diarrhea and constipation also reports having hemorrhoids. Denies any shortness of breath or chest pain on exertion. She states her chest pain is positional and upon movement of her left arm. It is also reproducible to palpation. All ROS reviewed but negative except noted in HPI. CXR and right hip xray was done in ER but negative. Trop negative. Review of Systems Const: Reports: body aches, change in appetite, change in weight and fatigue; Denies: fever(s) Eyes: Denies: change in vision ENMT: Denies: throat pain Card: Reports: chest pain Resp: Reports: dyspnea GI: Denies: abdominal pain : Denies: flank pain Musc: Reports: joint stiffness Skin/Breast: Denies: rash Neuro: Denies: headache(s) Psych: Reports: anxiety Endo: Denies: polyuria Rashad/Lymph: Denies: easy bruising All/Imm: Denies: urticaria Medications/Allergies Home Medications Medication Instructions Recorded Confirmed Last Taken Type acetaminophen 500 mg tablet 500 mg PO Q6H PRN #120 tab 01/30/20 02/02/21 05/24/20 Rx nitroglycerin 0.4 mg sublingual 0.4 mg SUBLINGUAL Q5M PRN #14 tab 01/30/20 02/02/21 03/17/20 Rx tablet aspirin 81 mg PO DAILY@08 03/12/20 02/02/21 02/01/21 History sucralfate 1 gram tablet 1 g PO Q6H 30 Days #120 tab 08/13/20 02/02/21 02/01/21 Rx sertraline 25 mg tablet 25 mg PO DAILY #30 tab 10/07/20 02/02/21 02/01/21 Rx ondansetron HCl 4 mg tablet See Rx Instructions .ROUTE 10/30/20 02/02/21 Unknown Rx .COMPLEX #40 tab pantoprazole [Protonix] 40 mg PO DAILY #60 tab 01/07/21 02/02/21 02/01/21 Rx sucralfate [Carafate] 1 g PO BID 28 Days #56 tab 01/19/21 02/02/21 02/01/21 Rx trihexyphenidyl 2 mg tablet See Rx Instructions .ROUTE 01/20/21 02/02/21 02/01/21 Rx .COMPLEX #60 tab carbidopa-levodopa 2.5 tab PO QID 02/02/21 02/02/21 02/01/21 History Allergies Allergy/AdvReac Type Severity Reaction Status Date / Time Penicillins Allergy Unknown Unknown Verified 01/30/21 15:35 PFSH Acute PFSH: Medical History Anxiety CAD (coronary artery disease) Signed out AMA Cholelithiasis Chronic back pain Signed out AMA GERD (gastroesophageal reflux disease) Signed out AMA Macular degeneration Motion sickness, sequela Parkinson disease Signed out AMA Surgical History History of carpal tunnel surgery History of colonoscopy with polypectomy 2018 History of foot surgery Status post laparoscopic cholecystectomy (07/31/20) Family History Daughter Cancer Social History Smoking and tobacco status: never smoked Alcohol intake: never Vitals/I&O/Wt Last Vital Signs Temp 97.6 F 02/02/21 15:53 Pulse 98 02/02/21 16:53 Resp 18 02/02/21 16:53 BP 159/93 02/02/21 16:53 Pulse Ox 97 02/02/21 16:53 Weight last 48 hrs Weight 46.72 kg Physical Exam Narrative: EXAM NARRATIVE: General: Alert oriented x3, patient seen since this morning laying in bed appearing quite pleasant and happy. HEENT: Normocephalic, atraumatic, EOMI, breathing normally, normal respiratory effort no acute distress. Cardio: Regular rate rhythm, normal S1-S2 no gross murmurs. Chest pain reproducible to palpation on left side of chest. Respiratory: Normal bilateral air entry, no gross wheezes or rhonchi appreciated, GI: Abdomen soft, nontender, Behavior: Appropriate and cooperative, pleasant Extremities: no edema, no cyanosis, does have small area of bruise around right lateral hip area from her previous fall. Mildly tender to palpation around the are Data : 02/02/21 16:06 02/02/21 16:06 A&P Assessment and plan (1) Fall: Status: Acute (2) Chest pain: Status: Acute Additional A&P Information Atypical chest pain Reproducible chest pain Patient sustained a fall Troponin negative EKG without ischemic infarctive changes Stress test tomorrow N.p.o. after midnight Hold metoprolol N.p.o. after midnight Full code DVT prophylaxis on board Continue Parkinson's medications Continue gastritis medication sucralfate and Protonix Attestations Medical Necessity Statement*: Anticipating discharge within 48 hours Time Spent in Patient Care: Greater than 35 minutes Coding Level of Care Code Acute Custom Designer for Jazmineg Fwd Diagnoses Fall W19.XXXA Chest pain R07.9
[2021-02-02 18:29] LABS: Troponin 5 2HR 6.42 ng/L (0-10)
[2021-02-02 18:30] LABS: Troponin 5 2HR Delta -2.58 ABS# (0-10)
[2021-02-02] MEDS: haloperidol inj 5 mg/mL INJ 1 mL 2 MG IVP (19:59)
--- NOTE | 2021-02-02 20:14 | PC.NURSE ---
Pt. resting with eyes closed in room .
--- NOTE | 2021-02-02 20:51 | PC.NURSE ---
Pt. woke from sleeping and states that she needs something for pain . I have explained that the doctor states that he is not going to give her narcotics for pain right now and that he gave the previous medication to try and relieve the pain. Pt. states what if I just go home? . I have explained that if she goes home right now it will be against medical advice , but we will not keep her against her will. Pt. has asked to speak to the doctor.
[2021-02-02] MEDS: alum-mag-hydroxide-sime 30 mL UDC PO (21:44)
[2021-02-02] MEDS: pantoprazole 40 mg SDV IVP (21:44)
[2021-02-02] MEDS: carbidopa-levodopa 25-100mg Tablet 2.5 EACH PO (22:34)
[2021-02-02 22:58] LABS: Troponin 5 6HR 8.88 ng/L (0-10)
[2021-02-02 23:06] LABS: Troponin 5 6HR Delta -0.12 ng/L (0-12)
[2021-02-03] VITALS (64 sets, daily range): BP systolic 100–143; BP diastolic 63–105; PULSE 66–101; RESP 11–22; O2SAT 94–97
--- NOTE | 2021-02-03 04:46 | USCV_ITS ---
Heidy Linton Age: 76 Gender: F : 1945 Exam Date: 02/03/2021 06:30 Ordering Phys: Chago Cerrato MD Technologist: Marina Fu Exam Location: [facility] [place] Indication: UA BP: 130 / 91 HR: 89 Rhythm: Other Technical Quality: Adequate MEASUREMENTS (Male / Female) Normal Values 2D ECHO LV Diastolic Diameter PLAX 4.7 cm 4.2 - 5.9 / 3.9 - 5.3 cm LV Systolic Diameter PLAX 3.0 cm IVS Diastolic Thickness 1.1 cm 0.6 - 1.0 / 0.6 - 0.9 cm IVS Systolic Thickness 1.3 cm LVPW Diastolic Thickness 1.1 cm 0.6 - 1.0 / 0.6 - 0.9 cm LVPW Systolic Thickness 2.2 cm LVOT Diameter 2.0 cm LV Ejection Fraction 2D Teich 64.7 % LV Ejection Fraction MOD 2C 64.3 % LV Ejection Fraction 2C AL 64.7 % LA Diameter 2.5 cm LA Width 3.9 cm LA Height 4.7 cm RA Width 3.2 cm RA Height 4.2 cm Aorta at Sinotubular Diameter 2.4 cm M-MODE Aortic Annulus Diameter 2.8 cm LA Ao Ratio MM 0.9 MV E Point Septal Separation 0.8 cm DOPPLER AV Peak Velocity 366.3 cm/s LVOT Peak Velocity 107.7 cm/s AV Area Cont Eq vti 1.0 cm squared AV Area Cont Eq pk 0.9 cm squared MV Area PHT 5.0 cm squared Mitral E to A Ratio 0.7 MV E' Velocity 48.0 cm/s Mitral E to MV E' Ratio 15.0 Mitral E to LV E' Lateral Ratio 16.0 Mitral E to LV E' Septal Ratio 14.3 TR Peak Velocity 225.2 cm/s TR Peak Gradient 20.3 mmHg TR Mean Velocity 216.7 cm/s TR Mean Gradient 19.6 mmHg TR Velocity Time Integral 74.0 cm TV Peak E Velocity 49.0 cm/s Right Atrial Pressure 3.0 mmHg Pulmonary Artery Systolic Pressu 23.3 mmHg PV Peak Velocity 129.0 cm/s RV Acceleration Time 0.1 s RV Ejection Time 0.3 s RV AcT/ET 0.2 FINDINGS Left Ventricle Normal left ventricular cavity size. Normal left ventricular systolic function. Left ventricular ejection fraction is estimated at 60 %. Grade II/IV diastolic dysfunction, moderately elevated filling pressures. Right Ventricle The right ventricle is normal in size and function. Right Atrium The right atrium is normal in size. Left Atrium The left atrium is normal in size. Mitral Valve Moderately thickened mitral valve. Moderate mitral annular calcification. No mitral valve stenosis. Mild mitral valve regurgitation. Aortic Valve Severe aortic valve calcification. Moderate aortic valve stenosis, mean gradient 26.2 mmHg, BRANDON 0.99 cm squared. Moderate aortic valve regurgitation. Tricuspid Valve Mild tricuspid valve regurgitation. Pulmonic Valve Structurally normal pulmonic valve without significant stenosis. There is no pulmonic regurgitation. Pericardium Normal pericardium without effusion. Aorta Normal ascending aorta dimension. CONCLUSIONS 1-Normal left ventricular cavity size. Normal left ventricular systolic function. Left ventricular ejection fraction is estimated at 60 %. Grade II/IV diastolic dysfunction, moderately elevated filling pressures. 2-Moderately thickened mitral valve. Moderate mitral annular calcification. No mitral valve stenosis. Mild mitral valve regurgitation. 3-Severe aortic valve calcification. Moderate aortic valve stenosis, mean gradient 26.2 mmHg, BRANDON 0.99 cm squared. Moderate aortic valve regurgitation. 4-Mild tricuspid valve regurgitation. 5-There is no pericardial effusion. 6-Pulmonary artery systolic pressure is within normal limits. 7-Right atrial pressure is around 10 mm of mercury. 8-When compared to the prior echocardiogram dated March 25, 2014 there is a worsening of aortic stenosis from mild to moderate to moderate now there is also worsening of aortic regurgitation from mild to moderate. Chago Cline MD (Electronically Signed) Final Date: 04 February 2021 18:15 S
[2021-02-03] MEDS: enoxaparin 40 mg/0.4 mL Syringe SUBCUT (05:40)
[2021-02-03] MEDS: acetaminophen 500 mg Tablet PO (06:52)
--- NOTE | 2021-02-03 12:26 | PC.NURSE ---
Pt wanted to pain med before stress test. Dr Garcia ordered pain med. Went to give med to pt then she wanted to call family to see if everything was ok. Pt has been here since yesterday and would change her mind about meds or procedure her entire visit. Finally decided to Leave Against Medical Advice.
--- NOTE | 2021-02-03 12:54 | PM.PN ---
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 Patient states that she had a good night however does have some pain in her left side under the breast. She states she fell at home and since then she has been having pain on the left side. There are no rib fractures identified on x-ray however. She states the pain is reproducible to palpation. Denies any shortness of breath. She states she has been under a lot of stress lately due to her daughter passing away. She knows that she will be going for a stress test today. She was offered pain medications but she declined at this time. Vitals/I&O/Wt Last Vital Signs Temp 97.6 F 02/02/21 15:53 Pulse 97 02/03/21 12:18 Resp 19 H 02/03/21 12:18 BP 143/105 02/03/21 12:18 Pulse Ox 96 02/03/21 12:18 Weight last 48 hrs Weight 46.72 kg Physical Exam Narrative: EXAM NARRATIVE: General: Alert oriented x3, patient seen since this morning laying in bed appearing quite pleasant and happy. HEENT: Normocephalic, atraumatic, EOMI, breathing normally, normal respiratory effort no acute distress. Cardio: Regular rate rhythm, normal S1-S2 no gross murmurs. Chest pain reproducible to palpation on left side of chest. Respiratory: Normal bilateral air entry, no gross wheezes or rhonchi appreciated, GI: Abdomen soft, nontender, Behavior: Appropriate and cooperative, pleasant Extremities: no edema, no cyanosis, does have small area of bruise around right lateral hip area from her previous fall. Mildly tender to palpation around the area. Data : 02/02/21 16:06 02/02/21 16:06 A&P Assessment and plan (1) Fibromyalgia: Status: Acute (2) Parkinson disease: Status: Acute (3) CAD (coronary artery disease): Status: Acute (4) Chronic back pain: Status: Acute (5) GERD (gastroesophageal reflux disease): Status: Acute (6) Chest pain: Status: Acute (7) Fall: Status: Acute Additional A&P Information Patient does have a history of fibromyalgia and Parkinson's disease. She also has chronic back pain for which she is on tramadol at home. She states she sees a pain management doctor. She presented after a fall last week and started having chest pain and right hip pain. X-ray chest and x-ray hip did not reveal any fracture. She is able to walk and bear weight. She does complain of chest pain under the left breast which is reproducible palpation. She does state that she has been under a lot of stress and anxiety due to her daughter passing away. Yesterday she attended her daughter's . She will be going for a stress test today. Echo to be done as well. She sees Dr. Grewal as her transmission line engineer outpatient she states. She did see Dr. Spangler in the outpatient clinic on 30 January and was requested to do a cardiac stress test and echo. We will order physical therapy, Occupational Therapy, We will continue Parkinson's medications. I did offer patient pain medication for her thigh and ribs area but she states she is comfortable at this time. Full code Cardiac diet after stress test, n.p.o. for now DVT prophylaxis: Lovenox Attestations Medical Necessity Statement*: Potential discharge today after reviewing echo and stress test. Coding Level of Care Code Acute Whittling Room Operator for Armando Gtz Diagnoses Fibromyalgia M79.7 Parkinson disease G20 CAD (coronary artery disease) I25.10 Chronic back pain M54.9; G89.29 GERD (gastroesophageal reflux disease) K21.9 Chest pain R07.9 Fall W19.XXXA
--- NOTE | 2021-02-03 13:01 | PM.DCS ---
Discharge Providers Date of Admission: 02/02/21 17:53 Date of Discharge: February 03, 2021 Attending Provider at Admission: Chago Cerrato MD Attending Provider at Discharge: Chloe Najera MD Primary Care Provider: Maycol Landis MD Diagnoses at Discharge Discharge Diagnosis (1) Fibromyalgia: Status: Acute Permanent problem details: Signed out AMA (2) Parkinson disease: Status: Acute Permanent problem details: Signed out AMA (3) CAD (coronary artery disease): Status: Acute Permanent problem details: Signed out AMA (4) Chronic back pain: Status: Acute Permanent problem details: Signed out AMA (5) GERD (gastroesophageal reflux disease): Status: Acute Permanent problem details: Signed out AMA (6) Chest pain: Status: Acute Permanent problem details: Signed out AMA (7) Fall: Status: Acute Permanent problem details: Signed out AMA Reason for Visit Reason for Visit: CHEST PAINS Hospital Course Hospital Course I was informed by ER around noon that patient has signed out AGAINST MEDICAL ADVICE and does not want to have the stress test anymore. Patient has already left the ER. Earlier I did get a call that patient was requesting for pain medication I ordered her ketorolac and tramadol as per her request. She was agreeable to do the stress test but later on refused and signed out AGAINST MEDICAL ADVICE. Discharge Data Data Completed and Pending: Completed Studies During Hospitalization Category Date Time Status XR chest 1V leidy ble [id number] Urgent Exams 02/02/21 16:02 Completed XR hip RT 2-3V wo /w pel* [id number] Urge nt Exams 02/02/21 16:39 Completed XR scapula RT 730 10 Urgent Exams 02/02/21 16:39 Completed Pending at discharge Category Date Time Status Sestamibi Stress Test Request Routi ne Exams 02/03/21 04:46 Ordered Basic Metabolic P celeste AM LABS Lab 02/04/21 04:00 Ordered Complete Blood Co unt w/Auto AM LABS Lab 02/04/21 04:00 Ordered Magnesium AM LABS Lab 02/04/21 04:00 Ordered CV. echo complete * [id number] Routine Ultrasound 02/03/21 04:46 Taken Labs from last 24 hours 02/02/21 02/02/21 02/02/21 22:30 17:50 16:17 WBC RBC Hgb Hct MCV MCH MCHC RDW Plt Count MPV Neut % (Auto) Lymph % (Auto) [place] % (Auto) Eos % (Auto) Baso % (Auto) Neut # (Auto) Lymph # (Auto) [place] # (Auto) Eos # (Auto) Baso # (Auto) Nucleated RBC % (a uto) Nucleated RBCs # Sodium Potassium Chloride Carbon Dioxide Anion Gap BUN Creatinine GFR Calculation Glucose Calculated Osmolal ity Calcium Total Bilirubin AST ALT Alkaline Phosphata se Troponin T Baselin e Troponin T 120 Min ho-chunk 6.42 Delta Troponin T -2.58 L Troponin T Hi Sens 6Hr 8.88 Troponin T Hi Sens 6Hr Delta -0.12 L Total Protein Albumin Globulin Lipase SARS-CoV-2 Ag (Rap id) Negative 02/02/21 02/02/21 02/02/21 16:06 16:06 16:06 WBC 6.3 RBC 3.00 L Hgb 9.4 L Hct 29.4 L MCV 98.0 MCH 31.3 MCHC 32.0 RDW 13.8 Plt Count 329 MPV 9.9 Neut % (Auto) 68.3 Lymph % (Auto) 19.5 [place] % (Auto) 10.8 Eos % (Auto) 0.6 Baso % (Auto) 0.6 Neut # (Auto) 4.31 Lymph # (Auto) 1.2 [place] # (Auto) 0.7 Eos # (Auto) 0.0 Baso # (Auto) 0.0 Nucleated RBC % (a uto) 0 Nucleated RBCs # 0.0 Sodium 136 Potassium 3.8 Chloride 99 Carbon Dioxide 28 Anion Gap 12.8 BUN 10 Creatinine 0.8 GFR Calculation Not Reportable Glucose 94 Calculated Osmolal ity 281 L Calcium 8.8 Total Bilirubin 0.3 AST 11 ALT < 5 Alkaline Phosphata se 61 Troponin T Baselin e 9 Troponin T 120 Min ho-chunk Delta Troponin T Troponin T Hi Sens 6Hr Troponin T Hi Sens 6Hr Delta Total Protein 6.0 L Albumin 4.2 Globulin 1.8 Lipase 14 SARS-CoV-2 Ag (Rap id) Vitals: Last Vital Signs Temp 97.6 F 02/02/21 15:53 Pulse 97 02/03/21 12:18 Resp 19 H 02/03/21 12:18 BP 143/105 02/03/21 12:18 Pulse Ox 96 02/03/21 12:18 Discharge Plan Discharge Patient Disposition: Home Condition: Stable Prescriptions: No Action sucralfate [Carafate] 1 gram tablet 1 g PO Q6H 30 Days Qty: 120 RF: 0 acetaminophen 500 mg tablet 500 mg PO Q6H PRN (Reason: mild to moderate pain) Qty: 120 RF: 3 nitroglycerin [Nitrostat] 0.4 mg tablet, sublingual 0.4 mg SUBLINGUAL Q5M PRN (Reason: Chest Pain from heart) Qty: 14 RF: 3 sertraline 25 mg tablet 25 mg PO DAILY Qty: 30 RF: 5 ondansetron HCl 4 mg tablet See Rx Instructions .ROUTE .COMPLEX Qty: 40 RF: 0 trihexyphenidyl 2 mg tablet See Rx Instructions .ROUTE .COMPLEX Qty: 60 RF: 0 aspirin 81 mg tablet,delayed release (DR/EC) 81 mg PO DAILY@08 RF: 0 sucralfate [Carafate] 1 gram tablet 1 g PO BID 28 Days Qty: 56 RF: 0 carbidopa-levodopa 25-100 mg tablet 2.5 tab PO QID RF: 0 pantoprazole [Protonix] 40 mg tablet,delayed release (DR/EC) 40 mg PO DAILY Qty: 60 RF: 0 Patient Instructions: Opioid Safety Discharge Attestations Time Spent in Discharge Care*: other Status at Discharge: Overall status at discharge: other Quality Metrics Clinical Quality Measures During this hospital stay, did patient experience: None Coding Level of Care Code Acute g FW CT note Diagnoses Fibromyalgia M79.7 Parkinson disease G20 CAD (coronary artery disease) I25.10 Chronic back pain M54.9; G89.29 GERD (gastroesophageal reflux disease) K21.9 Chest pain R07.9 Fall W19.XXXA
== END 2021-02-03 12:45 | disposition left against medical advice (07) ==
LOC: ER 19:05 → ER IP 23:35
PROVIDERS: Emergency Provider Emergency Medicine; PCP Family Medicine Adult Medicine; Visit Provider Internal Medicine
DX: R07.9 Chest pain, unspecified (principal); Z53.21 Procedure and treatment not carried out due to patient leaving prior to being seen by health care provider; I25.10 Atherosclerotic heart disease of native coronary artery without angina pectoris; H35.30 Unspecified macular degeneration; G20 Parkinson's disease; Z20.822 Contact with and (suspected) exposure to COVID-19
CPT/HCPCS: 71045; 73010; 73502; 80053; 83690; 84484; 85025; 87426; 93005; 93306; 96372; 96374; 96375; 99285; C9113; J1630; J1650

== ENCOUNTER 2021-06-13 09:24 | Outpatient (CLI) | payer MEDICARE, SELFPAY ==
--- NOTE | 2021-06-13 09:34 | FL_ITS ---
WS: [id number] Barium swallow and esophagram, upper GI series with air, 06/13/2021 Clinical Data: K21.9 - Gastro-esophageal reflux disease without esophagitis Comparison: None. Fluoroscopy time: 1.4 # of spot films: 12 Findings: The patient swallowed the thick and thin barium, and it flowed to the hypopharynx without hesitation. No stricture, mass, polyp or erosion was seen. The barium passed into the esophagus and there was poor motility throughout. There was a small divert iculum of the mid esophagus. No hiatal hernia, mass, polyp, erosion or ulceration was seen. However t here was free reflux between the esophagus and the stomach. When the patient was in the supine positi on, the reflux occurred to the level of the thoracic inlet. The barium passed into the stomach which was well distended. No erosion, polyp, mass or deformity co uld be seen. No gastric ulcer was present. Barium then passed into the duodenal bulb which distended normally without ulceration. The proximal small bowel is normal. FL/FL upper GI w air* [id number] Impression: 1. Poor esophageal motility with a small mid esophageal pulsion diverticulum. 2. No hiatal hernia but there was free reflux between the stomach and the esoph mohan when the patient was supine. 3. Normal stomach and proximal small bowel.
== END 2021-06-13 09:25 | disposition home or self-care (01) ==
PROVIDERS: PCP Family Medicine Adult Medicine; Visit Provider Surgery
DX: K21.9 Gastro-esophageal reflux disease without esophagitis (principal); Q39.6 Congenital diverticulum of esophagus
CPT/HCPCS: 74246

== ENCOUNTER → 2021-06-27 10:58 | Outpatient (BNVA) | payer MEDICARE, SELFPAY | PROVIDERS: PCP Family Medicine Adult Medicine; Visit Provider Surgery | DX: K22.4 Dyskinesia of esophagus (principal); K21.9 Gastro-esophageal reflux disease without esophagitis | CPT/HCPCS: 99214 ==

== ENCOUNTER → 2021-07-25 11:08 | Outpatient (BNVA) | payer MEDICARE, SELFPAY | PROVIDERS: PCP Family Medicine Adult Medicine; Visit Provider Family Medicine Adult Medicine | DX: M54.9 Dorsalgia, unspecified (principal); G89.29 Other chronic pain; R30.9 Painful micturition, unspecified; K22.4 Dyskinesia of esophagus; I35.0 Nonrheumatic aortic (valve) stenosis; I25.10 Atherosclerotic heart disease of native coronary artery without angina pectoris; G20 Parkinson's disease; K21.9 Gastro-esophageal reflux disease without esophagitis; Z13.6 Encounter for screening for cardiovascular disorders; R63.4 Abnormal weight loss; F41.9 Anxiety disorder, unspecified; F32.A Depression, unspecified | CPT/HCPCS: 80053; 81000; 84443; 85025 ==

== ENCOUNTER → 2021-09-17 10:31 | Outpatient (BNVA) | payer MEDICARE, SELFPAY | PROVIDERS: PCP Family Medicine Adult Medicine; Visit Provider Specialist | DX: G20 Parkinson's disease (principal); F41.9 Anxiety disorder, unspecified; F32.A Depression, unspecified | CPT/HCPCS: 99214; 99215 ==

== ENCOUNTER 2021-09-18 19:27 | Emergency (ER) | payer MEDICARE, SELFPAY ==
--- NOTE | 2021-09-18 19:35 | W.ED.CHESTPA ---
HPI - Chest Pain General: Chief Complaint: Chest Pain Stated Complaint: CP Time Seen by Provider: 09/18/21 19:34 History of Present Illness: Ms. Linton is a 76-year-old lady with significant past medical history of COPD, cholelithiasis status post cholecystectomy, chronic GERD, esophageal dysmotility likely related to Parkinson's disease, weight loss who presents to the emergency department due to chest pain. She reports chronic history of similar and it is often related to her GERD. She does sleep sitting up in order to help with her symptoms. Starting approximately 3 hours ago she began having left anterior chest pressure without significant radiation. She also has sore throat which has been worse. Intensity symptoms is moderate to severe. Course has persisted. No other specific changes in health, exacerbating, or alleviating factors identified. Onset (ago): hour(s) Timing of current episode: constant Prior episodes: Yes Onset: during rest Pain location: left chest Severity: moderate Quality: heaviness Associated symptoms: Reports other Review of Systems General: Reports: 10 or more systems reviewed and unremarkable except in HPI and below PFSH ED PFSH: Medical History Anxiety and depression CAD (coronary artery disease) Signed out AMA Chest pain Cholelithiasis Drug-seeking behavior Esophageal dysmotility Fall Signed out AMA GERD (gastroesophageal reflux disease) Signed out AMA Macular degeneration Parkinson disease Signed out AMA Weight loss, unintentional Surgical History History of carpal tunnel surgery History of colonoscopy with polypectomy 2017 History of foot surgery Status post laparoscopic cholecystectomy (07/31/20) Dr. Baldwin 07/31/2021 Family History Daughter Cancer Social History Smoking and tobacco status: never smoked Alcohol intake: never Physical Exam Const: COMMON NORMALS: alert GENERAL APPEARANCE: cooperative and well developed HENMT: COMMON NORMALS: normocephalic and atraumatic HEAD & SCALP: normocephalic and atraumatic THROAT: posterior oropharynx normal Eye: COMMON NORMALS: conjunctivae normal CONJUNCTIVA: Yes conjunctivae normal SCLERA: sclerae normal Neck/C-Spine: COMMON NORMALS: supple GENERAL: Yes trachea midline Resp: COMMON NORMALS: normal respiratory effort and clear to auscultation bilaterally EFFORT & INSPECTION: Yes able to speak in complete sentences AUSCULTATION: clear to auscultation bilaterally Cardio: COMMON NORMALS: regular rate and regular rhythm RATE: regular rate RHYTHM: regular rhythm GI: COMMON NORMALS: Soft to palpation PALPATION: Yes Soft to palpation and No Tenderness to palpation present (GI) Extremity: GENERAL: Yes normal exam except as noted and No edema Neuro: COMMON NORMALS: moves all extremities SENSORIUM/ORIENTATION: Yes alert and No Orientation impaired OTHER: Parkinsonian tremor Psych: COMMON NORMALS: mental status grossly normal and Normal thought process present THOUGHT PROCESS: Normal thought process present Course ED course: - Patient was seen and evaluated by me at bedside - Patient placed on cardiac monitors, IV access obtained - Initial evaluation notable for exam as above - Labs and xrays personally interpreted by me. EKG with sinus rhythm, no STEMI. -Symptom treatment ordered - Labs notable for no leukocytosis, baseline normocytic anemia. Metabolic panel with mild dehydration. Negative delta troponin. No UTI. - Imaging notable for no lobar consolidation or pneumothorax - Upon serial reexamination after treatment the patient was not significantly improved. Given patient's history believe that the most likely cause of the patient's symptoms is related to gastroesophageal etiology. In the past patient has declined further cardiac testing and the symptoms are not significantly different than patient's baseline. - The results of ED evaluation were discussed with the patient including prescriptions and/or symptomatic cares (if applicable) including appropriate and responsible use, followup plan, and return precautions. - Patient discharged in satisfactory condition. Note: Click bubbles or prepopulated kwan in note writing are used for assistance with data collection and billing and are inherently more limited than narrative and other text portions of this note. Please use narrative for additional clinical history and defer to narrative/free test for any case of contradictory information. If information appears in only free text or click bubble it should be considered present or absent as reported. Please contact note automotive service writer for clarifications of clinical information or contradictory information. MDM is a brief summary, contradictory or erroneous seeming information should be clarified and full note should be reviewed. Vital Signs: Vital signs: Vital Signs Temperature 98.0 F 09/18/21 19:37 Pulse Rate 78 09/18/21 23:46 Respiratory Rate 16 07/21/22 23:46 Blood Pressure 142/84 09/18/21 23:46 Pulse Oximetry 94 09/18/21 23:46 Oxygen Delivery Me thod 09/18/21 23:14 Oxygen Flow Rate 3 09/18/21 19:37 MDM - Chest Pain Medical Decision Making 76-year-old lady with history of gastroesophageal pathology presenting with chest discomfort. Negative troponin. No clear etiology identified on ED evaluation. Satisfactory for outpatient management. Medical Records I reviewed the patient's medical records. Lab Data I reviewed the patient's lab results. : 09/18/21 19:03 09/18/21 19:03 Radiology Impressions Chest X-Ray 09/18/21 19:50 IMPRESSION: No acute findings. Laboratory Results WBC 5.8 10^3/uL (4.0-10.0) 09/18/21 19:03 RBC 3.47 10^6/uL (4.1-5.3) L 09/18/21 19:03 Hgb 10.8 g/dL (11.5-15.3) L 09/18/21 19:03 Hct 33.2 % (37.0-47.0) L 09/18/21 19:03 MCV 95.7 fl (81-99) 09/18/21 19:03 MCH 31.1 pg (28.0-34.0) 09/18/21 19:03 MCHC 32.5 g/dL (30.0-36.0) 09/18/21 19:03 RDW 14.5 % (12.1-15.1) 09/18/21 19:03 Plt Count 350 10^3/cmm (130-400) 09/18/21 19:03 MPV 10.2 fL (7.4-10.4) 09/18/21 19:03 Neut % (Auto) 78.6 % 09/18/21 19:03 Lymph % (Auto) 14.2 % 09/18/21 19:03 [place] % (Auto) 6.2 % 09/18/21 19:03 Eos % (Auto) 0.3 % 09/18/21 19:03 Baso % (Auto) 0.5 % 09/18/21 19:03 Neut # (Auto) 4.58 10^3/uL (1.8-7.7) 09/18/21 19:03 Lymph # (Auto) 0.8 10^3/uL (0.8-4.8) 09/18/21 19:03 [place] # (Auto) 0.4 10^3/uL (0.2-0.9) 09/18/21 19:03 Eos # (Auto) 0.0 10^3/uL (0.0-0.8) 09/18/21 19:03 Baso # (Auto) 0.0 10^3/uL (0.0-0.1) 09/18/21 19:03 Nucleated RBC % (auto) 0 % 09/18/21 19:03 Nucleated RBCs # 0.0 /100WBC 09/18/21 19:03 Sodium 133 mmol/L (136-145) L 09/18/21 19:03 Potassium 4.2 mmol/L (3.5-5.1) 09/18/21 19:03 Chloride 95 mmol/L (98-107) L 09/18/21 19:03 Carbon Dioxide 26 mmol/L (22-29) 09/18/21 19:03 Anion Gap 16.2 (5-19) 09/18/21 19:03 BUN 17 mg/dL (8-23) 09/18/21 19:03 Creatinine 0.6 mg/dL (0.5-0.9) 09/18/21 19:03 GFR Calculation Not Reportable 09/18/21 19:03 Glucose 188 mg/dL (65-115) H 09/18/21 19:03 Calculated Osmolality 283 mOsm/kg (285-295) L 09/18/21 19:03 Calcium 9.5 mg/dL (8.5-10.5) 09/18/21 19:03 Magnesium 2.3 mg/dL (1.7-2.3) 09/18/21 19:03 Total Bilirubin 0.5 mg/dL (0.15-1.2) 09/18/21 19:03 AST 17 U/L (0-32) 09/18/21 19:03 ALT < 5 U/L (0-33) 09/18/21 19:03 Alkaline Phosphatase 71 IU/L (35-105) 09/18/21 19:03 Troponin T Baseline 8 ng/L (0-10) 09/18/21 19:03 Troponin T 120 Minute 6.92 ng/L (0-10) 09/18/21 22:05 Delta Troponin T -1.08 ABS# (0-10) L 09/18/21 22:05 NT-Pro-B Natriuret Pep 337 pg/mL (0-450) 09/18/21 19:03 Total Protein 7.2 g/dL (6.6-8.7) 09/18/21 19:03 Albumin 4.8 g/dL (3.5-5.2) 09/18/21 19:03 Globulin 2.4 g/dL (1.3-4.6) 09/18/21 19:03 Lipase 38 U/L (13-60) 09/18/21 19:03 Urine Color Yellow (Yellow) 09/18/21 20:40 Urine Appearance Clear (CLEAR) 09/18/21 20:40 Urine pH 5 (5-7) 09/18/21 20:40 Ur Specific [place] 1.010 (1.005-1.030) 09/18/21 20:40 Urine Protein Neg (Negative) 09/18/21 20:40 Urine Glucose (UA) Norm (Normal) 09/18/21 20:40 Urine Ketones Negative (Negative) 09/18/21 20:40 Urine Blood Neg (Negative) 09/18/21 20:40 Urine Nitrate Negative (Negative) 09/18/21 20:40 Urine Bilirubin Neg (Negative) 09/18/21 20:40 Urine Urobilinogen Norm mg/dL (Negative) 09/18/21 20:40 Ur Leukocyte Esterase Negative (Negative) 09/18/21 20:40 Discharge Plan Discharge Patient Disposition: Home Clinical Impression: GERD (gastroesophageal reflux disease), Chest pain, Chronic pain Condition: Stable Prescriptions: New Carafate 1 gram tablet 1 g PO TID PRN (Reason: chest pain) 28 Days Qty: 84 0RF No Action nitroglycerin [Nitrostat] 0.4 mg tablet, sublingual 0.4 mg SUBLINGUAL Q5M PRN (Reason: Chest Pain from heart) Qty: 14 3RF simethicone [Gas-X Extra Strength] 125 mg tablet,chewable 125 mg PO TID PRN sertraline 50 mg tablet 50 mg PO DAILY Qty: 30 1RF potassium citrate PO DAILY acetaminophen 500 mg tablet 500 mg PO Q6H PRN (Reason: mild to moderate pain) Qty: 120 0RF Rx Instructions: 1 or two every 6hr Ensure Liquid 1 ea PO TID Qty: 5688 11RF baclofen 5 mg tablet 5 mg PO BID PRN (Reason: muscle spasm) Qty: 60 0RF carbidopa-levodopa 25-100 mg tablet See Rx Instructions .ROUTE .COMPLEX Qty: 360 5RF Rx Instructions: 2 tablets at 5AM, 3 at 8AM, 2 at 11AM, 3 at 2PM, and 2 at 5PM carbidopa-levodopa 50-200 mg tablet extended release 1 tab PO ONCE Qty: 30 5RF Rx Instructions: 1 tablet at 8PM in addition to the 25/100mg tablets pantoprazole 40 mg tablet,delayed release (DR/EC) 40 mg PO BID Qty: 60 2RF aspirin 81 mg tablet,delayed release (DR/EC) 81 mg PO DAILY@08 Discharge Orders: Discharge ED (Routine); Ordered 09/18/21 Ordered By: John Paul Zuñiga Referrals: Maycol Landis MD [Primary Care Provider] - Discharge Diet: Usual diet Discharge Activity: Increase activity as tolerated Patient Instructions: Chest Pain (ED), Diet for Stomach Ulcers and Gastritis (ED), Chronic Pain (ED), GERD (Gastroesophageal Reflux Disease) (ED) Activity Restrictions/Additional Instructions: Thank you for visiting the emergency department. You were seen and evaluated for chest pain. The exact cause of your symptoms is unclear though likely related to GERD and chronic pain. Please continue all previous instructions given to you including Protonix and Carafate. Please avoid eating 4 to 5 hours before bedtime and sleeping with head of bed elevated. Additionally given continued difficulty with symptoms please follow-up again with general surgery. Please follow-up with cardiology. Please return to the emergency department for anything that you are concerned about a feel needs emergency department evaluation. Coding Level of Care Code ED Clinical Operations Specialist for Armando Fwd Exam Comprehensive
[2021-09-18 19:37] VITALS: BP 119/85; PULSE 100; RESP 18; TEMP 36.7; O2SAT 96; BMI 16.8
--- NOTE | 2021-09-18 19:50 | ECG_ITS ---
[facility] Test Date: 2021-09-18 Pat Name: Heidy Linton Department: Room: Gender: Female Electromyographic Technician: : 1945 Requested By: John Paul Zuñiga Order Number: [id number] Fawad MD: Adrián Fregoso M.D. Measurements Intervals Sharon Rate: 94 P: MD: QRS: -38 QRSD: 85 T: 44 QT: 359 QTc: 449 Interpretive Statements SUPRAVENTRICULAR RHYTHM LEFT AXIS DEVIATION [QRS AXIS < -30] PATTERN CONSISTENT WITH PULMONARY DISEASE VOLTAGE CRITERIA FOR LVH [MEETS CRITERIA IN ONE OF: R(aVL), S(V1), R(V5), R(V5/V6)+S(V1)] Compared to ECG 02/02/2021 17:55:54 Supraventricular rhythm now present Sinus rhythm no longer present Electronically Signed On 09-19-2021 20:30:51 CDT by Adrián Fregoso M.D. [id number]
--- NOTE | 2021-09-18 19:50 | XRR_ITS ---
PROCEDURE INFORMATION: Exam: XR Chest Exam date and time: 09/18/2021 7:56 PM Age: 76 years old Clinical indication: Chest wall pain; Additional info: Chest pain TECHNIQUE: Imaging protocol: Radiologic exam of the chest. Views: 1 view. COMPARISON: CR XR chest 1V portable [id number] 02/02/2021 4:08 PM FINDINGS: Lungs: Unremarkable. No consolidation. Pleural spaces: Unremarkable. No pleural effusion. No pneumothorax. Heart/Mediastinum: Unremarkable. No cardiomegaly. Bones/joints: There is a thoracolumbar spine scoliosis. XR/XR chest 1V portable [id number] IMPRESSION: No acute findings.
[2021-09-18 20:02] LABS: Basophils % 0.5 %; Eosinophils % 0.3 %; Hematocrit 33.2 % (37.0-47.0); Hemoglobin 10.8 g/dL (11.5-15.3); Lymphocytes # 0.8 10^3/uL (0.8-4.8); Lymphocytes % 14.2 %; Mean Corpuscular HGB Conc 32.5 g/dL (30.0-36.0); Mean Corpuscular Hemoglobin 31.1 pg (28.0-34.0); Mean Corpuscular Volume 95.7 fl (81-99); Mean Platelet Volume 10.2 fL (7.4-10.4); Monocytes # 0.4 10^3/uL (0.2-0.9); Monocytes % 6.2 %; Neutrophils # 4.58 10^3/uL (1.8-7.7); Neutrophils % 78.6 %; Nucleated Red Blood Cells % 0 %; Platelet Count 350 10^3/cmm (130-400); Red Blood Count 3.47 10^6/uL (4.1-5.3); Red Cell Distribution Width 14.5 % (12.1-15.1); White Blood Count 5.8 10^3/uL (4.0-10.0)
[2021-09-18] MEDS: lidocaine 2% viscous 15 ML, aluminum-mag hydrox-simethicon 30 ML, sucralfate oral liq 1 GM PO (20:08)
[2021-09-18] MEDS: aspirin 81 mg Chew Tablet 324 MG PO (20:08)
[2021-09-18 20:36] LABS: Troponin(5th) Baseline 8 ng/L (0-10)
[2021-09-18 20:44] LABS: Alanine Aminotransferase < 5 U/L (0-33); Albumin Level 4.8 g/dL (3.5-5.2); Alkaline Phosphatase 71 IU/L (35-105); Anion Gap 16.2 (5-19); Aspartate Amino Transferase 17 U/L (0-32); Blood Urea Nitrogen 17 mg/dL (8-23); Calcium 9.5 mg/dL (8.5-10.5); Carbon Dioxide 26 mmol/L (22-29); Chloride 95 mmol/L (98-107); Globulin 2.4 g/dL (1.3-4.6); Glucose 188 mg/dL (65-115); Lipase 38 U/L (13-60); NT Pro B Type Natriuretic Pept 337 pg/mL (0-450); Osmolality Calculated 283 mOsm/kg (285-295); Potassium 4.2 mmol/L (3.5-5.1); Sodium 133 mmol/L (136-145); Total Bilirubin 0.5 mg/dL (0.15-1.2); Total Protein 7.2 g/dL (6.6-8.7)
[2021-09-18 20:53] LABS: Magnesium 2.3 mg/dL (1.7-2.3)
[2021-09-18] MEDS: acetaminophen 1,000 MG/100 ML PIGGYBACK 400 MG IV (21:00)
[2021-09-18 21:03] LABS: Add Urine Microscopic? NO; Charge for UA Resulting for Rev
[2021-09-18 21:05] LABS: Urine Appearance Clear (CLEAR); Urine Color Yellow (Yellow); pH Urine 5 (5-7)
[2021-09-18 21:06] LABS: Bilirubin Urine Neg (Negative); Blood Urine Neg (Negative); Glucose Urine UA Norm (Normal); Ketones Urine Negative (Negative); Leukocyte Esterase Urine Negative (Negative); Nitrate Urine Negative (Negative); Protein Urine Neg (Negative); Urobilinogen Urine Norm (Negative)
[2021-09-18] MEDS: sodium chloride 0.9% 500 ML 999 ML IV (21:31)
[2021-09-18] MEDS: orphenadrine 30 mg/mL Inj 2 mL IVP (21:38)
[2021-09-18 21:40] VITALS: BP 140/84; PULSE 98; RESP 20; O2SAT 93
[2021-09-18 22:33] LABS: Troponin 5 2HR 6.92 ng/L (0-10)
[2021-09-18 22:44] LABS: Troponin 5 2HR Delta -1.08 ABS# (0-10)
[2021-09-18] MEDS: ketorolac 30 mg/mL INJ 15 MG IVP (23:01)
[2021-09-18] MEDS: sucralfate 1 gm Tablet PO (23:02)
[2021-09-18] MEDS: pantoprazole 40 mg SDV IVP (23:02)
[2021-09-18 23:14] VITALS: BP 158/85; PULSE 88; RESP 18; O2SAT 93
[2021-09-18 23:46] VITALS: BP 142/84; PULSE 78; RESP 16; O2SAT 94
== END 2021-09-18 23:46 | disposition home or self-care (01) ==
PROVIDERS: Emergency Provider Emergency Medicine; PCP Family Medicine Adult Medicine
DX: R07.9 Chest pain, unspecified (principal); K21.9 Gastro-esophageal reflux disease without esophagitis; G89.29 Other chronic pain; Z79.82 Long term (current) use of aspirin; I25.10 Atherosclerotic heart disease of native coronary artery without angina pectoris; H35.30 Unspecified macular degeneration; G20 Parkinson's disease; J44.9 Chronic obstructive pulmonary disease, unspecified
CPT/HCPCS: 36415; 71045; 80053; 81003; 83690; 83735; 83880; 84484; 85025; 93005; 96365; 96375; 99285; C9113; J1885; J2360; J7040

== ENCOUNTER → 2021-09-29 13:01 | Outpatient (BNVA) | payer MEDICARE, SELFPAY | PROVIDERS: PCP Family Medicine Adult Medicine; Visit Provider Internal Medicine Cardiovascular Disease | DX: I25.10 Atherosclerotic heart disease of native coronary artery without angina pectoris (principal); R07.9 Chest pain, unspecified; I35.0 Nonrheumatic aortic (valve) stenosis; M79.7 Fibromyalgia; G20 Parkinson's disease | CPT/HCPCS: 99213 ==

== ENCOUNTER → 2022-01-30 10:51 | Outpatient (BNVA) | payer MEDICARE, SELFPAY | PROVIDERS: PCP Family Medicine Adult Medicine; Visit Provider Family Medicine Adult Medicine | DX: E11.9 Type 2 diabetes mellitus without complications (principal); R63.4 Abnormal weight loss; G20 Parkinson's disease; I25.10 Atherosclerotic heart disease of native coronary artery without angina pectoris | CPT/HCPCS: 80053; 83036; 85025 ==

== ENCOUNTER → 2022-03-16 11:02 | Outpatient (BNVA) | payer MEDICARE, SELFPAY | PROVIDERS: PCP Family Medicine Adult Medicine; Visit Provider Specialist | DX: G20 Parkinson's disease (principal); F41.9 Anxiety disorder, unspecified; F32.A Depression, unspecified | CPT/HCPCS: 99214 ==

== ENCOUNTER → 2022-04-10 11:06 | Outpatient (BNVA) | payer MEDICARE, SELFPAY | PROVIDERS: PCP Family Medicine Adult Medicine; Visit Provider Internal Medicine Cardiovascular Disease | DX: I25.10 Atherosclerotic heart disease of native coronary artery without angina pectoris (principal); I35.0 Nonrheumatic aortic (valve) stenosis; F41.9 Anxiety disorder, unspecified; F32.A Depression, unspecified; R63.4 Abnormal weight loss; M79.7 Fibromyalgia; G20 Parkinson's disease; Z68.1 Body mass index [BMI] 19.9 or less, adult | CPT/HCPCS: 99213 ==

== ENCOUNTER → 2022-10-22 13:51 | Outpatient (BNVA) | payer MEDICARE, SELFPAY | PROVIDERS: PCP Family Medicine Adult Medicine; Visit Provider Internal Medicine | DX: R07.9 Chest pain, unspecified (principal); I35.0 Nonrheumatic aortic (valve) stenosis | CPT/HCPCS: 99214 ==

== ENCOUNTER → 2022-12-08 12:03 | Outpatient (BNVA) | payer MEDICARE, SELFPAY | PROVIDERS: PCP Family Medicine Adult Medicine; Visit Provider Family Medicine Adult Medicine | DX: Z87.898 Personal history of other specified conditions (principal); R32 Unspecified urinary incontinence | CPT/HCPCS: 81000 ==

== ENCOUNTER 2023-07-09 18:32 | Emergency (ER) | payer MEDICARE, SELFPAY ==
[2023-07-09 18:33] VITALS: BP 129/83; PULSE 93; RESP 17; TEMP 36.7; O2SAT 97; BMI 20.9
--- NOTE | 2023-07-09 18:46 | XRR_ITS ---
PROCEDURE INFORMATION: Exam: XR Chest Exam date and time: 07/09/2023 8:09 PM Age: 78 years old Clinical indication: Chest wall pain; Additional info: Chest pain TECHNIQUE: Imaging protocol: Radiologic exam of the chest. Views: 1 view. COMPARISON: CR XR chest 1V portable [id number] 09/18/2021 7:56 PM FINDINGS: Lungs: Emphysematous changes. Pleural spaces: Unremarkable. No pleural effusion. No pneumothorax. Heart/Mediastinum: Cardiomegaly. Bones/joints: Unremarkable. XR/XR chest 1V portable [id number] IMPRESSION: 1. Negative for infiltrate. 2. Cardiomegaly. 3. Emphysematous changes.
--- NOTE | 2023-07-09 18:46 | ECG_ITS ---
[facility] Test Date: 2023-07-09 Pat Name: Heidy Linton Department: Room: Gender: Female Health Educator: : 1945 Requested By: Maninder Ortiz Order Number: [id number] Fawad MD: Adrián Fregoso M.D. Measurements Intervals Allison Rate: 93 P: 70 CT: 148 QRS: -34 QRSD: 80 T: 28 QT: 352 QTc: 439 Interpretive Statements SINUS RHYTHM LEFT AXIS DEVIATION [QRS AXIS < -30] VOLTAGE CRITERIA FOR LVH [MEETS CRITERIA IN ONE OF: R(aVL), S(V1), R(V5), R(V5/V6)+S(V1)] Compared to ECG 09/18/2021 19:38:21 Supraventricular rhythm no longer present Electronically Signed On 07-09-2023 23:31:30 CDT by Adrián Fregoso M.D. [id number]
[2023-07-09 18:49] VITALS: BP 141/87; PULSE 88; O2SAT 99
[2023-07-09 18:55] LABS: Basophils % 0.6 %; Eosinophils % 0.4 %; Hematocrit 32.9 % (36-47); Lymphocytes # 0.9 10^3/uL (0.8-4.8); Lymphocytes % 16.2 %; Mean Corpuscular HGB Conc 32.2 g/dL (30-55); Mean Corpuscular Hemoglobin 31.5 pg (27-33); Mean Corpuscular Volume 97.6 fl (85-98); Mean Platelet Volume 9.6 fL (7.4-10.4); Monocytes # 0.5 10^3/uL (0.2-0.9); Monocytes % 8.3 %; Neutrophils # 4.04 10^3/uL (1.8-7.7); Neutrophils % 74.1 %; Nucleated Red Blood Cells % 0 %; Platelet Count 332 10^3/cmm (157-399); Red Blood Count 3.37 10^6/uL (3.85-5.65); Red Cell Distribution Width 14.4 % (12.1-15.1); White Blood Count 5.44 10^3/uL (3.29-11.43)
[2023-07-09 19:07] LABS: Troponin(5th) Baseline 10 ng/L (0-10)
[2023-07-09 19:09] LABS: Alanine Aminotransferase < 5 U/L (0-33); Albumin Level 4.4 g/dL (3.5-5.2); Alkaline Phosphatase 114 U/L (35-105); Aspartate Amino Transferase 14 U/L (0-32); Blood Urea Nitrogen 24 mg/dL (8-23); Calcium 8.8 mg/dL (8.5-10.5); Carbon Dioxide 26 mmol/L (22-29); Chloride 99 mmol/L (98-107); Creatinine Clr Calc Pharmacy 42.0504; Globulin 2.8 g/dL (1.3-4.6); Glucose 125 mg/dL (65-115); Osmolality Calculated 288 mOsm/kg (285-295); Sodium 136 mmol/L (136-145); Total Bilirubin 0.3 mg/dL (0.15-1.2); Total Protein 7.2 g/dL (6.6-8.7)
[2023-07-09] MEDS: lidocaine 2% viscous 15 ML, aluminum-mag hydrox-simethicon 30 ML, sucralfate oral liq 1 GM PO (19:09)
--- NOTE | 2023-07-09 19:52 | W.ED.CHESTPA ---
HPI - Chest Pain General: Chief Complaint: Chest Pain Stated Complaint: chest pain Time Seen by Provider: 07/09/23 18:46 History of Present Illness: Patient presents to the ER with worsening of her chronic chest/epigastric pain. Patient says she was here previously and had a GI cocktail and it seems to work very good. Patient states that she has this pain every day but today just got worse and she could not take it anymore so she came to the ER to be evaluated. Patient denies any nausea vomiting shortness of breath diaphoresis. Patient sees Dr. Diaz over the last appointment being over a year ago, then she complained of chest pain once a month radiated down her left arm, she had an echo that showed moderate aortic stenosis with normal LV function Review of Systems General: Reports: 10 or more systems reviewed and unremarkable except in HPI and below PFSH ED PFSH: Medical History Dental caries associated with enamel hypomineralization Bilateral lower extremity edema Incontinence of urine in female Chronic low back pain Kyphosis Anxiety and depression Esophageal dysmotility Drug-seeking behavior Cholelithiasis Parkinson disease CAD (coronary artery disease) Macular degeneration GERD (gastroesophageal reflux disease) Surgical History Status post laparoscopic cholecystectomy (07/31/20) Dr. Baldwin 07/31/2021 History of colonoscopy with polypectomy 2018 History of foot surgery History of carpal tunnel surgery Family History Daughter Cancer Social History Smoking and tobacco/nicotine status: never used tobacco/nicotine Alcohol intake: never Substance/Drug Use: never Adopted: No Caregiver/support person: Yes Lives independently: No Household members: family Marital status: / Highest education level completed: Some College, No Degree service: No Current occupational status: retired and disabled Current occupational exposures/hazards: No Sexually active: No Do you think of yourself as: Straight/Heterosexual Current gender identity: Female Physical Exam Const: COMMON NORMALS: no acute distress, average body habitus, patient oriented x3, no limitations, healthy appearing, alert and well nourished HENMT: COMMON NORMALS: normocephalic, atraumatic, hearing grossly normal bilaterally, external ears normal, Normal external nose present, moist oral mucous membranes and oropharynx normal HEAD & SCALP: normocephalic and atraumatic NOSE: Normal external nose present EXTERNAL EAR: Yes external ears normal Neck/C-Spine: COMMON NORMALS: no JVD Chest: COMMONS NORMALS: normal inspection of the chest; negative for normal palpation of entire chest wall (Tenderness to palpation over sternal area worse in the lower sternal region) Resp: COMMON NORMALS: normal respiratory effort, No retractions, No use of accessory muscles and clear to auscultation bilaterally AUSCULTATION: clear to auscultation bilaterally Cardio: COMMON NORMALS: no JVD, regular rate, regular rhythm, S1 normal heart sound present, S2 normal heart sound present, No gallops present (Cardio) and No rub (Cardio); negative for No murmurs present (Cardio) (2 out of 6 systolic ejection murmur) RATE: regular rate RHYTHM: regular rhythm HEART SOUNDS: S1 normal heart sound present and S2 normal heart sound present GI: COMMON NORMALS: Normal to inspection, nondistended, normoactive bowel sounds present, Soft to palpation and No hepatosplenomegaly present; negative for non-tender (Tender to palpate over epigastric region) PALPATION: Yes Soft to palpation and Yes No hepatosplenomegaly present Neuro: COMMON NORMALS: patient oriented x3 SENSORIUM/ORIENTATION: Yes alert Course Vital Signs: Vital signs: Vital Signs Temperature 98.1 F 07/09/23 18:33 Pulse Rate 101 H 07/09/23 22:13 Respiratory Rate 17 07/09/23 18:33 Blood Pressure 171/112 07/09/23 22:13 Pulse Oximetry 97 07/09/23 22:13 Oxygen Delivery Me thod Room Air 07/09/23 18:33 MDM - Chest Pain Medical Decision Making Patient presented with chest pain/epigastric pain. Patient was worked up with normal chest pain fashion with serial lab work including troponins, chest x-ray, patient was given a GI cocktail which helped her pain. Patient was also given 50 mg Toradol IV, troponins baseline was 10 and 2-hour troponin was 10.99 for delta of approximately 1. Patient be discharged home for further evaluation and treatment per PCP. Differential Diagnosis Unlikely acute massive pulmonary embolism, acute respiratory failure, acute myocardial infarction, cardiac arrest or sudden cardiac Medical Records I reviewed the patient's medical records. Lab Data I reviewed the patient's lab results. 07/09/23 18:08 07/09/23 18:08 Radiology Impressions Chest X-Ray 07/09/23 18:46 IMPRESSION: 1. Negative for infiltrate. 2. Cardiomegaly. 3. Emphysematous changes. Laboratory Results WBC 5.44 10^3/uL (3.29-11.43) 07/09/23 18:08 RBC 3.37 10^6/uL (3.85-5.65) L 07/09/23 18:08 Hgb 10.60 g/dL (11.27-16.99) L 07/09/23 18:08 Hct 32.9 % (36-47) L 07/09/23 18:08 MCV 97.6 fl (85-98) 07/09/23 18:08 MCH 31.5 pg (27-33) 07/09/23 18:08 MCHC 32.2 g/dL (30-55) 07/09/23 18:08 RDW 14.4 % (12.1-15.1) 07/09/23 18:08 Plt Count 332 10^3/cmm (157-399) 07/09/23 18:08 MPV 9.6 fL (7.4-10.4) 07/09/23 18:08 Neut % (Auto) 74.1 % 07/09/23 18:08 Lymph % (Auto) 16.2 % 07/09/23 18:08 Mathews % (Auto) 8.3 % 07/09/23 18:08 Eos % (Auto) 0.4 % 07/09/23 18:08 Baso % (Auto) 0.6 % 07/09/23 18:08 Neut # (Auto) 4.04 10^3/uL (1.8-7.7) 07/09/23 18:08 Lymph # (Auto) 0.9 10^3/uL (0.8-4.8) 07/09/23 18:08 Mathews # (Auto) 0.5 10^3/uL (0.2-0.9) 07/09/23 18:08 Eos # (Auto) 0.0 10^3/uL (0.0-0.8) 07/09/23 18:08 Baso # (Auto) 0.0 10^3/uL (0.0-0.1) 07/09/23 18:08 Nucleated RBC % (auto) 0 % 07/09/23 18:08 Nucleated RBCs # 0.0 /100WBC 07/09/23 18:08 Sodium 136 mmol/L (136-145) 07/09/23 18:08 Potassium 5.0 mmol/L (3.5-5.1) 07/09/23 18:08 Chloride 99 mmol/L (98-107) 07/09/23 18:08 Carbon Dioxide 26 mmol/L (22-29) 07/09/23 18:08 Anion Gap 16.0 (5-19) 07/09/23 18:08 BUN 24 mg/dL (8-23) H 07/09/23 18:08 Creatinine 0.8 mg/dL (0.5-0.9) 07/09/23 18:08 GFR Calculation Not Reportable 07/09/23 18:08 Glucose 125 mg/dL (65-115) H 07/09/23 18:08 Calculated Osmolality 288 mOsm/kg (285-295) 07/09/23 18:08 Calcium 8.8 mg/dL (8.5-10.5) 07/09/23 18:08 Magnesium 2.2 mg/dL (1.7-2.3) 07/09/23 18:08 Total Bilirubin 0.3 mg/dL (0.15-1.2) 07/09/23 18:08 AST 14 U/L (0-32) 07/09/23 18:08 ALT < 5 U/L (0-33) 07/09/23 18:08 Alkaline Phosphatase 114 U/L (35-105) H 07/09/23 18:08 Troponin T Baseline 10 ng/L (0-10) 07/09/23 18:08 Troponin T 120 Minute 10.99 ng/L (0-10) H 07/09/23 19:59 Delta Troponin T 0.99 ABS# (0-10) 07/09/23 19:59 Total Protein 7.2 g/dL (6.6-8.7) 07/09/23 18:08 Albumin 4.4 g/dL (3.5-5.2) 07/09/23 18:08 Globulin 2.8 g/dL (1.3-4.6) 07/09/23 18:08 All radiology interpretation(s) finalized by discharge Discharge Plan Discharge Patient Disposition: Home Clinical Impression: Atypical chest pain, Acute epigastric pain Condition: Stable Prescriptions: New Pepcid 20 mg tablet 20 mg PO DAILY Qty: 30 0RF No Action simethicone [Gas-X Extra Strength] 125 mg tablet,chewable 125 mg PO TID PRN sertraline 100 mg tablet 100 mg PO DAILY Qty: 30 5RF Myrbetriq 25 mg tablet extended release 24 hr 25 mg PO DAILY Qty: 30 3RF hydrochlorothiazide 12.5 mg capsule 12.5 mg PO QAM Qty: 30 5RF acetaminophen 500 mg tablet 500 mg PO Q6H PRN (Reason: mild to moderate pain) Qty: 120 0RF Rx Instructions: 1 or two every 6hr potassium citrate PO DAILY PRN Ensure Liquid 1 ea PO DAILY nitroglycerin [Nitrostat] 0.4 mg tablet, sublingual 0.4 mg SUBLINGUAL Q5M PRN (Reason: Chest Pain from heart) Qty: 14 3RF metoclopramide HCl [Reglan] 5 mg tablet 5 mg PO BID Qty: 60 5RF ondansetron 4 mg tablet,disintegrating 4 mg PO Q12H PRN (Reason: nausea and vomiting) Qty: 30 0RF ropinirole 0.25 mg tablet 0.25 mg PO DAILY PRN (Reason: pain and muscle spasm) Qty: 90 2RF pantoprazole 40 mg tablet,delayed release (DR/EC) See Rx Instructions .ROUTE .COMPLEX Qty: 60 2RF Dose Instruction: TAKE ONE TABLET BY MOUTH TWICE DAILY Rx Instructions: TAKE ONE TABLET BY MOUTH TWICE DAILY celecoxib 100 mg capsule 100 mg PO BID Qty: 60 1RF doxycycline hyclate 100 mg tablet 100 mg PO BID Qty: 20 0RF carbidopa-levodopa 25-100 mg tablet See Rx Instructions .ROUTE .COMPLEX Qty: 600 0RF Dose Instruction: TAKE 4 TABLETS BY MOUTH AT 5AM, 8AM, 11AM, 2PM, AND 5PM FOR TREMOR AND SHAKING Rx Instructions: TAKE 4 TABLETS BY MOUTH AT 5AM, 8AM, 11AM, 2PM, AND 5PM FOR TREMOR AND SHAKING baclofen 10 mg tablet 5 mg PO BID PRN (Reason: muscle spasm) 30 Days Qty: 30 3RF Rx Instructions: Fill on or after 30-day interval Discharge Orders: Discharge ED (Routine); Ordered 07/09/23 Ordered By: Maninder Ortiz Referrals: Maycol Landis MD [Primary Care Provider] - 1 week Patient Instructions: Chest Pain (ED), Abdominal Pain (ED) Activity Restrictions/Additional Instructions: Your evaluation in ER did not reveal any acute cardiac cause of your chest pain. Your pain is felt to be noncardiac in nature and thought to be more epigastric abdominal pain. Please continue taking your Protonix as this will help your stomach and we will prescribe you some Pepcid to take as well. Please follow-up with your family practice physician within next 7 days for further evaluation and treatment. If your chest pain changes or worsens please feel free to return to the ER. Coding Level of Care Code ED Network Technology Instructor for Armando Gtz
[2023-07-09 19:57] LABS: Magnesium 2.2 mg/dL (1.7-2.3)
[2023-07-09 20:27] LABS: Troponin 5 2HR 10.99 ng/L (0-10); Troponin 5 2HR Delta 0.99 ABS# (0-10)
[2023-07-09] MEDS: ketorolac 30 mg/mL INJ 15 MG IVP (21:18)
[2023-07-09 22:13] VITALS: BP 171/112; PULSE 101; O2SAT 97
--- NOTE | 2023-07-09 22:15 | PC.NURSE ---
Patient pressed call light and, when nursing staff did not immediately respond, patient proceeded to start screaming until staff checked on her. Patient stated, I started screaming because nobody was coming to help me up to the commode. Patient was educated to not scream in an ED, and that nursing staff were on their way to come help her up to commode. Patient's needs were then met, and patient had no further needs.
== END 2023-07-09 22:03 | disposition home or self-care (01) ==
PROVIDERS: Emergency Provider Emergency Medicine; PCP Family Medicine Adult Medicine
DX: R07.89 Other chest pain (principal); R10.13 Epigastric pain; G20.A1 Parkinson's disease without dyskinesia, without mention of fluctuations; I25.10 Atherosclerotic heart disease of native coronary artery without angina pectoris; H35.30 Unspecified macular degeneration
CPT/HCPCS: 36415; 71045; 80053; 83735; 84484; 85025; 93005; 96374; 99285; J1885

== ENCOUNTER 2023-09-25 07:02 | Emergency (ER) | payer MEDICARE, SELFPAY ==
[2023-09-25 07:04] VITALS: BP 145/88; PULSE 98; RESP 18; TEMP 36.8; O2SAT 98
[2023-09-25 07:10] VITALS: PULSE 92; O2SAT 95
--- NOTE | 2023-09-25 07:19 | XRR_ITS ---
PROCEDURE INFORMATION: Exam: XR Right Forearm Exam date and time: 09/25/2023 7:33 AM Age: 78 years old Clinical indication: Injury or trauma; Fall; Blunt trauma (contusions or hematomas); Arm, lower; Right; Prior surgery; Surgery date: 6+ months; Surgery type: RT wrist TECHNIQUE: Imaging protocol: Radiologic exam of the right forearm. Views: 2 views. COMPARISON: CR (UP EXM, ) 09/25/2023 7:27 AM FINDINGS: Bones/joints: Demineralization of the visualized bones. Plate and screw fixation of the distal radius with no hardware complications. Well corticated ossific fragment around the ulnar styloid, from prior injury. No elbow joint effusion. Moderate degenerative disease of the 1st carpometacarpal joint. No acute fracture or dislocation. Soft tissues: Normal. XR/XR forearm RT 2V [id number] IMPRESSION: No acute fracture or dislocation.
--- NOTE | 2023-09-25 07:19 | XRR_ITS ---
PROCEDURE INFORMATION: Exam: XR Right Wrist Exam date and time: 09/25/2023 7:27 AM Age: 78 years old Clinical indication: Injury or trauma; Fall; Blunt trauma (contusions or hematomas); Wrist; Right TECHNIQUE: Imaging protocol: Radiologic exam of the right wrist. Views: 3 or more views. COMPARISON: CR XR wrist RT min 3V* [id number] 10/25/2019 4:02 PM FINDINGS: Bones/joints: Demineralization of the visualized bones. Plate and screw fixation of the distal radius with no hardware complications. Well corticated bone fragment at the ulnar styloid, from prior injury. Moderate degenerative disease of the STT and 1st carpometacarpal joint. Soft tissues: Normal. XR/XR wrist RT w scaphoid [id number] IMPRESSION: No acute fracture or dislocation.
--- NOTE | 2023-09-25 07:28 | CTR_ITS ---
PROCEDURE INFORMATION: Exam: CT Head Without Contrast Exam date and time: 09/25/2023 8:09 AM Age: 78 years old Clinical indication: Injury or trauma; Fall; Blunt trauma (contusions or hematomas) TECHNIQUE: Imaging protocol: Computed tomography of the head without contrast. Radiation optimization: All CT scans at this facility use at least one of these dose optimization techniques: automated exposure control; mA and/or kV adjustment per patient size (includes targeted exams where dose is matched to clinical indication); or iterative reconstruction. COMPARISON: CT head wo con* [id number] 09/04/2019 12:29 PM RADIATION DOSE METRICS: Total DLP (mGy-cm): 1090.7 FINDINGS: Brain: Bilateral periventricular white matter and centrum semiovale hypodensities consistent chronic ischemic small vessel disease. No recent infarct, intracranial bleed or mass Cerebral ventricles: No ventriculomegaly. Paranasal sinuses: Visualized sinuses are unremarkable. No fluid levels. Mastoid air cells: Visualized mastoid air cells are well aerated. Orbital cavities: Post right cataract surgery. Bones: Unremarkable. No acute fracture. Soft tissues: There is a right temporoparietal subgaleal hematoma. CT/CT head wo con* [id number] IMPRESSION: No intracranial posttraumatic changes.
--- NOTE | 2023-09-25 07:28 | XRR_ITS ---
PROCEDURE INFORMATION: Exam: XR Right Humerus Exam date and time: 09/25/2023 7:31 AM Age: 78 years old Clinical indication: Injury or trauma; Fall; Blunt trauma (contusions or hematomas); Arm, upper; Right TECHNIQUE: Imaging protocol: Radiologic exam of the right humerus. Views: 2 or more views. COMPARISON: [place] [id number] 02/02/2021 5:04 PM FINDINGS: Bones/joints: Mild degenerative disease of the acromioclavicular joint. Demineralization of the visualized bones. Calcific tendinosis of the triceps tendon. No acute fracture or dislocation. Soft tissues: Normal. XR/[place] [id number] IMPRESSION: No acute fracture or dislocation.
--- NOTE | 2023-09-25 07:28 | CTR_ITS ---
PROCEDURE INFORMATION: Exam: CT Cervical Spine Without Contrast Exam date and time: 09/25/2023 8:09 AM Age: 78 years old Clinical indication: Injury or trauma; Fall; Blunt trauma TECHNIQUE: Imaging protocol: Computed tomography of the cervical spine without contrast. Radiation optimization: All CT scans at this facility use at least one of these dose optimization techniques: automated exposure control; mA and/or kV adjustment per patient size (includes targeted exams where dose is matched to clinical indication); or iterative reconstruction. COMPARISON: CT cervical spin wo con* [id number] 09/04/2019 12:35 PM RADIATION DOSE METRICS: Total DLP (mGy-cm): 385.2 FINDINGS: Bones: There is mild curvature of the cervical spine convex to the left. There is moderate degenerative disease at the anterior C1-C2 articulation. Moderate to severe degenerative disease at C5-C6 and C6-C7, more pronounced at C6-C7 with mild anterolisthesis, severe disc space narrowing with anterior and posterior osteophytes. Chronic compression deformities of the lower cervical spine vertebral bodies. No acute fracture. Lungs: Bilateral apical fibrotic changes. Thyroid: Hypodense right thyroid nodule measuring 8 mm. Vasculature: Bilateral carotid artery calcifications. Soft tissues: Unremarkable. CT/CT cervical spin wo con* [id number] IMPRESSION: No posttraumatic changes in the cervical spine. COMMENTS: Consistent with the [employer]'s Incidental Findings Committee white paper (J Am Rachel Radiol 2015): In patients aged 35 years and older with an incidental thyroid nodule equal to or greater than 1.[address], MRI or extrathyroidal US, further evaluation with dedicated thyroid US is recommended for patients with normal life expectancy and without comorbidities. For smaller nodules without suspicious features, no further evaluation or follow up is recommended.
[2023-09-25 07:40] VITALS: PULSE 86; O2SAT 97
[2023-09-25 08:06] LABS: Add Urine Microscopic? NO; Charge for UA Resulting for Rev
[2023-09-25 08:10] VITALS: PULSE 94; O2SAT 97
[2023-09-25 08:39] LABS: Basophils % 0.7 %; Eosinophils % 0.7 %; Hematocrit 31.3 % (36-47); Lymphocytes # 0.9 10^3/uL (0.8-4.8); Mean Corpuscular HGB Conc 31.9 g/dL (30-55); Mean Corpuscular Hemoglobin 31.9 pg (27-33); Mean Platelet Volume 9.5 fL (7.4-10.4); Monocytes # 0.6 10^3/uL (0.2-0.9); Monocytes % 11.2 %; Neutrophils # 4.13 10^3/uL (1.8-7.7); Neutrophils % 72.1 %; Nucleated Red Blood Cells % 0 %; Platelet Count 354 10^3/cmm (157-399); Red Blood Count 3.13 10^6/uL (3.85-5.65); Red Cell Distribution Width 13.7 % (12.1-15.1); White Blood Count 5.73 10^3/uL (3.29-11.43)
[2023-09-25 08:40] VITALS: PULSE 88; O2SAT 98
[2023-09-25 08:41] LABS: Bilirubin Urine Neg (Negative); Blood Urine Neg (Negative); Glucose Urine UA Norm (Normal); Ketones Urine Negative (Negative); Leukocyte Esterase Urine Negative (Negative); Nitrate Urine Negative (Negative); Protein Urine Neg (Negative); Specific Gravity, Urine 1.015 (1.005-1.030); Urine Appearance Clear (CLEAR); Urine Color Yellow (Yellow); Urobilinogen Urine Norm (Negative); pH Urine 6 (5-7)
[2023-09-25 08:55] LABS: Alanine Aminotransferase < 5 U/L (0-33); Albumin Level 4.4 g/dL (3.5-5.2); Alkaline Phosphatase 118 U/L (35-105); Anion Gap 14.5 (5-19); Aspartate Amino Transferase 14 U/L (0-32); Blood Urea Nitrogen 24 mg/dL (8-23); Calcium 9.1 mg/dL (8.5-10.5); Carbon Dioxide 25 mmol/L (22-29); Chloride 103 mmol/L (98-107); Globulin 2.6 g/dL (1.3-4.6); Glucose 113 mg/dL (65-115); Osmolality Calculated 291 mOsm/kg (285-295); Potassium 4.5 mmol/L (3.5-5.1); Sodium 138 mmol/L (136-145); Total Bilirubin 0.3 mg/dL (0.15-1.2)
--- NOTE | 2023-09-25 09:47 | W.ED.EXTPRO ---
HPI - Extremity Problem General: Chief complaint: Extremity Injury, Upper Stated complaint: Right forearm pain s/p Fall Time Seen by Provider: 09/25/23 07:17 History of Present Illness: 78-year-old female presents emergency room via EMS she stumbled over a box ground-level mechanical fall did strike her head no loss of consciousness complaining of some left shoulder pain no other injury. 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 Baldwin 07/31/2021 History of colonoscopy with polypectomy 2018 History of foot surgery History of carpal tunnel surgery Family History Daughter Cancer Social History Smoking and tobacco/nicotine status: never used tobacco/nicotine Alcohol intake: never Substance/Drug Use: never Adopted: No Caregiver/support person: Yes Lives independently: No Household members: family Marital status: / Highest education level completed: Some College, No Degree service: No Current occupational status: retired and disabled Current occupational exposures/hazards: No Sexually active: No Do you think of yourself as: Straight/Heterosexual Current gender identity: Female Physical Exam Const: GENERAL APPEARANCE: cooperative and comfortable ORIENTATION/CONSCIOUSNESS: Yes awake HENMT: COMMON NORMALS: normocephalic, atraumatic and hearing grossly normal bilaterally HEAD & SCALP: normocephalic and atraumatic Resp: COMMON NORMALS: normal respiratory effort, No retractions, No use of accessory muscles and clear to auscultation bilaterally AUSCULTATION: clear to auscultation bilaterally Cardio: COMMON NORMALS: regular rate and regular rhythm RATE: regular rate RHYTHM: regular rhythm HEART SOUNDS: Murmur heart sound present systolic Location: left sternal border Radiation: to the left axilla and to the neck Intensity: V/ Characteristics: harsh Timing: late GI: COMMON NORMALS: Soft to palpation and No hepatosplenomegaly present AUSCULTATION: Yes normoactive bowel sounds PALPATION: Yes Soft to palpation, No Tenderness to palpation present (GI), No Guarding due to palpation present (GI) and Yes No hepatosplenomegaly present Extremity: COMMON NORMALS: normal to inspection, capillary refill normal, no clubbing, cyanosis or edema, no calf tenderness and no pedal edema Skin: COMMON NORMALS: no rashes or lesions noted GENERAL SKIN EXAM: no rashes or lesions noted Course Vital Signs: Vital signs: Vital Signs Temperature 98.2 F 09/25/23 07:04 Pulse Rate 88 09/25/23 08:40 Respiratory Rate 18 09/25/23 07:04 Blood Pressure 145/88 09/25/23 07:04 Pulse Oximetry 98 09/25/23 08:40 Oxygen Delivery Me thod Room Air 09/25/23 07:10 MDM - Extremity (Nontraumatic) Medical Decision Making Imaging negative. Patient was ambulatory. She made the comment to the nurse that her family is not taking care of her at home we contacted Adult Protective Services they will make an investigation. Family did show up and showed interest in taking care of her had appropriate questions for her care while she was here. Discharge her home return if she has further problems. Medical Records I reviewed the patient's medical records. Lab Data I reviewed the patient's lab results. 09/25/23 08:34 09/25/23 08:34 Radiology Impressions Forearm X-Ray 09/25/23 07:19 IMPRESSION: No acute fracture or dislocation. Wrist X-Ray 09/25/23 07:19 IMPRESSION: No acute fracture or dislocation. Cervical Spine CT 09/25/23 07:28 IMPRESSION: No posttraumatic changes in the cervical spine. COMMENTS: Consistent with the [employer]'s Incidental Findings Committee white paper (J Am Rachel Radiol 2015): In patients aged 35 years and older with an incidental thyroid nodule equal to or greater than 1.[address], MRI or extrathyroidal US, further evaluation with dedicated thyroid US is recommended for patients with normal life expectancy and without comorbidities. For smaller nodules without suspicious features, no further evaluation or follow up is recommended. Head CT 09/25/23 07:28 IMPRESSION: No intracranial posttraumatic changes. Humerus X-Ray 09/25/23 07:28 IMPRESSION: No acute fracture or dislocation. Laboratory Results WBC 5.73 10^3/uL (3.29-11.43) 09/25/23 08:34 RBC 3.13 10^6/uL (3.85-5.65) L 09/25/23 08:34 Hgb 10.00 g/dL (11.27-16.99) L 09/25/23 08:34 Hct 31.3 % (36-47) L 09/25/23 08:34 MCV 100.0 fl (85-98) H 09/25/23 08:34 MCH 31.9 pg (27-33) 09/25/23 08:34 MCHC 31.9 g/dL (30-55) 09/25/23 08:34 RDW 13.7 % (12.1-15.1) 09/25/23 08:34 Plt Count 354 10^3/cmm (157-399) 09/25/23 08:34 MPV 9.5 fL (7.4-10.4) 09/25/23 08:34 Neut % (Auto) 72.1 % 09/25/23 08:34 Lymph % (Auto) 15.0 % 09/25/23 08:34 Stanley % (Auto) 11.2 % 09/25/23 08:34 Eos % (Auto) 0.7 % 09/25/23 08:34 Baso % (Auto) 0.7 % 09/25/23 08:34 Neut # (Auto) 4.13 10^3/uL (1.8-7.7) 09/25/23 08:34 Lymph # (Auto) 0.9 10^3/uL (0.8-4.8) 09/25/23 08:34 Stanley # (Auto) 0.6 10^3/uL (0.2-0.9) 09/25/23 08:34 Eos # (Auto) 0.0 10^3/uL (0.0-0.8) 09/25/23 08:34 Baso # (Auto) 0.0 10^3/uL (0.0-0.1) 09/25/23 08:34 Nucleated RBC % (auto) 0 % 09/25/23 08:34 Nucleated RBCs # 0.0 /100WBC 09/25/23 08:34 Sodium 138 mmol/L (136-145) 09/25/23 08:34 Potassium 4.5 mmol/L (3.5-5.1) 09/25/23 08:34 Chloride 103 mmol/L (98-107) 09/25/23 08:34 Carbon Dioxide 25 mmol/L (22-29) 09/25/23 08:34 Anion Gap 14.5 (5-19) 09/25/23 08:34 BUN 24 mg/dL (8-23) H 09/25/23 08:34 Creatinine 0.7 mg/dL (0.5-0.9) 09/25/23 08:34 GFR Calculation Not Reportable 09/25/23 08:34 Glucose 113 mg/dL (65-115) 09/25/23 08:34 Calculated Osmolality 291 mOsm/kg (285-295) 09/25/23 08:34 Calcium 9.1 mg/dL (8.5-10.5) 09/25/23 08:34 Total Bilirubin 0.3 mg/dL (0.15-1.2) 09/25/23 08:34 AST 14 U/L (0-32) 09/25/23 08:34 ALT < 5 U/L (0-33) 09/25/23 08:34 Alkaline Phosphatase 118 U/L (35-105) H 09/25/23 08:34 Total Protein 7.0 g/dL (6.6-8.7) 09/25/23 08:34 Albumin 4.4 g/dL (3.5-5.2) 09/25/23 08:34 Globulin 2.6 g/dL (1.3-4.6) 09/25/23 08:34 Urine Color Yellow (Yellow) 09/25/23 08:00 Urine Appearance Clear (CLEAR) 09/25/23 08:00 Urine pH 6 (5-7) 09/25/23 08:00 Ur Specific [place] 1.015 (1.005-1.030) 09/25/23 08:00 Urine Protein Neg (Negative) 09/25/23 08:00 Urine Glucose (UA) Norm (Normal) 09/25/23 08:00 Urine Ketones Negative (Negative) 09/25/23 08:00 Urine Blood Neg (Negative) 09/25/23 08:00 Urine Nitrate Negative (Negative) 09/25/23 08:00 Urine Bilirubin Neg (Negative) 09/25/23 08:00 Urine Urobilinogen Norm mg/dL (Negative) 09/25/23 08:00 Ur Leukocyte Esterase Negative (Negative) 09/25/23 08:00 All radiology interpretation(s) finalized by discharge Discharge Plan Discharge Patient Disposition: Home Clinical Impression: Fall, Parkinson disease Condition: Stable Prescriptions: No Action simethicone [Gas-X Extra Strength] 125 mg tablet,chewable 125 mg PO TID PRN sertraline 100 mg tablet 100 mg PO DAILY Qty: 30 5RF Myrbetriq 25 mg tablet extended release 24 hr 25 mg PO DAILY Qty: 30 3RF hydrochlorothiazide 12.5 mg capsule 12.5 mg PO QAM Qty: 30 5RF metoclopramide HCl 5 mg tablet 10 mg PO BID Qty: 120 5RF acetaminophen 500 mg tablet 500 mg PO Q6H PRN (Reason: mild to moderate pain) Qty: 120 0RF Rx Instructions: 1 or two every 6hr potassium citrate PO DAILY PRN Ensure Liquid 1 ea PO DAILY nitroglycerin [Nitrostat] 0.4 mg tablet, sublingual 0.4 mg SUBLINGUAL Q5M PRN (Reason: Chest Pain from heart) Qty: 14 3RF ondansetron 4 mg tablet,disintegrating 4 mg PO Q12H PRN (Reason: nausea and vomiting) Qty: 30 0RF ropinirole 0.25 mg tablet 0.25 mg PO DAILY PRN (Reason: pain and muscle spasm) Qty: 90 2RF celecoxib 100 mg capsule 100 mg PO BID Qty: 60 1RF pantoprazole 40 mg tablet,delayed release (DR/EC) See Rx Instructions .ROUTE .COMPLEX Qty: 60 2RF Dose Instruction: TAKE ONE TABLET BY MOUTH TWICE DAILY Rx Instructions: TAKE ONE TABLET BY MOUTH TWICE DAILY baclofen 10 mg tablet 5 mg PO BID PRN (Reason: muscle spasm) 30 Days Qty: 30 3RF Rx Instructions: Fill on or after 30-day interval carbidopa-levodopa 25-100 mg tablet See Rx Instructions .ROUTE .COMPLEX Qty: 600 3RF Dose Instruction: TAKE 4 TABLETS BY MOUTH AT 5AM, 8AM, 11AM, 2PM, AND 5PM FOR TREMOR AND SHAKING Rx Instructions: TAKE 4 TABLETS BY MOUTH AT 5AM, 8AM, 11AM, 2PM, AND 5PM FOR TREMOR AND SHAKING Pepcid 20 mg tablet 20 mg PO DAILY Qty: 30 0RF Discharge Orders: Discharge ED (Routine); Ordered 09/25/23 Ordered By: Ben Maddox Referrals: Maycol Landis MD [Primary Care Provider] - Discharge Diet: Usual diet Discharge Activity: Increase activity as tolerated Patient Instructions: Opioid Safety, Pain Management Activity Restrictions/Additional Instructions: Thank you for choosing [facility] for your healthcare needs today. It is very important that you follow up as instructed or that you return to the Emergency Department should you have concerns or if your condition changes or worsens in any way. You were seen today after a fall. There were no identifiable injuries on the imaging done in the emergency room. Her lab work shows some mild chronic anemia, but no other clinically significant abnormalities at this time. 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
--- NOTE | 2023-09-25 11:24 | PC.NURSE ---
I went in to discharge the patient and the patient stated please don't send me home . I asked the patient why and the patient stated I can't tell you . I asked the patient again why she did not want to go home and the patient stated I can't say . I went and notified Dr. Maddox who told me to go try and speak with the patient again so we can get her help if she needs it. I went back into the patient's room and sat down beside the bed and explained if she would please tell me why she did not want to go home I would do my best to try and help her or get her some help. The patient stated my granddaughter can't take care of me, she only feeds me some times, she doesn't bathe me, she says I have to do it, and sometimes I can't go to the bathroom and I have to sit in it . I did manage to get the patient out of bed and she could stand on her own with little assistance and shuffle around. Patient normally uses a walker at home. Patient also has macular degeneration and told me she is considered legally blind. I did place a call to Adult protective services and reported the situation as I have explained here.
== END 2023-09-25 13:00 | disposition home or self-care (01) ==
PROVIDERS: Emergency Provider Family Medicine; PCP Family Medicine Adult Medicine
DX: G20.A1 Parkinson's disease without dyskinesia, without mention of fluctuations (principal); I25.10 Atherosclerotic heart disease of native coronary artery without angina pectoris; H35.30 Unspecified macular degeneration
CPT/HCPCS: 36415; 70450; 72125; 73060; 73090; 73110; 80053; 81003; 85025; 99284

== ENCOUNTER 2024-05-11 16:09 | Outpatient (CLI) | payer MEDICARE, SELFPAY ==
--- NOTE | 2024-05-11 16:21 | XRR_ITS ---
PROCEDURE INFORMATION: Exam: XR Right Humerus Exam date and time: 05/11/2024 4:27 PM Age: 79 years old Clinical indication: Pain and injury or trauma; Blunt trauma (contusions or hematomas); Arm, upper; Right; Injury details: Pain/swelling/bruising in upper arm after a fall a few days ago. ; Additional info: Arm pain right TECHNIQUE: Imaging protocol: Radiologic exam of the right humerus. Views: 2 or more views. COMPARISON: [place] [id number] 09/25/2023 7:31 AM FINDINGS: Bones/joints: No acute osseous abnormality. Soft tissues: Normal. XR/[place] [id number] IMPRESSION: No acute findings.
== END 2024-05-11 16:10 | disposition home or self-care (01) ==
LOC: RAD 16:12
PROVIDERS: PCP Family Medicine; Visit Provider Nurse Practitioner Family
DX: M79.601 Pain in right arm (principal); W19.XXXA Unspecified fall, initial encounter
CPT/HCPCS: 73060